=== PATIENT | male | born 1995 | race Caucasian/White ===

== ENCOUNTER 2016-07-27 22:46 | Emergency (ER) | payer SELFPAY ==
[2016-07-27 23:04] VITALS: BP 119/56
[2016-07-28] MEDS ORDERED: KETOROLAC TROMETHAMINE 60 MG/2 ML SDV IM ONE (02:31)
[2016-07-28] MEDS ORDERED: ONDANSETRON 4 MG TAB.RAPDIS PO ONE (02:31)
== END 2016-07-28 02:43 | disposition left against medical advice (07) ==
LOC: ER 22:46
DX: Z53.21 Procedure and treatment not carried out due to patient leaving prior to being seen by health care provider (principal)

== ENCOUNTER 2017-12-07 00:59 | Emergency (ER) | payer SELFPAY ==
[2017-12-07] MEDS ORDERED: DEXAMETHASONE SOD PHOS INJ 10 MG/1 ML VIAL IM ONE (03:59)
[2017-12-07] MEDS ORDERED: ALBUTEROL SULFATE 0.083% NEB 2.5 MG/3 ML AMPUL NEB ONE (03:59)
--- NOTE | 2017-12-07 04:01 | ER Document Report ---
HPI - HPI Pain Level: 4 Notes: Patient is a 21-year-old male with no significant past medical history aside from asthma who presents to the ED complaining of a dry semi-productive cough and wheezing over the last 1-2 days. Patient has not been using any over-the- counter meds for symptoms. He is still eating and drinking without difficulties. He is urinating normally. Patient does admit to smoking but denies IV drug use. Patient states that he is able to ambulate without any difficulties, dyspnea on exertion, or development of any chest pain. Denies any drug allergies. Patient arrived by EMS and received one DuoNeb and states that his symptoms improved thereafter. Denies any headache, fever, neck pain, URI, sore throat, chest pain, palpitations, syncope, abdominal pain, nausea/ vomiting/diarrhea, urinary retention, dysuria, hematuria, loss of control of bowel or bladder, numbness/tingling, saddle anesthesia, muscle paralysis/ weakness, or rash. He has not had any leg or calf pains. He denies any hormone use, prolonged immobilization, previous DVT/PE, recent surgery/trauma. - ROS Systems Reviewed and Negative: Yes All other systems reviewed and negative - DERM Skin Color: Normal Past Medical History - Social History Smoking Status: Current Every Day Smoker Chew tobacco use (# tins/day): No Frequency of alcohol use: None Drug Abuse: Heroin Family History: Reviewed & Not Pertinent Patient has suicidal ideation: No Patient has homicidal ideation: No Pulmonary Medical History: Reports: Hx Asthma Neurological Medical History: Reports: Hx Migraine Renal/ Medical History: Denies: Hx Peritoneal Dialysis - Immunizations Immunizations up to date: Yes Hx Diphtheria, Pertussis, Tetanus Vaccination: Yes Vertical Provider Document - CONSTITUTIONAL Agree With Documented VS: No - HR 90 during my exam Notes: PHYSICAL EXAMINATION: GENERAL: Well-appearing, well-nourished and in no acute distress. LUNGS: wheezing throughout and b/l. no retractions. HEART: Regular rate and rhythm without murmurs, rubs, gallops. ABDOMEN: Soft, nontender, nondistended abdomen. No guarding, no rebound. No masses appreciated. Normal bowel sounds present. No CVA tenderness bilaterally. Musculoskeletal: FROM to passive/active. Strength 5+/5. Diogo neg b/l. Extremities: No cyanosis, clubbing, or edema b/l. Peripheral pulses 2+. Capillary refill less than 3 seconds. NEUROLOGICAL: Normal speech, normal gait. PSYCH: Normal mood, normal affect. SKIN: Warm, Dry, normal turgor, no rashes or lesions noted. - INFECTION CONTROL TRAVEL OUTSIDE OF THE [place] IN LAST 30 DAYS: No Course - Re-evaluation Re-evalutation: 12/07/17 04:43 Patient is an afebrile, well-hydrated, 21-year-old male who presents to the ED with acute asthma exacerbation. Vitals are acceptable. PE is otherwise unremarkable. Patient was given a DuoNeb treatment by EMS and an albuterol treatment by us as well as receiving Decadron. Chest x-ray was unremarkable for any acute pathology. He has no significant tachycardia, tachypnea, or hypoxia. He has low risk factor for DVT/PE. Patient states that he feels 100% better. No other labs or imaging warranted at this time based on H&P. Patient' s symptomatology and physical exam findings as well as his vitals do not correlate well with ACS, PE, pneumothorax, pericarditis, dissection, respiratory compromise, severe dehydration, sepsis, meningitis, or other systemic emergent condition at this time. Patient is aware that his condition can change from initial presentation and he needs to monitor symptoms closely and seek medical attention for any acute changes. Recommend conservative measures for symptoms. Recheck with your PCM in 3-5 days. Return to the ED with any worsening/concerning symptoms otherwise as reviewed in discharge. Patient is in agreement. I will send him home with a prescription for an albuterol inhaler. Conservative measures otherwise for symptoms. Recheck with your PCM in 3-5 days. Return to the ED with any worsening/concerning symptoms otherwise as reviewed discharge. Patient is in agreement. - Vital Signs Vital signs: Temp Pulse Resp BP Pulse Ox 98.0 F 111 H 18 127/67 H 93 12/07/17 01:30 12/07/17 01:30 12/07/17 01:30 12/07/17 01:30 12/07/17 01:30 Discharge - Discharge Clinical Impression: Acute asthma exacerbation Qualifiers: Asthma severity: mild Asthma persistence: intermittent Qualified Code(s): J45.21 - Mild intermittent asthma with (acute) exacerbation Condition: Stable Disposition: HOME, SELF-CARE Additional Instructions: Maintain adequate fluid intake Take meds as directed tylenol/ibuprofen as needed over the counter cold medication as needed for symptoms Humidified air may help Wash your hands regularly Wear a mask when coughing F/u: with your PCM in 3-5 days for a recheck Return to the ED with any fever, worsening pain, chest pain, palpitations, syncope, worsening OSBORN, neck pain/stiffness, shortness of breath, wheezing, drooling, trouble swallowing/breathing, abdominal pain, n/v/d, rash, or worsening/concerning symptoms otherwise. Prescriptions: Albuterol Sulfate [Proair HFA Inhalation Aerosol 8.5 gm MDI] 2 puff IH Q4H PRN # 1 mdi PRN Reason: Forms: Smoking Cessation Education, Elevated Blood Pressure Referrals: [facility] [Provider Group] - Follow up as needed [facility] [Provider Group] - Follow up as needed
--- NOTE | 2017-12-07 04:26 | RADIOLOGY REPORT (SQ) ---
EXAM DESCRIPTION: 2 views of the chest CLINICAL HISTORY: cough, wheeze COMPARISON: None. FINDINGS: Frontal and lateral views of the chest. The cardiomediastinal silhouette has normal size and contour. No consolidation, pneumothorax, or pleural effusion. No displaced rib fractures identified. Upper abdominal soft tissues are unremarkable. IMPRESSION: 1. No acute pulmonary process identified.
[2017-12-07 04:52] VITALS: BP 117/68
== END 2017-12-07 04:52 | disposition home or self-care (01) ==
LOC: ER 00:59
DX: J45.21 Mild intermittent asthma with (acute) exacerbation (principal); F17.200 Nicotine dependence, unspecified, uncomplicated
CPT/HCPCS: 94640; 99285; 96372; 71046; J1100

== ENCOUNTER 2018-11-07 12:41 | Emergency (ER) | payer OTHER ==
[2018-11-07] MEDS ORDERED: ONDANSETRON 4 MG TAB.RAPDIS PO ONE (13:24)
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
[2018-11-07 14:16] LABS: HEMATOCRIT 45.9 % (37.9-51.0); HEMOGLOBIN 16.4 g/dL (13.5-17.0); MEAN CORPUSCULAR HEMOGLOBIN 30.6 pg (27.0-33.4); MEAN CORPUSCULAR HGB CONC 35.7 g/dL (32.0-36.0); MEAN CORPUSCULAR VOLUME 86 fl (80-97); PLATELET COUNT 120 10^3/uL (150-450); RED BLOOD COUNT 5.37 10^6/uL (4.35-5.55); RED CELL DISTRIBUTION WIDTH 13.2 % (11.5-14.0); WHITE BLOOD COUNT 10.6 10^3/uL (4.0-10.5)
[2018-11-07 14:27] LABS: APPEARANCE,URINE SLIGHTLY-CLOUDY; BILIRUBIN,URINE NEGATIVE (NEGATIVE); GLUCOSE, URINE 150 mg/dL (NEGATIVE); KETONES,URINE TRACE mg/dL (NEGATIVE); LEUKOCYTE ESTERASE,URINE NEGATIVE (NEGATIVE); NITRITE,URINE NEGATIVE (NEGATIVE); PROTEIN,URINE 100 mg/dL (NEGATIVE); URINE SPECIFIC GRAVITY 1.028
[2018-11-07 14:28] LABS: COLOR,URINE YELLOW
[2018-11-07 14:37] LABS: URINE AMPHETAMINES SCREEN NEGATIVE; URINE BARBITURATES SCREEN NEGATIVE; URINE BENZODIAZEPINES SCREEN NEGATIVE; URINE COCAINE SCREEN NEGATIVE; URINE MARIJUANA (THC) SCREEN UNCONFIRMED POSITIVE; URINE METHADONE SCREEN NEGATIVE; URINE PHENCYCLIDINE SCREEN NEGATIVE
[2018-11-07 14:44] LABS: ALANINE AMINOTRANSFERASE 216 U/L (21-72); ALBUMIN 4.1 g/dL (3.5-5.0); ALKALINE PHOSPHATASE 93 U/L (38-126); ANION GAP 11 (5-19); ASPARTATE AMINO TRANSFERASE 248 U/L (17-59); BILIRUBIN,DIRECT 0.4 mg/dL (0.0-0.4); BLOOD UREA NITROGEN 14 mg/dL (7-20); CALCIUM 10.2 mg/dL (8.4-10.2); CARBON DIOXIDE 25 mmol/L (22-30); CHLORIDE 99 mmol/L (98-107); GLUCOSE 123 mg/dL (75-110); POTASSIUM 4.8 mmol/L (3.6-5.0); SODIUM 134.7 mmol/L (137-145); TOTAL PROTEIN 7.2 g/dL (6.3-8.2)
[2018-11-07 14:55] LABS: ABSOLUTE LYMPHOCYTES# (MANUAL) 0.2 10^3/uL (0.5-4.7); ABSOLUTE MONOCYTES # (MANUAL) 0.4 10^3/uL (0.1-1.4); BAND NEUTROPHILS % (MANUAL) 10 % (3-5); BASOPHILS % (MANUAL) 0 % (0-2); EOSINOPHILS % (MANUAL) 0 % (0-6); LYMPHOCYTES % (MANUAL) 2 % (13-45); MONOCYTES % (MANUAL) 4 % (3-13); SEGMENTED NEUTROPHILS % (MAN) 84 % (42-78); TOTAL CELLS COUNTED 100
[2018-11-07 14:56] LABS: OVALOCYTES SLIGHT; PLATELET COMMENT DECREASED; POIKILOCYTOSIS SLIGHT
[2018-11-07] MEDS ORDERED: NORMAL SALINE 1000 ML 1,000 ML IV ONE (14:59)
[2018-11-07] MEDS ORDERED: KETOROLAC TROMETHAMINE INJ/PF 30 MG/1 ML SDV IV ONE (14:59)
[2018-11-07] MEDS ORDERED: METOCLOPRAMIDE HCL INJ/PF 10 MG/2 ML SDV IV ONE (14:59)
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
[2018-11-07 17:00] VITALS: BP 120/60
[2018-11-09 06:38] LABS: HEPATITIS A AB IGM Negative (Negative); HEPATITIS B CORE AB IGM Negative (Negative); HEPATITS B SURFACE ANTIGEN Negative (Negative)
[2018-11-11 09:43] LABS: HEPATITIS C VIRUS ANTIBODY <0.1 s/co ratio (0.0-0.9)
== END 2018-11-07 17:02 | disposition home or self-care (01) ==
LOC: ER 12:41
DX: R74.0 Nonspecific elevation of levels of transaminase and lactic acid dehydrogenase [LDH] (principal); R51 Headache; R11.2 Nausea with vomiting, unspecified; F17.210 Nicotine dependence, cigarettes, uncomplicated
CPT/HCPCS: 99284; 96361; 96374; 96375; 36415; 85025; 80053; 81001; 80307; 80074; S0119; J1885; J2765; J7030

== ENCOUNTER 2018-11-09 03:34 | Inpatient (IN) | payer OTHER ==
[2018-11-09] MEDS ORDERED: NORMAL SALINE 1000 ML 1,000 ML IV ONE ×4 (04:04→08:17)
[2018-11-09] MEDS ORDERED: METOCLOPRAMIDE HCL INJ/PF 10 MG/2 ML SDV IV ONE (04:05)
--- NOTE | 2018-11-09 04:11 | ER Document Report ---
ED General <VILLANUEVA,BRIAN - Last Filed: 11/09/18 06:02> - General Mode of Arrival: Medic Information source: Emergency Med Personnel TRAVEL OUTSIDE OF THE [place] IN LAST 30 DAYS: No - HPI Onset: Just prior to arrival Onset/Duration: Worse Quality of pain: Other - Patient cannot describe the pain he just states he has it. Severity: Severe Pain Level: 5 Associated symptoms: Other - Patient refused to verbalize where his pain is located. Exacerbated by: Denies Relieved by: Denies Similar symptoms previously: Yes Recently seen / treated by doctor: Yes <BEATRIS WOOD - Last Filed: 11/09/18 07:58> - General Chief Complaint: Headache >24 hrs old Stated Complaint: HEADACHE Time Seen by Provider: 11/09/18 03:48 Primary Care Provider: LINO DUFF NP [Primary Care Provider] - Follow up as needed Notes: Patient is a 20-year-old male who was brought in by EMS with the only complaint we can find is a headache. According to EMS patient is not been answering any of his questions and refuses to respond to him on it with any type of an answer to any of his questions. Patient was then interviewed by the nursing staff here in the hospital and patient again refused to answer any questions and only sedated that he was in pain. Upon my examination also patient refused to answer questions he would only moan and cry and tell me that he had a headache. He would not further distinguish the headache location did not acknowledge nausea vomiting. Patient did not acknowledge that it was the same or different from his headache that he presented with on the of this month. My history is garnished from mostly the [facility] history of notes and the most recent one about the headaches. Patient is a known himself admitted methamphetamine user. He had stated that in the last note he had stopped for a year or so but then he accused his girlfriend of spiking his drink prior to him coming in for his headache 2 days ago. (BEATRIS WOOD) - HPI Notes: Patient's vital signs had not been captured by the time I had seen him however EMS reports a blood pressure 119/82 heart rate of 130/sinus tach pulse ox is 98% on room air and respiratory rate of 22 with a blood sugar 121. (BEATRIS WOOD) - Related Data Allergies/Adverse Reactions: No Known Allergies Allergy (Verified 11/07/18 12:47) Past Medical History - General Information source: [facility] Records - Social History Smoking Status: Current Every Day Smoker Cigarette use (# per day): Yes - Greater than a pack a day Chew tobacco use (# tins/day): No Smoking Education Provided: Yes Frequency of alcohol use: Unknown at this time Drug Abuse: Methamphetamine Occupation: Unknown at this time Lives with: Other - Unknown at this time Family History: Reviewed & Not Pertinent Patient has suicidal ideation: No Patient has homicidal ideation: No Pulmonary Medical History: Reports: Hx Asthma Neurological Medical History: Reports: Hx Migraine Renal/ Medical History: Denies: Hx Peritoneal Dialysis - Immunizations Immunizations up to date: Yes Hx Diphtheria, Pertussis, Tetanus Vaccination: Yes <BEATRIS WOOD - Last Filed: 11/09/18 07:58> Review of Systems - Review of Systems Constitutional: No symptoms reported EENT: No symptoms reported Cardiovascular: No symptoms reported Respiratory: No symptoms reported Gastrointestinal: No symptoms reported Genitourinary: No symptoms reported Male Genitourinary: No symptoms reported Musculoskeletal: No symptoms reported Skin: No symptoms reported Hematologic/Lymphatic: No symptoms reported Neurological/Psychological: See HPI, Headaches -: Yes All other systems reviewed and negative <BEATRIS WOOD - Last Filed: 11/09/18 07:58> Physical Exam - Vital signs Interpretation: Tachycardic <BEATRIS WOOD - Last Filed: 11/09/18 07:58> - Vital signs Vitals: Pulse BP Pulse Ox 139 H 130/65 H 100 11/09/18 03:41 11/09/18 03:41 11/09/18 03:41 - Notes Notes: PHYSICAL EXAMINATION: GENERAL: Patient is a disheveled and frail appearing 22-year-old male who is laying on his left side in position HEAD: Atraumatic, normocephalic. EYES: Patient refused to be cooperative and opening his eyes for us to do an eye exam however" glances they appear to be equal and reactive. ENT: Nares patent, oropharynx clear without exudates. Moderately dry mucosa NECK: Normal range of motion, supple without lymphadenopathy LUNGS: Breath sounds clear to auscultation bilaterally and equal. No wheezes rales or rhonchi. HEART: Regular rate and rhythm without murmurs ABDOMEN: Examination of the abdomen shows he has bowel sounds all 4 quads he is nontender to palpation. NEUROLOGICAL: Neurologic exam at this time is impossible to do patient will not cooperate PSYCH: Again unable to ascertain patient's psychiatric stableness at this time because he refuses to cooperate in discussion. (BEATRIS WOOD) Course - Laboratory Result Diagrams: 11/09/18 04:04 11/09/18 04:04 <REAGAN VILLANUEVA - Last Filed: 11/09/18 06:02> - Laboratory Result Diagrams: 11/09/18 04:04 11/09/18 04:04 <BEATRIS WOOD - Last Filed: 11/09/18 07:58> - Re-evaluation Re-evalutation: 11/09/18 05:40 Patient is 22 male who presents with some confusion and headache. Was initially seen by the PA. To evaluate the patient because he was trying to get out of bed and was kneeling on the floor. Help him back in the bed. He felt warm to me. On checked a rectal temp and is high. Patient says he has been having headache. Was seen here 2 days ago for headache. He obviously has some confusion but is able to communicate some. I will before the lumbar puncture. Avoid Rocephin and acyclovir as I have concerns for possible meningitis or encephalitis based on the patient's fever, confusion, and headache. Patient does have some elevated liver transaminases. Sometimes recommend spelled fever can present with presentation of fever and elevated LFTs. Therefore did order doxycycline. (REAGAN VILLANUEVA) 11/09/18 07:52 As stated in previous notes patient did spike a temp to [address] Villanueva did do a tap and tap came back as a viral meningitis with a WBC of 388. Patient has been restrained with soft restraints secondary to his own protection he is still somewhat altered and he is inadvertently trying to get out of bed and we need to stop him from falling out of bed. I have discussed the case with Cordelia De La Cruz NP for the hospitalist group she is taken him to [facility]. (BEATRIS WOOD) - Vital Signs Vital signs: Temp Pulse Resp BP Pulse Ox 101.5 F H 139 H 21 H 109/47 L 99 11/09/18 07:29 11/09/18 03:41 11/09/18 07:20 11/09/18 07:20 11/09/18 07:20 - Laboratory Laboratory results interpreted by me: 11/09/18 11/09/18 11/09/18 04:04 04:04 04:04 Plt Count 65 L Seg Neuts % (Manual) 89 H Band Neutrophils % 1 L Lymphocytes % (Manual) 6 L Abs Neuts (Manual) 9.5 H Glucose 127 H Lactic Acid Total Bilirubin 2.0 H Direct Bilirubin 1.2 H AST 435 H ALT 337 H Ammonia < 8.7 L Total Protein 5.9 L Albumin 3.1 L CSF WBC CSF Total Protein Salicylates < 1.0 L 11/09/18 11/09/18 11/09/18 05:55 05:55 05:55 Plt Count Seg Neuts % (Manual) Band Neutrophils % Lymphocytes % (Manual) Abs Neuts (Manual) Glucose Lactic Acid Total Bilirubin Direct Bilirubin AST ALT Ammonia Total Protein Albumin CSF WBC 338 H 194 H CSF Total Protein 123 H Salicylates 11/09/18 06:16 Plt Count Seg Neuts % (Manual) Band Neutrophils % Lymphocytes % (Manual) Abs Neuts (Manual) Glucose Lactic Acid 2.4 H Total Bilirubin Direct Bilirubin AST ALT Ammonia Total Protein Albumin CSF WBC CSF Total Protein Salicylates Procedures - Lumbar Puncture Lumbar puncture Consent obtained: No - Patient altered Patient position: Lying Needle size: 22 Lumbar puncture location: L4-L5 Anesthetic type: 1% Lidocaine mL's of anesthetic: 2 Amount/type of drainage: 8 clear Number of attempts: 1 Complications: No <REAGAN VILLANUEVA - Last Filed: 11/09/18 06:02> Discharge <REAGAN VILLANUEVA - Last Filed: 11/09/18 06:02> - Discharge Admitting Provider: Cordelia De La Cruz NP Unit Admitted: IMCU <BEATRIS WOOD - Last Filed: 11/09/18 07:58> - Discharge Clinical Impression: Viral meningitis Condition: Fair Disposition: ADMITTED INPATIENT Referrals: LINO DUFF NP [Primary Care Provider] - Follow up as needed
[2018-11-09] MEDS ORDERED: LORAZEPAM INJ 2 MG/1 ML VIAL IV ONE ×2 (04:18→07:40)
[2018-11-09 04:29] LABS: HEMATOCRIT 41.3 % (37.9-51.0); HEMOGLOBIN 14.4 g/dL (13.5-17.0); MEAN CORPUSCULAR HEMOGLOBIN 30.5 pg (27.0-33.4); MEAN CORPUSCULAR VOLUME 87 fl (80-97); RED BLOOD COUNT 4.73 10^6/uL (4.35-5.55); WHITE BLOOD COUNT 10.5 10^3/uL (4.0-10.5)
[2018-11-09 04:38] LABS: ACETAMINOPHEN 16 ug/mL (10-30); ALANINE AMINOTRANSFERASE 337 U/L (21-72); ALBUMIN 3.1 g/dL (3.5-5.0); ALKALINE PHOSPHATASE 105 U/L (38-126); ANION GAP 10 (5-19); ASPARTATE AMINO TRANSFERASE 435 U/L (17-59); BILIRUBIN,DIRECT 1.2 mg/dL (0.0-0.4); BLOOD UREA NITROGEN 12 mg/dL (7-20); CALCIUM 8.8 mg/dL (8.4-10.2); CARBON DIOXIDE 26 mmol/L (22-30); CHLORIDE 102 mmol/L (98-107); GLUCOSE 127 mg/dL (75-110); LIPASE 72.7 U/L (23-300); POTASSIUM 4.1 mmol/L (3.6-5.0); SODIUM 137.5 mmol/L (137-145); TOTAL PROTEIN 5.9 g/dL (6.3-8.2)
[2018-11-09 04:39] LABS: ALCOHOL < 10 mg/dL (NONE DETECTED); SALICYLATE < 1.0 mg/dL (2.0-20.0)
[2018-11-09 04:40] LABS: URINE AMPHETAMINES SCREEN NEGATIVE; URINE BARBITURATES SCREEN NEGATIVE; URINE BENZODIAZEPINES SCREEN UNCONFIRMED POSITIVE; URINE COCAINE SCREEN NEGATIVE; URINE MARIJUANA (THC) SCREEN UNCONFIRMED POSITIVE; URINE METHADONE SCREEN NEGATIVE; URINE PHENCYCLIDINE SCREEN NEGATIVE
[2018-11-09 04:49] LABS: PLATELET COUNT 65 10^3/uL (150-450)
[2018-11-09 04:51] LABS: ABSOLUTE LYMPHOCYTES# (MANUAL) 0.6 10^3/uL (0.5-4.7); ABSOLUTE MONOCYTES # (MANUAL) 0.3 10^3/uL (0.1-1.4); ABSOLUTE NEUTROPHILS# (MANUAL) 9.5 10^3/uL (1.7-8.2); BAND NEUTROPHILS % (MANUAL) 1 % (3-5); BASOPHILS % (MANUAL) 1 % (0-2); EOSINOPHILS % (MANUAL) 0 % (0-6); LYMPHOCYTES % (MANUAL) 6 % (13-45); MONOCYTES % (MANUAL) 3 % (3-13); SEGMENTED NEUTROPHILS % (MAN) 89 % (42-78); TOTAL CELLS COUNTED 100; TOXIC GRANULATION 1+; TOXIC VACUOLATION PRESENT
--- NOTE | 2018-11-09 04:52 | RADIOLOGY REPORT (SQ) ---
EXAM DESCRIPTION: CT HEAD WITHOUT IV CONTRAST COMPLETED DATE/TME: 11/09/2018 04:02 CLINICAL HISTORY: 22 years, Male, altered mental status COMPARISON: 12/31/2015 CT TECHNIQUE: 202 Images stored on PACS. All CT scanners at this facility use dose modulation, iterative reconstruction, and/or weight based dosing when appropriate to reduce radiation dose to as low as reasonably achievable (ALARA). [facility]: Dose Right [facility]: CareDose [facility]: Dose Right [facility]: Teradose 4D [facility]: [employer] LIMITATIONS: None. FINDINGS: The globes are intact. The paranasal sinuses and mastoid air cells are unremarkable. No displaced or depressed skull fracture. No intra or extra-axial hemorrhage. CT is limited for evaluation of acute infarct. No CT evidence for large or territorial acute infarct. No mass. No midline shift IMPRESSION: Negative exam TECHNICAL DOCUMENTATION: Quality ID # 436: Final reports with documentation of one or more dose reduction techniques (e.g., Automated exposure control, adjustment of the mA and/or kV according to patient size, use of iterative reconstruction technique) copyright 2011 [employer]- All Rights Reserved
[2018-11-09 04:53] LABS: BURR CELLS SLIGHT; HELMET CELLS SLIGHT; OVALOCYTES SLIGHT; PLATELET COMMENT DECREASED; POIKILOCYTOSIS SLIGHT
--- NOTE | 2018-11-09 05:07 | RADIOLOGY REPORT (SQ) ---
EXAM DESCRIPTION: X-ray single view chest. CLINICAL HISTORY: 22 years Male, altered mental status COMPARISON: 12/07/2017 TECHNIQUE: Single portable x-ray view of the chest performed on 11/09/2018 at 4:43 AM FINDINGS: The lungs are well expanded and are clear. There is no evidence of a pneumothorax. The cardiac silhouette is normal in size and configuration. The mediastinal contours are normal. No acute osseous abnormality is identified. No focal soft tissue abnormalities are seen. Lines and tubes: None. IMPRESSION: No evidence of acute intrathoracic disease.
[2018-11-09] MEDS ORDERED: CEFTRIAXONE 2 GM/D5W RTU 2 GM/50 ML RTUPB IV ONE (05:37)
[2018-11-09] MEDS ORDERED: ACYCLOVIR SODIUM INJ/PF 500 MG/10 ML SDV IV ONE (05:38)
[2018-11-09] MEDS ORDERED: ACETAMINOPHEN 650 MG SUPP.RECT PR ONE (05:38)
[2018-11-09] MEDS ORDERED: DOXYCYCLINE HYCLATE INJ 100 MG VIAL IV ONE (05:39)
[2018-11-09 06:39] LABS: GLUCOSE,CSF 60 mg/dL (40-70); PROTEIN,CSF 123 mg/dL (12-60)
[2018-11-09 07:28] LABS: COLOR TUBE 1 COLORLESS; COLOR TUBE 2 COLORLESS; COLOR TUBE 3 COLORLESS; COLOR TUBE 4 COLORLESS; CSF TUBE NUMBER 1
[2018-11-09 07:29] LABS: APPEARANCE ALL TUBES CLEAR; APPEARANCE TUBE 1 CLEAR; APPEARANCE TUBE 2 CLEAR; APPEARANCE TUBE 3 CLEAR; APPEARANCE TUBE 4 CLEAR; COLOR ALL TUBES COLORLESS
[2018-11-09 07:30] LABS: CSF TOTAL VOLUME 6.5 CC; RED BLOOD CELL,CSF 77 /uL (0-10); VOLUME TUBE 3 1.5 CC
[2018-11-09 07:31] LABS: WHITE BLOOD CELL,CSF 338 /uL (0-5)
[2018-11-09 07:45] LABS: APPEARANCE ALL TUBES CLEAR; APPEARANCE TUBE 1 CLEAR; APPEARANCE TUBE 2 CLEAR; APPEARANCE TUBE 3 CLEAR; APPEARANCE TUBE 4 CLEAR; COLOR ALL TUBES COLORLESS; COLOR TUBE 1 COLORLESS; COLOR TUBE 2 COLORLESS; COLOR TUBE 3 COLORLESS; COLOR TUBE 4 COLORLESS; CSF TOTAL VOLUME 6.5 CC; CSF TUBE NUMBER 4; VOLUME TUBE 3 1.5 CC
[2018-11-09 07:46] LABS: RED BLOOD CELL,CSF 110 /uL (0-10)
[2018-11-09 07:47] LABS: WHITE BLOOD CELL,CSF 194 /uL (0-5)
[2018-11-09] MEDS ORDERED: ONDANSETRON HCL INJ/PF 4 MG/2 ML SDV IV PRN (08:09)
[2018-11-09] MEDS ORDERED: IPRATROPIUM/ALBUTEROL 0.5-2.5 MG/3 ML AMPUL NEB PRN (08:09)
[2018-11-09] MEDS ORDERED: NORMAL SALINE 1000 ML 1,000 ML IV PRN (08:09)
[2018-11-09] MEDS ORDERED: VANCOMYCIN HCL 0 MG in DEXTROSE 5%-WATER 250 ML IV NR (08:45)
[2018-11-09] MEDS: PANTOPRAZOLE SODIUM 40 MG VIAL IV SCH ×2 (09:58→21:33)
[2018-11-09] MEDS: KETOROLAC TROMETHAMINE INJ/PF 30 MG/1 ML SDV IV PRN ×2 (09:58→16:53)
[2018-11-09] MEDS: CEFTRIAXONE 2 GM/D5W RTU 2 GM/50 ML RTUPB IV SCH ×2 (09:59→21:30)
[2018-11-09] MEDS ORDERED: ENOXAPARIN SODIUM INJ 30 MG/0.3 ML DISP.SYRIN SUBCUT SCH (10:00)
[2018-11-09] MEDS ORDERED: LEVALBUTEROL HCL NEB 1.25 MG/3 ML AMPUL NEB PRN (10:01)
--- NOTE | 2018-11-09 13:51 | RADIOLOGY REPORT (SQ) ---
EXAM DESCRIPTION: U/S ABDOMEN COMPLETE W/O DOP COMPLETED DATE/TIME: 11/09/2018 1:38 pm REASON FOR STUDY: acute transaminitis COMPARISON: None. TECHNIQUE: Dynamic and static grayscale images acquired of the abdomen and recorded on PACS. Additio nal selected color Doppler and spectral images recorded. Note: Study does not meet criteria for complete doppler/duplex scan LIMITATIONS: None. FINDINGS: PANCREAS: No masses. Visualized pancreatic duct normal caliber. LIVER: No masses. Echotexture normal. LIVER VASCULATURE: Normal directional flow of the main portal vein and hepatic veins. GALLBLADDER: Gallbladder wall is thickened 3.3 mm. There are no stones. ULTRASOUND-DETECTED HELTON'S SIGN: Negative. INTRAHEPATIC DUCTS AND COMMON DUCT: CBD and intrahepatic ducts normal caliber. No filling defects. INFERIOR VENA CAVA: Normal flow. AORTA: No aneurysm. RIGHT KIDNEY: Normal size. Normal echogenicity. No solid or suspicious masses. No hydronephros is. No calcifications. LEFT KIDNEY: Normal size. Normal echogenicity. No solid or suspicious masses. No hydronephrosi s. No calcifications. SPLEEN: Splenomegaly. 14.9 cm. PERITONEAL AND PLEURAL SPACES: No ascites or effusions. OTHER: No other significant finding. IMPRESSION: Gallbladder wall thickening without evidence for pericholecystic fluid or gallstones. Splenomegaly. TECHNICAL DOCUMENTATION: JOB ID: [id number] [employer]- All Rights Reserved Reading location - IP/workstation name: [email or web address]
[2018-11-09] MEDS: HALOPERIDOL LACTATE INJ 5 MG/1 ML VIAL IV PRN (14:40)
[2018-11-09] MEDS: ACYCLOVIR SODIUM 750 MG in NORMAL SALINE 250 ML IV SCH ×2 (15:20→21:32)
--- NOTE | 2018-11-09 16:00 | PDOC H&P ---
History of Present Illness Admission Date/PCP: 11/09/18 08:15 LINO DUFF NP Patient complains of: headache. History of Present Illness: DONAVAN FALCON is a 22 year old male with a history of illicit drug use (methamphetamine, marijuana, cocaine). Patient presents to [facility] emergency department for AMS and headache. According to patient's father, patient has been experiencing headache for over a week. Seen at [facility] ED 11/07/2018 for complaint of headache and discharged home. Father says the patient woke up this morning and was altered and had a witnessed fall at home (no head trauma or LOC), which prompted him to call EMS. Upon arrival to the emergency department, patient is intermittently cooperative with staff. He is agitated and confused. HR 130 BP 130/65 T 101.5 RR 25 SPO2 100%. EKG shows sinus tachycardia. CXR benign, no cardiopulmonary pathology. CT head normal, no abnormal pathology. CBC relatively normal, no evidence of anemia or leukocytosis. Lactic acid elevated to 2.4 transaminitis (AST 435 ALT 337), elevated proBNP 8650. Lumbar puncture performed by ED physician, CSF clear and colorless, elevated WBCs 338, elevated protein 123, normal glucose 60. CSF findings fit with viral meningitis. Upon assessment, the patient is awake but confused. Oriented to self but disoriented to place, time and situation. S1-S2. Sinus tachycardia on telemetry tracing. Palpable pulses in upper and lower extremities. No evidence of peripheral edema. Lungs clear to auscultation. Very poor dentition, multiple cavities present, mucosal ulcerations. There is a small bruise and abrasion to the patient's lumbar spine, likely related to his fall this morning. Plan to admit to hospitalist service to the [facility]. Past Medical History Pulmonary Medical History: Reports: Asthma Neurological Medical History: Reports: Migraine Social History Information Source: Patient Lives with: Family Smoking Status: Current Every Day Smoker Frequency of Alcohol Use: None Hx Recreational Drug Use: Yes Drugs: Cocaine, Marijuana, Other - Methamphetamine Hx Prescription Drug Abuse: No - Advance Directive Resuscitation Status: Full Code Family History Family History: Reviewed & Not Pertinent Parental Family History Reviewed: Yes Children Family History Reviewed: Yes Sibling(s) Family History Reviewed.: Yes Medication/Allergy Home Medications: No Home Medications 11/09/18 Allergies/Adverse Reactions: No Known Allergies Allergy (Verified 11/07/18 12:47) Review of Systems ROS unobtainable: Due to mental status Physical Exam Vital Signs: Temp Pulse Resp BP Pulse Ox 99.0 F 126 H 16 108/50 L 98 11/09/18 09:41 11/09/18 15:10 11/09/18 15:10 11/09/18 09:41 11/09/18 15:10 Intake & Output 11/08/18 11/09/18 11/10/18 06:59 06:59 06:59 Intake Total 1050 3050 Output Total 550 Balance 1050 2500 Weight 75 kg General appearance: PRESENT: well-developed, well-nourished Head exam: PRESENT: atraumatic Eye exam: PRESENT: conjunctiva pink, PERRLA Mouth exam: PRESENT: other - tacky, ulcerated Teeth exam: PRESENT: poor dentation Neck exam: ABSENT: full ROM - (+) illicit pain with neck flexion Respiratory exam: PRESENT: clear to auscultation cassandra, symmetrical, tachypnea Cardiovascular exam: PRESENT: tachycardia Pulses: PRESENT: normal radial pulses, normal dorsalis pedis pul Vascular exam: PRESENT: normal capillary refill GI/Abdominal exam: PRESENT: normal bowel sounds, soft. ABSENT: distended, tenderness Rectal exam: PRESENT: deferred Extremities exam: PRESENT: full ROM. ABSENT: pedal edema Musculoskeletal exam: PRESENT: ambulatory, full ROM. ABSENT: deformity Neurological exam: PRESENT: awake, oriented to person. ABSENT: alert, oriented to place, oriented to time, oriented to situation Psychiatric exam: PRESENT: anxious Skin exam: PRESENT: normal color Results Laboratory Results: 11/09/18 04:04 11/09/18 04:04 11/09/18 11/09/18 11/09/18 04:04 04:04 04:04 WBC 10.5 RBC 4.73 Hgb 14.4 Hct 41.3 MCV 87 MCH 30.5 MCHC 35.0 RDW 13.0 Plt Count 65 L Seg Neutrophils % Not Reportable Lymphocytes % Not Reportable Monocytes % Not Reportable Eosinophils % Not Reportable Basophils % Not Reportable Absolute Neutrophils Not Reportable Absolute Lymphocytes Not Reportable Absolute Monocytes Not Reportable Absolute Eosinophils Not Reportable Absolute Basophils Not Reportable Sodium 137.5 Potassium 4.1 Chloride 102 Carbon Dioxide 26 Anion Gap 10 BUN 12 Creatinine 0.82 Est GFR ( Amer) > 60 Est GFR (Non-Af Amer) > 60 Glucose 127 H Lactic Acid Calcium 8.8 Total Bilirubin 2.0 H AST 435 H ALT 337 H Alkaline Phosphatase 105 Ammonia < 8.7 L Total Protein 5.9 L Albumin 3.1 L Lipase 72.7 Fluid Tube Number CSF Volume CSF Appearance CSF Color CSF WBC CSF RBC CSF Color (1) CSF Appearance (1) CSF Color (2) CSF Appearance (2) CSF Color (3) CSF Appearance (3) CSF Color (4) CSF Appearance (4) CSF Glucose CSF Total Protein 11/09/18 11/09/18 11/09/18 05:55 05:55 05:55 WBC RBC Hgb Hct MCV MCH MCHC RDW Plt Count Seg Neutrophils % Lymphocytes % Monocytes % Eosinophils % Basophils % Absolute Neutrophils Absolute Lymphocytes Absolute Monocytes Absolute Eosinophils Absolute Basophils Sodium Potassium Chloride Carbon Dioxide Anion Gap BUN Creatinine Est GFR ( Amer) Est GFR (Non-Af Amer) Glucose Lactic Acid Calcium Total Bilirubin AST ALT Alkaline Phosphatase Ammonia Total Protein Albumin Lipase Fluid Tube Number 1 4 CSF Volume 6.5 6.5 CSF Appearance CLEAR CLEAR CSF Color COLORLESS COLORLESS CSF WBC 338 H 194 H CSF RBC 77 110 CSF Color (1) COLORLESS COLORLESS CSF Appearance (1) CLEAR CLEAR CSF Color (2) COLORLESS COLORLESS CSF Appearance (2) CLEAR CLEAR CSF Color (3) COLORLESS COLORLESS CSF Appearance (3) CLEAR CLEAR CSF Color (4) COLORLESS COLORLESS CSF Appearance (4) CLEAR CLEAR CSF Glucose 60 CSF Total Protein 123 H 11/09/18 11/09/18 06:16 11:10 WBC RBC Hgb Hct MCV MCH MCHC RDW Plt Count Seg Neutrophils % Lymphocytes % Monocytes % Eosinophils % Basophils % Absolute Neutrophils Absolute Lymphocytes Absolute Monocytes Absolute Eosinophils Absolute Basophils Sodium Potassium Chloride Carbon Dioxide Anion Gap BUN Creatinine Est GFR ( Amer) Est GFR (Non-Af Amer) Glucose Lactic Acid 2.4 H 1.5 Calcium Total Bilirubin AST ALT Alkaline Phosphatase Ammonia Total Protein Albumin Lipase Fluid Tube Number CSF Volume CSF Appearance CSF Color CSF WBC CSF RBC CSF Color (1) CSF Appearance (1) CSF Color (2) CSF Appearance (2) CSF Color (3) CSF Appearance (3) CSF Color (4) CSF Appearance (4) CSF Glucose CSF Total Protein 11/09/18 04:04 NT-Pro-B Natriuret Pep 8650 H Impressions: Head CT 11/09/18 04:02 IMPRESSION: Negative exam TECHNICAL DOCUMENTATION: Quality ID # 436: Final reports with documentation of one or more dose reduction techniques (e.g., Automated exposure control, adjustment of the mA and/or kV according to patient size, use of iterative reconstruction technique) copyright 2011 [employer]- All Rights Reserved Chest X-Ray 11/09/18 04:04 IMPRESSION: No evidence of acute intrathoracic disease. Abdomen Ultrasound 11/09/18 11:43 IMPRESSION: Gallbladder wall thickening without evidence for pericholecystic fluid or gallstones. Splenomegaly. Status: Imported from PACS Assessment and Plan - Diagnosis (1) Viral meningitis Is this a current diagnosis for this admission?: Yes Plan: Unclear etiology, could be stemming from illicit drug use Lives at home with family CSF shows elevated WBC, elevated protein, glucose levels are normal CSF is clear and colorless Awaiting gram stain Empirically covered with antibiotics and antivirals - rocephin, vancomycin, acyclovir (2) Headache Qualifiers: Headache chronicity pattern: unspecified pattern Intractability: intractable Is this a current diagnosis for this admission?: Yes Plan: Father reports patient has complained of OSBORN for over 1 week This morning patient woke up altered Head CT normal PRN Tylenol and ketoralac for pain (3) Transaminitis Plan: AST 435 ALT 337 US abdomen reveals gallbladder wall thickening (4) Tachycardia Is this a current diagnosis for this admission?: Yes Plan: HR 130s Stemming from infection and dehydration Fluid resuscitation with 4 L IVF in emergency department Continue maintenance IVF at 150 mL/ hour - Time Time Spent with patient: 25-34 minutes Medications reviewed and adjusted accordingly: Yes Anticipated discharge: Home Within: Other - when medically stable - Inpatient Certification Based on my medical assessment, after consideration of the patient's co morbidities, presenting symptoms, or acuity I expect that the services needed warrant INPATIENT care.: Yes I certify that my determination is in accordance with my understanding of Medicare's requirements for reasonable and necessary INPATIENT services [42 CFR 412.3e].: Yes Medical Necessity: Need for IV Antibiotics, Risk of Complication if Not Cared For in Hospital
[2018-11-09] MEDS: ACETAMINOPHEN 650 MG SUPP.RECT PR PRN (16:12)
[2018-11-09] MEDS: VANCOMYCIN HCL 1,250 MG in DEXTROSE 5%-WATER 250 ML IV SCH ×2 (16:30→21:39)
[2018-11-09 16:57] LABS: INTERNATIONAL RATION (INR) 1.09; PROTHROMBIN TIME 14.7 SEC (11.4-15.4)
[2018-11-09 16:58] LABS: FIBRINOGEN 367 mg/dL (209-497)
--- NOTE | 2018-11-09 17:35 | RADIOLOGY REPORT (SQ) ---
EXAM DESCRIPTION: CT ABD/PELVIS WITH IV ONLY COMPLETED DATE/TIME: 11/09/2018 5:21 pm REASON FOR STUDY: febrile illness. GB wall thickening on US COMPARISON: Ultrasound. TECHNIQUE: CT scan of the abdomen and pelvis performed using helical scanning technique with dynamic intravenous contrast injection. No oral contrast. Images reviewed with lung, soft tissue, and bone windows. Reconstructed coronal and sagittal MPR images reviewed. Delayed images for evaluation of the urinary system also acquired. All images stored on PACS. All CT scanners at this facility use dose modulation, iterative reconstruction, and/or weight based d osing when appropriate to reduce radiation dose to as low as reasonably achievable (ALARA). [facility]: Dose Right [facility]: CareDose [facility]: Dose Right [facility]: Teradose 4D [facility]: [employer] CONTRAST TYPE AND DOSE: contrast/concentration: Isovue 350.00 mg/ml; Total Contrast Delivered: 86.0 ml; Total Saline Delivered: 69.0 ml RENAL FUNCTION: Unknown RADIATION DOSE: CT Rad equipment meets quality standard of care and radiation dose reduction techniq ues were employed. CTDIvol: 5.1 - 6.4 mGy. DLP: 677 mGy-cm.. LIMITATIONS: Minimal body fat FINDINGS: LOWER CHEST: Minimal opacities. Small effusions. LIVER: Normal size. No masses. No dilated ducts. SPLEEN: Normal size. No focal lesions. PANCREAS: No masses. No significant calcifications. No adjacent inflammation or peripancreatic fluid collections. Pancreatic duct not dilated. GALLBLADDER: Collapsed. Small amount of pericholecystic fluid. ADRENAL GLANDS: No significant masses or asymmetry. RIGHT KIDNEY AND URETER: No solid masses. No significant calcifications. No hydronephrosis or hyd roureter. LEFT KIDNEY AND URETER: No solid masses. No significant calcifications. No hydronephrosis or hydr oureter. AORTA AND VESSELS: No aneurysm. No dissection. Renal arteries, SMA, celiac without stenosis. RETROPERITONEUM: No retroperitoneal adenopathy, hemorrhage or masses. BOWEL AND PERITONEAL CAVITY: No masses or inflammatory changes. No free fluid or peritoneal masses. APPENDIX: Not visualized. PELVIS: No mass. No free fluid. Garcia catheter in the bladder. ABDOMINAL WALL: No masses. No hernias. BONES: No significant or acute findings. OTHER: No other significant finding. IMPRESSION: NO SIGNIFICANT OR ACUTE FINDING IN THE ABDOMEN OR PELVIS ON CT SCAN WITH IV CONTRAST. TECHNICAL DOCUMENTATION: JOB ID: [id number] Quality ID # [id number]: Final reports with documentation of one or more dose reduction techniques (e.g., Au tomated exposure control, adjustment of the mA and/or kV according to patient size, use of iterative reconstruction technique) 2010 [employer]- All Rights Reserved Reading location - IP/workstation name: [email or web address]
--- NOTE | 2018-11-09 17:46 | Progress Note ---
Provider Note Provider Note: Patient becoming more tachycardic and HYPOtensive. HR increasing from 120-->140. SBP dropping from 130-->101. Temperature 102 axillary. Received 4LIVF in ED and has been on maintenance IVF. Received empiric antibiotic coverage for viral enteritis with Rocephin, vancomycin and acyclovir. US abdomen was done in res ponse to acute transaminitis. Results showed 3mm gallbladder wall thickening, no evidence of gallstones. Viral meningitis is still primary working diagnosis for patient's presentation. Concerned about intra-abdominal process as the possible source of patient's infection, plan for CT abdomen pelvis. Transfer to ICU in light of patient's worsening clinical picture. Critical care time: 30 minutes
[2018-11-09 18:29] LABS: ARTERIAL BLOOD BASE EXCESS -1.8 mmol/L; ARTERIAL BLOOD H2CO3 0.89 mmol/L (1.05-1.35); ARTERIAL BLOOD HCO3 20.8 mmol/L (20-24); ARTERIAL BLOOD O2 SATURATION 97.1 % (94-98); ARTERIAL BLOOD PCO2 29.5 mmHg (35-45); ARTERIAL BLOOD PH 7.47 (7.35-7.45); ARTERIAL BLOOD PO2 85.3 mmHg (80-100); ARTERIAL BLOOD TOTAL CO2 21.7 mmol/L (23-27)
[2018-11-09 18:30] LABS: ARTERIAL BLOOD FIO2 ROOM AIR
[2018-11-09 18:37] LABS: HEMATOCRIT 34.3 % (37.9-51.0); MEAN CORPUSCULAR HEMOGLOBIN 30.4 pg (27.0-33.4); MEAN CORPUSCULAR HGB CONC 34.9 g/dL (32.0-36.0); MEAN CORPUSCULAR VOLUME 87 fl (80-97); RED BLOOD COUNT 3.93 10^6/uL (4.35-5.55); RED CELL DISTRIBUTION WIDTH 13.3 % (11.5-14.0); WHITE BLOOD COUNT 8.2 10^3/uL (4.0-10.5)
[2018-11-09 18:41] LABS: PLATELET COUNT 52 10^3/uL (150-450)
[2018-11-09 18:49] LABS: ALANINE AMINOTRANSFERASE 333 U/L (21-72); ALBUMIN 2.2 g/dL (3.5-5.0); ALKALINE PHOSPHATASE 83 U/L (38-126); ANION GAP 5 (5-19); ASPARTATE AMINO TRANSFERASE 459 U/L (17-59); BILIRUBIN,DIRECT 1.5 mg/dL (0.0-0.4); BILIRUBIN,TOTAL 1.9 mg/dL (0.2-1.3); BLOOD UREA NITROGEN 15 mg/dL (7-20); CALCIUM 8.1 mg/dL (8.4-10.2); CARBON DIOXIDE 21 mmol/L (22-30); CHLORIDE 112 mmol/L (98-107); GLUCOSE 107 mg/dL (75-110); POTASSIUM 3.8 mmol/L (3.6-5.0); SODIUM 137.5 mmol/L (137-145); TOTAL PROTEIN 4.5 g/dL (6.3-8.2)
[2018-11-09 19:03] LABS: ABSOLUTE LYMPHOCYTES# (MANUAL) 0.3 10^3/uL (0.5-4.7); ABSOLUTE MONOCYTES # (MANUAL) 0.1 10^3/uL (0.1-1.4); ABSOLUTE NEUTROPHILS# (MANUAL) 7.7 10^3/uL (1.7-8.2); BAND NEUTROPHILS % (MANUAL) 4 % (3-5); BASOPHILS % (MANUAL) 0 % (0-2); EOSINOPHILS % (MANUAL) 1 % (0-6); LYMPHOCYTES % (MANUAL) 4 % (13-45); METAMYELOCYTES % (MANUAL) 2 % (0); MONOCYTES % (MANUAL) 1 % (3-13); SEGMENTED NEUTROPHILS % (MAN) 88 % (42-78); TOTAL CELLS COUNTED 100
[2018-11-09 19:06] LABS: POIKILOCYTOSIS SLIGHT; POLYCHROMASIA SLIGHT; TOXIC GRANULATION 1+; TOXIC VACUOLATION PRESENT
[2018-11-09 19:07] LABS: OVALOCYTES SLIGHT; PLATELET COMMENT DECREASED
[2018-11-09] MEDS: NORMAL SALINE 1000 ML 1,000 ML IV PRN (19:30)
--- NOTE | 2018-11-09 19:56 | XCELERA REPORT ---
[address] [address] Transthoracic Echocardiogram Report Name: DONAVAN FALCON Age: 22 yrs Gender: Male : 1995 Patient Status: Inpatient Patient Location: ICU^610^A Study Date: 11/09/2018 06:09 PM Height: 72 in Weight: 165 lb BSA: 2.0 m2 Procedure: A two-dimensional transthoracic echocardiogram with color flow Doppler was performed. Study Quality: Technically suboptimal. Images were not obtained from all of the standard acoustic windows due to the limited scope of the study. Reason For Study: eval for endocarditis History: eval for endocarditis. Ordering Physician: RAMAN MURILLO Performed By: Joaquin Yeager Interpretation Summary No defenite vegetations seen. RECOMMEND : 1)REPEAT ECHO.2 ) FIRST PASS MUGA FOR RVEF AND LVEF(RADIOLOGY)> 3).RENEE. The left ventricle is normal in size. There is normal left ventricular wall thickness. Doppler measurements suggest impaired left ventricular relaxation, which is associated with grade I/IV or mild diastolic dysfunction There is no thrombus. The right atrium is normal. The left atrial size is normal. Cannot assess ASD,VSD , or PFO. There is no evidence of mitral valve prolapse. There is no vegetation seen on the mitral valve. There is no mitral valve stenosis. There is no mitral regurgitation noted. There is no aortic valvular vegetation. There is mild aortic stenosis There is a peak gradient of 18 mm of Hg. No hemodynamically significant valvular aortic stenosis. Most likely bicuspid aortic valve.But again not well visualised.Patient does have Bicuspid AV by echo f 2011. There is a moderate amount of aortic regurgitation There is no tricuspid stenosis. No tricuspid regurgitation. Unable to calculate RVSP due to insufficient TR jet. There is no pericardial effusion. No defenite vegetations seen. RECOMMEND : 1)REPEAT ECHO.2 ) FIRST PASS MUGA FOR RVEF AND LVEF(RADIOLOGY)> 3).RENEE. No True apical 2 chamber views obtained.Hence cannot comment on the apical anterior , the basal anterior, the basal inferior and apical inferior peñaloza.The mid anterior , the mid inferior and the rest of the LV peñaloza Probably are hypokinetic..Poor visualaisation of endocardium in certain voews,hence difficult to assess LVEF and accurate wall motion.In certain views the EF seems to be preseverved and in certain views seems to be significantly depressed.Hence need to repeat echo. MMode/2D Measurements & Calculations RVDd: 2.6 cm LVIDd: 5.1 cm FS: 12.4 % LA dimension: 2.6 cm IVSd: 0.84 cm LVIDs: 4.5 cm EDV(Teich): 123.1 ml LVPWd: 1.2 cm ESV(Teich): 90.4 ml EF(Teich): 26.6 % Doppler Measurements & Calculations MV E max syeda: MV P1/2t max syeda: Ao V2 max: AI max syeda: 124.8 cm/sec 129.5 cm/sec 208.1 cm/sec 369.5 cm/sec MV A max syeda: MV P1/2t: 46.8 msec Ao max PG: AI max P.9 cm/sec MVA(P1/2t): 4.7 cm2 17.3 mmHg 54.6 mmHg MV E/A: 0.88 MV dec slope: AI dec slope: 150.7 cm/sec2 811.1 cm/sec2 AI P1/2t: MV dec time: 718.1 msec 0.13 sec LV V1 max PG: PA V2 max: AV P1/2t-pr_phl: MV P1/2t-pr_phl: 11.0 mmHg 101.2 cm/sec 718.1 msec 46.8 msec LV V1 max: PA max P.1 mmHg 165.5 cm/sec Left Ventricle The left ventricle is normal in size. There is normal left ventricular wall thickness. No True apical 2 chamber views obtained.Hence cannot comment on the apical anterior , the basal anterior, the basal inferior and apical inferior peñaloza.The mid anterior , the mid inferior and the rest of the LV peñaloza Probably are hypokinetic..Poor visualaisation of endocardium in certain voews,hence difficult to assess LVEF and accurate wall motion.In certain views the EF seems to be preseverved and in certain views seems to be significantly depressed.Hence need to repeat echo. Doppler measurements suggest impaired left ventricular relaxation, which is associated with grade I/IV or mild diastolic dysfunction. There is no thrombus. Right Ventricle The right ventricle is normal in size and function. Atria The right atrium is normal. The left atrial size is normal. Cannot assess ASD,VSD , or PFO. Mitral Valve There is no evidence of mitral valve prolapse. There is no vegetation seen on the mitral valve. There is no mitral valve stenosis. There is no mitral regurgitation noted. Aortic Valve There is no aortic valvular vegetation. There is mild aortic stenosis. There is a peak gradient of 18 mm of Hg. No hemodynamically significant valvular aortic stenosis. Most likely bicuspid aortic valve.But again not well visualised.Patient does have Bicuspid AV by echo f 2011. There is a moderate amount of aortic regurgitation. Tricuspid Valve There is no tricuspid stenosis. No tricuspid regurgitation. Unable to calculate RVSP due to insufficient TR jet. Pulmonic Valve There is no pulmonic valvular stenosis. There is no pulmonic valvular regurgitation. Great Vessels The aortic root is normal size. Effusions There is no pericardial effusion. : RAMAN MURILLO > Selam Germain
[2018-11-09] MEDS ORDERED: DEXAMETHASONE SOD PHOS INJ 10 MG/1 ML VIAL IV ONE (20:00)
--- NOTE | 2018-11-09 20:03 | PDOC PROGRESS REPORT ---
Subjective Progress Note for:: 11/09/18 Subjective:: The patient presented to the emergency department at [facility] 4:00 this morning. He was admitted earlier this afternoon but gradually worsened. Despite multiple 1 L fluid boluses he still remained tachycardic with borderline blood pressure. He exhibited an elevated temperature with T-max 102.4. He developed worsening DIRECTOR OF TESTING symptoms including blurred vision. He has not exhibited any seizure-like activity. Reason For Visit: VIRAL MENINGITIS Physical Exam Vital Signs: Temp Pulse Resp BP Pulse Ox 99.3 F 115 H 22 H 96/53 L 97 11/09/18 18:00 11/09/18 18:00 11/09/18 18:00 11/09/18 18:00 11/09/18 18:00 Intake & Output 11/08/18 11/09/18 11/10/18 06:59 06:59 06:59 Intake Total 1050 3315 Output Total 675 Balance 1050 2640 Weight 75 kg General appearance: PRESENT: thin - Very ill-appearing 22-year-old patient Head exam: PRESENT: atraumatic, normocephalic Ear exam: PRESENT: normal external ear exam Respiratory exam: PRESENT: clear to auscultation cassandra, symmetrical. ABSENT: accessory muscle use, rales, rhonchi, wheezes Cardiovascular exam: PRESENT: +S1, +S2, tachycardia GI/Abdominal exam: PRESENT: soft. ABSENT: distended, tenderness Neurological exam: PRESENT: CN II-XII grossly intact - Reported vision loss to the nurses earlier, motor sensory deficit - Could not participate in motor exam however I was unable to elicit patellar reflexes. Indeterminate Babinski exam. Spontaneous movements noted by the time I encountered the patient there was no response to command.. ABSENT: alert - Patient is lethargic. Psychiatric exam: ABSENT: agitated Focused psych exam: PRESENT: other - Lethargic. ABSENT: restlessness Results Laboratory Results: 11/09/18 18:16 11/09/18 18:16 11/09/18 11/09/18 11/09/18 04:04 04:04 04:04 WBC 10.5 RBC 4.73 Hgb 14.4 Hct 41.3 MCV 87 MCH 30.5 MCHC 35.0 RDW 13.0 Plt Count 65 L Seg Neutrophils % Not Reportable Lymphocytes % Not Reportable Monocytes % Not Reportable Eosinophils % Not Reportable Basophils % Not Reportable Absolute Neutrophils Not Reportable Absolute Lymphocytes Not Reportable Absolute Monocytes Not Reportable Absolute Eosinophils Not Reportable Absolute Basophils Not Reportable Carbonic Acid HCO3/H2CO3 Ratio ABG pH ABG pCO2 ABG pO2 ABG HCO3 ABG O2 Saturation ABG Base Excess FiO2 Sodium 137.5 Potassium 4.1 Chloride 102 Carbon Dioxide 26 Anion Gap 10 BUN 12 Creatinine 0.82 Est GFR ( Amer) > 60 Est GFR (Non-Af Amer) > 60 Glucose 127 H Lactic Acid Calcium 8.8 Total Bilirubin 2.0 H AST 435 H ALT 337 H Alkaline Phosphatase 105 Ammonia < 8.7 L Total Protein 5.9 L Albumin 3.1 L Lipase 72.7 Fluid Tube Number CSF Volume CSF Appearance CSF Color CSF WBC CSF RBC CSF Color (1) CSF Appearance (1) CSF Color (2) CSF Appearance (2) CSF Color (3) CSF Appearance (3) CSF Color (4) CSF Appearance (4) CSF Glucose CSF Total Protein 11/09/18 11/09/18 11/09/18 05:55 05:55 05:55 WBC RBC Hgb Hct MCV MCH MCHC RDW Plt Count Seg Neutrophils % Lymphocytes % Monocytes % Eosinophils % Basophils % Absolute Neutrophils Absolute Lymphocytes Absolute Monocytes Absolute Eosinophils Absolute Basophils Carbonic Acid HCO3/H2CO3 Ratio ABG pH ABG pCO2 ABG pO2 ABG HCO3 ABG O2 Saturation ABG Base Excess FiO2 Sodium Potassium Chloride Carbon Dioxide Anion Gap BUN Creatinine Est GFR ( Amer) Est GFR (Non-Af Amer) Glucose Lactic Acid Calcium Total Bilirubin AST ALT Alkaline Phosphatase Ammonia Total Protein Albumin Lipase Fluid Tube Number 1 4 CSF Volume 6.5 6.5 CSF Appearance CLEAR CLEAR CSF Color COLORLESS COLORLESS CSF WBC 338 H 194 H CSF RBC 77 110 CSF Color (1) COLORLESS COLORLESS CSF Appearance (1) CLEAR CLEAR CSF Color (2) COLORLESS COLORLESS CSF Appearance (2) CLEAR CLEAR CSF Color (3) COLORLESS COLORLESS CSF Appearance (3) CLEAR CLEAR CSF Color (4) COLORLESS COLORLESS CSF Appearance (4) CLEAR CLEAR CSF Glucose 60 CSF Total Protein 123 H 11/09/18 11/09/18 11/09/18 06:16 11:10 18:16 WBC RBC Hgb Hct MCV MCH MCHC RDW Plt Count Seg Neutrophils % Lymphocytes % Monocytes % Eosinophils % Basophils % Absolute Neutrophils Absolute Lymphocytes Absolute Monocytes Absolute Eosinophils Absolute Basophils Carbonic Acid HCO3/H2CO3 Ratio ABG pH ABG pCO2 ABG pO2 ABG HCO3 ABG O2 Saturation ABG Base Excess FiO2 Sodium 137.5 Potassium 3.8 Chloride 112 H Carbon Dioxide 21 L Anion Gap 5 BUN 15 Creatinine 0.83 Est GFR ( Amer) > 60 Est GFR (Non-Af Amer) > 60 Glucose 107 Lactic Acid 2.4 H 1.5 Calcium 8.1 L Total Bilirubin 1.9 H AST 459 H ALT 333 H Alkaline Phosphatase 83 Ammonia Total Protein 4.5 L Albumin 2.2 L Lipase Fluid Tube Number CSF Volume CSF Appearance CSF Color CSF WBC CSF RBC CSF Color (1) CSF Appearance (1) CSF Color (2) CSF Appearance (2) CSF Color (3) CSF Appearance (3) CSF Color (4) CSF Appearance (4) CSF Glucose CSF Total Protein 11/09/18 11/09/18 18:16 18:16 WBC 8.2 RBC 3.93 L Hgb 12.0 L D Hct 34.3 L MCV 87 MCH 30.4 MCHC 34.9 RDW 13.3 Plt Count 52 L Seg Neutrophils % Not Reportable Lymphocytes % Not Reportable Monocytes % Not Reportable Eosinophils % Not Reportable Basophils % Not Reportable Absolute Neutrophils Not Reportable Absolute Lymphocytes Not Reportable Absolute Monocytes Not Reportable Absolute Eosinophils Not Reportable Absolute Basophils Not Reportable Carbonic Acid 0.89 L HCO3/H2CO3 Ratio 23:1 ABG pH 7.47 H ABG pCO2 29.5 L ABG pO2 85.3 ABG HCO3 20.8 ABG O2 Saturation 97.1 ABG Base Excess -1.8 FiO2 ROOM AIR Sodium Potassium Chloride Carbon Dioxide Anion Gap BUN Creatinine Est GFR ( Amer) Est GFR (Non-Af Amer) Glucose Lactic Acid Calcium Total Bilirubin AST ALT Alkaline Phosphatase Ammonia Total Protein Albumin Lipase Fluid Tube Number CSF Volume CSF Appearance CSF Color CSF WBC CSF RBC CSF Color (1) CSF Appearance (1) CSF Color (2) CSF Appearance (2) CSF Color (3) CSF Appearance (3) CSF Color (4) CSF Appearance (4) CSF Glucose CSF Total Protein 11/09/18 04:04 NT-Pro-B Natriuret Pep 8650 H Impressions: Head CT 11/09/18 04:02 IMPRESSION: Negative exam TECHNICAL DOCUMENTATION: Quality ID # [id number]: Final reports with documentation of one or more dose reduction techniques (e.g., Automated exposure control, adjustment of the mA and/or kV according to patient size, use of iterative reconstruction technique) copyright 2010 [employer]- All Rights Reserved Chest X-Ray 11/09/18 04:04 IMPRESSION: No evidence of acute intrathoracic disease. Abdomen Ultrasound 11/09/18 11:43 IMPRESSION: Gallbladder wall thickening without evidence for pericholecystic fluid or gallstones. Splenomegaly. Abdomen/Pelvis CT 11/09/18 16:40 IMPRESSION: NO SIGNIFICANT OR ACUTE FINDING IN THE ABDOMEN OR PELVIS ON CT SCAN WITH IV CONTRAST. Assessment and Plan - Diagnosis (1) Viral meningitis Is this a current diagnosis for this admission?: Yes Plan: Unclear etiology, could be stemming from illicit drug use Lives at home with family CSF shows elevated WBC, elevated protein, glucose levels are normal CSF is clear and colorless Awaiting gram stain Empirically covered with antibiotics and antivirals - rocephin, vancomycin, acyclovir 11/09/2018 7:30 PM The patient still remains tachycardic but less so than upon arrival to the intensive care unit. At that point his pulse ranged from 140-150. He now is more settled but is still tachycardic at 110 after 4+ liters of fluid in the emergency department. His blood pressures are marginal. Current blood pressure is 96/53. Current respiratory rate is 22. Axillary temperature is 99.3. The patient is on acyclovir, ceftriaxone and vancomycin. I have administered a dose of 10 mg of dexamethasone. White blood cell count in the clear, colorless spinal fluid was 338 in tube 1 and 194 in tube 4. CSF glucose was 60 and CSF protein was 123. Serum glucose was 127 with serum protein of 5.9. With aggressive fluids his total protein is down to 4.5 with an albumin of 2.2. (2) Sepsis Qualifiers: Sepsis type: sepsis due to unspecified organism Qualified Code(s): A41.9 - Sepsis, unspecified organism Is this a current diagnosis for this admission?: Yes Plan: Sepsis secondary to likely aseptic meningitis: The patient is febrile with tachycardia and marginal blood pressure. He is also exhibiting endorgan damage with abnormal transaminases and bilirubin. His mental state has declined through the course of the day and he is now lethargic. We will continue IV fluid hydration. His lactic acid was elevated at 2.4 with his first labs this morning and it is now normal at 1.5. His albumin is down to 2.2. I will administer IV albumin to minimize third spacing. He will also receive steroids primarily for the DIRECTOR OF TESTING changes associated with the suspected meningitis. Blood cultures have been obtained. With his history of intravenous drug use an echocardiogram has been obtained as well. Because the patient is quite thin should be able to obtain reasonable imaging of the heart valves. (3) Tachycardia Is this a current diagnosis for this admission?: Yes Plan: HR 130s Stemming from infection and dehydration Fluid resuscitation with 4 L IVF in emergency department Continue maintenance IVF at 150 mL/ hour 11/09/2018-7:30 PM the patient's heart rate seems to be coming down with ongoing IV fluids. I have ordered IV Lopressor as needed for tachycardia. If his blood pressure drops we may need to institute vasopressor therapy. (4) Transaminitis Is this a current diagnosis for this admission?: Yes Plan: AST 435 ALT 337 US abdomen reveals gallbladder wall thickening 11/09/2018-7:30 PM despite aggressive IV hydration the bilirubin, AST and remain about the same. I have asked that a GGT level be added to his blood work as well. Given the clinical presentation I will check HIV and hepatitis serologies. (5) Thrombocytopenia Is this a current diagnosis for this admission?: Yes Plan: The patient's platelet counts are low. The most recent count this evening was 52. Fibrin degradation products were elevated. A d-dimer is pending. Continue to monitor platelets as well as coagulation studies. - Time Total Critical Time (Minutes): 70 - Patient accepted to the ICU in transfer from the floor. Time spent on assessment and reviewing records and laboratory results. I did review the case with the night nurse before leaving the ICU as well as reviewing with the inventory management specialist for tonight. Medications reviewed and adjusted accordingly: Yes
--- NOTE | 2018-11-09 21:02 | EKG REPORT ---
SEVERITY:- OTHERWISE NORMAL ECG - SINUS TACHYCARDIA : Confirmed by: Selam Germain MD 09-Nov-2018 21:02:28
[2018-11-09] MEDS: ALBUMIN HUMAN 12.5 GM/50 ML RTUINJ IV SCH (21:33)
[2018-11-10] MEDS: ALBUMIN HUMAN 12.5 GM/50 ML RTUINJ IV SCH (01:12)
[2018-11-10] MEDS: NORMAL SALINE 1000 ML 1,000 ML IV PRN (04:30)
[2018-11-10] MEDS: ACYCLOVIR SODIUM 750 MG in NORMAL SALINE 250 ML IV SCH ×2 (05:21→14:45)
[2018-11-10] MEDS: VANCOMYCIN HCL 1,250 MG in DEXTROSE 5%-WATER 250 ML IV SCH ×2 (05:22→14:45)
[2018-11-10 06:39] LABS: ABSOLUTE EOSINOPHILS # (AUTO) 0.1 10^3/uL (0.0-0.6); ABSOLUTE LYMPHOCYTES (AUTO) 0.9 10^3/uL (0.5-4.7); ABSOLUTE MONOCYTES (AUTO) 0.3 10^3/uL (0.1-1.4); ABSOLUTE NEUT (AUTO) 11.5 10^3/uL (1.7-8.2); EOSINOPHILS % (AUTO) 1.1 % (0-6); HEMATOCRIT 35.7 % (37.9-51.0); HEMOGLOBIN 12.3 g/dL (13.5-17.0); INTERNATIONAL RATION (INR) 1.07; LYMPHOCYTES % (AUTO) 6.7 % (13-45); MEAN CORPUSCULAR HGB CONC 34.6 g/dL (32.0-36.0); MEAN CORPUSCULAR VOLUME 87 fl (80-97); MONOCYTES % (AUTO) 2.7 % (3-13); PROTHROMBIN TIME 14.5 SEC (11.4-15.4); RED BLOOD COUNT 4.11 10^6/uL (4.35-5.55); RED CELL DISTRIBUTION WIDTH 13.6 % (11.5-14.0); SEGMENTED NEUTROPHILS % (AUTO) 89.5 % (42-78); TOTAL CELLS COUNTED % (AUTO) 100 %; WHITE BLOOD COUNT 12.8 10^3/uL (4.0-10.5)
[2018-11-10 06:47] LABS: ALANINE AMINOTRANSFERASE 333 U/L (21-72); ALBUMIN 2.3 g/dL (3.5-5.0); ALKALINE PHOSPHATASE 92 U/L (38-126); ASPARTATE AMINO TRANSFERASE 364 U/L (17-59); BILIRUBIN,DIRECT 1.1 mg/dL (0.0-0.4); BILIRUBIN,TOTAL 1.3 mg/dL (0.2-1.3); BLOOD UREA NITROGEN 15 mg/dL (7-20); CALCIUM 8.4 mg/dL (8.4-10.2); CHOLESTEROL 65.07 mg/dL (0-200); GLUCOSE 170 mg/dL (75-110); PHOSPHORUS 2.6 mg/dL (2.5-4.5); POTASSIUM 4.3 mmol/L (3.6-5.0); TOTAL PROTEIN 4.6 g/dL (6.3-8.2); TRIGLYCERIDES 257 mg/dL (<150)
[2018-11-10 06:52] LABS: ANION GAP 5 (5-19); CARBON DIOXIDE 24 mmol/L (22-30); CHLORIDE 109 mmol/L (98-107); PLATELET COUNT 70 10^3/uL (150-450); SODIUM 138.1 mmol/L (137-145)
[2018-11-10 07:01] LABS: DIRECT LDL < 30 mg/dL (<100); VLDL CHOLESTEROL 51.4 mg/dL (10-31)
[2018-11-10 08:26] LABS: AMORPHOUS SEDIMENT,URINE TRACE /HPF; APPEARANCE,URINE TURBID; BILIRUBIN,URINE NEGATIVE (NEGATIVE); COLOR,URINE YELLOW; GLUCOSE, URINE 50 mg/dL (NEGATIVE); KETONES,URINE NEGATIVE (NEGATIVE); LEUKOCYTE ESTERASE,URINE TRACE (NEGATIVE); NITRITE,URINE NEGATIVE (NEGATIVE); PROTEIN,URINE 30 mg/dL (NEGATIVE); URINE SPECIFIC GRAVITY 1.023
[2018-11-10] MEDS: CEFTRIAXONE 2 GM/D5W RTU 2 GM/50 ML RTUPB IV SCH (09:49)
[2018-11-10] MEDS: PANTOPRAZOLE SODIUM 40 MG VIAL IV SCH (09:50)
--- NOTE | 2018-11-10 18:08 | PDOC PROGRESS REPORT ---
Subjective Progress Note for:: 11/10/18 Subjective:: Reports doing better. Headaches better. Patient spiked fever to 104, denies stimulant cough. At this time. He did well with bedside swallowing evaluation. He reports being hungry. Reason For Visit: VIRAL MENINGITIS Physical Exam Vital Signs: Temp Pulse Resp BP Pulse Ox 98.6 F 110 H 18 119/70 98 11/10/18 10:00 11/10/18 08:44 11/10/18 10:00 11/10/18 09:01 11/10/18 10:00 Intake & Output 11/09/18 11/10/18 11/11/18 06:59 06:59 06:59 Intake Total 1050 6735 360 Output Total 1485 200 Balance 1050 5250 160 Weight 66.1 kg General appearance: PRESENT: thin - Very ill-appearing 22-year-old patient Head exam: PRESENT: atraumatic, normocephalic Ear exam: PRESENT: normal external ear exam Respiratory exam: PRESENT: clear to auscultation cassandra, symmetrical. ABSENT: accessory muscle use, rales, rhonchi, wheezes Cardiovascular exam: PRESENT: +S1, +S2, tachycardia GI/Abdominal exam: PRESENT: soft. ABSENT: distended, tenderness Neurological exam: PRESENT: CN II-XII grossly intact - motor grossly intact. Psychiatric exam: ABSENT: agitated Focused psych exam: PRESENT: other - Lethargic. ABSENT: restlessness Results Laboratory Results: 11/10/18 06:17 11/10/18 06:17 11/09/18 11/09/18 11/09/18 16:35 18:16 18:16 WBC 8.2 RBC 3.93 L Hgb 12.0 L D Hct 34.3 L MCV 87 MCH 30.4 MCHC 34.9 RDW 13.3 Plt Count 52 L Seg Neutrophils % Not Reportable Lymphocytes % Not Reportable Monocytes % Not Reportable Eosinophils % Not Reportable Basophils % Not Reportable Absolute Neutrophils Not Reportable Absolute Lymphocytes Not Reportable Absolute Monocytes Not Reportable Absolute Eosinophils Not Reportable Absolute Basophils Not Reportable Carbonic Acid HCO3/H2CO3 Ratio ABG pH ABG pCO2 ABG pO2 ABG HCO3 ABG O2 Saturation ABG Base Excess FiO2 Sodium 137.5 Potassium 3.8 Chloride 112 H Carbon Dioxide 21 L Anion Gap 5 BUN 15 Creatinine 0.83 Est GFR ( Amer) > 60 Est GFR (Non-Af Amer) > 60 Glucose 107 Calcium 8.1 L Phosphorus Magnesium Total Bilirubin 1.9 H GGT 159 H AST 459 H ALT 333 H Alkaline Phosphatase 83 Ammonia Total Protein 4.5 L Albumin 2.2 L Triglycerides Cholesterol LDL Cholesterol Direct VLDL Cholesterol HDL Cholesterol TSH Urine Color Urine Appearance Urine pH Ur Specific [place] Urine Protein Urine Glucose (UA) Urine Ketones Urine Blood Urine Nitrite Ur Leukocyte Esterase Urine WBC (Auto) Urine RBC (Auto) 11/09/18 11/10/18 11/10/18 18:16 06:17 06:17 WBC 12.8 H RBC 4.11 L Hgb 12.3 L Hct 35.7 L MCV 87 MCH 30.0 MCHC 34.6 RDW 13.6 Plt Count 70 L Seg Neutrophils % 89.5 H Lymphocytes % 6.7 L Monocytes % 2.7 L Eosinophils % 1.1 Basophils % 0.0 Absolute Neutrophils 11.5 H Absolute Lymphocytes 0.9 Absolute Monocytes 0.3 Absolute Eosinophils 0.1 Absolute Basophils 0.0 Carbonic Acid 0.89 L HCO3/H2CO3 Ratio 23:1 ABG pH 7.47 H ABG pCO2 29.5 L ABG pO2 85.3 ABG HCO3 20.8 ABG O2 Saturation 97.1 ABG Base Excess -1.8 FiO2 ROOM AIR Sodium 138.1 Potassium 4.3 Chloride 109 H Carbon Dioxide 24 Anion Gap 5 BUN 15 Creatinine 0.72 Est GFR ( Amer) > 60 Est GFR (Non-Af Amer) > 60 Glucose 170 H Calcium 8.4 Phosphorus 2.6 Magnesium 2.3 Total Bilirubin 1.3 GGT AST 364 H ALT 333 H Alkaline Phosphatase 92 Ammonia Total Protein 4.6 L Albumin 2.3 L Triglycerides 257 H Cholesterol 65.07 LDL Cholesterol Direct < 30 VLDL Cholesterol 51.4 H HDL Cholesterol 11 L TSH Urine Color Urine Appearance Urine pH Ur Specific [place] Urine Protein Urine Glucose (UA) Urine Ketones Urine Blood Urine Nitrite Ur Leukocyte Esterase Urine WBC (Auto) Urine RBC (Auto) 11/10/18 11/10/18 11/10/18 06:17 06:17 07:50 WBC RBC Hgb Hct MCV MCH MCHC RDW Plt Count Seg Neutrophils % Lymphocytes % Monocytes % Eosinophils % Basophils % Absolute Neutrophils Absolute Lymphocytes Absolute Monocytes Absolute Eosinophils Absolute Basophils Carbonic Acid HCO3/H2CO3 Ratio ABG pH ABG pCO2 ABG pO2 ABG HCO3 ABG O2 Saturation ABG Base Excess FiO2 Sodium Potassium Chloride Carbon Dioxide Anion Gap BUN Creatinine Est GFR ( Amer) Est GFR (Non-Af Amer) Glucose Calcium Phosphorus Magnesium Total Bilirubin GGT AST ALT Alkaline Phosphatase Ammonia 15.1 Total Protein Albumin Triglycerides Cholesterol LDL Cholesterol Direct VLDL Cholesterol HDL Cholesterol TSH 0.74 Urine Color YELLOW Urine Appearance TURBID Urine pH 5.0 Ur Specific [place] 1.023 Urine Protein 30 H Urine Glucose (UA) 50 H Urine Ketones NEGATIVE Urine Blood LARGE H Urine Nitrite NEGATIVE Ur Leukocyte Esterase TRACE H Urine WBC (Auto) 6 Urine RBC (Auto) 20 11/09/18 11/10/18 04:04 06:17 NT-Pro-B Natriuret Pep 8650 H 88594 H Impressions: Head CT 11/09/18 04:02 IMPRESSION: Negative exam TECHNICAL DOCUMENTATION: Quality ID # [id number]: Final reports with documentation of one or more dose reduction techniques (e.g., Automated exposure control, adjustment of the mA and/or kV according to patient size, use of iterative reconstruction technique) copyright 2011 [employer]- All Rights Reserved Chest X-Ray 11/09/18 04:04 IMPRESSION: No evidence of acute intrathoracic disease. Abdomen Ultrasound 11/09/18 11:43 IMPRESSION: Gallbladder wall thickening without evidence for pericholecystic fluid or gallstones. Splenomegaly. Abdomen/Pelvis CT 11/09/18 16:40 IMPRESSION: NO SIGNIFICANT OR ACUTE FINDING IN THE ABDOMEN OR PELVIS ON CT SCAN WITH IV CONTRAST. Assessment and Plan - Diagnosis (1) Sepsis Qualifiers: Sepsis type: Streptococcus group A Qualified Code(s): A40.0 - Sepsis due to streptococcus, group A Is this a current diagnosis for this admission?: Yes (2) Tachycardia Is this a current diagnosis for this admission?: Yes (3) Thrombocytopenia Is this a current diagnosis for this admission?: Yes (4) Viral meningitis Is this a current diagnosis for this admission?: Yes (5) Transaminitis Is this a current diagnosis for this admission?: Yes - Plan Summary Plan Summary: Patient still with fevers. He has leukocytosis and blood cultures growing gram- positive cocci, although in clusters, but positive in both sets. We will continue to monitor in ICU. Continue broad-spectrum IV antibiotics for now, supportive care. Will repeat blood cultures in a.m. follow-up CBC and Chem-7 in a.m.
[2018-11-10 22:22] LABS: VANCOMYCIN,TROUGH 14.5 ug/mL (5.0-20.0)
[2018-11-11] MEDS: ACYCLOVIR SODIUM 750 MG in NORMAL SALINE 250 ML IV SCH ×3 (00:35→14:24)
[2018-11-11] MEDS: PANTOPRAZOLE SODIUM 40 MG VIAL IV SCH ×3 (00:35→22:02)
[2018-11-11] MEDS: VANCOMYCIN HCL 1,250 MG in DEXTROSE 5%-WATER 250 ML IV SCH ×3 (00:36→14:23)
[2018-11-11] MEDS: CEFTRIAXONE 2 GM/D5W RTU 2 GM/50 ML RTUPB IV SCH ×2 (00:36→11:01)
[2018-11-11 03:54] LABS: HEMATOCRIT 32.8 % (37.9-51.0); HEMOGLOBIN 11.4 g/dL (13.5-17.0); MEAN CORPUSCULAR HEMOGLOBIN 30.4 pg (27.0-33.4); MEAN CORPUSCULAR HGB CONC 34.9 g/dL (32.0-36.0); MEAN CORPUSCULAR VOLUME 87 fl (80-97); PLATELET COUNT 124 10^3/uL (150-450); RED BLOOD COUNT 3.77 10^6/uL (4.35-5.55); RED CELL DISTRIBUTION WIDTH 13.4 % (11.5-14.0); WHITE BLOOD COUNT 14.1 10^3/uL (4.0-10.5)
[2018-11-11 04:19] LABS: ANION GAP 7 (5-19); BLOOD UREA NITROGEN 17 mg/dL (7-20); CALCIUM 8.6 mg/dL (8.4-10.2); CARBON DIOXIDE 20 mmol/L (22-30); CHLORIDE 109 mmol/L (98-107); GLUCOSE 131 mg/dL (75-110); POTASSIUM 3.8 mmol/L (3.6-5.0); SODIUM 135.6 mmol/L (137-145)
[2018-11-11 04:22] LABS: ABSOLUTE LYMPHOCYTES# (MANUAL) 1.4 10^3/uL (0.5-4.7); ABSOLUTE MONOCYTES # (MANUAL) 0.8 10^3/uL (0.1-1.4); ABSOLUTE NEUTROPHILS# (MANUAL) 11.8 10^3/uL (1.7-8.2); BAND NEUTROPHILS % (MANUAL) 7 % (3-5); BASOPHILS % (MANUAL) 0 % (0-2); EOSINOPHILS % (MANUAL) 0 % (0-6); LYMPHOCYTES % (MANUAL) 9 % (13-45); MONOCYTES % (MANUAL) 6 % (3-13); SEGMENTED NEUTROPHILS % (MAN) 77 % (42-78); TOTAL CELLS COUNTED 100; TOXIC GRANULATION 1+; TOXIC VACUOLATION PRESENT
[2018-11-11 04:23] LABS: PLATELET COMMENT DECREASED; RBC MORPHOLOGY COMMENT NORMO-CYTIC/CHROMIC
[2018-11-11] MEDS: KETOROLAC TROMETHAMINE INJ/PF 30 MG/1 ML SDV IV PRN (04:49)
[2018-11-11] MEDS ORDERED: IBUPROFEN 800 MG TABLET PO PRN (04:49)
[2018-11-11] MEDS ORDERED: TEMAZEPAM 15 MG CAPSULE PO ONE (05:00)
[2018-11-11] MEDS ORDERED: ACETAMINOPHEN 325 MG TABLET ONE (11:40)
[2018-11-11] MEDS ORDERED: ACETAMINOPHEN 325 MG TABLET PO ONE (11:45)
[2018-11-11] MEDS ORDERED: LORAZEPAM INJ 2 MG/1 ML VIAL ONE (12:12)
[2018-11-11] MEDS ORDERED: IBUPROFEN 600 MG TABLET ONE (13:04)
[2018-11-11 13:37] LABS: HEPATITIS A AB IGM Negative (Negative); HEPATITIS B CORE AB IGM Negative (Negative); HEPATITS B SURFACE ANTIGEN Negative (Negative)
[2018-11-11] MEDS ORDERED: IBUPROFEN 600 MG TABLET PO ONE (13:45)
[2018-11-11 13:52] LABS: HEPATITIS C VIRUS ANTIBODY 0.6 s/co ratio (0.0-0.9)
[2018-11-11] MEDS: NORMAL SALINE 1000 ML 1,000 ML IV PRN (14:23)
--- NOTE | 2018-11-11 14:34 | Progress Note ---
Provider Note Provider Note: ID Consult Note- Patient has MSSA bacteremia. He has a history of illicit drug use (methamphetamines, cocaine). There is also a history of a bicuspid aortic valve. Blood cultures from admission (November 09) have MSSA. A lumbar puncture done at admission because of headache was abnormal with WBC 338; glucose 60; protein 123. Gram stain of the CSF was negative for organisms. Culture of the CSF is negative. Repeat blood cultures done today are pending. A TTE done at admission showed a bicuspid aortic valve with moderate aortic insufficiency (AI), but no evidence of any valvular vegetations. Recommendations: 1. Discontinue vancomycin, ceftriaxone, and acyclovir. 2. Begin cefazolin 2 gm IV q 8 hours. Treat for two weeks beyond first negative blood cultures. 3. Will need follow up of AI even though there are no acute indications for valvular replacement. Guicho Obrien MD Pager: [phone]
--- NOTE | 2018-11-11 16:11 | PDOC PROGRESS REPORT ---
Subjective Progress Note for:: 11/11/18 Subjective:: Awake, reports doing better this earlier this morning. Headaches better. Denies fevers or chills. Blood cultures growing staph areas, MSSA. Pt with h/o IVDU, which is likely source of infection. Repeat blood cultures have been collected today. Reason For Visit: VIRAL MENINGITIS Physical Exam Vital Signs: Temp Pulse Resp BP Pulse Ox 99.1 F 108 H 20 131/88 H 98 11/11/18 03:58 11/11/18 08:00 11/10/18 18:01 11/10/18 18:01 11/10/18 18:01 Intake & Output 11/10/18 11/11/18 11/12/18 06:59 06:59 06:59 Intake Total 6985 3505 Output Total 1485 3325 Balance 5500 180 Weight 66.1 kg 69.4 kg General appearance: PRESENT: thin male, NAD Head exam: PRESENT: atraumatic, normocephalic Respiratory exam: PRESENT: clear to auscultation cassandra, symmetrical. ABSENT: accessory muscle use, rales, rhonchi, wheezes Cardiovascular exam: PRESENT: +S1, +S2, tachycardia GI/Abdominal exam: PRESENT: soft. ABSENT: distended, tenderness Neurological exam: PRESENT: A&O x 3, CN II-XII grossly intact - motor grossly intact. Results Laboratory Results: 11/11/18 03:23 11/11/18 03:23 11/11/18 11/11/18 03:23 03:23 WBC 14.1 H RBC 3.77 L Hgb 11.4 L Hct 32.8 L MCV 87 MCH 30.4 MCHC 34.9 RDW 13.4 Plt Count 124 L Seg Neutrophils % Not Reportable Lymphocytes % Not Reportable Monocytes % Not Reportable Eosinophils % Not Reportable Basophils % Not Reportable Absolute Neutrophils Not Reportable Absolute Lymphocytes Not Reportable Absolute Monocytes Not Reportable Absolute Eosinophils Not Reportable Absolute Basophils Not Reportable Sodium 135.6 L Potassium 3.8 Chloride 109 H Carbon Dioxide 20 L Anion Gap 7 BUN 17 Creatinine 0.75 Est GFR ( Amer) > 60 Est GFR (Non-Af Amer) > 60 Glucose 131 H Calcium 8.6 11/09/18 06:16 Blood Blood Culture - Final Staphylococcus Aureus 11/09/18 08:14 Blood Blood Culture - Final Staphylococcus Aureus 11/09/18 11/10/18 04:04 06:17 NT-Pro-B Natriuret Pep 8650 H 33381 H Impressions: Head CT 11/09/18 04:02 IMPRESSION: Negative exam TECHNICAL DOCUMENTATION: Quality ID # [id number]: Final reports with documentation of one or more dose reduction techniques (e.g., Automated exposure control, adjustment of the mA and/or kV according to patient size, use of iterative reconstruction technique) copyright 2011 [employer]- All Rights Reserved Chest X-Ray 11/09/18 04:04 IMPRESSION: No evidence of acute intrathoracic disease. Abdomen Ultrasound 11/09/18 11:43 IMPRESSION: Gallbladder wall thickening without evidence for pericholecystic fluid or gallstones. Splenomegaly. Abdomen/Pelvis CT 11/09/18 16:40 IMPRESSION: NO SIGNIFICANT OR ACUTE FINDING IN THE ABDOMEN OR PELVIS ON CT SCAN WITH IV CONTRAST. Assessment and Plan - Diagnosis (1) Sepsis Qualifiers: Sepsis type: Streptococcus group A Qualified Code(s): A40.0 - Sepsis due to streptococcus, group A Is this a current diagnosis for this admission?: Yes Plan: Secondary to MSSA infection/bacteremia. Suspect portal of entry is IVDU. Jhoan d/c vanco and Ceftriaxone. Start ancef 2 g q 8 hrs Pt to have repeat echo to r/o endocarditis as initial one suboptimal. We will consult [facility] ID for advisement on optimal length of treatment once have echo result. Repeat blood cultures done today, please follow-up results (2) Tachycardia Is this a current diagnosis for this admission?: Yes Plan: Improving, secondary to sepsis. Continue IVF. Also watch for possible drug withdrawal. (3) Thrombocytopenia Is this a current diagnosis for this admission?: Yes Plan: Suspect secondary to sepsis, improving. (4) Viral meningitis Is this a current diagnosis for this admission?: Yes Plan: Patient symptoms may be secondary to sepsis and bacteremia. CSF cultures negative so far. Will consider D/C acyclovir, but will await [facility] ID evaluation/recommendation. (5) Transaminitis Is this a current diagnosis for this admission?: Yes Plan: May be secondary to sepsis. Continue to trend. Acute hepatitis series negative. (6) Polysubstance abuse Is this a current diagnosis for this admission?: Yes Plan: Counseled on continued illicit drug use and IV drug use. Patient's mom at bedside--patient and mom mom state they will consider drug rehab at discharge.
[2018-11-11] MEDS ORDERED: CEFAZOLIN 2 GM/D5W RTU 2 GM/50 ML RTUPB IV SCH (18:00)
[2018-11-11] MEDS: CEFAZOLIN SODIUM 2 GM in DEXTROSE 5%-WATER 100 ML IV SCH ×2 (19:42→22:01)
[2018-11-11] MEDS: TEMAZEPAM 15 MG CAPSULE PO SCH (22:02)
[2018-11-12] MEDS: NORMAL SALINE 1000 ML 1,000 ML IV PRN ×3 (00:25→17:14)
[2018-11-12] MEDS: METOPROLOL TARTRATE PF/INJ 5 MG/5 ML SDV IV PRN ×2 (01:10→12:40)
[2018-11-12] MEDS: ACETAMINOPHEN 650 MG SUPP.RECT PR PRN ×2 (01:47→15:00)
[2018-11-12] MEDS: CEFAZOLIN SODIUM 2 GM in DEXTROSE 5%-WATER 100 ML IV SCH ×4 (02:32→21:06)
[2018-11-12 03:36] LABS: ROCKY MTN SPOTTED FEV IGG EIA Negative (Negative)
[2018-11-12 05:36] LABS: ABSOLUTE EOSINOPHILS # (AUTO) 0.2 10^3/uL (0.0-0.6); ABSOLUTE LYMPHOCYTES (AUTO) 1.2 10^3/uL (0.5-4.7); ABSOLUTE MONOCYTES (AUTO) 0.7 10^3/uL (0.1-1.4); ABSOLUTE NEUT (AUTO) 9.9 10^3/uL (1.7-8.2); BASOPHILS % (AUTO) 0.3 % (0-2); EOSINOPHILS % (AUTO) 1.9 % (0-6); HEMATOCRIT 37.3 % (37.9-51.0); HEMOGLOBIN 13.1 g/dL (13.5-17.0); LYMPHOCYTES % (AUTO) 9.7 % (13-45); MEAN CORPUSCULAR HEMOGLOBIN 30.5 pg (27.0-33.4); MEAN CORPUSCULAR VOLUME 87 fl (80-97); RED BLOOD COUNT 4.29 10^6/uL (4.35-5.55); RED CELL DISTRIBUTION WIDTH 13.6 % (11.5-14.0); SEGMENTED NEUTROPHILS % (AUTO) 82.1 % (42-78); TOTAL CELLS COUNTED % (AUTO) 100 %; WHITE BLOOD COUNT 12.1 10^3/uL (4.0-10.5)
[2018-11-12 05:59] LABS: PLATELET COUNT 99 10^3/uL (150-450)
[2018-11-12 06:15] LABS: ALANINE AMINOTRANSFERASE 168 U/L (21-72); ALKALINE PHOSPHATASE 122 U/L (38-126); ANION GAP 5 (5-19); ASPARTATE AMINO TRANSFERASE 101 U/L (17-59); BILIRUBIN,DIRECT 0.7 mg/dL (0.0-0.4); BLOOD UREA NITROGEN 24 mg/dL (7-20); CALCIUM 8.3 mg/dL (8.4-10.2); CARBON DIOXIDE 20 mmol/L (22-30); CHLORIDE 110 mmol/L (98-107); GLUCOSE 98 mg/dL (75-110); POTASSIUM 3.9 mmol/L (3.6-5.0); TOTAL PROTEIN 4.5 g/dL (6.3-8.2)
[2018-11-12] MEDS: PANTOPRAZOLE SODIUM 40 MG VIAL IV SCH (10:26)
[2018-11-12] MEDS: HALOPERIDOL LACTATE INJ 5 MG/1 ML VIAL IV PRN ×3 (12:21→22:41)
[2018-11-12] MEDS ORDERED: METOPROLOL TARTRATE PF/INJ 5 MG/5 ML SDV IV PRN (12:39)
--- NOTE | 2018-11-12 13:24 | Progress Note ---
Provider Note Provider Note: 11/12/2018-call was placed to [facility] for possible transfer I spoke to the cardiology on-call his recommendation is to talk to the hospitalist to admit under the medical service and he can provide the consultation services. The transfer center electric scoop operator's role me on the hospital was for no beds are [facility] and she is unable to connect me to the hospitalist to discuss the case. I tried to explain to her that I need to speak to the hospitalist if the hospital secondary to take the patient then the patient can be in the waiting list but unfortunately the nurse in the transfer center did not accept my request and refused me to connect to the hospitalist. 11/12/2018-call was placed to [facility] spoke to Noemy in the cardiac cardiothoracic surgery unit she spoke to the cardiothoracic surgeons who are in the OR and came back to me and told me because there is no obvious endoca rditis of the echocardiogram the recommendations to talk to the hospitalist for possible admission and if the spring inspector or cardiothoracic surgeon can be consulted once the patient was transferred to [facility]. Awaiting the call from the hospitalist at this moment. In the meantime the nurse called me and told me patient is become tachypneic tachycardic the respiratory rate in the 30s pulse ox is 100% and heart rate is around 1 10-1 15 request was placed for the CT of the chest to rule out any septic emboli.
--- NOTE | 2018-11-12 15:01 | RADIOLOGY REPORT (SQ) ---
EXAM DESCRIPTION: CTA CHEST COMPLETED DATE/TIME: 11/12/2018 2:39 pm REASON FOR STUDY: septic emboli COMPARISON: None. TECHNIQUE: CT scan of the chest performed using helical scanning technique with dynamic intravenous contrast injection. Images reviewed with lung, soft tissue and bone windows. Reconstructed coronal and sagittal MPR images reviewed. Additional 3 dimensional post-processing performed to develop Maximal Intensity Projection images (FL P). All images stored on PACS. All CT scanners at this facility use dose modulation, iterative reconstruction, and/or weight based d osing when appropriate to reduce radiation dose to as low as reasonably achievable (ALARA). [facility]: Dose Right [facility]: CareDose [facility]: Dose Right [facility]: Teradose 4D [facility]: Unisense [employer] CONTRAST TYPE AND DOSE: contrast/concentration: Isovue 350.00 mg/ml; Total Contrast Delivered: 64.0 ml; Total Saline Delivered: 90.0 ml Contrast bolus optimized for the pulmonary arteries. Not diagnostic for the aorta. RENAL FUNCTION: None required. The patient is less than 50 years old. RADIATION DOSE: CT Rad equipment meets quality standard of care and radiation dose reduction techniq ues were employed. CTDIvol: 8.8 - 9.4 mGy. DLP: 370 mGy-cm. . LIMITATIONS: None. FINDINGS: LUNGS AND PLEURA: Large bilateral pleural effusions. Patchy diffuse airspace disease thro ughout both lungs. AORTA AND GREAT VESSELS: No aneurysm. Contrast bolus not optimized for the aorta. HEART: No pericardial effusion. No significant coronary artery calcifications. PULMONARY ARTERIES: No emboli visualized in the main pulmonary arteries or the segmental branches. HILAR AND MEDIASTINAL STRUCTURES: No identified masses or abnormal nodes. HARDWARE: None in the chest. UPPER ABDOMEN: No significant findings. Limited exam. THYROID AND OTHER SOFT TISSUES: No masses. No adenopathy. BONES: No acute or significant finding. 3D MIPS: Confirm above findings. OTHER: No other significant finding. IMPRESSION: 1. NORMAL CTA OF THE CHEST. NO PULMONARY EMBOLI. 2. LARGE BILATERAL PLEURAL EFFUSIONS. PATCHY DIFFUSE AIRSPACE DISEASE MAY BE DUE TO PULMONARY EDEMA AND/OR PNEUMONIA. COMMENT: Quality ID # [id number]: Final reports with documentation of one or more dose reduction techniques (e.g., Automated exposure control, adjustment of the mA and/or kV according to patient size, use of iterative reconstruction technique) TECHNICAL DOCUMENTATION: JOB ID: [id number] [employer]- All Rights Reserved Reading location - IP/workstation name: [email or web address]
--- NOTE | 2018-11-12 15:04 | RADIOLOGY REPORT (SQ) ---
EXAM DESCRIPTION: CHEST SINGLE VIEW COMPLETED DATE/TIME: 11/12/2018 2:48 pm REASON FOR STUDY: shortness of breath COMPARISON: 11/09/2018. EXAM PARAMETERS: NUMBER OF VIEWS: One view. TECHNIQUE: Single frontal radiographic view of the chest acquired. RADIATION DOSE: NA LIMITATIONS: None. FINDINGS: LUNGS AND PLEURA: Interval development of diffuse airspace disease with bilateral pleural effusions. MEDIASTINUM AND HILAR STRUCTURES: No masses. Contour normal. HEART AND VASCULAR STRUCTURES: Cardiomegaly. BONES: No acute findings. HARDWARE: None in the chest. OTHER: No other significant finding. IMPRESSION: CARDIOMEGALY. BILATERAL PLEURAL EFFUSIONS. DIFFUSE AIRSPACE DISEASE PROBABLY DUE TO PU LMONARY EDEMA AND/OR PNEUMONIA. TECHNICAL DOCUMENTATION: JOB ID: [id number] [employer]- All Rights Reserved Reading location - IP/workstation name: [email or web address]
[2018-11-12 15:29] LABS: MONONUCLEAR CELLS CSF 14 %; POLYMORPHONUCLEAR CELLS CSF 86 %
[2018-11-12 15:30] LABS: MONONUCLEAR CELLS CSF 13 %; POLYMORPHONUCLEAR CELLS CSF 87 %
--- NOTE | 2018-11-12 15:30 | PDOC TRANSFER SUMMARY ---
General Admission Date/PCP: 11/09/18 08:15 LINO DUFF NP Resuscitation Status: Full Code - Transfer Diagnosis (1) Viral meningitis Is this a current diagnosis for this admission?: Yes Diagnosis Summary: 11/13/1999 [id number] male IV drug abuser came in with altered mental status and fever. An LP was done shows elevated WBC count CSF cultures came back negative. Repeat blood cultures are showing MSSA bacteremia. RENEE was done he shows bicuspid aortic valve with moderate aortic insufficiency. Repeat echocardiogram was done this morning results are pending. As per ID recommendations vancomycin, ceftriaxone, acyclovir discontinued and patient was started on cefazolin since yesterday. (2) Sepsis Is this a current diagnosis for this admission?: Yes Diagnosis Summary: Secondary to MSSA infection/bacteremia. Suspect portal of entry is IVDU. Jhoan d/c vanco and Ceftriaxone. Start ancef 2 g q 8 hrs Pt to have repeat echo to r/o endocarditis as initial one suboptimal. We will consult [facility] ID for advisement on optimal length of treatment once have echo result. Repeat blood cultures done today, please follow-up results 11/12/2018-patient came in with high fevers and altered mental status blood cultures positive for MSSA. ID was on board. As per the ID patient is on cefazolin. Echocardiograms done shows a bicuspid aortic valve with aortic valve insufficiency. No obvious evidence of endocarditis. Repeat echocardiogram was done today but is pending. I spoke to Dr. Germain dampproofer here he is advises to transfer the patient to [facility] for possible RENEE because patient is having the persistent fevers of up to 103 and repeat cultures are positive for MSSA. Patient is also tachypneic, tachycardic respiratory rate going into 30s and heart rate going up to 110. CT of the chest was done to rule out any septic emboli. The possibility of endocarditis is very high. Call was placed to [place] patient was accepted to the telemetry by the hospitalist. Prior to that call was placed to cardiothoracic team spoke to Noemy who is part of the cardiothoracic team and that the recommendation is to admit the patient under hospitalist care and they can happily provide the consultation. (3) Tachycardia Is this a current diagnosis for this admission?: Yes Diagnosis Summary: 11/12/2018-patient is still tachycardic heart rate is around 120s. Patient is receiving IV metoprolol as needed. Tachycardia most likely secondary to underlying sepsis. (4) Tachypnea Is this a current diagnosis for this admission?: Yes Diagnosis Summary: 11/12/2018-patient is tachypneic. Respiratory rate going up to 35-40. Tachypnea may be secondary to underlying sepsis. CT of the chest was requested to rule out septic pulm emboli. (5) Thrombocytopenia Is this a current diagnosis for this admission?: Yes Diagnosis Summary: 11/12/2018-patient's platelet count is 99,000. Thrombocytopenia may be secondary to underlying severe sepsis. (6) Transaminitis Is this a current diagnosis for this admission?: Yes Diagnosis Summary: 11/12/2018-patient came in with elevated LFTs. AST is 364 and ALT is 333 both of them came down to 101 03/23/1968 respectively. Alkaline phosphatase is 122. BNP is 14,800. Elevated liver enzymes most likely secondary to sepsis. (7) Endocarditis Is this a current diagnosis for this admission?: Yes Diagnosis Summary: 11/12/2018-patient has persistent fevers despite being on antibiotics for last 3 days. Echocardiogram is suboptimal due to show any endocarditis. But echo did show bicuspid aortic valve with moderate aortic regurgitation. Blood cultures are persistently positive. Patient had MSSA bacteremia. Repeat echocardiogram report is pending. Because of the high suspicion for endocarditis call was placed to [facility] and patient was accepted under hospitalist services for possible RENEE by cardiology team - Transfer Medications Home Medications: No Home Medications 11/09/18 Transfer Medications: Current Medications Acetaminophen (Tylenol 650 Mg Supp) 975 mg AK Q6HP PRN PRN Reason: FOR PAIN OR TEMP Stop: 12/09/18 08:08 Last Admin: 11/12/18 15:00 Dose: 975 mg Documented by: Albuterol/Ipratropium (Duoneb 3 Ml Ampul) 3 ml NEB RTQ4HP PRN PRN Reason: SHORTNESS OF BREATH Stop: 12/09/18 08:08 Haloperidol Lactate (Haldol 5 Mg/Ml Inj 1 Ml Vial) 5 mg IV Q8HP PRN PRN Reason: RESTLESSNESS/AGITATION Stop: 12/09/18 08:46 Last Admin: 11/12/18 12:21 Dose: 5 mg Documented by: Sodium Chloride (Nacl 0.9% 1000 Ml Iv Soln) 1,000 mls @ 150 mls/hr IV CONTINUOU S PRN PRN Reason: THIS MED IS NOT "PRN" Stop: 12/11/18 09:28 Last Admin: 11/12/18 07:35 Dose: 150 mls/hr Documented by: Cefazolin Sodium 2 gm/ (Dextrose) 100 mls @ 200 mls/hr IV Q6A ALBERT; Protocol Stop: 11/18/18 19:59 Last Admin: 11/12/18 15:04 Dose: 200 mls/hr, 200 mls/hr Documented by: Ibuprofen (Motrin 800 Mg Tablet) 800 mg PO Q6HP PRN PRN Reason: BREAKTHROUGH PAIN SCALE 1-2 Stop: 12/11/18 04:48 Ketorolac Tromethamine (Toradol Inj/Pf 30 Mg/1 Ml Sdv) 30 mg IV Q6HP PRN PRN Reason: FOR HEADACHE OR PAIN Stop: 11/14/18 08:37 Last Admin: 11/11/18 04:49 Dose: 30 mg Documented by: Levalbuterol HCl (Xopenex Neb 1.25 Mg/3 Ml Ampul) 1.25 mg NEB RTQ4HP PRN PRN Reason: SHORTNESS OF BREATH Stop: 12/09/18 10:00 Metoprolol Tartrate (Lopressor Inj/Pf 5 Mg/5 Ml Sdv) 5 mg IV Q6HP PRN PRN Reason: GIVE FOR HR > [] Stop: 12/12/18 12:38 Ondansetron HCl (Zofran Inj/Pf 4 Mg/2 Ml Sdv) 4 mg IV Q6HP PRN PRN Reason: FOR NAUSEA/VOMITING Stop: 12/09/18 08:08 Pantoprazole Sodium (Protonix [address] Tablet) 40 mg PO BID@0600,1700 [facility] Stop: 12/12/18 16:59 Temazepam (Restoril 15 Mg Capsule) 15 mg PO QHS [facility] Stop: 11/18/18 21:59 Last Admin: 11/11/18 22:02 Dose: 15 mg Documented by: - Allergies Allergies/Adverse Reactions: No Known Allergies Allergy (Verified 11/07/18 12:47) Hospital Course Hospital Course: 11/12/[id number] male admitted for altered mental status and LP was done shows a WBC count elevated blood cultures came back negative. Initially he is on ceftriaxone and vancomycin and acyclovir, as per the ID recommendations presently is on cefazolin for the last 24 to 36 hours. Patient is continued to have spiking fevers associated tachycardia tachypnea and blood cultures came back positive for MSSA. Echocardiogram shows bicuspid bicuspid aortic valve with moderate aortic valve regurgitation and after discussion with Dr. Germain here, call was placed to [facility] in [place] and the hospitalist service agreed TO TAKE the patient for possible RENEE by the cardiology team updated. Physical Exam Vital Signs: Temp Pulse Resp BP Pulse Ox 102.6 F H 130 H 28 H 136/71 H 95 11/12/18 14:00 11/12/18 14:00 11/12/18 14:00 11/12/18 14:00 11/12/18 14:00 Intake & Output 11/11/18 11/12/18 11/13/18 06:59 06:59 06:59 Intake Total 3505 1700 1220 Output Total 3325 1645 405 Balance 180 55 815 Weight 69.4 kg General appearance: PRESENT: other - Moderate distress Head exam: PRESENT: atraumatic Eye exam: PRESENT: PERRLA Mouth exam: PRESENT: moist, tongue midline Neck exam: ABSENT: carotid bruit, JVD, lymphadenopathy, thyromegaly Respiratory exam: PRESENT: decreased breath sounds Cardiovascular exam: PRESENT: tachycardia GI/Abdominal exam: PRESENT: normal bowel sounds, soft. ABSENT: distended, guarding, mass, organolmegaly, rebound, tenderness Extremities exam: PRESENT: full ROM. ABSENT: calf tenderness, clubbing, pedal edema Neurological exam: PRESENT: alert, awake, oriented to person, oriented to place, oriented to time, oriented to situation, CN II-XII grossly intact. ABSENT: motor sensory deficit Psychiatric exam: PRESENT: appropriate affect, normal mood. ABSENT: homicidal ideation, suicidal ideation Results Laboratory Results: 11/12/18 05:00 11/12/18 05:00 11/12/18 11/12/18 05:00 05:00 WBC 12.1 H RBC 4.29 L Hgb 13.1 L Hct 37.3 L MCV 87 MCH 30.5 MCHC 35.0 RDW 13.6 Plt Count 99 L Seg Neutrophils % 82.1 H Lymphocytes % 9.7 L Monocytes % 6.0 Eosinophils % 1.9 Basophils % 0.3 Absolute Neutrophils 9.9 H Absolute Lymphocytes 1.2 Absolute Monocytes 0.7 Absolute Eosinophils 0.2 Absolute Basophils 0.0 Sodium 135.0 L Potassium 3.9 Chloride 110 H Carbon Dioxide 20 L Anion Gap 5 BUN 24 H Creatinine 1.08 Est GFR ( Amer) > 60 Est GFR (Non-Af Amer) > 60 Glucose 98 Calcium 8.3 L Magnesium 2.1 Total Bilirubin 1.0 AST 101 H ALT 168 H Alkaline Phosphatase 122 Total Protein 4.5 L Albumin 2.0 L 11/09/18 05:55 Cerebral Spinal Fluid - Csf Gram Stain - Final 11/09/18 05:55 Cerebral Spinal Fluid - Csf CSF Culture - Final NO GROWTH 3 DAYS 11/09/18 11/10/18 04:04 06:17 NT-Pro-B Natriuret Pep 8650 H 09580 H Impressions: Head CT 11/09/18 04:02 IMPRESSION: Negative exam TECHNICAL DOCUMENTATION: Quality ID # [id number]: Final reports with documentation of one or more dose reduction techniques (e.g., Automated exposure control, adjustment of the mA and/or kV according to patient size, use of iterative reconstruction technique) copyright 2011 [employer]- All Rights Reserved Abdomen Ultrasound 11/09/18 11:43 IMPRESSION: Gallbladder wall thickening without evidence for pericholecystic fluid or gallstones. Splenomegaly. Abdomen/Pelvis CT 11/09/18 16:40 IMPRESSION: NO SIGNIFICANT OR ACUTE FINDING IN THE ABDOMEN OR PELVIS ON CT SCAN WITH IV CONTRAST. Chest X-Ray 11/12/18 00:00 IMPRESSION: CARDIOMEGALY. BILATERAL PLEURAL EFFUSIONS. DIFFUSE AIRSPACE DISEASE PROBABLY DUE TO PULMONARY EDEMA AND/OR PNEUMONIA. Chest/Abdomen CTA 11/12/18 00:00 IMPRESSION: 1. NORMAL CTA OF THE CHEST. NO PULMONARY EMBOLI. 2. LARGE BILATERAL PLEURAL EFFUSIONS. PATCHY DIFFUSE AIRSPACE DISEASE MAY BE DUE TO PULMONARY EDEMA AND/OR PNEUMONIA. Plan Discharge Plan: Once the bed is available patient is going to [facility] Time Spent: Greater than 30 Minutes
[2018-11-12 16:37] LABS: HSV I DNA Negative (Negative)
[2018-11-12 16:45] LABS: HSV II DNA Negative (Negative)
[2018-11-12] MEDS: PANTOPRAZOLE SODIUM 40 MG TABLET.DR PO SCH (17:10)
[2018-11-12] MEDS ORDERED: NORMAL SALINE 1000 ML 1,000 ML IV PRN (17:34)
[2018-11-12] MEDS: KETOROLAC TROMETHAMINE INJ/PF 30 MG/1 ML SDV IV PRN (19:56)
[2018-11-12] MEDS ORDERED: NAFCILLIN SODIUM INJ 2 GM VIAL IV PRN (22:25)
[2018-11-12] MEDS ORDERED: NAFCILLIN SODIUM 2 GM in DEXTROSE 5%-WATER 100 ML IV ONE (22:30)
[2018-11-12] MEDS ORDERED: HALOPERIDOL LACTATE INJ 5 MG/1 ML VIAL IV ONE (23:00)
[2018-11-12] MEDS: TEMAZEPAM 15 MG CAPSULE PO SCH (23:21)
[2018-11-12] MEDS ORDERED: NAFCILLIN SODIUM INJ 2 GM VIAL ONE (23:24)
[2018-11-13 01:22] LABS: ARTERIAL BLOOD BASE EXCESS -1.7 mmol/L; ARTERIAL BLOOD FIO2 50%; ARTERIAL BLOOD H2CO3 0.92 mmol/L (1.05-1.35); ARTERIAL BLOOD HCO3 21.3 mmol/L (20-24); ARTERIAL BLOOD O2 SATURATION 97.5 % (94-98); ARTERIAL BLOOD PCO2 30.5 mmHg (35-45); ARTERIAL BLOOD PH 7.46 (7.35-7.45); ARTERIAL BLOOD PO2 92.6 mmHg (80-100); ARTERIAL BLOOD TOTAL CO2 22.2 mmol/L (23-27)
[2018-11-13 02:23] LABS: HEMATOCRIT 34.8 % (37.9-51.0); MEAN CORPUSCULAR HEMOGLOBIN 29.8 pg (27.0-33.4); MEAN CORPUSCULAR HGB CONC 34.4 g/dL (32.0-36.0); MEAN CORPUSCULAR VOLUME 87 fl (80-97); PLATELET COUNT 121 10^3/uL (150-450); RED BLOOD COUNT 4.02 10^6/uL (4.35-5.55); RED CELL DISTRIBUTION WIDTH 13.5 % (11.5-14.0); WHITE BLOOD COUNT 12.8 10^3/uL (4.0-10.5)
[2018-11-13 02:32] LABS: BLOOD UREA NITROGEN 30 mg/dL (7-20); CALCIUM 7.8 mg/dL (8.4-10.2); GLUCOSE 107 mg/dL (75-110); POTASSIUM 4.1 mmol/L (3.6-5.0)
[2018-11-13 02:37] LABS: CARBON DIOXIDE 21 mmol/L (22-30); CHLORIDE 111 mmol/L (98-107); SODIUM 135.8 mmol/L (137-145)
[2018-11-13 02:39] LABS: ANION GAP 4 (5-19)
[2018-11-13 02:41] LABS: ABSOLUTE LYMPHOCYTES# (MANUAL) 1.8 10^3/uL (0.5-4.7); ABSOLUTE MONOCYTES # (MANUAL) 0.5 10^3/uL (0.1-1.4); ABSOLUTE NEUTROPHILS# (MANUAL) 10.4 10^3/uL (1.7-8.2); BASOPHILS % (MANUAL) 0 % (0-2); EOSINOPHILS % (MANUAL) 1 % (0-6); LYMPHOCYTES % (MANUAL) 12 % (13-45); MONOCYTES % (MANUAL) 4 % (3-13); SEGMENTED NEUTROPHILS % (MAN) 81 % (42-78); TOTAL CELLS COUNTED 100
[2018-11-13 02:42] LABS: PLATELET COMMENT ADEQUATE; RBC MORPHOLOGY COMMENT NORMO-CYTIC/CHROMIC
[2018-11-13] MEDS: NAFCILLIN SODIUM 2 GM in DEXTROSE 5%-WATER 100 ML IV SCH ×5 (02:50→17:37)
[2018-11-13] MEDS: KETOROLAC TROMETHAMINE INJ/PF 30 MG/1 ML SDV IV PRN (02:50)
[2018-11-13] MEDS: CEFAZOLIN SODIUM 2 GM in DEXTROSE 5%-WATER 100 ML IV SCH ×3 (03:57→14:57)
[2018-11-13 06:24] LABS: ALANINE AMINOTRANSFERASE 108 U/L (21-72); ALBUMIN 1.9 g/dL (3.5-5.0); ALKALINE PHOSPHATASE 100 U/L (38-126); ASPARTATE AMINO TRANSFERASE 58 U/L (17-59); BILIRUBIN,DIRECT 0.8 mg/dL (0.0-0.4); BILIRUBIN,TOTAL 1.1 mg/dL (0.2-1.3); TOTAL PROTEIN 4.3 g/dL (6.3-8.2)
[2018-11-13] MEDS: PANTOPRAZOLE SODIUM 40 MG TABLET.DR PO SCH ×2 (06:30→17:37)
--- NOTE | 2018-11-13 10:34 | PDOC PROGRESS REPORT ---
Subjective Progress Note for:: 11/13/18 Subjective:: 22-year-old male admitted with fevers and altered mental status LP was done CSF culture was negative but WBC count in the CSF fluid is elevated WBC count most likely patient has a viral meningitis or aseptic meningitis he has also history of IV drug abuse and echocardiogram shows aortic regurgitation and he has a bicuspid aortic valve I spoke to Dr. Germain he thinks there is a risk of abscess around the aortic wall aortic valve, call was placed to [facility] yessterday because patient has a spiking fevers and repeat blood cultures are positive for mssa ,they accepted the patient but unfortunately no beds are available. Last night the patient has tachypneic with episodes of respiratory distress, he was placed on BiPAP but pulse oxes are normal. this morning is still tachycardic heart rate is around 100. Hopefully there will be a bed in [facility] today for the patient to be transferred. Reason For Visit: AMS/POSSIBLE MENINGITIS Physical Exam Vital Signs: Temp Pulse Resp BP Pulse Ox 98.1 F 101 H 27 H 112/74 100 11/13/18 08:00 11/13/18 08:00 11/13/18 08:52 11/13/18 08:00 11/13/18 08:52 Intake & Output 11/12/18 11/13/18 11/14/18 06:59 06:59 06:59 Intake Total 1700 2720 100 Output Total 1645 1225 25 Balance 55 1495 75 Weight 73.9 kg General appearance: PRESENT: mild distress, thin Head exam: PRESENT: atraumatic Eye exam: PRESENT: PERRLA Mouth exam: PRESENT: moist, tongue midline Neck exam: ABSENT: carotid bruit, JVD, lymphadenopathy, thyromegaly Respiratory exam: PRESENT: decreased breath sounds Cardiovascular exam: PRESENT: tachycardia GI/Abdominal exam: PRESENT: normal bowel sounds, soft. ABSENT: distended, guarding, mass, organolmegaly, rebound, tenderness Rectal exam: PRESENT: deferred Neurological exam: PRESENT: alert, awake, oriented to person, oriented to place, oriented to time, oriented to situation, CN II-XII grossly intact. ABSENT: motor sensory deficit Psychiatric exam: PRESENT: appropriate affect, normal mood. ABSENT: homicidal ideation, suicidal ideation Results Laboratory Results: 11/13/18 02:00 11/13/18 02:00 11/09/18 11/09/18 11/13/18 05:55 05:55 01:00 WBC RBC Hgb Hct MCV MCH MCHC RDW Plt Count Seg Neutrophils % Lymphocytes % Monocytes % Eosinophils % Basophils % Absolute Neutrophils Absolute Lymphocytes Absolute Monocytes Absolute Eosinophils Absolute Basophils Carbonic Acid 0.92 L HCO3/H2CO3 Ratio 23:1 ABG pH 7.46 H ABG pCO2 30.5 L ABG pO2 92.6 ABG HCO3 21.3 ABG O2 Saturation 97.5 ABG Base Excess -1.7 FiO2 50% Sodium Potassium Chloride Carbon Dioxide Anion Gap BUN Creatinine Est GFR ( Amer) Est GFR (Non-Af Amer) Glucose Calcium Magnesium Total Bilirubin AST ALT Alkaline Phosphatase Total Protein Albumin CSF Polymorphonuclear 86 87 11/13/18 11/13/18 11/13/18 02:00 02:00 02:00 WBC 12.8 H RBC 4.02 L Hgb 12.0 L Hct 34.8 L MCV 87 MCH 29.8 MCHC 34.4 RDW 13.5 Plt Count 121 L Seg Neutrophils % Not Reportable Lymphocytes % Not Reportable Monocytes % Not Reportable Eosinophils % Not Reportable Basophils % Not Reportable Absolute Neutrophils Not Reportable Absolute Lymphocytes Not Reportable Absolute Monocytes Not Reportable Absolute Eosinophils Not Reportable Absolute Basophils Not Reportable Carbonic Acid HCO3/H2CO3 Ratio ABG pH ABG pCO2 ABG pO2 ABG HCO3 ABG O2 Saturation ABG Base Excess FiO2 Sodium 135.8 L Potassium 4.1 Chloride 111 H Carbon Dioxide 21 L Anion Gap 4 L BUN 30 H Creatinine 1.20 Est GFR ( Amer) > 60 Est GFR (Non-Af Amer) > 60 Glucose 107 Calcium 7.8 L Magnesium 2.2 Total Bilirubin 1.1 AST 58 ALT 108 H Alkaline Phosphatase 100 Total Protein 4.3 L Albumin 1.9 L CSF Polymorphonuclear 11/11/18 05:30 Catheterized Urine Urine Culture - Final NO GROWTH 2 DAYS 11/09/18 05:55 Cerebral Spinal Fluid - Csf Gram Stain - Final 11/09/18 05:55 Cerebral Spinal Fluid - Csf CSF Culture - Final NO GROWTH 3 DAYS 11/09/18 11/10/18 04:04 06:17 NT-Pro-B Natriuret Pep 8650 H 34272 H Impressions: Head CT 11/09/18 04:02 IMPRESSION: Negative exam TECHNICAL DOCUMENTATION: Quality ID # [id number]: Final reports with documentation of one or more dose reduction techniques (e.g., Automated exposure control, adjustment of the mA and/or kV according to patient size, use of iterative reconstruction technique) copyright 2011 [employer]- All Rights Reserved Abdomen Ultrasound 11/09/18 11:43 IMPRESSION: Gallbladder wall thickening without evidence for pericholecystic fluid or gallstones. Splenomegaly. Abdomen/Pelvis CT 11/09/18 16:40 IMPRESSION: NO SIGNIFICANT OR ACUTE FINDING IN THE ABDOMEN OR PELVIS ON CT SCAN WITH IV CONTRAST. Chest X-Ray 11/12/18 00:00 IMPRESSION: CARDIOMEGALY. BILATERAL PLEURAL EFFUSIONS. DIFFUSE AIRSPACE DISEASE PROBABLY DUE TO PULMONARY EDEMA AND/OR PNEUMONIA. Chest/Abdomen CTA 11/12/18 00:00 IMPRESSION: 1. NORMAL CTA OF THE CHEST. NO PULMONARY EMBOLI. 2. LARGE BILATERAL PLEURAL EFFUSIONS. PATCHY DIFFUSE AIRSPACE DISEASE MAY BE DUE TO PULMONARY EDEMA AND/OR PNEUMONIA. Assessment and Plan - Diagnosis (1) Endocarditis Is this a current diagnosis for this admission?: Yes Plan: 11[birth year]13/[id number]-gsmc-old male admitted with fevers altered mental status echocardiogram shows EF of 40% no obvious source of endocarditis but patient has moderate tricuspid valve regurgitation and he has a bicuspid aortic valve. Blood cultures are coming back positive and patient has a spiking fever yesterday tachycardic and tachypneic patient was accepted to [facility] for possible RENEE but unfortunately no beds are available was the bed is available he will be transferred up there for further management. presently he is on cefazolin. ID is on board. T-max today is 98.1 and blood pressure is 1 12/74 pulse is around 100 pulse ox 99% on BiPAP. CT of the chest was done to look for septic pulmonary emboli but found to have a small bilateral pleural effusions. (2) Viral meningitis Is this a current diagnosis for this admission?: Yes Plan: Patient symptoms may be secondary to sepsis and bacteremia. CSF cultures negative so far. Will consider D/C acyclovir, but will await [facility] ID evaluation/recommendation. 11/13/2018-patient came in with altered mental status and fevers LP was done in the CSF fluid his WBC count is more than 190 but CSF culture came back negative. Patient is presently on cefazolin. Afebrile today. Cultures are positive for MSSA. (3) Sepsis Qualifiers: Sepsis type: Streptococcus group A Qualified Code(s): A40.0 - Sepsis due to streptococcus, group A Is this a current diagnosis for this admission?: Yes Plan: Secondary to MSSA infection/bacteremia. Suspect portal of entry is IVDU. Jhoan d/c vanco and Ceftriaxone. Start ancef 2 g q 8 hrs Pt to have repeat echo to r/o endocarditis as initial one suboptimal. We will consult [facility] ID for advisement on optimal length of treatment once have echo result. Repeat blood cultures done today, please follow-up results 11/13/2018-patient has MSSA bacteremia. Presently on cefazolin. T-max is 98.1 today. ID is on board. Blood cultures repeated yesterday those are pending. (4) Tachycardia Is this a current diagnosis for this admission?: Yes Plan: Improving, secondary to sepsis. Continue IVF. Also watch for possible drug withdrawal. 11/13/2018-patient tachycardic with heart rate is more than 100. Tachycardia most likely secondary to underlying sepsis. (5) Tachypnea Is this a current diagnosis for this admission?: Yes Plan: 2018-patient's tachycardia is improved. His respiratory rate 2days the 20s. Much better compared to yesterday. Patient is a pleasant limb BiPAP pulse ox is 9010% on BiPAP. (6) Thrombocytopenia Is this a current diagnosis for this admission?: Yes Plan: Suspect secondary to sepsis, improving. 11/10/2018-platelet count is improving today is 121,000. Thrombocytopenia most likely secondary to sepsis. (7) Transaminitis Is this a current diagnosis for this admission?: Yes Plan: May be secondary to sepsis. Continue to trend. Acute hepatitis series negative. 11/13/2018-patient came in with elevated liver enzymes improvement in the trend of the LFTs. - Time Time Spent with patient: 25-34 minutes Medications reviewed and adjusted accordingly: Yes Anticipated discharge: [facility]
[2018-11-13 18:39] VITALS: BP 144/92
== END 2018-11-13 18:30 | disposition short-term general hospital (02) | DRG 872 ==
LOC: ER 03:34 → EH 08:15 → 3N 09:26 → ICU 17:03
PROVIDERS: ADMIT Internal Medicine; ATTEND Internal Medicine
PROC: 009U3ZX Drainage of Spinal Canal, Percutaneous Approach, Diagnostic (ICD-10-PCS; principal; 2018-11-09)
DX: A40.0 Sepsis due to streptococcus, group A (principal); A87.9 Viral meningitis, unspecified; I38 Endocarditis, valve unspecified; Q23.1 Congenital insufficiency of aortic valve; R74.0 Nonspecific elevation of levels of transaminase and lactic acid dehydrogenase [LDH]; R00.0 Tachycardia, unspecified; D69.6 Thrombocytopenia, unspecified; F15.10 Other stimulant abuse, uncomplicated; F19.10 Other psychoactive substance abuse, uncomplicated; F17.210 Nicotine dependence, cigarettes, uncomplicated
CPT/HCPCS: 36415; 70450; 71045; 71275; 74177; 76700; 80048; 80053; 80061; 80074; 80076; 80202; 80307; 81001; 82140; 82803; 82945; 82977; 83605; 83690; 83735; 83880; 84100; 84157; 84443; 85025; 85362; 85379; 85384; 85610; 86701; 86757; 87040; 87070; 87077; 87086; 87186; 87205; 87250; 87529; 89050; 93005; 93010; 93306; 94660; 96361; 96365; 96367; 96368; 96375; 99285; J0133; J0690; J0696; J1100; J1630; J1885; J2060; J2765; J3370; J3490; J7030; J7050; J7060; P9047; S0032; S0164

== ENCOUNTER 2018-12-06 16:24 | Inpatient (IN) | payer OTHER ==
[2018-12-06] MEDS ORDERED: ALPRAZOLAM 0.5 MG TABLET PO PRN (16:43)
[2018-12-06] MEDS ORDERED: RIFAMPIN INJ 600 MG VIAL IV SCH (16:45)
[2018-12-06] MEDS ORDERED: VANCOMYCIN HCL INJ 1000 MG VIAL IV SCH (16:45)
[2018-12-06] MEDS ORDERED: DIPHENHYDRAMINE HCL 25 MG CAPSULE PO PRN (17:01)
--- NOTE | 2018-12-06 17:21 | PDOC H&P ---
History of Present Illness Admission Date/PCP: 12/06/18 16:24 LINO DUFF NP Patient complains of: [facility] for [facility] of IV antibiotic therapy for the next 3 weeks. History of Present Illness: DONAVAN FALCON is a 22 year old male 22-year-old male with history of asthma IV drug abuse, tobacco abuse admitted here [facility] for altered mental tests, fever. Initially meningitis was suspected and LP was done treated with IV ceftriaxone IV vancomycin and acyclovir. CSF culture came back negative. As per ID recommendations vancomycin and ceftriaxone acyclovir are discontinued. Blood cultures are positive for MSSA. ID recommendations patient started on cefazolin 2 g every 8 hours. Patient continued to have spiking fevers, shortness of breath, became tachypneic and tachycardic. Patient was transferred to [facility] for further evaluation by cardiology and cardiothoracic team. At [facility] hospital CT surgery recommended urgent aortic wall replacement due to severe aortic insufficiency and aortic wall vegetation. He has status post aortic valve replacement with magna tissue valve on 11/15/[address] Camacho. As per ID recommendations patient is presently on IV vancomycin and p.o. rifampin. These 2 antibiotics supposed to be finishing by December 29. Patient is comfortable in the bed denies any complaints today. He is willing to stay in the hospital for antibiotic therapy. At [facility] as per the neuro recommendations patient is off anticoagulation. Because of the high risk of septic infarcts changing him to hemorrhage. CT head done at [facility] indicates a small hemorrhage in the left occipital lobe. Is believed due to septic emboli. MRI confirmed hemorrhage and also showed multiple mini strokes caused by vegetation on the valve. Surgically patient continued to have tachycardia and hypertension he was pr esently on metoprolol 100 mg p.o. every 8 hours and hydralazine 25 mg p.o. every 8 hours. Patient was started on Lasix for pleural effusions and he developed DICK. Gradually Lasix are discontinued. Presently is not on Lasix. For pleural effusion patient did not required pleural tap. Past Medical History Pulmonary Medical History: Reports: Asthma Neurological Medical History: Reports: Migraine Past Surgical History Past Surgical History: Reports: Valve Replacement Social History Information Source: Patient Smoking Status: Current Every Day Smoker Frequency of Alcohol Use: None Hx Recreational Drug Use: Yes Drugs: Cocaine, Heroin, Marijuana, Other Hx Prescription Drug Abuse: No - Advance Directive Resuscitation Status: Full Code Family History Family History: Reviewed & Not Pertinent Parental Family History Reviewed: Yes - Family history of hypertension. Children Family History Reviewed: Yes Sibling(s) Family History Reviewed.: Yes Medication/Allergy Allergies/Adverse Reactions: No Known Allergies Allergy (Verified 11/07/18 12:47) Review of Systems Constitutional: ABSENT: fatigue, fever(s), headache(s), weakness Eyes: ABSENT: visual disturbances Ears: ABSENT: hearing changes Nose, Mouth, and Throat: ABSENT: sore throat Gastrointestinal: ABSENT: diarrhea, dysphagia, heartburn, hematemesis, melena, nausea, vomiting Genitourinary: ABSENT: dysuria, hematuria Musculoskeletal: ABSENT: joint swelling Integumentary: ABSENT: rash, wounds Neurological: ABSENT: abnormal gait, abnormal speech, confusion, dizziness, focal weakness, syncope Psychiatric: ABSENT: anxiety, depression, homidical ideation, suicidal ideation Physical Exam General appearance: PRESENT: no acute distress Head exam: PRESENT: atraumatic Eye exam: PRESENT: PERRLA Mouth exam: PRESENT: moist, tongue midline Teeth exam: PRESENT: poor dentation Neck exam: ABSENT: carotid bruit, JVD, lymphadenopathy, thyromegaly Respiratory exam: PRESENT: decreased breath sounds Cardiovascular exam: PRESENT: systolic murmur, tachycardia, other - Surgical scar over the sternum. Healing well. GI/Abdominal exam: PRESENT: normal bowel sounds, soft. ABSENT: distended, guarding, mass, organolmegaly, rebound, tenderness Rectal exam: PRESENT: deferred Neurological exam: PRESENT: alert, awake, oriented to person, oriented to place, oriented to time, oriented to situation, CN II-XII grossly intact. ABSENT: motor sensory deficit Skin exam: PRESENT: dry, intact, warm. ABSENT: cyanosis, rash Assessment and Plan - Diagnosis (1) Endocarditis Is this a current diagnosis for this admission?: Yes Plan: 12/06/2018 patient came back from [facility] after aortic valve replacement for aortic valve insufficiency and aortic valve vegetation Patient is not on anticoagulation as per the new recommendations. To continue IV vancomycin and p.o. rifampin until December 29 as per ID recommendations. Patient is afebrile. Prophylaxis initiated. (2) Tachycardia Is this a current diagnosis for this admission?: Yes Plan: 12/06/2018-patient have a persistent tachycardia postsurgical on metoprolol 100 mg p.o. every 8 hours plan is to continue the present management. (3) S/P AVR (aortic valve replacement) Is this a current diagnosis for this admission?: Yes Plan: 12/06/2018-status post aortic valve replacement with tissue valve due to aortic valve insufficiency and aortic valve vegetation. Shunt is not on anticoagulation as per neuro recommendations. (4) HTN (hypertension) Is this a current diagnosis for this admission?: Yes Plan: 12/06/2018-patient is presently on hydralazine 25 mg p.o. every 8 hours and metoprolol 100 mg p.o. every 8 hours for hypertension and tachycardia. Plan is to check the blood pressures every shift and continue hydralazine and metoprolol. (5) Pleural effusion Is this a current diagnosis for this admission?: Yes Plan: 12/06/2018 patient has persistent right apical pleural effusion not requiring pleural tap. Patient pulse ox is stable between 94 to 96% on room air. Plan to do the chest x-rays as needed to keep the eye on pleural effusion. (6) DICK (acute kidney injury) Is this a current diagnosis for this admission?: Yes Plan: 12/06/2018-patient developed DICK at [facility] most likely secondary to diuretic use. The creatinine levels tomorrow if needed to start on IV fluids. AKA may be secondary to AIN secondary to antibiotics. - Time Time Spent with patient: 25-34 minutes Medications reviewed and adjusted accordingly: Yes Anticipated discharge: Home
[2018-12-06] MEDS: RIFAMPIN 300 MG CAPSULE PO SCH (18:05)
[2018-12-06] MEDS: METOPROLOL TARTRATE 100 MG TABLET PO SCH ×2 (18:24→22:29)
[2018-12-06] MEDS: NICOTINE 21 MG/24 HR PATCH.TD24 TD SCH (18:27)
[2018-12-06] MEDS: OXYCODONE-ACETAMINOPHEN 5-325 MG TABLET PO PRN ×2 (18:27→22:29)
--- NOTE | 2018-12-06 18:27 | RADIOLOGY REPORT (SQ) ---
EXAM DESCRIPTION: CHEST SINGLE VIEW COMPLETED DATE/TIME: 12/06/2018 6:12 pm REASON FOR STUDY: plural effusion 11/12/2018 COMPARISON: None. EXAM PARAMETERS: NUMBER OF VIEWS: One view. TECHNIQUE: Single frontal radiographic view of the chest acquired. RADIATION DOSE: NA LIMITATIONS: None. FINDINGS: LUNGS AND PLEURA: Retrocardiac opacification on the left. Small pleural effusions. MEDIASTINUM AND HILAR STRUCTURES: No masses. Contour normal. HEART AND VASCULAR STRUCTURES: Cardiomegaly. No pulmonary edema. BONES: No acute findings. HARDWARE: PICC line on the right. OTHER: No other significant finding. IMPRESSION: Cardiomegaly without pulmonary edema. Small pleural effusions. Cannot exclude airspace disease in the left lower lobe. Atelectasis versus pneumonia. TECHNICAL DOCUMENTATION: JOB ID: [id number] [employer]- All Rights Reserved Reading location - IP/workstation name: [email or web address]
[2018-12-06] MEDS: VANCOMYCIN HCL 1,000 MG in DEXTROSE 5%-WATER 250 ML IV SCH (22:29)
[2018-12-06] MEDS: MELATONIN 3 MG TABLET PO SCH (22:29)
[2018-12-06] MEDS: FAMOTIDINE 20 MG TABLET PO SCH (22:29)
[2018-12-06] MEDS: HYDRALAZINE HCL 25 MG TABLET PO SCH (22:29)
[2018-12-07] MEDS: OXYCODONE-ACETAMINOPHEN 5-325 MG TABLET PO PRN ×4 (05:35→21:42)
[2018-12-07] MEDS: METOPROLOL TARTRATE 100 MG TABLET PO SCH ×3 (05:36→21:42)
[2018-12-07] MEDS: HYDRALAZINE HCL 25 MG TABLET PO SCH ×3 (05:36→21:42)
[2018-12-07 05:59] LABS: INTERNATIONAL RATION (INR) 1.16; PROTHROMBIN TIME 15.4 SEC (11.4-15.4)
[2018-12-07 06:01] LABS: ABSOLUTE BASOPHILS # (AUTO) 0.1 10^3/uL (0.0-0.2); ABSOLUTE EOSINOPHILS # (AUTO) 0.5 10^3/uL (0.0-0.6); ABSOLUTE LYMPHOCYTES (AUTO) 1.5 10^3/uL (0.5-4.7); ABSOLUTE MONOCYTES (AUTO) 0.9 10^3/uL (0.1-1.4); ABSOLUTE NEUT (AUTO) 4.5 10^3/uL (1.7-8.2); BASOPHILS % (AUTO) 0.9 % (0-2); EOSINOPHILS % (AUTO) 6.9 % (0-6); HEMATOCRIT 24.4 % (37.9-51.0); HEMOGLOBIN 8.2 g/dL (13.5-17.0); LYMPHOCYTES % (AUTO) 19.6 % (13-45); MEAN CORPUSCULAR HEMOGLOBIN 28.3 pg (27.0-33.4); MEAN CORPUSCULAR HGB CONC 33.7 g/dL (32.0-36.0); MEAN CORPUSCULAR VOLUME 84 fl (80-97); MONOCYTES % (AUTO) 12.4 % (3-13); PLATELET COUNT 490 10^3/uL (150-450); RED BLOOD COUNT 2.91 10^6/uL (4.35-5.55); SEGMENTED NEUTROPHILS % (AUTO) 60.2 % (42-78); TOTAL CELLS COUNTED % (AUTO) 100 %; WHITE BLOOD COUNT 7.5 10^3/uL (4.0-10.5)
[2018-12-07 06:13] LABS: ALANINE AMINOTRANSFERASE 35 U/L (21-72); ALBUMIN 3.1 g/dL (3.5-5.0); ALKALINE PHOSPHATASE 76 U/L (38-126); ANION GAP 9 (5-19); ASPARTATE AMINO TRANSFERASE 33 U/L (17-59); BILIRUBIN,DIRECT 0.3 mg/dL (0.0-0.4); BILIRUBIN,TOTAL 0.3 mg/dL (0.2-1.3); BLOOD UREA NITROGEN 20 mg/dL (7-20); CALCIUM 9.4 mg/dL (8.4-10.2); CARBON DIOXIDE 24 mmol/L (22-30); CHLORIDE 107 mmol/L (98-107); GLUCOSE 102 mg/dL (75-110); POTASSIUM 4.3 mmol/L (3.6-5.0); SODIUM 140.3 mmol/L (137-145); TOTAL PROTEIN 6.6 g/dL (6.3-8.2)
--- NOTE | 2018-12-07 08:44 | EKG REPORT ---
SEVERITY:- ABNORMAL ECG - SINUS RHYTHM SHORT VT INTERVAL, ACCELERATED AV CONDUCTION CONSIDER LEFT VENTRICULAR HYPERTROPHY PROLONGED QT INTERVAL : Confirmed by: Cody Calderon MD 07-Dec-2018 08:44:01
[2018-12-07] MEDS: FAMOTIDINE 20 MG TABLET PO SCH ×2 (09:34→21:42)
[2018-12-07] MEDS: RIFAMPIN 300 MG CAPSULE PO SCH (09:34)
[2018-12-07] MEDS: VANCOMYCIN HCL 1,000 MG in DEXTROSE 5%-WATER 250 ML IV SCH ×2 (09:34→21:43)
[2018-12-07] MEDS: NICOTINE 21 MG/24 HR PATCH.TD24 TD SCH (09:37)
--- NOTE | 2018-12-07 12:58 | PDOC PROGRESS REPORT ---
Subjective Progress Note for:: 12/07/18 Subjective:: No adverse events overnight. No new complaints. Vital signs been stable. He was sitting up in the bed messing on his phone and watching television. He seemed to be in pretty good spirits. Reason For Visit: IV FLUIDS Physical Exam Vital Signs: Temp Pulse Resp BP Pulse Ox 98.1 F 77 15 126/78 H 99 12/07/18 08:42 12/07/18 08:42 12/07/18 08:42 12/07/18 08:42 12/07/18 08:42 Intake & Output 12/06/18 12/07/18 12/08/18 06:59 06:59 06:59 Intake Total 1457 Balance 1457 Weight 57.2 kg General appearance: PRESENT: no acute distress, cooperative, thin Respiratory exam: PRESENT: clear to auscultation cassandra, symmetrical, unlabored. ABSENT: accessory muscle use, crackles, prolonged expiratory phas, rhonchi, tachypnea, wheezes Cardiovascular exam: PRESENT: RRR, +S1, +S2 GI/Abdominal exam: PRESENT: normal bowel sounds, soft. ABSENT: distended, guarding, rebound, tenderness Extremities exam: ABSENT: clubbing, pedal edema Musculoskeletal exam: PRESENT: normal inspection. ABSENT: deformity Neurological exam: PRESENT: alert, awake, oriented to person, oriented to place, oriented to time, oriented to situation Psychiatric exam: PRESENT: appropriate affect, normal mood Skin exam: PRESENT: dry, warm Results Laboratory Results: 12/07/18 05:30 12/07/18 05:30 12/07/18 12/07/18 05:30 05:30 WBC 7.5 RBC 2.91 L Hgb 8.2 L Hct 24.4 L MCV 84 MCH 28.3 MCHC 33.7 RDW 14.0 Plt Count 490 H Seg Neutrophils % 60.2 Lymphocytes % 19.6 Monocytes % 12.4 Eosinophils % 6.9 H Basophils % 0.9 Absolute Neutrophils 4.5 Absolute Lymphocytes 1.5 Absolute Monocytes 0.9 Absolute Eosinophils 0.5 Absolute Basophils 0.1 Sodium 140.3 Potassium 4.3 Chloride 107 Carbon Dioxide 24 Anion Gap 9 BUN 20 Creatinine 1.43 H Est GFR ( Amer) > 60 Est GFR (Non-Af Amer) > 60 Glucose 102 Calcium 9.4 Total Bilirubin 0.3 AST 33 ALT 35 Alkaline Phosphatase 76 Total Protein 6.6 Albumin 3.1 L Impressions: Chest X-Ray 12/06/18 00:00 IMPRESSION: Cardiomegaly without pulmonary edema. Small pleural effusions. Cannot exclude airspace disease in the left lower lobe. Atelectasis versus pneumonia. Assessment and Plan - Diagnosis (1) Endocarditis Qualifiers: Endocarditis type: infective Infective endocarditis organism: bacterial Chronicity: acute Qualified Code(s): I33.0 - Acute and subacute infective endocarditis Is this a current diagnosis for this admission?: Yes Plan: He is on IV vancomycin and rifampin until December 29. (2) IDCK (acute kidney injury) Is this a current diagnosis for this admission?: Yes Plan: I am told that this happened when he was on vancomycin and gentamicin in [place]. His creatinine yesterday in agreement was 1.38, today is 1.43. Will monitor for any change of the trend. (3) HTN (hypertension) Is this a current diagnosis for this admission?: Yes Plan: Well-controlled on the current regimen (4) Pleural effusion Is this a current diagnosis for this admission?: Yes Plan: Resolved. He had chest tube in place up in [place] and that has since been removed. (5) S/P AVR (aortic valve replacement) Is this a current diagnosis for this admission?: Yes Plan: Secondary to his bacterial endocarditis. He has follow-up scheduled in a few weeks. Not on anticoagulation per their recommendations from [place]. (6) Polysubstance abuse Is this a current diagnosis for this admission?: Yes Plan: He has a PICC line in place needs 6 weeks of antibiotics, which is why he staying here for the duration. - Time Time Spent with patient: 15-24 minutes
[2018-12-07] MEDS: MELATONIN 3 MG TABLET PO SCH (21:42)
[2018-12-08] MEDS: OXYCODONE-ACETAMINOPHEN 5-325 MG TABLET PO PRN ×3 (06:23→21:25)
[2018-12-08] MEDS: METOPROLOL TARTRATE 100 MG TABLET PO SCH ×3 (06:23→21:25)
[2018-12-08] MEDS: HYDRALAZINE HCL 25 MG TABLET PO SCH ×3 (06:23→21:25)
[2018-12-08] MEDS: FAMOTIDINE 20 MG TABLET PO SCH ×2 (09:49→21:25)
[2018-12-08] MEDS: RIFAMPIN 300 MG CAPSULE PO SCH (09:49)
[2018-12-08] MEDS: VANCOMYCIN HCL 1,000 MG in DEXTROSE 5%-WATER 250 ML IV SCH (09:49)
[2018-12-08] MEDS: NICOTINE 21 MG/24 HR PATCH.TD24 TD SCH (09:54)
--- NOTE | 2018-12-08 15:59 | PDOC PROGRESS REPORT ---
Subjective Progress Note for:: 12/08/18 Subjective:: No adverse events overnight. No new complaints. He has been occupying some of his time with video games. He has had no fevers. Eating and drinking without difficulty. Reason For Visit: IV FLUIDS Physical Exam Vital Signs: Temp Pulse Resp BP Pulse Ox 97.4 F 94 15 116/81 100 12/08/18 08:16 12/08/18 14:00 12/08/18 08:16 12/08/18 08:16 12/08/18 08:16 Intake & Output 12/07/18 12/08/18 12/09/18 06:59 06:59 06:59 Intake Total 1457 3212 250 Balance 1457 3212 250 Weight 57.2 kg 59.9 kg General appearance: PRESENT: no acute distress, cooperative, thin Respiratory exam: PRESENT: clear to auscultation cassandra, symmetrical, unlabored. ABSENT: accessory muscle use, crackles, prolonged expiratory phas, rhonchi, tachypnea, wheezes Cardiovascular exam: PRESENT: RRR, +S1, +S2 Pulses: PRESENT: normal carotid pulses Vascular exam: PRESENT: normal capillary refill GI/Abdominal exam: PRESENT: normal bowel sounds, soft. ABSENT: distended, guarding, rebound, tenderness Extremities exam: ABSENT: clubbing, pedal edema Musculoskeletal exam: PRESENT: normal inspection. ABSENT: deformity Neurological exam: PRESENT: alert, awake, oriented to person, oriented to place, oriented to time, oriented to situation Psychiatric exam: PRESENT: appropriate affect, normal mood Skin exam: PRESENT: dry, warm Results Laboratory Results: 12/07/18 05:30 12/07/18 05:30 Impressions: Chest X-Ray 12/06/18 00:00 IMPRESSION: Cardiomegaly without pulmonary edema. Small pleural effusions. Cannot exclude airspace disease in the left lower lobe. Atelectasis versus pneumonia. Assessment and Plan - Diagnosis (1) Endocarditis Qualifiers: Endocarditis type: infective Infective endocarditis organism: bacterial Chronicity: acute Qualified Code(s): I33.0 - Acute and subacute infective endocarditis Is this a current diagnosis for this admission?: Yes Plan: He is on IV vancomycin and rifampin until December 29. (2) DICK (acute kidney injury) Is this a current diagnosis for this admission?: Yes Plan: Keep an eye on his creatinine to help us with his vancomycin dosing, and to see the trend his acute kidney injury it was associated with his gentamicin in [place]. (3) HTN (hypertension) Is this a current diagnosis for this admission?: Yes Plan: Well-controlled on the current regimen (4) Pleural effusion Is this a current diagnosis for this admission?: Yes Plan: Resolved. He had chest tube in place up in [place] and that has since been removed. (5) S/P AVR (aortic valve replacement) Is this a current diagnosis for this admission?: Yes Plan: Secondary to his bacterial endocarditis. He has follow-up scheduled in a few weeks. Not on anticoagulation per their recommendations from [place]. (6) Polysubstance abuse Is this a current diagnosis for this admission?: Yes Plan: He has a PICC line in place needs 6 weeks of antibiotics, which is why he staying here for the duration. - Time Time Spent with patient: 15-24 minutes
[2018-12-08] MEDS: MELATONIN 3 MG TABLET PO SCH (21:26)
[2018-12-09] MEDS: OXYCODONE-ACETAMINOPHEN 5-325 MG TABLET PO PRN ×3 (05:43→19:33)
[2018-12-09] MEDS: HYDRALAZINE HCL 25 MG TABLET PO SCH ×3 (05:43→21:13)
[2018-12-09] MEDS: METOPROLOL TARTRATE 100 MG TABLET PO SCH ×3 (05:43→21:13)
[2018-12-09] MEDS: RIFAMPIN 300 MG CAPSULE PO SCH (08:01)
[2018-12-09] MEDS: VANCOMYCIN HCL 750 MG in DEXTROSE 5%-WATER 250 ML IV SCH ×2 (10:22→21:13)
[2018-12-09] MEDS: NICOTINE 21 MG/24 HR PATCH.TD24 TD SCH (11:42)
[2018-12-09] MEDS: FAMOTIDINE 20 MG TABLET PO SCH ×2 (11:43→21:13)
[2018-12-09 12:34] LABS: VANCOMYCIN,TROUGH 14.7 ug/mL (5.0-20.0)
--- NOTE | 2018-12-09 15:45 | PDOC PROGRESS REPORT ---
Subjective Progress Note for:: 12/09/18 Subjective:: No adverse events overnight. No new complaints. Vital signs are stable. He is reading the newspaper eating some cereal whenever came in. He is tolerating his antibiotic treatment without difficulty. Reason For Visit: IV FLUIDS Physical Exam Vital Signs: Temp Pulse Resp BP Pulse Ox 98.1 F 88 18 126/76 H 100 12/09/18 10:00 12/09/18 10:00 12/09/18 10:00 12/09/18 10:00 12/09/18 10:00 Intake & Output 12/08/18 12/09/18 12/10/18 06:59 06:59 06:59 Intake Total 3212 1760 250 Balance 3212 1760 250 Weight 59.9 kg 59.9 kg General appearance: PRESENT: no acute distress, cooperative, thin, well- developed, well-nourished Results Laboratory Results: 12/07/18 05:30 12/07/18 05:30 Impressions: Chest X-Ray 12/06/18 00:00 IMPRESSION: Cardiomegaly without pulmonary edema. Small pleural effusions. Cannot exclude airspace disease in the left lower lobe. Atelectasis versus pneumonia. Assessment and Plan - Diagnosis (1) Endocarditis Qualifiers: Endocarditis type: infective Infective endocarditis organism: bacterial C hronicity: acute Qualified Code(s): I33.0 - Acute and subacute infective endocarditis Is this a current diagnosis for this admission?: Yes Plan: He is on IV vancomycin and rifampin until December 29. (2) DICK (acute kidney injury) Is this a current diagnosis for this admission?: Yes Plan: Keep an eye on his creatinine to help us with his vancomycin dosing, and to see the trend his acute kidney injury it was associated with his gentamicin in [place]. (3) HTN (hypertension) Is this a current diagnosis for this admission?: Yes Plan: Well-controlled on the current regimen (4) Pleural effusion Is this a current diagnosis for this admission?: Yes Plan: Resolved. He had chest tube in place up in [place] and that has since been removed. (5) S/P AVR (aortic valve replacement) Is this a current diagnosis for this admission?: Yes Plan: Secondary to his bacterial endocarditis. He has follow-up scheduled in a few weeks. Not on anticoagulation per their recommendations from [place]. (6) Polysubstance abuse Is this a current diagnosis for this admission?: Yes Plan: He has a PICC line in place needs 6 weeks of antibiotics, which is why he staying here for the duration. - Time Time Spent with patient: Less than 15 minutes
[2018-12-09] MEDS: MELATONIN 3 MG TABLET PO SCH (21:12)
[2018-12-10] MEDS: METOPROLOL TARTRATE 100 MG TABLET PO SCH ×3 (05:03→21:52)
[2018-12-10] MEDS: HYDRALAZINE HCL 25 MG TABLET PO SCH ×3 (05:03→21:52)
[2018-12-10 06:33] LABS: ANION GAP 11 (5-19); BLOOD UREA NITROGEN 29 mg/dL (7-20); CALCIUM 9.9 mg/dL (8.4-10.2); CARBON DIOXIDE 27 mmol/L (22-30); CHLORIDE 102 mmol/L (98-107); GLUCOSE 106 mg/dL (75-110); POTASSIUM 4.9 mmol/L (3.6-5.0); SODIUM 139.8 mmol/L (137-145)
[2018-12-10] MEDS: NICOTINE 21 MG/24 HR PATCH.TD24 TD SCH (10:08)
[2018-12-10] MEDS: FAMOTIDINE 20 MG TABLET PO SCH ×2 (10:09→21:52)
[2018-12-10] MEDS: RIFAMPIN 300 MG CAPSULE PO SCH (11:05)
[2018-12-10] MEDS: VANCOMYCIN HCL 750 MG in DEXTROSE 5%-WATER 250 ML IV SCH ×2 (11:05→22:20)
[2018-12-10] MEDS: OXYCODONE-ACETAMINOPHEN 5-325 MG TABLET PO PRN ×3 (11:10→19:21)
[2018-12-10] MEDS ORDERED: ALPRAZOLAM 0.5 MG TABLET PO PRN (14:49)
--- NOTE | 2018-12-10 14:53 | PDOC PROGRESS REPORT ---
Subjective Progress Note for:: 12/10/18 Subjective:: This is a 22 year old male with a PMH of asthma, IV drug abuse, tobacco abuse who was initially admitted here and subsequently [facility]. He was subsequently confirmed to have endocarditis and underwent aortic valve replacement due to severe aortic insufficiency and aortic wall vegetations noted on RENEE. He underwent aortic valve replacement on 11/15/2018. He was also evaluated by ID at [place] and was recommended to be on vancomycin and rifampin with last day of therapy on December 29. He was transferred back to [facility] for completion of antibiotics. He did develop DICK from Lasix and Gentamicin. He also was found to have a small left occipital hemorrhage and embolic CVAs likely septic in nature. No acute event overnight. He denies acute complaint/ Denies chest pain or SOB. No fever or chills. Reason For Visit: IV FLUIDS Physical Exam Vital Signs: Temp Pulse Resp BP Pulse Ox 98.3 F 107 H 16 122/83 100 12/10/18 11:25 12/10/18 14:00 12/10/18 11:25 12/10/18 11:25 12/10/18 11:25 Intake & Output 12/09/18 12/10/18 12/11/18 06:59 06:59 06:59 Intake Total 1760 1975 250 Balance 1760 1975 250 Weight 132 lb 0.91 oz 125 lb 0.034 oz General appearance: PRESENT: no acute distress, well-developed, well-nourished Head exam: PRESENT: atraumatic, normocephalic Eye exam: PRESENT: conjunctiva pink, EOMI, PERRLA. ABSENT: scleral icterus Ear exam: PRESENT: normal external ear exam Neck exam: ABSENT: carotid bruit, JVD, lymphadenopathy, thyromegaly Respiratory exam: PRESENT: clear to auscultation cassandra. ABSENT: rales, rhonchi, wheezes Cardiovascular exam: PRESENT: RRR, systolic murmur. ABSENT: rubs GI/Abdominal exam: PRESENT: normal bowel sounds, soft. ABSENT: distended, guarding, mass, organolmegaly, rebound, tenderness Rectal exam: PRESENT: deferred Neurological exam: PRESENT: alert, awake, oriented to person, oriented to place, oriented to time, oriented to situation, CN II-XII grossly intact. ABSENT: motor sensory deficit Results Laboratory Results: 12/07/18 05:30 12/10/18 05:05 12/10/18 05:05 Sodium 139.8 Potassium 4.9 Chloride 102 Carbon Dioxide 27 Anion Gap 11 BUN 29 H Creatinine 1.67 H Est GFR ( Amer) > 60 Est GFR (Non-Af Amer) 52 L Glucose 106 Calcium 9.9 Impressions: Chest X-Ray 12/06/18 00:00 IMPRESSION: Cardiomegaly without pulmonary edema. Small pleural effusions. Cannot exclude airspace disease in the left lower lobe. Atelectasis versus pneumonia. Assessment and Plan - Diagnosis (1) Endocarditis Qualifiers: Endocarditis type: infective Infective endocarditis organism: bacterial Chronicity: acute Qualified Code(s): I33.0 - Acute and subacute infective endocarditis Is this a current diagnosis for this admission?: Yes Plan: Continue vancomycin and rifampin with last day of therapy on December 29. S/P aortic valve replacement. (2) S/P AVR (aortic valve replacement) Is this a current diagnosis for this admission?: Yes Plan: As per number 1. (3) DICK (acute kidney injury) Is this a current diagnosis for this admission?: Yes Plan: Creatinine has trended up today. Repeat BMP tomorrow. (4) Pleural effusion Is this a current diagnosis for this admission?: Yes Plan: Will reassess with a repeat CXR tomorrow. (5) Sepsis Qualifiers: Sepsis type: Streptococcus group A Qualified Code(s): A40.0 - Sepsis due to streptococcus, group A Is this a current diagnosis for this admission?: Yes Plan: Sepsis resolved. He did have multiple septic emboli to the brain on MRI done at [facility]. (6) Polysubstance abuse Is this a current diagnosis for this admission?: Yes Plan: Counseled on cessation of drug use. - Time Time Spent with patient: 25-34 minutes
--- NOTE | 2018-12-10 14:55 | Progress Note ---
Provider Note Provider Note: ID Consult Note Asked to review patient's chart by Pharmacy. Pt not seen or examined. Reviewed Infectious Diseases provider notes in [facility] and labs in both [facility] and [facility]. Mr. Mayer is a 22 year old man with PMH including IVDU who was admitted in October 2017 with MSSA bacteremia due to infective endocarditis of his [place] bicuspid valve with large vegetations found at surgery. He had pulmonary edema and DICK. He required aortic valve replacement. The valve tissue grew MRSA rather than MSSA. He was treated with vancomycin, gentamicin for synergy for the first 2 weeks, and rifampin. He has been transferred back to [place] to continue treatment. Impression/Recommendations MRSA bicuspid aortic valve infective endocarditis, s/p aortic valve replacement - continue IV vancomycin with goal trough of 15-20 - increase PO rifampin dose to 300 mg TID (or 900 mg total in a day) - continue to monitor weekly CBC, CMP, vancomycin trough - last date of therapy anticipated to be 12/29/18 for vancomycin and rifampin - considering pt's hx of IVDU, discharge to home with IV line would not be advisable. Outcomes are poor for patients discharged to complete outpatient IV antibiotic therapy when there is no substance abuse treatment program integrated into the patient's care. Elias Dennis MD [facility] Infectious Diseases pager [phone]
[2018-12-10] MEDS: MELATONIN 3 MG TABLET PO SCH (21:52)
[2018-12-10 22:31] LABS: VANCOMYCIN,TROUGH 21.8 ug/mL (5.0-20.0)
[2018-12-11] MEDS: METOPROLOL TARTRATE 100 MG TABLET PO SCH ×3 (05:35→21:45)
[2018-12-11] MEDS: HYDRALAZINE HCL 25 MG TABLET PO SCH ×3 (05:35→21:45)
[2018-12-11] MEDS: OXYCODONE-ACETAMINOPHEN 5-325 MG TABLET PO PRN ×4 (05:36→21:46)
[2018-12-11 06:53] LABS: ANION GAP 11 (5-19); BLOOD UREA NITROGEN 31 mg/dL (7-20); CALCIUM 10.1 mg/dL (8.4-10.2); CARBON DIOXIDE 27 mmol/L (22-30); CHLORIDE 101 mmol/L (98-107); GLUCOSE 99 mg/dL (75-110); POTASSIUM 5.2 mmol/L (3.6-5.0)
[2018-12-11] MEDS: RIFAMPIN 300 MG CAPSULE PO SCH ×3 (07:59→21:46)
--- NOTE | 2018-12-11 08:41 | RADIOLOGY REPORT (SQ) ---
EXAM DESCRIPTION: CHEST SINGLE VIEW COMPLETED DATE/TIME: 12/11/2018 8:13 am REASON FOR STUDY: assess for pleural effusion COMPARISON: 12/06/2018 NUMBER OF VIEWS: One view. TECHNIQUE: Single frontal radiographic view of the chest acquired. LIMITATIONS: None. FINDINGS: LUNGS AND PLEURA: Aeration in the left base is improved. Minimal atelectasis or pneumonia remains. Right lung hester clear. PICC line remains in place. No pneumothorax. MEDIASTINUM AND HILAR STRUCTURES: No masses. Contour normal. HEART AND VASCULAR STRUCTURES: Stable in appearance. BONES: No acute findings. HARDWARE: Sternotomy wires are in place. OTHER: No other significant finding. IMPRESSION: Persistent airspace disease in the left base. There has been significant improvement fr om prior study. TECHNICAL DOCUMENTATION: JOB ID: [id number] [employer]- All Rights Reserved Reading location - IP/workstation name: [email or web address]
[2018-12-11] MEDS: FAMOTIDINE 20 MG TABLET PO SCH ×2 (09:46→21:45)
[2018-12-11] MEDS: NICOTINE 21 MG/24 HR PATCH.TD24 TD SCH (09:47)
--- NOTE | 2018-12-11 15:13 | PDOC PROGRESS REPORT ---
Subjective Progress Note for:: 12/11/18 Subjective:: This is a 22 year old male with a PMH of asthma, IV drug abuse, tobacco abuse who was initially admitted here and subsequently transferred to a [facility] for possible infective endocarditis. He was subsequently confirmed to have endocarditis and underwent aortic valve replacement due to severe aortic insufficiency and aortic wall vegetations noted on RENEE. He underwent aortic valve replacement on 11/15/2018. He was also evaluated by ID at [place] and was recommended to be on vancomycin and rifampin with last day of therapy on December 29. He was transferred back to [facility] for completion of antibiotics. He did develop DICK from Lasix and Gentamicin. He also was found to have a small left occipital hemorrhage and embolic CVAs likely septic in nature. No acute event overnight. He denies acute complaint. Denies chest pain or SOB. No fever or chills. He is completing his antibiotics until December 29. Reason For Visit: IV FLUIDS Physical Exam Vital Signs: Temp Pulse Resp BP Pulse Ox 98.1 F 99 16 108/72 100 12/11/18 07:59 12/11/18 14:00 12/11/18 07:59 12/11/18 07:59 12/11/18 07:59 Intake & Output 12/10/18 12/11/18 12/12/18 06:59 06:59 06:59 Intake Total 1974 1540 300 Balance 1974 1540 300 Weight 125 lb 0.034 oz 135 lb 2.294 oz General appearance: PRESENT: no acute distress, well-developed, well-nourished Head exam: PRESENT: atraumatic, normocephalic Eye exam: PRESENT: conjunctiva pink, EOMI, PERRLA. ABSENT: scleral icterus Ear exam: PRESENT: normal external ear exam Mouth exam: PRESENT: moist, tongue midline Neck exam: ABSENT: carotid bruit, JVD, lymphadenopathy, thyromegaly Respiratory exam: PRESENT: clear to auscultation cassandra. ABSENT: rales, rhonchi, wheezes Cardiovascular exam: PRESENT: RRR, systolic murmur. ABSENT: rubs Pulses: PRESENT: normal dorsalis pedis pul GI/Abdominal exam: PRESENT: normal bowel sounds, soft. ABSENT: distended, guarding, mass, organolmegaly, rebound, tenderness Rectal exam: PRESENT: deferred Neurological exam: PRESENT: alert, awake, oriented to person, oriented to place, oriented to time, oriented to situation, CN II-XII grossly intact. ABSENT: motor sensory deficit Results Laboratory Results: 12/07/18 05:30 12/11/18 05:35 12/10/18 12/11/18 21:45 05:35 Sodium 139.0 Potassium 5.2 H Chloride 101 Carbon Dioxide 27 Anion Gap 11 BUN 31 H Creatinine 1.73 H 1.71 H Est GFR ( Amer) > 60 > 60 Est GFR (Non-Af Amer) 50 L 50 L Glucose 99 Calcium 10.1 Impressions: Chest X-Ray 12/11/18 07:00 IMPRESSION: Persistent airspace disease in the left base. There has been significant improvement from prior study. Assessment and Plan - Diagnosis (1) Endocarditis Qualifiers: Endocarditis type: infective Infective endocarditis organism: bacterial Chronicity: acute Qualified Code(s): I33.0 - Acute and subacute infective endocarditis Is this a current diagnosis for this admission?: Yes Plan: Continue vancomycin and rifampin with last day of therapy on December 29. S/P aortic valve replacement. (2) S/P AVR (aortic valve replacement) Is this a current diagnosis for this admission?: Yes Plan: As per number 1. (3) DICK (acute kidney injury) Is this a current diagnosis for this admission?: Yes Plan: Creatinine has trended up today. Will start him on IV fluids. Continue to monitor renal function. (4) Pleural effusion Is this a current diagnosis for this admission?: Yes Plan: Resolved. (5) Sepsis Qualifiers: Sepsis type: Streptococcus group A Qualified Code(s): A40.0 - Sepsis due to streptococcus, group A Is this a current diagnosis for this admission?: Yes Plan: Sepsis resolved. He did have multiple septic emboli to the brain on MRI done at [facility]. (6) Polysubstance abuse Is this a current diagnosis for this admission?: Yes Plan: Counseled on cessation of drug use. - Time Time Spent with patient: 15-24 minutes
[2018-12-11] MEDS: VANCOMYCIN HCL 1,500 MG in DEXTROSE 5%-WATER 250 ML IV SCH (17:31)
[2018-12-11] MEDS: MELATONIN 3 MG TABLET PO SCH (21:46)
[2018-12-12] MEDS: HYDRALAZINE HCL 25 MG TABLET PO SCH ×3 (06:36→22:34)
[2018-12-12] MEDS: RIFAMPIN 300 MG CAPSULE PO SCH ×3 (06:36→22:34)
[2018-12-12] MEDS: OXYCODONE-ACETAMINOPHEN 5-325 MG TABLET PO PRN ×3 (06:36→22:33)
[2018-12-12] MEDS: METOPROLOL TARTRATE 100 MG TABLET PO SCH ×3 (06:36→22:34)
[2018-12-12 07:13] LABS: ANION GAP 12 (5-19); BLOOD UREA NITROGEN 36 mg/dL (7-20); CALCIUM 10.3 mg/dL (8.4-10.2); CARBON DIOXIDE 26 mmol/L (22-30); CHLORIDE 101 mmol/L (98-107); GLUCOSE 99 mg/dL (75-110); POTASSIUM 4.7 mmol/L (3.6-5.0); SODIUM 138.9 mmol/L (137-145)
[2018-12-12] MEDS: FAMOTIDINE 20 MG TABLET PO SCH ×2 (09:43→22:34)
[2018-12-12] MEDS: NICOTINE 21 MG/24 HR PATCH.TD24 TD SCH (10:05)
[2018-12-12] MEDS: NORMAL SALINE 1000 ML 1,000 ML IV PRN (11:25)
--- NOTE | 2018-12-12 16:43 | PDOC PROGRESS REPORT ---
Subjective Progress Note for:: 12/12/18 Subjective:: This is a 22 year old male with a PMH of asthma, IV drug abuse, tobacco abuse who was initially admitted here [facility]. He was subsequently confirmed to have endocarditis and underwent aortic valve replacement due to severe aortic insufficiency and aortic wall vegetations noted on RENEE. He underwent aortic valve replacement on 11/15/2018. He was also evaluated by ID at [place] and was recommended to be on vancomycin and rifampin with last day of therapy on December 29. He was transferred back to [facility] for completion of antibiotics. He did develop DICK from Lasix and Gentamicin. He also was found to have a small left occipital hemorrhage and embolic CVAs likely septic in nature. No acute event overnight. He denies acute complaint. Denies chest pain or SOB. No fever or chills. He is completing his antibiotics until December 29. Reason For Visit: IV FLUIDS Physical Exam Vital Signs: Temp Pulse Resp BP Pulse Ox 98.5 F 105 H 16 120/65 100 12/12/18 10:00 12/12/18 10:00 12/12/18 10:00 12/12/18 10:00 12/12/18 10:00 Intake & Output 12/11/18 12/12/18 12/13/18 06:59 06:59 06:59 Intake Total 1540 1558 590 Balance 1540 1558 590 Weight 135 lb 2.294 oz 142 lb 10.225 oz General appearance: PRESENT: no acute distress, well-developed, well-nourished Head exam: PRESENT: atraumatic, normocephalic Eye exam: PRESENT: conjunctiva pink, EOMI, PERRLA. ABSENT: scleral icterus Ear exam: PRESENT: normal external ear exam Mouth exam: PRESENT: moist, tongue midline Neck exam: ABSENT: carotid bruit, JVD, lymphadenopathy, thyromegaly Respiratory exam: PRESENT: clear to auscultation cassandra. ABSENT: rales, rhonchi, wheezes Cardiovascular exam: PRESENT: RRR, systolic murmur. ABSENT: rubs Pulses: PRESENT: normal dorsalis pedis pul GI/Abdominal exam: PRESENT: normal bowel sounds, soft. ABSENT: distended, guarding, mass, organolmegaly, rebound, tenderness Rectal exam: PRESENT: deferred Neurological exam: PRESENT: alert, awake, oriented to person, oriented to place, oriented to time, oriented to situation, CN II-XII grossly intact. ABSENT: motor sensory deficit Results Laboratory Results: 12/07/18 05:30 12/12/18 06:40 12/12/18 06:40 Sodium 138.9 Potassium 4.7 Chloride 101 Carbon Dioxide 26 Anion Gap 12 BUN 36 H Creatinine 1.77 H Est GFR ( Amer) 58 L Est GFR (Non-Af Amer) 48 L Glucose 99 Calcium 10.3 H Impressions: Chest X-Ray 12/11/18 07:00 IMPRESSION: Persistent airspace disease in the left base. There has been significant improvement from prior study. Assessment and Plan - Diagnosis (1) Endocarditis Qualifiers: Endocarditis type: infective Infective endocarditis organism: bacterial Chronicity: acute Qualified Code(s): I33.0 - Acute and subacute infective endocarditis Is this a current diagnosis for this admission?: Yes Plan: Continue vancomycin and rifampin with last day of therapy on December 29. S/P aortic valve replacement. (2) S/P AVR (aortic valve replacement) Is this a current diagnosis for this admission?: Yes Plan: As per number 1. (3) DICK (acute kidney injury) Is this a current diagnosis for this admission?: Yes Plan: IV fluids apparently not started yesterday. Restart IV fluids with normal saline today. (4) Pleural effusion Is this a current diagnosis for this admission?: Yes Plan: Resolved. (5) Sepsis Qualifiers: Sepsis type: Streptococcus group A Qualified Code(s): A40.0 - Sepsis due to streptococcus, group A Is this a current diagnosis for this admission?: Yes Plan: Sepsis resolved. He did have multiple septic emboli to the brain on MRI done at [facility]. (6) Polysubstance abuse Is this a current diagnosis for this admission?: Yes Plan: Counseled on cessation of drug use. - Time Time Spent with patient: 15-24 minutes
[2018-12-12] MEDS: VANCOMYCIN HCL 1,500 MG in DEXTROSE 5%-WATER 250 ML IV SCH (18:10)
[2018-12-12] MEDS: MELATONIN 3 MG TABLET PO SCH (22:34)
[2018-12-13] MEDS: NORMAL SALINE 1000 ML 1,000 ML IV PRN ×2 (00:45→22:00)
[2018-12-13] MEDS: METOPROLOL TARTRATE 100 MG TABLET PO SCH ×3 (05:59→22:00)
[2018-12-13] MEDS: RIFAMPIN 300 MG CAPSULE PO SCH ×3 (05:59→22:02)
[2018-12-13] MEDS: HYDRALAZINE HCL 25 MG TABLET PO SCH ×3 (06:00→22:00)
[2018-12-13] MEDS: OXYCODONE-ACETAMINOPHEN 5-325 MG TABLET PO PRN ×3 (06:00→22:01)
[2018-12-13] MEDS: NICOTINE 21 MG/24 HR PATCH.TD24 TD SCH (09:12)
[2018-12-13] MEDS: FAMOTIDINE 20 MG TABLET PO SCH ×2 (09:16→22:00)
[2018-12-13 09:52] LABS: MEAN CORPUSCULAR VOLUME 83 fl (80-97)
[2018-12-13 10:06] LABS: ABSOLUTE BASOPHILS # (AUTO) 0.1 10^3/uL (0.0-0.2); ABSOLUTE EOSINOPHILS # (AUTO) 0.8 10^3/uL (0.0-0.6); ABSOLUTE LYMPHOCYTES (AUTO) 1.6 10^3/uL (0.5-4.7); ABSOLUTE MONOCYTES (AUTO) 0.9 10^3/uL (0.1-1.4); ABSOLUTE NEUT (AUTO) 3.3 10^3/uL (1.7-8.2); EOSINOPHILS % (AUTO) 11.8 % (0-6); HEMATOCRIT 28.9 % (37.9-51.0); HEMOGLOBIN 9.7 g/dL (13.5-17.0); LYMPHOCYTES % (AUTO) 23.3 % (13-45); MEAN CORPUSCULAR HEMOGLOBIN 27.8 pg (27.0-33.4); MEAN CORPUSCULAR HGB CONC 33.6 g/dL (32.0-36.0); MONOCYTES % (AUTO) 13.1 % (3-13); PLATELET COUNT 515 10^3/uL (150-450); RED BLOOD COUNT 3.49 10^6/uL (4.35-5.55); RED CELL DISTRIBUTION WIDTH 14.1 % (11.5-14.0); SEGMENTED NEUTROPHILS % (AUTO) 49.8 % (42-78); TOTAL CELLS COUNTED % (AUTO) 100 %; WHITE BLOOD COUNT 6.7 10^3/uL (4.0-10.5)
[2018-12-13 10:16] LABS: ANION GAP 10 (5-19); BLOOD UREA NITROGEN 24 mg/dL (7-20); CALCIUM 10.6 mg/dL (8.4-10.2); CARBON DIOXIDE 29 mmol/L (22-30); CHLORIDE 101 mmol/L (98-107); GLUCOSE 93 mg/dL (75-110); POTASSIUM 5.7 mmol/L (3.6-5.0); SODIUM 140.4 mmol/L (137-145)
[2018-12-13] MEDS: SODIUM POLYSTYRENE SULFONATE 15 GM/60 ML PO SCH ×2 (11:00→22:02)
[2018-12-13 13:44] LABS: APPEARANCE,URINE CLEAR; BILIRUBIN,URINE NEGATIVE (NEGATIVE); COLOR,URINE YELLOW; GLUCOSE, URINE NEGATIVE (NEGATIVE); KETONES,URINE NEGATIVE (NEGATIVE); LEUKOCYTE ESTERASE,URINE NEGATIVE (NEGATIVE); NITRITE,URINE NEGATIVE (NEGATIVE); PROTEIN,URINE NEGATIVE (NEGATIVE); URINE SPECIFIC GRAVITY 1.011; UROBILINOGEN,URINE NEGATIVE mg/dL (<2.0)
--- NOTE | 2018-12-13 14:54 | PDOC CONSULTATION ---
Consultation Consult Date: 12/13/18 Provider Consulted: BRIA MURGUIA Consult reason:: DICK History of Present Illness Admission Date/PCP: 12/06/18 16:24 LINO DUFF NP History of Present Illness: DONAVAN FALCON is a 22 year old male with a PMH of asthma, IV drug abuse, tobacco abuse who was initially admitted here for headaches, chest pain and SOB. Initial worked up for meningitis, which was ruled out. Endocarditis was found he was transfered to [facility] for possible infective endocarditis. A RENEE confirmed he had endocarditis. CT surgery in [facility] preformed an aortic valve replacement due to severe aortic insufficiency and aortic wall vegetations. He underwent the aortic valve replacement on 11/15/2018. ID was consulted for the endocarditis. They recommended that he be on vancomycin and rifampin until December 29. A picc line was placed and he was transferred back to [facility] for completion of antibiotics. While in [facility] he developed an DICK which was related to the vanc. He also was found to have a small left occipital hemorrhage and embolic CVAs likely septic in nature. At [facility] here he has been receiving vanc. He was also placed on lasix for brief period of time due to pleural effusions. Creatinine has been slow creeping up. Due to this fluids were recently started and the lasix was stopped. Patient today denies any chest pain, SOB, N/V/D/C, fevers or chills. He claims that he has never been told he had underlining kidney disease. Prior to this admission he has still been using drugs. Past Medical History Pulmonary Medical History: Reports: Asthma Neurological Medical History: Reports: Migraine Past Surgical History Past Surgical History: Reports: Valve Replacement Social History Smoking Status: Current Every Day Smoker Frequency of Alcohol Use: None Hx Recreational Drug Use: Yes Drugs: Cocaine, Heroin, Marijuana, Other Hx Prescription Drug Abuse: No - Advance Directive Resuscitation Status: Full Code Family History Parental Family History Reviewed: Yes Children Family History Reviewed: NA Sibling(s) Family History Reviewed.: Unknown Medication/Allergy Home Medications: No Home Medications 12/06/18 Allergies/Adverse Reactions: No Known Allergies Allergy (Verified 11/07/18 12:47) Review of Systems Constitutional: PRESENT: chills - when he first came in, fever(s) - when he first came in. ABSENT: headache(s), night sweats, weakness - r Eyes: ABSENT: visual disturbances Cardiovascular: PRESENT: palpitations - when he first came in. ABSENT: chest pain, dyspnea on exertion, edema, orthropnea Respiratory: ABSENT: cough, dyspnea, sputum Gastrointestinal: ABSENT: abdominal pain, constipation, diarrhea, nausea, vomiting Genitourinary: ABSENT: difficulty urinating, dysuria, nocturia Neurological: PRESENT: focal weakness. ABSENT: convulsions, dizziness, memory loss, numbness, weakness Hematologic/Lymphatic: ABSENT: easy bleeding, easy bruising Physical Exam Vital Signs: Temp Pulse Resp BP Pulse Ox 98.0 F 93 16 126/76 H 100 12/13/18 12:00 12/13/18 12:00 12/13/18 12:00 12/13/18 12:00 12/13/18 12:00 Intake & Output 12/12/18 12/13/18 12/14/18 06:59 06:59 06:59 Intake Total 1558 2580 590 Balance 1558 2580 590 Weight 64.7 kg 65 kg General appearance: PRESENT: no acute distress, well-developed, well-nourished Eye exam: ABSENT: PERRLA, scleral icterus Mouth exam: PRESENT: moist. ABSENT: dry mucosa, neck supple Neck exam: ABSENT: JVD, meningismus, tracheal deviation Respiratory exam: PRESENT: clear to auscultation cassandra. ABSENT: accessory muscle use, crackles, rales, rhonchi, wheezes Cardiovascular exam: PRESENT: clicks, RRR, +S1, +S2, systolic murmur GI/Abdominal exam: PRESENT: soft. ABSENT: tenderness Extremities exam: ABSENT: pedal edema, tenderness, +1 edema, +2 edema Musculoskeletal exam: PRESENT: normal inspection. ABSENT: deformity, tenderness Neurological exam: PRESENT: alert, awake, oriented to person, oriented to place, oriented to time, oriented to situation Psychiatric exam: PRESENT: appropriate affect, normal mood Skin exam: PRESENT: dry, intact, warm Results Laboratory Results: 12/13/18 09:33 12/13/18 09:33 12/13/18 12/13/18 09:33 09:33 WBC 6.7 RBC 3.49 L Hgb 9.7 L Hct 28.9 L MCV 83 MCH 27.8 MCHC 33.6 RDW 14.1 H Plt Count 515 H Seg Neutrophils % 49.8 Lymphocytes % 23.3 Monocytes % 13.1 H Eosinophils % 11.8 H Basophils % 2.0 Absolute Neutrophils 3.3 Absolute Lymphocytes 1.6 Absolute Monocytes 0.9 Absolute Eosinophils 0.8 H Absolute Basophils 0.1 Sodium 140.4 Potassium 5.7 H Chloride 101 Carbon Dioxide 29 Anion Gap 10 BUN 24 H Creatinine 1.83 H Est GFR ( Amer) 56 L Est GFR (Non-Af Amer) 47 L Glucose 93 Calcium 10.6 H Impressions: Chest X-Ray 12/11/18 07:00 IMPRESSION: Persistent airspace disease in the left base. There has been significant improvement from prior study. Assessment & Plan - Diagnosis (1) DICK (acute kidney injury) Is this a current diagnosis for this admission?: Yes Plan: Nonoliguirc, looks to be due to vancomycin toxcity and ATN from the current infection. Also considering possible septic embolization to the renal arteries. Continue on current fluids. Will look to dose vanc renally and get a vanc trough. Also will get a renal artery doppler. (2) Endocarditis Qualifiers: Endocarditis type: infective Infective endocarditis organism: bacterial Chronicity: acute Qualified Code(s): I33.0 - Acute and subacute infective endocarditis Is this a current diagnosis for this admission?: Yes Plan: on vanc and rifampin, will look to renally dose (3) Hyperkalemia Plan: given kayexelate, changed to a low potassium diet (4) Polysubstance abuse Is this a current diagnosis for this admission?: Yes (5) Sepsis Qualifiers: Sepsis type: Streptococcus group A Qualified Code(s): A40.0 - Sepsis due to streptococcus, group A Is this a current diagnosis for this admission?: Yes Plan: current on vanc and rifampin (6) HTN (hypertension) Is this a current diagnosis for this admission?: Yes Plan: currently controlled
--- NOTE | 2018-12-13 16:41 | PDOC PROGRESS REPORT ---
Subjective Progress Note for:: 12/13/18 Subjective:: This is a 22 year old male with a PMH of asthma, IV drug abuse, tobacco abuse who was initially admitted here and subsequently transferred to a [facility] for possible infective endocarditis. He was subsequently confirmed to have endocarditis and underwent aortic valve replacement due to severe aortic insufficiency and aortic wall vegetations noted on RENEE. He underwent aortic valve replacement on 11/15/2018. He was also evaluated by ID at [place] and was recommended to be on vancomycin and rifampin with last day of therapy on December 29. He was transferred back to [facility] for completion of antibiotics. He did develop DICK from Lasix and Gentamicin. He also was found to have a small left occipital hemorrhage and embolic CVAs likely septic in nature. No acute event overnight. He denies acute complaint. Denies chest pain or SOB. No fever or chills. He is completing his antibiotics until December 29. Creatinine continues to trend up even with IV fluids. Reason For Visit: IV FLUIDS Physical Exam Vital Signs: Temp Pulse Resp BP Pulse Ox 98.6 F 91 15 114/75 100 12/13/18 16:00 12/13/18 16:00 12/13/18 16:00 12/13/18 16:00 12/13/18 16:00 Intake & Output 12/12/18 12/13/18 12/14/18 06:59 06:59 06:59 Intake Total 1558 2580 590 Balance 1558 2580 590 Weight 142 lb 10.225 oz 143 lb 4.807 oz General appearance: PRESENT: no acute distress, well-developed, well-nourished Head exam: PRESENT: atraumatic, normocephalic Eye exam: PRESENT: conjunctiva pink, EOMI, PERRLA. ABSENT: scleral icterus Ear exam: PRESENT: normal external ear exam Mouth exam: PRESENT: moist, tongue midline Neck exam: ABSENT: carotid bruit, JVD, lymphadenopathy, thyromegaly Respiratory exam: PRESENT: clear to auscultation cassandra. ABSENT: rales, rhonchi, wheezes Cardiovascular exam: PRESENT: RRR, systolic murmur. ABSENT: rubs Pulses: PRESENT: normal dorsalis pedis pul GI/Abdominal exam: PRESENT: normal bowel sounds, soft. ABSENT: distended, guarding, mass, organolmegaly, rebound, tenderness Rectal exam: PRESENT: deferred Neurological exam: PRESENT: alert, awake, oriented to person, oriented to place, oriented to time, oriented to situation, CN II-XII grossly intact. ABSENT: motor sensory deficit Results Laboratory Results: 12/13/18 09:33 12/13/18 15:31 12/13/18 12/13/18 12/13/18 09:33 09:33 13:25 WBC 6.7 RBC 3.49 L Hgb 9.7 L Hct 28.9 L MCV 83 MCH 27.8 MCHC 33.6 RDW 14.1 H Plt Count 515 H Seg Neutrophils % 49.8 Lymphocytes % 23.3 Monocytes % 13.1 H Eosinophils % 11.8 H Basophils % 2.0 Absolute Neutrophils 3.3 Absolute Lymphocytes 1.6 Absolute Monocytes 0.9 Absolute Eosinophils 0.8 H Absolute Basophils 0.1 Sodium 140.4 Potassium 5.7 H Chloride 101 Carbon Dioxide 29 Anion Gap 10 BUN 24 H Creatinine 1.83 H Est GFR ( Amer) 56 L Est GFR (Non-Af Amer) 47 L Glucose 93 Calcium 10.6 H Urine Color YELLOW Urine Appearance CLEAR Urine pH 6.0 Ur Specific [place] 1.011 Urine Protein NEGATIVE Urine Glucose (UA) NEGATIVE Urine Ketones NEGATIVE Urine Blood MODERATE H Urine Nitrite NEGATIVE Ur Leukocyte Esterase NEGATIVE Urine WBC (Auto) 1 Urine RBC (Auto) 16 12/13/18 15:31 WBC RBC Hgb Hct MCV MCH MCHC RDW Plt Count Seg Neutrophils % Lymphocytes % Monocytes % Eosinophils % Basophils % Absolute Neutrophils Absolute Lymphocytes Absolute Monocytes Absolute Eosinophils Absolute Basophils Sodium Potassium 4.9 Chloride Carbon Dioxide Anion Gap BUN Creatinine Est GFR ( Amer) Est GFR (Non-Af Amer) Glucose Calcium Urine Color Urine Appearance Urine pH Ur Specific [place] Urine Protein Urine Glucose (UA) Urine Ketones Urine Blood Urine Nitrite Ur Leukocyte Esterase Urine WBC (Auto) Urine RBC (Auto) Impressions: Chest X-Ray 12/11/18 07:00 IMPRESSION: Persistent airspace disease in the left base. There has been significant improvement from prior study. Assessment and Plan - Diagnosis (1) Endocarditis Qualifiers: Endocarditis type: infective Infective endocarditis organism: bacterial Chronicity: acute Qualified Code(s): I33.0 - Acute and subacute infective endocarditis Is this a current diagnosis for this admission?: Yes Plan: Continue vancomycin and rifampin with last day of therapy on December 29. S/P aortic valve replacement. (2) Hyperkalemia Is this a current diagnosis for this admission?: Yes Plan: Change diet to pre renal and low Potassium diet. Will order kayexalate. Repeat BMP tomorrow. (3) DICK (acute kidney injury) Is this a current diagnosis for this admission?: Yes Plan: Continue IV fluids. Appreciate nephro recommendations. Possible vanco toxicity. Arterial dopplers also ordered. (4) S/P AVR (aortic valve replacement) Is this a current diagnosis for this admission?: Yes Plan: As per number 1. (5) Pleural effusion Is this a current diagnosis for this admission?: Yes Plan: Resolved. (6) Sepsis Qualifiers: Sepsis type: Streptococcus group A Qualified Code(s): A40.0 - Sepsis due to streptococcus, group A Is this a current diagnosis for this admission?: Yes Plan: Sepsis resolved. He did have multiple septic emboli to the brain on MRI done at [facility]. (7) Polysubstance abuse Is this a current diagnosis for this admission?: Yes Plan: Counseled on cessation of drug use. - Time Time Spent with patient: 15-24 minutes
[2018-12-13] MEDS ORDERED: VANCOMYCIN HCL 1,000 MG in DEXTROSE 5%-WATER 250 ML IV SCH (18:00)
[2018-12-13] MEDS: VANCOMYCIN HCL 1,500 MG in DEXTROSE 5%-WATER 250 ML IV SCH (18:02)
[2018-12-13] MEDS: MELATONIN 3 MG TABLET PO SCH (22:00)
[2018-12-14] MEDS: OXYCODONE-ACETAMINOPHEN 5-325 MG TABLET PO PRN ×3 (06:21→21:47)
[2018-12-14] MEDS: HYDRALAZINE HCL 25 MG TABLET PO SCH ×3 (06:21→21:46)
[2018-12-14] MEDS: METOPROLOL TARTRATE 100 MG TABLET PO SCH ×3 (06:21→21:46)
[2018-12-14] MEDS: RIFAMPIN 300 MG CAPSULE PO SCH ×3 (06:24→21:46)
[2018-12-14 07:01] LABS: ANION GAP 10 (5-19); BLOOD UREA NITROGEN 24 mg/dL (7-20); CALCIUM 9.9 mg/dL (8.4-10.2); CARBON DIOXIDE 26 mmol/L (22-30); CHLORIDE 105 mmol/L (98-107); GLUCOSE 97 mg/dL (75-110); POTASSIUM 4.9 mmol/L (3.6-5.0); SODIUM 140.5 mmol/L (137-145)
--- NOTE | 2018-12-14 09:21 | RADIOLOGY REPORT (SQ) ---
EXAM DESCRIPTION: U/S LTD DUPLEX ART/RADHA FLOW COMPLETED DATE/TIME: 12/14/2018 8:43 am REASON FOR STUDY: DICK/Possible Renal artery embolism/RA doppler COMPARISON: None. TECHNIQUE: Realtime and static grayscale images acquired. Selected color Doppler, velocities and spe ctral images recorded. LIMITATIONS: None. FINDINGS: RIGHT KIDNEY: RENAL ARTERY VELOCITIES: 98 cm/sec. Segmental artery velocity 44 cm/sec. RENAL VEIN: Color doppler flow present, patent. VELOCITY RATIO: 0.6. Normal waveforms. KIDNEY: Normal size. No significant pathology. LEFT KIDNEY: RENAL ARTERY VELOCITIES: 36 cm/sec. Segmental artery velocity 44 cm/sec. RENAL VEIN: Color doppler flow present, patent. VELOCITY RATIO: 0.2. Normal waveforms. KIDNEY: Normal size. No significant pathology. BLADDER: Normal. OTHER: No other significant finding. IMPRESSION: NO DOPPLER EVIDENCE OF HEMODYNAMICALLY SIGNIFICANT RENAL ARTERY STENOSIS. COMMENT: NORMAL RENAL ARTERY/AORTA VELOCITY RATIO IS LESS THAN OR EQUAL TO 3.5. TECHNICAL DOCUMENTATION: JOB ID: [id number] Seen- All Rights Reserved Reading location - IP/workstation name: [email or web address]
[2018-12-14] MEDS: SODIUM POLYSTYRENE SULFONATE 15 GM/60 ML PO SCH (09:36)
[2018-12-14] MEDS: NICOTINE 21 MG/24 HR PATCH.TD24 TD SCH (09:37)
[2018-12-14] MEDS: FAMOTIDINE 20 MG TABLET PO SCH ×2 (09:37→21:47)
--- NOTE | 2018-12-14 11:52 | PDOC PROGRESS REPORT ---
Subjective Progress Note for:: 12/14/18 Subjective:: This is a 22 year old male with a PMH of asthma, IV drug abuse, tobacco abuse who was initially admitted here and subsequently transferred to a [facility] for possible infective endocarditis. He was subsequently confirmed to have endocarditis and underwent aortic valve replacement due to severe aortic insufficiency and aortic wall vegetations noted on RENEE. He underwent aortic valve replacement on 11/15/2018. He was also evaluated by ID at [place] and was recommended to be on vancomycin and rifampin with last day of therapy on December 29. He was transferred back to [facility] for completion of antibiotics. He did develop DICK from Lasix and Gentamicin. He also was found to have a small left occipital hemorrhage and embolic CVAs likely septic in nature. No acute event overnight. He denies acute complaint. Denies chest pain or SOB. No fever or chills. He is completing his antibiotics until December 29. Creatinine continues to trend up even with IV fluids. 12/14: Creatinine has slightly improved today. Reason For Visit: IV FLUIDS Physical Exam Vital Signs: Temp Pulse Resp BP Pulse Ox 98.1 F 87 16 114/58 L 99 12/14/18 08:00 12/14/18 08:00 12/14/18 08:00 12/14/18 08:00 12/14/18 10:31 Intake & Output 12/13/18 12/14/18 12/15/18 06:59 06:59 06:59 Intake Total 2580 3140 Balance 2580 3140 Weight 143 lb 4.807 oz 128 lb 4.944 oz General appearance: PRESENT: no acute distress, well-developed, well-nourished Head exam: PRESENT: atraumatic, normocephalic Eye exam: PRESENT: conjunctiva pink, EOMI, PERRLA. ABSENT: scleral icterus Ear exam: PRESENT: normal external ear exam Mouth exam: PRESENT: moist, tongue midline Neck exam: ABSENT: carotid bruit, JVD, lymphadenopathy, thyromegaly Respiratory exam: PRESENT: clear to auscultation cassandra. ABSENT: rales, rhonchi, wheezes Cardiovascular exam: PRESENT: RRR, systolic murmur. ABSENT: rubs Pulses: PRESENT: normal dorsalis pedis pul GI/Abdominal exam: PRESENT: normal bowel sounds, soft. ABSENT: distended, guarding, mass, organolmegaly, rebound, tenderness Rectal exam: PRESENT: deferred Extremities exam: PRESENT: full ROM. ABSENT: calf tenderness, clubbing, pedal edema Neurological exam: PRESENT: alert, awake, oriented to person, oriented to place, oriented to time, oriented to situation, CN II-XII grossly intact. ABSENT: motor sensory deficit Results Laboratory Results: 12/13/18 09:33 12/14/18 06:27 12/13/18 12/13/18 12/14/18 13:25 15:31 06:27 Sodium 140.5 Potassium 4.9 4.9 Chloride 105 Carbon Dioxide 26 Anion Gap 10 BUN 24 H Creatinine 1.76 H Est GFR ( Amer) 58 L Est GFR (Non-Af Amer) 48 L Glucose 97 Calcium 9.9 Urine Color YELLOW Urine Appearance CLEAR Urine pH 6.0 Ur Specific [place] 1.011 Urine Protein NEGATIVE Urine Glucose (UA) NEGATIVE Urine Ketones NEGATIVE Urine Blood MODERATE H Urine Nitrite NEGATIVE Ur Leukocyte Esterase NEGATIVE Urine WBC (Auto) 1 Urine RBC (Auto) 16 Impressions: Chest X-Ray 12/11/18 07:00 IMPRESSION: Persistent airspace disease in the left base. There has been significant improvement from prior study. Vascular Ultrasound 12/14/18 00:00 IMPRESSION: NO DOPPLER EVIDENCE OF HEMODYNAMICALLY SIGNIFICANT RENAL ARTERY STENOSIS. Assessment and Plan - Diagnosis (1) Endocarditis Qualifiers: Endocarditis type: infective Infective endocarditis organism: bacterial Chronicity: acute Qualified Code(s): I33.0 - Acute and subacute infective endocarditis Is this a current diagnosis for this admission?: Yes Plan: Continue vancomycin and rifampin with last day of therapy on December 29. S/P aortic valve replacement. (2) Hyperkalemia Is this a current diagnosis for this admission?: Yes Plan: 12/13: Change diet to pre renal and low Potassium diet. Will order kayexalate. Re peat BMP tomorrow. (3) DICK (acute kidney injury) Is this a current diagnosis for this admission?: Yes Plan: Continue IV fluids. Appreciate nephro recommendations. Possible vanco toxicity. Arterial dopplers negaitve. 12/14: Creatinine slightly improved from 1.83 to 1.76. (4) S/P AVR (aortic valve replacement) Is this a current diagnosis for this admission?: Yes Plan: As per number 1. (5) Pleural effusion Is this a current diagnosis for this admission?: Yes Plan: Resolved. (6) Sepsis Qualifiers: Sepsis type: Streptococcus group A Qualified Code(s): A40.0 - Sepsis due to streptococcus, group A Is this a current diagnosis for this admission?: Yes Plan: Sepsis resolved. He did have multiple septic emboli to the brain on MRI done at [facility]. (7) Polysubstance abuse Is this a current diagnosis for this admission?: Yes Plan: Counseled on cessation of drug use. - Time Time Spent with patient: 15-24 minutes
[2018-12-14] MEDS: NORMAL SALINE 1000 ML 1,000 ML IV PRN (15:59)
[2018-12-14 18:29] LABS: VANCOMYCIN,TROUGH 15.7 ug/mL (5.0-20.0)
[2018-12-14] MEDS: VANCOMYCIN HCL 1,500 MG in DEXTROSE 5%-WATER 250 ML IV SCH (18:40)
[2018-12-14] MEDS: MELATONIN 3 MG TABLET PO SCH (21:47)
[2018-12-15] MEDS: METOPROLOL TARTRATE 100 MG TABLET PO SCH ×3 (05:35→21:25)
[2018-12-15] MEDS: HYDRALAZINE HCL 25 MG TABLET PO SCH ×3 (05:36→21:25)
[2018-12-15] MEDS: RIFAMPIN 300 MG CAPSULE PO SCH ×3 (05:36→21:24)
[2018-12-15] MEDS: OXYCODONE-ACETAMINOPHEN 5-325 MG TABLET PO PRN ×2 (05:36→21:24)
[2018-12-15] MEDS: FAMOTIDINE 20 MG TABLET PO SCH ×2 (10:50→21:24)
[2018-12-15] MEDS: NICOTINE 21 MG/24 HR PATCH.TD24 TD SCH (10:51)
--- NOTE | 2018-12-15 13:01 | PDOC PROGRESS REPORT ---
Subjective Progress Note for:: 12/15/18 Subjective:: This is a 22 year old male with a PMH of asthma, IV drug abuse, tobacco abuse who was initially admitted here and subsequently transferred to a [facility] for possible infective endocarditis. He was subsequently confirmed to have endocarditis and underwent aortic valve replacement due to severe aortic insufficiency and aortic wall vegetations noted on RENEE. He underwent aortic valve replacement on 11/15/2018. He was also evaluated by ID at [place] and was recommended to be on vancomycin and rifampin with last day of therapy on December 29. He was transferred back to [facility] for completion of antibiotics. He did develop DICK from Lasix and Gentamicin. He also was found to have a small left occipital hemorrhage and embolic CVAs likely septic in nature. 12/15: No acute event overnight. He denies acute complaint. Denies chest pain or SOB. No fever or chills. He is completing his antibiotics until December 29. Creatinine continues to gradually trend down. Reason For Visit: IV FLUIDS Physical Exam Vital Signs: Temp Pulse Resp BP Pulse Ox 97.9 F 99 15 125/66 100 12/15/18 11:20 12/15/18 11:20 12/15/18 11:20 12/15/18 11:20 12/15/18 11:20 Intake & Output 12/14/18 12/15/18 12/16/18 06:59 06:59 06:59 Intake Total 3140 3670 Balance 3140 3670 Weight 128 lb 4.944 oz 136 lb 7.458 oz General appearance: PRESENT: no acute distress, well-developed, well-nourished Head exam: PRESENT: atraumatic, normocephalic Eye exam: PRESENT: conjunctiva pink, EOMI, PERRLA. ABSENT: scleral icterus Ear exam: PRESENT: normal external ear exam Mouth exam: PRESENT: moist, tongue midline Neck exam: ABSENT: carotid bruit, JVD, lymphadenopathy, thyromegaly Respiratory exam: PRESENT: clear to auscultation cassandra. ABSENT: rales, rhonchi, wheezes Cardiovascular exam: PRESENT: RRR, systolic murmur. ABSENT: rubs Pulses: PRESENT: normal dorsalis pedis pul GI/Abdominal exam: PRESENT: normal bowel sounds, soft. ABSENT: distended, guarding, mass, organolmegaly, rebound, tenderness Rectal exam: PRESENT: deferred Extremities exam: PRESENT: full ROM. ABSENT: calf tenderness, clubbing, pedal edema Neurological exam: PRESENT: alert, awake, oriented to person, oriented to place, oriented to time, oriented to situation, CN II-XII grossly intact. ABSENT: motor sensory deficit Results Laboratory Results: 12/13/18 09:33 12/14/18 17:40 12/14/18 17:40 Creatinine 1.68 H Est GFR ( Amer) > 60 Est GFR (Non-Af Amer) 51 L Impressions: Chest X-Ray 12/11/18 07:00 IMPRESSION: Persistent airspace disease in the left base. There has been significant improvement from prior study. Vascular Ultrasound 12/14/18 00:00 IMPRESSION: NO DOPPLER EVIDENCE OF HEMODYNAMICALLY SIGNIFICANT RENAL ARTERY S TENOSIS. Assessment and Plan - Diagnosis (1) Endocarditis Qualifiers: Endocarditis type: infective Infective endocarditis organism: bacterial Chronicity: acute Qualified Code(s): I33.0 - Acute and subacute infective endocarditis Is this a current diagnosis for this admission?: Yes Plan: Continue vancomycin and rifampin with last day of therapy on December 29. S/P aortic valve replacement. (2) Hyperkalemia Is this a current diagnosis for this admission?: Yes Plan: 12/13: Change diet to pre renal and low Potassium diet. Will order kayexalate. Repeat BMP tomorrow. 12/14: Resolved. (3) DICK (acute kidney injury) Is this a current diagnosis for this admission?: Yes Plan: Continue IV fluids. Appreciate nephro recommendations. Possible vanco toxicity. Arterial dopplers negaitve. 12/14: Creatinine slightly improved from 1.83 to 1.76. 12/15: Creatinine down to 1.68 from 1.76. (4) S/P AVR (aortic valve replacement) Is this a current diagnosis for this admission?: Yes Plan: As per number 1. (5) Pleural effusion Is this a current diagnosis for this admission?: Yes Plan: Resolved. (6) Sepsis Qualifiers: Sepsis type: Streptococcus group A Qualified Code(s): A40.0 - Sepsis due to streptococcus, group A Is this a current diagnosis for this admission?: Yes Plan: Sepsis resolved. He did have multiple septic emboli to the brain on MRI done at [facility]. (7) Polysubstance abuse Is this a current diagnosis for this admission?: Yes Plan: Counseled on cessation of drug use. - Time Time Spent with patient: 15-24 minutes
[2018-12-15] MEDS: VANCOMYCIN HCL 1,500 MG in DEXTROSE 5%-WATER 250 ML IV SCH (18:02)
[2018-12-15] MEDS: MELATONIN 3 MG TABLET PO SCH (21:25)
[2018-12-16] MEDS: HYDRALAZINE HCL 25 MG TABLET PO SCH ×3 (06:19→21:11)
[2018-12-16] MEDS: RIFAMPIN 300 MG CAPSULE PO SCH ×3 (06:20→21:11)
[2018-12-16] MEDS: METOPROLOL TARTRATE 100 MG TABLET PO SCH ×3 (06:20→21:10)
[2018-12-16 06:45] LABS: ANION GAP 11 (5-19); BLOOD UREA NITROGEN 25 mg/dL (7-20); CALCIUM 9.8 mg/dL (8.4-10.2); CARBON DIOXIDE 27 mmol/L (22-30); CHLORIDE 104 mmol/L (98-107); GLUCOSE 100 mg/dL (75-110); POTASSIUM 4.9 mmol/L (3.6-5.0); SODIUM 141.6 mmol/L (137-145)
[2018-12-16] MEDS: NICOTINE 21 MG/24 HR PATCH.TD24 TD SCH (11:22)
[2018-12-16] MEDS: FAMOTIDINE 20 MG TABLET PO SCH ×2 (13:49→21:11)
[2018-12-16] MEDS: OXYCODONE-ACETAMINOPHEN 5-325 MG TABLET PO PRN ×2 (14:10→21:10)
--- NOTE | 2018-12-16 14:37 | PDOC PROGRESS REPORT ---
Subjective Progress Note for:: 12/16/18 Subjective:: This is a 22 year old male with a PMH of asthma, IV drug abuse, tobacco abuse who was initially admitted here and subsequently transferred to a [facility] for possible infective endocarditis. He was subsequently confirmed to have endocarditis and underwent aortic valve replacement due to severe aortic insufficiency and aortic wall vegetations noted on RENEE. He underwent aortic valve replacement on 11/15/2018. He was also evaluated by ID at [place] and was recommended to be on vancomycin and rifampin with last day of therapy on December 29. He was transferred back to [facility] for completion of antibiotics. He did develop DICK from Lasix and Gentamicin. He also was found to have a small left occipital hemorrhage and embolic CVAs likely septic in nature. 12/16: No acute event overnight. He denies acute complaint. Denies chest pain or SOB. No fever or chills. He is completing his antibiotics until December 29. Creatinine continues to gradually trend down with IV fluids. Reason For Visit: IV FLUIDS Physical Exam Vital Signs: Temp Pulse Resp BP Pulse Ox 98.4 F 88 16 127/79 H 100 12/16/18 12:00 12/16/18 12:00 12/16/18 12:00 12/16/18 12:00 12/16/18 12:00 Intake & Output 12/15/18 12/16/18 12/17/18 06:59 06:59 06:59 Intake Total 3670 1000 Balance 3670 1000 Weight 136 lb 7.458 oz 134 lb 14.766 oz General appearance: PRESENT: no acute distress, well-developed, well-nourished Head exam: PRESENT: atraumatic, normocephalic Eye exam: PRESENT: conjunctiva pink, EOMI, PERRLA. ABSENT: scleral icterus Ear exam: PRESENT: normal external ear exam Mouth exam: PRESENT: moist, tongue midline Neck exam: ABSENT: carotid bruit, JVD, lymphadenopathy, thyromegaly Respiratory exam: PRESENT: clear to auscultation cassandra. ABSENT: rales, rhonchi, wheezes Cardiovascular exam: PRESENT: RRR, systolic murmur. ABSENT: rubs Pulses: PRESENT: normal dorsalis pedis pul GI/Abdominal exam: PRESENT: normal bowel sounds, soft. ABSENT: distended, guarding, mass, organolmegaly, rebound, tenderness Rectal exam: PRESENT: deferred Extremities exam: PRESENT: full ROM. ABSENT: calf tenderness, clubbing, pedal edema Neurological exam: PRESENT: alert, awake, oriented to person, oriented to place, oriented to time, oriented to situation, CN II-XII grossly intact. ABSENT: motor sensory deficit Results Laboratory Results: 12/13/18 09:33 12/16/18 06:15 12/16/18 06:15 Sodium 141.6 Potassium 4.9 Chloride 104 Carbon Dioxide 27 Anion Gap 11 BUN 25 H Creatinine 1.63 H Est GFR ( Amer) > 60 Est GFR (Non-Af Amer) 53 L Glucose 100 Calcium 9.8 Impressions: Chest X-Ray 12/11/18 07:00 IMPRESSION: Persistent airspace disease in the left base. There has been significant improvement from prior study. Vascular Ultrasound 12/14/18 00:00 IMPRESSION: NO DOPPLER EVIDENCE OF HEMODYNAMICALLY SIGNIFICANT RENAL ARTERY STENOSIS. Assessment and Plan - Diagnosis (1) Endocarditis Qualifiers: Endocarditis type: infective Infective endocarditis organism: bacterial Chronicity: acute Qualified Code(s): I33.0 - Acute and subacute infective endocarditis Is this a current diagnosis for this admission?: Yes Plan: Continue vancomycin and rifampin with last day of therapy on December 29. S/P aortic valve replacement. (2) Hyperkalemia Is this a current diagnosis for this admission?: Yes Plan: 12/13: Change diet to pre renal and low Potassium diet. Will order kayexalate. Repeat BMP tomorrow. 12/14: Resolved. (3) DICK (acute kidney injury) Is this a current diagnosis for this admission?: Yes Plan: Continue IV fluids. Appreciate nephro recommendations. Possible vanco toxicity vs pre renal cause. Renal arterial dopplers negative. 12/14: Creatinine slightly improved from 1.83 to 1.76. 12/16: Creatinine continue to trend down to 1.63 with IV fluids. (4) S/P AVR (aortic valve replacement) Is this a current diagnosis for this admission?: Yes Plan: As per number 1. (5) Pleural effusion Is this a current diagnosis for this admission?: Yes Plan: Resolved. (6) Sepsis Qualifiers: Sepsis type: Streptococcus group A Qualified Code(s): A40.0 - Sepsis due to streptococcus, group A Is this a current diagnosis for this admission?: Yes Plan: Sepsis resolved. He did have multiple septic emboli to the brain on MRI done at [facility]. (7) Polysubstance abuse Is this a current diagnosis for this admission?: Yes Plan: Counseled on cessation of drug use. - Time Time Spent with patient: 15-24 minutes
[2018-12-16] MEDS: VANCOMYCIN HCL 1,500 MG in DEXTROSE 5%-WATER 250 ML IV SCH (17:46)
[2018-12-16] MEDS: CYCLOBENZAPRINE HCL 10 MG TABLET PO PRN (21:11)
[2018-12-16] MEDS: MELATONIN 3 MG TABLET PO SCH (21:11)
[2018-12-17] MEDS: MELATONIN 3 MG TABLET PO SCH ×2 (00:05→21:23)
[2018-12-17] MEDS: HYDRALAZINE HCL 25 MG TABLET PO SCH ×3 (05:27→21:22)
[2018-12-17] MEDS: METOPROLOL TARTRATE 100 MG TABLET PO SCH ×3 (05:28→21:23)
[2018-12-17] MEDS: OXYCODONE-ACETAMINOPHEN 5-325 MG TABLET PO PRN ×2 (05:28→18:26)
[2018-12-17] MEDS: RIFAMPIN 300 MG CAPSULE PO SCH ×3 (05:28→21:24)
[2018-12-17 08:13] LABS: ANION GAP 12 (5-19); BLOOD UREA NITROGEN 20 mg/dL (7-20); CALCIUM 9.8 mg/dL (8.4-10.2); CARBON DIOXIDE 26 mmol/L (22-30); CHLORIDE 103 mmol/L (98-107); GLUCOSE 105 mg/dL (75-110); POTASSIUM 4.8 mmol/L (3.6-5.0); SODIUM 141.3 mmol/L (137-145)
[2018-12-17] MEDS: FAMOTIDINE 20 MG TABLET PO SCH ×2 (10:29→21:24)
[2018-12-17] MEDS: NICOTINE 21 MG/24 HR PATCH.TD24 TD SCH (10:29)
[2018-12-17] MEDS: CYCLOBENZAPRINE HCL 10 MG TABLET PO PRN (13:51)
--- NOTE | 2018-12-17 16:38 | PDOC PROGRESS REPORT ---
Subjective Progress Note for:: 12/17/18 Subjective:: Seen the patient today. He is basically stable just receiving his antibiotics. He does not have any new complaints. His urine output is not being quantified but otherwise he is nonoliguric. Reason For Visit: IV FLUIDS Physical Exam Vital Signs: Temp Pulse Resp BP Pulse Ox 97.9 F 76 16 117/72 100 12/17/18 10:56 12/17/18 10:56 12/17/18 10:56 12/17/18 10:56 12/17/18 10:56 Intake & Output 12/16/18 12/17/18 12/18/18 06:59 06:59 06:59 Intake Total 1000 2270 440 Balance 1000 2270 440 Weight 61.2 kg 61.4 kg Exam: General appearance: PRESENT: no acute distress, cooperative, well-developed, well-nourished Head exam: PRESENT: atraumatic, normocephalic Eye exam: PRESENT: conjunctiva pink, PERRLA. ABSENT: scleral icterus Neck exam: ABSENT: JVD Respiratory exam: PRESENT: Normal breath sounds. ABSENT: crackles, rales, rhonchi, unlabored, wheezes Cardiovascular exam: PRESENT: Regular rate rhythm -+S1, +S2. Grade 3/6 systolic murmur heard at the aortic and mitral valve areas. Also heard aortic valve click. GI/Abdominal exam: PRESENT: normal bowel sounds, soft. ABSENT: guarding, mass, tenderness Extremities exam: ABSENT: No edema Neurological exam: PRESENT: alert, awake, oriented to person, place and time. Skin exam: PRESENT: dry, warm, Cardiovascular exam: PRESENT: clicks, RRR, +S1, +S2, systolic murmur GI/Abdominal exam: PRESENT: soft. ABSENT: tenderness Results Laboratory Results: 12/13/18 09:33 12/17/18 07:35 12/17/18 07:35 Sodium 141.3 Potassium 4.8 Chloride 103 Carbon Dioxide 26 Anion Gap 12 BUN 20 Creatinine 1.54 H Est GFR ( Amer) > 60 Est GFR (Non-Af Amer) 56 L Glucose 105 Calcium 9.8 Impressions: Chest X-Ray 12/11/18 07:00 IMPRESSION: Persistent airspace disease in the left base. There has been significant improvement from prior study. Vascular Ultrasound 12/14/18 00:00 IMPRESSION: NO DOPPLER EVIDENCE OF HEMODYNAMICALLY SIGNIFICANT RENAL ARTERY STENOSIS. Assessment & Plan - Diagnosis (1) DICK (acute kidney injury) Is this a current diagnosis for this admission?: Yes Plan: Likely due to mild vancomycin toxicity and ongoing endocarditis infection. Patient's kidney function is slowly improving. He is nonoliguric. No further recommendations or intervention from nephrology standpoint at this point. (2) Endocarditis Qualifiers: Endocarditis type: infective Infective endocarditis organism: bacterial Chronicity: acute Qualified Code(s): I33.0 - Acute and subacute infective endocarditis Is this a current diagnosis for this admission?: Yes Plan: On IV vancomycin and rifampin until 12/29 for infectious disease recommendations. (3) S/P AVR (aortic valve replacement) Is this a current diagnosis for this admission?: Yes (4) HTN (hypertension) Is this a current diagnosis for this admission?: Yes Plan: Well-controlled. (5) Polysubstance abuse Is this a current diagnosis for this admission?: Yes - Notes Notes: Since patient's kidney function is continuously improving, expect it to do the same the next few days. Will sign off at this time. Please call us if you need any further assistance. - Time Time with patient: 15-25 minutes
[2018-12-17] MEDS: VANCOMYCIN HCL 1,500 MG in DEXTROSE 5%-WATER 250 ML IV SCH (18:18)
[2018-12-17] MEDS: CLONAZEPAM 1 MG TABLET PO SCH (21:23)
--- NOTE | 2018-12-17 22:04 | PDOC PROGRESS REPORT ---
Subjective Progress Note for:: 12/17/18 Subjective:: This is a 22 year old male with a PMH of asthma, IV drug abuse, tobacco abuse who was initially admitted to [facility] for fever and suspected meningitis, subsequently transferred to [facility] for possible infective endocarditis. He was confirmed to have endocarditis and underwent an aortic valve replacement 11/15/2018 due to severe aortic insufficiency and aortic wall vegetations noted on RENEE. He was evaluated by ID at [facility] and was recommended to be on vancomycin and rifampin with last day of therapy on December 29. He was transferred back to [facility] for completion of antibiotics. He did develop DICK from Lasix and Gentamicin. He also was found to have a small left occipital hemorrhage and embolic CVAs likely septic in nature. The patient was seen this morning on rounds. He is ambulating freely in the hallways. The patient has no complaints other than he is not sleeping well. The patient states he is prescribed xanax but states it is not working well. Will d/c xanax an initiate klonipin. Plan to remain in patient to continue receiving antibiotics. Reason For Visit: IV FLUIDS Physical Exam Vital Signs: Temp Pulse Resp BP Pulse Ox 98.1 F 96 17 126/83 H 100 12/17/18 15:36 12/17/18 19:35 12/17/18 19:35 12/17/18 19:35 12/17/18 19:35 Intake & Output 12/16/18 12/17/18 12/18/18 06:59 06:59 06:59 Intake Total 1000 2270 440 Balance 1000 2270 440 Weight 61.2 kg 61.4 kg General appearance: PRESENT: no acute distress, thin Head exam: PRESENT: atraumatic, normocephalic Eye exam: PRESENT: conjunctiva pink, EOMI, PERRLA. ABSENT: scleral icterus Ear exam: PRESENT: normal external ear exam Mouth exam: PRESENT: moist, tongue midline Teeth exam: PRESENT: poor dentation Neck exam: ABSENT: carotid bruit, JVD, lymphadenopathy, thyromegaly Respiratory exam: PRESENT: clear to auscultation cassandra, symmetrical, unlabored. ABSENT: rales, rhonchi, wheezes Cardiovascular exam: PRESENT: RRR. ABSENT: diastolic murmur, rubs, systolic murmur Pulses: PRESENT: normal radial pulses, normal dorsalis pedis pul Vascular exam: PRESENT: normal capillary refill GI/Abdominal exam: PRESENT: normal bowel sounds, soft. ABSENT: distended, guarding, mass, organolmegaly, rebound, tenderness Rectal exam: PRESENT: deferred Extremities exam: PRESENT: full ROM. ABSENT: calf tenderness, clubbing, pedal e marychuy Musculoskeletal exam: PRESENT: ambulatory Neurological exam: PRESENT: alert, awake, oriented to person, oriented to place, oriented to time, oriented to situation Psychiatric exam: PRESENT: appropriate affect, normal mood Skin exam: PRESENT: dry, intact, warm. ABSENT: cyanosis, rash Results Laboratory Results: 12/13/18 09:33 12/17/18 07:35 12/17/18 07:35 Sodium 141.3 Potassium 4.8 Chloride 103 Carbon Dioxide 26 Anion Gap 12 BUN 20 Creatinine 1.54 H Est GFR ( Amer) > 60 Est GFR (Non-Af Amer) 56 L Glucose 105 Calcium 9.8 Impressions: Chest X-Ray 12/11/18 07:00 IMPRESSION: Persistent airspace disease in the left base. There has been significant improvement from prior study. Vascular Ultrasound 12/14/18 00:00 IMPRESSION: NO DOPPLER EVIDENCE OF HEMODYNAMICALLY SIGNIFICANT RENAL ARTERY STENOSIS. Status: Imported from PACS Assessment and Plan - Diagnosis (1) Endocarditis Qualifiers: Endocarditis type: infective Infective endocarditis organism: bacterial Chronicity: acute Qualified Code(s): I33.0 - Acute and subacute infective endocarditis Is this a current diagnosis for this admission?: Yes Plan: Stemming from IVDU According to ID at [facility], continue vancomycin and rifampin with last day of therapy on December 29. S/P aortic valve replacement. (2) DICK (acute kidney injury) Is this a current diagnosis for this admission?: Yes Plan: Continue IV fluids. Nephrology consulted, appreciate their recommendations Possible vanco toxicity vs pre renal cause. Renal arterial dopplers negative. (3) Hyperkalemia Is this a current diagnosis for this admission?: Yes Plan: Resolved (4) Pleural effusion Is this a current diagnosis for this admission?: Yes Plan: Resolved. (5) S/P AVR (aortic valve replacement) Is this a current diagnosis for this admission?: Yes Plan: As per number 1. Will need follow up with original CT surgeon following discharge home (6) Polysubstance abuse Is this a current diagnosis for this admission?: Yes Plan: Counseled on cessation of drug use. (7) Sepsis Qualifiers: Sepsis type: Streptococcus group A Qualified Code(s): A40.0 - Sepsis due to streptococcus, group A Is this a current diagnosis for this admission?: Yes Plan: Multiple septic emboli to the brain on MRI done at [facility]. No residual neurological symptoms. Continue antibiotics as listed above - Time Time Spent with patient: 15-24 minutes Medications reviewed and adjusted accordingly: Yes Anticipated discharge: Home with Homehealth Within: Other - Inpatient Certification Based on my medical assessment, after consideration of the patient's comorbidities, presenting symptoms, or acuity I expect that the services needed warrant INPATIENT care.: Yes I certify that my determination is in accordance with my understanding of Medicare's requirements for reasonable and necessary INPATIENT services [42 CFR 412.3e].: Yes Medical Necessity: Need for IV Antibiotics
[2018-12-18] MEDS: HYDRALAZINE HCL 25 MG TABLET PO SCH ×3 (06:24→21:38)
[2018-12-18] MEDS: RIFAMPIN 300 MG CAPSULE PO SCH (06:24)
[2018-12-18] MEDS: OXYCODONE-ACETAMINOPHEN 5-325 MG TABLET PO PRN ×3 (06:25→18:46)
[2018-12-18] MEDS: METOPROLOL TARTRATE 100 MG TABLET PO SCH ×3 (06:25→21:37)
[2018-12-18 07:14] LABS: ANION GAP 10 (5-19); BLOOD UREA NITROGEN 20 mg/dL (7-20); CARBON DIOXIDE 26 mmol/L (22-30); CHLORIDE 104 mmol/L (98-107); GLUCOSE 103 mg/dL (75-110); PHOSPHORUS 5.8 mg/dL (2.5-4.5); POTASSIUM 4.8 mmol/L (3.6-5.0); SODIUM 139.9 mmol/L (137-145)
[2018-12-18] MEDS: NICOTINE 21 MG/24 HR PATCH.TD24 TD SCH (09:25)
[2018-12-18] MEDS: FAMOTIDINE 20 MG TABLET PO SCH ×2 (09:25→21:38)
[2018-12-18] MEDS: CYCLOBENZAPRINE HCL 10 MG TABLET PO PRN (09:35)
[2018-12-18] MEDS ORDERED: NORMAL SALINE 1000 ML 1,000 ML IV PRN (12:23)
[2018-12-18] MEDS: VANCOMYCIN HCL 1,500 MG in DEXTROSE 5%-WATER 250 ML IV SCH (18:24)
[2018-12-18] MEDS: CLONAZEPAM 1 MG TABLET PO SCH (21:37)
[2018-12-18] MEDS: MELATONIN 3 MG TABLET PO SCH (21:38)
--- NOTE | 2018-12-18 22:28 | PDOC PROGRESS REPORT ---
Subjective Progress Note for:: 12/18/18 Subjective:: This is a 22 year old male with a PMH of asthma, IV drug abuse, tobacco abuse who was initially admitted to [facility] for fever and suspected meningitis, subsequently transferred to [facility] for possible infective endocarditis. He was confirmed to have endocarditis and underwent an aortic valve replacement 11/15/2018 due to severe aortic insufficiency and aortic wall vegetations noted on RENEE. He was evaluated by ID at [facility] and was recommended to be on vancomycin and rifampin with last day of therapy on December 29. He was transferred back to [facility] for completion of antibiotics. He did develop DICK from Lasix and Gentamicin. He also was found to have a small left occipital hemorrhage and embolic CVAs likely septic in nature. The patient was seen this morning on rounds. He is sitting in a chair in the hallway, having friendly conversation with medical staff. The patient reports he slept well with the assistance of [facility] moncho. Has no complaints today. Creatinine increased from 1.5-->1.6. Plan to remain in patient to continue receiving antibiotics and IVF. Reason For Visit: IV FLUIDS Physical Exam Vital Signs: Temp Pulse Resp BP Pulse Ox 97.8 F 77 16 115/71 100 12/18/18 20:00 12/18/18 20:00 12/18/18 20:00 12/18/18 20:00 12/18/18 20:00 Intake & Output 12/17/18 12/18/18 12/19/18 06:59 06:59 06:59 Intake Total 2270 1370 1675 Balance 2270 1370 1675 Weight 61.4 kg 62 kg General appearance: PRESENT: no acute distress, thin Head exam: PRESENT: atraumatic, normocephalic Eye exam: PRESENT: conjunctiva pink, EOMI, PERRLA. ABSENT: scleral icterus Ear exam: PRESENT: normal external ear exam Mouth exam: PRESENT: moist, tongue midline Teeth exam: PRESENT: poor dentation Neck exam: ABSENT: carotid bruit, JVD, lymphadenopathy, thyromegaly Respiratory exam: PRESENT: clear to auscultation cassandra, symmetrical, unlabored. ABSENT: rales, rhonchi, wheezes Cardiovascular exam: PRESENT: RRR. ABSENT: diastolic murmur, rubs, systolic murmur Pulses: PRESENT: normal dorsalis pedis pul Vascular exam: PRESENT: normal capillary refill GI/Abdominal exam: PRESENT: normal bowel sounds, soft. ABSENT: distended, guarding, mass, organolmegaly, rebound, tenderness Rectal exam: PRESENT: deferred Extremities exam: PRESENT: full ROM. ABSENT: calf tenderness, clubbing, pedal edema Musculoskeletal exam: PRESENT: ambulatory, full ROM Neurological exam: PRESENT: alert, awake, oriented to person, oriented to place, oriented to time, oriented to situation Psychiatric exam: PRESENT: appropriate affect, normal mood Skin exam: PRESENT: dry, intact, warm. ABSENT: cyanosis, rash Results Laboratory Results: 12/13/18 09:33 12/18/18 06:30 12/18/18 06:30 Sodium 139.9 Potassium 4.8 Chloride 104 Carbon Dioxide 26 Anion Gap 10 BUN 20 Creatinine 1.63 H Est GFR ( Amer) > 60 Est GFR (Non-Af Amer) 53 L Glucose 103 Calcium 10.0 Phosphorus 5.8 H Magnesium 1.7 12/18/18 06:30 NT-Pro-B Natriuret Pep 2000 H Impressions: Chest X-Ray 12/11/18 07:00 IMPRESSION: Persistent airspace disease in the left base. There has been significant improvement from prior study. Vascular Ultrasound 12/14/18 00:00 IMPRESSION: NO DOPPLER EVIDENCE OF HEMODYNAMICALLY SIGNIFICANT RENAL ARTERY STENOSIS. Status: Imported from PACS Assessment and Plan - Diagnosis (1) Endocarditis Qualifiers: Endocarditis type: infective Infective endocarditis organism: bacterial Chronicity: acute Qualified Code(s): I33.0 - Acute and subacute infective endocarditis Is this a current diagnosis for this admission?: Yes Plan: Stemming from IVDU According to ID at [facility], continue vancomycin and rifampin with last day of therapy on December 29. S/P aortic valve replacement. (2) DICK (acute kidney injury) Is this a current diagnosis for this admission?: Yes Plan: Continue IV fluids. Nephrology consulted, appreciate their recommendations Possible vanco toxicity vs pre renal cause. Renal arterial dopplers negative. (3) Hyperkalemia Is this a current diagnosis for this admission?: Yes Plan: Resolved (4) Pleural effusion Is this a current diagnosis for this admission?: Yes Plan: Resolved. (5) S/P AVR (aortic valve replacement) Is this a current diagnosis for this admission?: Yes Plan: As per number 1. Will need follow up with original CT surgeon following discharge home (6) Polysubstance abuse Is this a current diagnosis for this admission?: Yes Plan: Patient he reports he had been sober "for a while and had one slip up, which landed" him in the hospital Counseled on cessation of drug use. Patient states he wants to quit (7) Sepsis Qualifiers: Sepsis type: Streptococcus group A Qualified Code(s): A40.0 - Sepsis due to streptococcus, group A Is this a current diagnosis for this admission?: Yes Plan: Multiple septic emboli to the brain on MRI done at [facility]. No residual neurological symptoms. Continue antibiotics as listed above - Time Time Spent with patient: 15-24 minutes Medications reviewed and adjusted accordingly: Yes Anticipated discharge: Home Within: Other - December 29 - Inpatient Certification Based on my medical assessment, after consideration of the patient's comorbidities, presenting symptoms, or acuity I expect that the services needed warrant INPATIENT care.: Yes I certify that my determination is in accordance with my understanding of Medicare's requirements for reasonable and necessary INPATIENT services [42 CFR 412.3e].: Yes Medical Necessity: Need for IV Antibiotics
[2018-12-19] MEDS: METOPROLOL TARTRATE 100 MG TABLET PO SCH ×3 (06:29→21:13)
[2018-12-19] MEDS: OXYCODONE-ACETAMINOPHEN 5-325 MG TABLET PO PRN ×4 (06:29→23:28)
[2018-12-19] MEDS: HYDRALAZINE HCL 25 MG TABLET PO SCH ×3 (06:29→21:13)
[2018-12-19] MEDS: NORMAL SALINE 1000 ML 1,000 ML IV PRN ×2 (06:45→17:20)
[2018-12-19 07:30] LABS: ALANINE AMINOTRANSFERASE 84 U/L (21-72); ALBUMIN 3.6 g/dL (3.5-5.0); ALKALINE PHOSPHATASE 76 U/L (38-126); ANION GAP 10 (5-19); ASPARTATE AMINO TRANSFERASE 73 U/L (17-59); BILIRUBIN,DIRECT 0.2 mg/dL (0.0-0.4); BILIRUBIN,TOTAL 0.2 mg/dL (0.2-1.3); BLOOD UREA NITROGEN 18 mg/dL (7-20); CALCIUM 9.7 mg/dL (8.4-10.2); CARBON DIOXIDE 26 mmol/L (22-30); CHLORIDE 105 mmol/L (98-107); GLUCOSE 96 mg/dL (75-110); POTASSIUM 4.8 mmol/L (3.6-5.0); SODIUM 141.2 mmol/L (137-145); TOTAL PROTEIN 6.8 g/dL (6.3-8.2)
[2018-12-19] MEDS: FAMOTIDINE 20 MG TABLET PO SCH ×2 (10:08→21:13)
[2018-12-19] MEDS: NICOTINE 21 MG/24 HR PATCH.TD24 TD SCH (10:09)
[2018-12-19] MEDS: CYCLOBENZAPRINE HCL 10 MG TABLET PO PRN ×2 (10:11→18:22)
[2018-12-19] MEDS: VANCOMYCIN HCL 1,500 MG in DEXTROSE 5%-WATER 250 ML IV SCH (18:19)
[2018-12-19 19:04] LABS: VANCOMYCIN,TROUGH 14.8 ug/mL (5.0-20.0)
--- NOTE | 2018-12-19 20:50 | PDOC PROGRESS REPORT ---
Subjective Progress Note for:: 12/19/18 Subjective:: This is a 22 year old male with a PMH of asthma, IV drug abuse, tobacco abuse who was initially admitted to [facility] for fever and suspected meningitis, subsequently transferred to [facility] for possible infective endocard[facility]. He was confirmed to have endocarditis and underwent an aortic valve replacement 11/15/2018 due to severe aortic insufficiency and aortic wall vegetations noted on RENEE. He was evaluated by ID at [facility] and was recommended to be on vancomycin and rifampin with last day of therapy on December 29. He was transferred back to [facility] for completion of antibiotics. He did develop DICK from Lasix and Gentamicin. He also was found to have a small left occipital hemorrhage and embolic CVAs likely septic in nature. The patient was seen this morning on rounds. He is sitting in bed playing video games. The patient is asking for more percocet for his back pain. I explained to him that given his history of opioid abuse, ultimately leading to this entire hospitalization, I would not prescribe more narcotics. I explained the importance of non-medicinal interventions: repositioning, heat therapy, etc. Plan to remain in patient to continue receiving antibiotics and IVF. Reason For Visit: IV FLUIDS Physical Exam Vital Signs: Temp Pulse Resp BP Pulse Ox 98.4 F 79 16 115/74 100 12/19/18 19:39 12/19/18 19:39 12/19/18 19:39 12/19/18 19:39 12/19/18 19:39 Intake & Output 12/18/18 12/19/18 12/20/18 06:59 06:59 06:59 Intake Total 1370 2675 3354 Balance 1370 2675 3354 Weight 62 kg 62.2 kg General appearance: PRESENT: no acute distress, thin Head exam: PRESENT: atraumatic, normocephalic Eye exam: PRESENT: conjunctiva pink, EOMI, PERRLA. ABSENT: scleral icterus Ear exam: PRESENT: normal external ear exam Mouth exam: PRESENT: moist, tongue midline Teeth exam: PRESENT: poor dentation Neck exam: PRESENT: full ROM. ABSENT: carotid bruit, JVD, lymphadenopathy, thyromegaly Respiratory exam: PRESENT: clear to auscultation cassandra, symmetrical, unlabored. ABSENT: rales, rhonchi, wheezes Cardiovascular exam: PRESENT: RRR, systolic murmur - chronic. ABSENT: diastolic murmur, rubs Pulses: PRESENT: normal radial pulses, normal dorsalis pedis pul Vascular exam: PRESENT: normal capillary refill GI/Abdominal exam: PRESENT: normal bowel sounds, soft. ABSENT: distended, guarding, mass, organolmegaly, rebound, tenderness Rectal exam: PRESENT: deferred Extremities exam: PRESENT: full ROM. ABSENT: calf tenderness, clubbing, pedal edema Neurological exam: PRESENT: alert, awake, oriented to person, oriented to place, oriented to time, oriented to situation Psychiatric exam: PRESENT: appropriate affect, normal mood Skin exam: PRESENT: dry, intact, warm. ABSENT: cyanosis, rash Results Laboratory Results: 12/13/18 09:33 12/19/18 18:18 12/19/18 12/19/18 06:35 18:18 Sodium 141.2 Potassium 4.8 Chloride 105 Carbon Dioxide 26 Anion Gap 10 BUN 18 Creatinine 1.67 H 1.39 H Est GFR ( Amer) > 60 > 60 Est GFR (Non-Af Amer) 51 L > 60 Glucose 96 Calcium 9.7 Total Bilirubin 0.2 AST 73 H ALT 84 H Alkaline Phosphatase 76 Total Protein 6.8 Albumin 3.6 12/18/18 06:30 NT-Pro-B Natriuret Pep 2000 H Impressions: Chest X-Ray 12/11/18 07:00 IMPRESSION: Persistent airspace disease in the left base. There has been significant improvement from prior study. Vascular Ultrasound 12/14/18 00:00 IMPRESSION: NO DOPPLER EVIDENCE OF HEMODYNAMICALLY SIGNIFICANT RENAL ARTERY STENOSIS. Status: Imported from PACS Assessment and Plan - Diagnosis (1) Endocarditis Qualifiers: Endocarditis type: infective Infective endocarditis organism: bacterial Chronicity: acute Qualified Code(s): I33.0 - Acute and subacute infective endocarditis Is this a current diagnosis for this admission?: Yes Plan: Stemming from IVDU According to ID at [facility], continue vancomycin and rifampin with last day of therapy on December 29. S/P aortic valve replacement. (2) DICK (acute kidney injury) Is this a current diagnosis for this admission?: Yes Plan: Creatinine remains stable between 1.5-1.6 Likely sustained permanent injury while in the throes of sepsis Patient remains nonoliguric Continue IV fluids. Nephrology consulted, appreciate their recommendations Possible vanco toxicity vs pre renal cause. Renal arterial dopplers negative. (3) Hyperkalemia Is this a current diagnosis for this admission?: Yes Plan: Resolved (4) Pleural effusion Is this a current diagnosis for this admission?: Yes Plan: Resolved. (5) S/P AVR (aortic valve replacement) Is this a current diagnosis for this admission?: Yes Plan: As per number 1. Will need follow up with original CT surgeon following discharge home (6) Polysubstance abuse Is this a current diagnosis for this admission?: Yes Plan: Patient he reports he had been sober "for a while and had one slip up, which landed" him in the hospital Counseled on cessation of drug use. Patient states he wants to quit Asked for more Percocet today but instructed him that due to his history, the patient would not be receiving any more narcotics (7) Sepsis Qualifiers: Sepsis type: Streptococcus group A Qualified Code(s): A40.0 - Sepsis due to streptococcus, group A Is this a current diagnosis for this admission?: Yes Plan: Resolved Secondary to IVDU leading to endocarditis Multiple septic emboli to the brain on MRI done at [facility]. No residual neurological symptoms. Continue antibiotics as listed above - Time Time Spent with patient: 15-24 minutes Medications reviewed and adjusted accordingly: Yes Anticipated discharge: Home Within: - december 29 - Inpatient Certification Based on my medical assessment, after consideration of the patient's comorbidities, presenting symptoms, or acuity I expect that the services needed warrant INPATIENT care.: Yes I certify that my determination is in accordance with my understanding of Medicare's requirements for reasonable and necessary INPATIENT services [42 CFR 412.3e].: Yes Medical Necessity: Need for IV Antibiotics
[2018-12-19] MEDS: CLONAZEPAM 1 MG TABLET PO SCH (21:12)
[2018-12-19] MEDS: MELATONIN 3 MG TABLET PO SCH (21:13)
[2018-12-19] MEDS: RIFAMPIN 300 MG CAPSULE PO SCH (21:15)
[2018-12-20] MEDS: HYDRALAZINE HCL 25 MG TABLET PO SCH ×3 (05:32→21:42)
[2018-12-20] MEDS: METOPROLOL TARTRATE 100 MG TABLET PO SCH ×3 (05:32→21:41)
[2018-12-20] MEDS: RIFAMPIN 300 MG CAPSULE PO SCH ×3 (05:33→21:43)
[2018-12-20 06:39] LABS: ALANINE AMINOTRANSFERASE 104 U/L (21-72); ALBUMIN 3.5 g/dL (3.5-5.0); ALKALINE PHOSPHATASE 74 U/L (38-126); ANION GAP 11 (5-19); ASPARTATE AMINO TRANSFERASE 96 U/L (17-59); BILIRUBIN,DIRECT 0.3 mg/dL (0.0-0.4); BILIRUBIN,TOTAL 0.3 mg/dL (0.2-1.3); BLOOD UREA NITROGEN 20 mg/dL (7-20); CALCIUM 9.9 mg/dL (8.4-10.2); CARBON DIOXIDE 27 mmol/L (22-30); CHLORIDE 104 mmol/L (98-107); GLUCOSE 96 mg/dL (75-110); POTASSIUM 4.8 mmol/L (3.6-5.0); SODIUM 142.2 mmol/L (137-145); TOTAL PROTEIN 6.7 g/dL (6.3-8.2)
[2018-12-20] MEDS: NORMAL SALINE 1000 ML 1,000 ML IV PRN ×2 (06:58→09:48)
[2018-12-20] MEDS: FAMOTIDINE 20 MG TABLET PO SCH ×2 (09:41→21:41)
[2018-12-20] MEDS: NICOTINE 21 MG/24 HR PATCH.TD24 TD SCH (09:56)
[2018-12-20] MEDS: CYCLOBENZAPRINE HCL 10 MG TABLET PO PRN ×2 (12:08→20:02)
[2018-12-20] MEDS: OXYCODONE-ACETAMINOPHEN 5-325 MG TABLET PO PRN ×2 (12:09→19:09)
[2018-12-20] MEDS: VANCOMYCIN HCL 1,500 MG in DEXTROSE 5%-WATER 250 ML IV SCH (17:32)
--- NOTE | 2018-12-20 20:16 | PDOC PROGRESS REPORT ---
Subjective Progress Note for:: 12/20/18 Subjective:: This is a 22 year old male with a PMH of asthma, IV drug abuse, tobacco abuse who was initially admitted to [facility] for fever and suspected meningitis, subsequently transferred to [facility] for possible infective endocarditis. He was confirmed to have endocarditis and underwent an aortic valve replacement 11/15/2018 due to severe aortic insufficiency and aortic wall vegetations noted on RENEE. He was evaluated by ID at [facility] and was recommended to be on vancomycin and rifampin with last day of therapy on December 29. He was transferred back to [facility] for completion of antibiotics. He did develop DICK from Lasix and Gentamicin. He also was found to have a small left occipital hemorrhage and embolic CVAs likely septic in nature. The patient was seen this morning on rounds. He is sitting in bed playing video games. He has no complaints or concerns today. Plan to remain in patient until December 29 to continue receiving antibiotics and IVF. No change to treatment plan. Reason For Visit: IV FLUIDS Physical Exam Vital Signs: Temp Pulse Resp BP Pulse Ox 98.2 F 83 16 134/94 H 100 12/20/18 16:09 12/20/18 16:09 12/20/18 16:09 12/20/18 16:09 12/20/18 16:09 Intake & Output 12/19/18 12/20/18 12/21/18 06:59 06:59 06:59 Intake Total 5275 5295 1958 Balance 2675 5217 1953 Weight 62.2 kg 62.2 kg General appearance: PRESENT: no acute distress, thin Head exam: PRESENT: atraumatic, normocephalic Eye exam: PRESENT: conjunctiva pink, EOMI, PERRLA. ABSENT: scleral icterus Ear exam: PRESENT: normal external ear exam Mouth exam: PRESENT: moist, tongue midline Teeth exam: PRESENT: poor dentation Neck exam: ABSENT: carotid bruit, JVD, lymphadenopathy, thyromegaly Respiratory exam: PRESENT: clear to auscultation cassandra. ABSENT: rales, rhonchi, w heezes Cardiovascular exam: PRESENT: RRR, systolic murmur - chronic. ABSENT: diastolic murmur, rubs Pulses: PRESENT: normal radial pulses, normal dorsalis pedis pul Vascular exam: PRESENT: normal capillary refill GI/Abdominal exam: PRESENT: normal bowel sounds, soft. ABSENT: distended, guarding, mass, organolmegaly, rebound, tenderness Rectal exam: PRESENT: deferred Extremities exam: PRESENT: full ROM. ABSENT: calf tenderness, clubbing, pedal edema Musculoskeletal exam: PRESENT: ambulatory, full ROM Neurological exam: PRESENT: alert, awake, oriented to person, oriented to place, oriented to time, oriented to situation Psychiatric exam: PRESENT: appropriate affect, normal mood Skin exam: PRESENT: dry, intact, warm. ABSENT: cyanosis, rash Results Laboratory Results: 12/13/18 09:33 12/20/18 06:00 12/20/18 06:00 Sodium 142.2 Potassium 4.8 Chloride 104 Carbon Dioxide 27 Anion Gap 11 BUN 20 Creatinine 1.71 H Est GFR ( Amer) > 60 Est GFR (Non-Af Amer) 50 L Glucose 96 Calcium 9.9 Total Bilirubin 0.3 AST 96 H ALT 104 H Alkaline Phosphatase 74 Total Protein 6.7 Albumin 3.5 12/18/18 06:30 NT-Pro-B Natriuret Pep 2000 H Impressions: Chest X-Ray 12/11/18 07:00 IMPRESSION: Persistent airspace disease in the left base. There has been significant improvement from prior study. Vascular Ultrasound 12/14/18 00:00 IMPRESSION: NO DOPPLER EVIDENCE OF HEMODYNAMICALLY SIGNIFICANT RENAL ARTERY STENOSIS. Status: Imported from PACS Assessment and Plan - Diagnosis (1) Endocarditis Qualifiers: Endocarditis type: infective Infective endocarditis organism: bacterial Chronicity: acute Qualified Code(s): I33.0 - Acute and subacute infective endocarditis Is this a current diagnosis for this admission?: Yes Plan: Stemming from IVDU According to ID at [facility], continue vancomycin and rifampin with last day of therapy on December 29. S/P aortic valve replacement. (2) DICK (acute kidney injury) Is this a current diagnosis for this admission?: Yes Plan: Creatinine remains stable between 1.5-1.6 Likely sustained permanent injury while in the throes of sepsis Patient remains nonoliguric Continue IV fluids. Nephrology has signed off Possible vanco toxicity vs pre renal cause. Renal arterial dopplers negative. (3) Hyperkalemia Is this a current diagnosis for this admission?: Yes Plan: Resolved (4) Pleural effusion Is this a current diagnosis for this admission?: Yes Plan: Resolved. (5) S/P AVR (aortic valve replacement) Is this a current diagnosis for this admission?: Yes Plan: As per number 1. Will need follow up with original CT surgeon following discharge home (6) Polysubstance abuse Is this a current diagnosis for this admission?: Yes Plan: Patient he reports he had been sober "for a while and had one slip up, which landed" him in the hospital Counseled on cessation of drug use. Patient states he wants to quit Will ask discharge planning to provide rehab resources to the patient (7) Sepsis Qualifiers: Sepsis type: Streptococcus group A Qualified Code(s): A40.0 - Sepsis due to streptococcus, group A Is this a current diagnosis for this admission?: Yes Plan: Resolved Secondary to IVDU leading to endocarditis Multiple septic emboli to the brain on MRI done at [facility]. No residual neurological symptoms. Continue antibiotics as listed above - Time Time Spent with patient: 15-24 minutes Medications reviewed and adjusted accordingly: Yes Anticipated discharge: Home Within: Other - december 29 - Inpatient Certification Based on my medical assessment, after consideration of the patient's comorbidities, presenting symptoms, or acuity I expect that the services needed warrant INPATIENT care.: Yes I certify that my determination is in accordance with my understanding of Medicare's requirements for reasonable and necessary INPATIENT services [42 CFR 412.3e].: Yes Medical Necessity: Need for IV Antibiotics
[2018-12-20] MEDS: CLONAZEPAM 1 MG TABLET PO SCH (21:40)
[2018-12-20] MEDS: MELATONIN 3 MG TABLET PO SCH (21:41)
[2018-12-21] MEDS: NORMAL SALINE 1000 ML 1,000 ML IV PRN ×2 (02:23→14:29)
[2018-12-21] MEDS: RIFAMPIN 300 MG CAPSULE PO SCH ×3 (05:28→21:20)
[2018-12-21] MEDS: METOPROLOL TARTRATE 100 MG TABLET PO SCH ×3 (05:29→21:17)
[2018-12-21] MEDS: HYDRALAZINE HCL 25 MG TABLET PO SCH ×3 (05:29→21:17)
[2018-12-21 06:31] LABS: ALANINE AMINOTRANSFERASE 123 U/L (21-72); ALBUMIN 3.5 g/dL (3.5-5.0); ALKALINE PHOSPHATASE 83 U/L (38-126); ANION GAP 12 (5-19); ASPARTATE AMINO TRANSFERASE 100 U/L (17-59); BILIRUBIN,DIRECT 0.3 mg/dL (0.0-0.4); BILIRUBIN,TOTAL 0.3 mg/dL (0.2-1.3); BLOOD UREA NITROGEN 19 mg/dL (7-20); CALCIUM 9.4 mg/dL (8.4-10.2); CARBON DIOXIDE 25 mmol/L (22-30); CHLORIDE 105 mmol/L (98-107); GLUCOSE 113 mg/dL (75-110); POTASSIUM 4.5 mmol/L (3.6-5.0); SODIUM 141.9 mmol/L (137-145); TOTAL PROTEIN 6.7 g/dL (6.3-8.2)
[2018-12-21] MEDS: FAMOTIDINE 20 MG TABLET PO SCH ×2 (09:28→21:18)
[2018-12-21] MEDS: NICOTINE 21 MG/24 HR PATCH.TD24 TD SCH (09:31)
[2018-12-21] MEDS: OXYCODONE-ACETAMINOPHEN 5-325 MG TABLET PO PRN ×2 (11:40→21:17)
[2018-12-21] MEDS: CYCLOBENZAPRINE HCL 10 MG TABLET PO PRN ×2 (14:45→22:26)
--- NOTE | 2018-12-21 15:22 | PDOC PROGRESS REPORT ---
Subjective Progress Note for:: 12/21/18 Subjective:: This is a 22 year old male with a PMH of asthma, IV drug abuse, tobacco abuse who was initially admitted to [facility] for fever and suspected meningitis, subsequently transferred to [facility] for possible infective endocarditis. He was confirmed to have endocarditis and underwent an aortic valve replacement 11/15/2018 due to severe aortic insufficiency and aortic wall vegetations noted on RENEE. He was evaluated by ID at [facility] and was recommended to be on vancomycin and rifampin with last day of therapy on December 29. He was transferred back to [facility] for completion of antibiotics. He did develop DICK from Lasix and Gentamicin. He also was found to have a small left occipital hemorrhage and embolic CVAs likely septic in nature. The patient was seen this morning on rounds. He is sitting in bed playing video games. He has no complaints or concerns today. Nursing staff reports the patient has been ambulating in the hallways multiple times per day. Plan to remain in patient until December 29 to continue receiving antibiotics and IVF. No change to treatment plan. Reason For Visit: IV FLUIDS Physical Exam Vital Signs: Temp Pulse Resp BP Pulse Ox 97.8 F 80 15 125/77 100 12/21/18 12:00 12/21/18 14:20 12/21/18 12:00 12/21/18 14:20 12/21/18 14:20 Intake & Output 12/20/18 12/21/18 12/22/18 06:59 06:59 06:59 Intake Total 5284 3206 1498 Balance 5284 3206 1498 Weight 62.2 kg 63.5 kg General appearance: PRESENT: no acute distress, thin Head exam: PRESENT: atraumatic, normocephalic Eye exam: PRESENT: conjunctiva pink, EOMI, PERRLA. ABSENT: scleral icterus Ear exam: PRESENT: normal external ear exam Mouth exam: PRESENT: moist, tongue midline Teeth exam: PRESENT: poor dentation Neck exam: ABSENT: carotid bruit, JVD, lymphadenopathy, thyromegaly Respiratory exam: PRESENT: clear to auscultation cassandra, symmetrical, unlabored. ABSENT: rales, rhonchi, wheezes Cardiovascular exam: PRESENT: RRR, systolic murmur - chronic. ABSENT: diastolic murmur, rubs Pulses: PRESENT: normal dorsalis pedis pul Vascular exam: PRESENT: normal capillary refill GI/Abdominal exam: PRESENT: normal bowel sounds, soft. ABSENT: distended, guarding, mass, organolmegaly, rebound, tenderness Rectal exam: PRESENT: deferred Extremities exam: PRESENT: full ROM. ABSENT: calf tenderness, clubbing, pedal edema Musculoskeletal exam: PRESENT: ambulatory, full ROM Neurological exam: PRESENT: alert, awake, oriented to person, oriented to place, oriented to time, oriented to situation Psychiatric exam: PRESENT: appropriate affect, normal mood. ABSENT: homicidal ideation, suicidal ideation Skin exam: PRESENT: dry, intact, warm. ABSENT: cyanosis, rash Results Laboratory Results: 12/13/18 09:33 12/21/18 05:30 12/21/18 05:30 Sodium 141.9 Potassium 4.5 Chloride 105 Carbon Dioxide 25 Anion Gap 12 BUN 19 Creatinine 1.75 H Est GFR ( Amer) 59 L Est GFR (Non-Af Amer) 49 L Glucose 113 H Calcium 9.4 Total Bilirubin 0.3 AST 100 H ALT 123 H Alkaline Phosphatase 83 Total Protein 6.7 Albumin 3.5 12/18/18 06:30 NT-Pro-B Natriuret Pep 2000 H Impressions: Chest X-Ray 12/11/18 07:00 IMPRESSION: Persistent airspace disease in the left base. There has been significant improvement from prior study. Vascular Ultrasound 12/14/18 00:00 IMPRESSION: NO DOPPLER EVIDENCE OF HEMODYNAMICALLY SIGNIFICANT RENAL ARTERY ST ENOSIS. Status: Imported from PACS Assessment and Plan - Diagnosis (1) Endocarditis Qualifiers: Endocarditis type: infective Infective endocarditis organism: bacterial Chronicity: acute Qualified Code(s): I33.0 - Acute and subacute infective endocarditis Is this a current diagnosis for this admission?: Yes Plan: Stemming from IVDU According to ID at [facility], continue vancomycin and rifampin with last day of therapy on December 29. S/P aortic valve replacement. (2) DICK (acute kidney injury) Is this a current diagnosis for this admission?: Yes Plan: Creatinine remains stable between 1.5-1.6 Likely sustained permanent injury while in the throes of sepsis Patient remains nonoliguric Continue IV fluids. Nephrology has signed off Possible vanco toxicity vs pre renal cause. Renal arterial dopplers negative. (3) Hyperkalemia Is this a current diagnosis for this admission?: Yes Plan: Resolved (4) Pleural effusion Is this a current diagnosis for this admission?: Yes Plan: Resolved. (5) S/P AVR (aortic valve replacement) Is this a current diagnosis for this admission?: Yes Plan: As per number 1. Will need follow up with original CT surgeon following discharge home (6) Polysubstance abuse Is this a current diagnosis for this admission?: Yes Plan: Patient reports he had been sober "for a while and had one slip up, which landed" him in the hospital Counseled on cessation of drug use. Patient states he wants to quit (7) Sepsis Qualifiers: Sepsis type: Streptococcus group A Qualified Code(s): A40.0 - Sepsis due to streptococcus, group A Is this a current diagnosis for this admission?: Yes Plan: Resolved Secondary to IVDU leading to endocarditis Multiple septic emboli to the brain on MRI done at [facility]. No residual neurological symptoms. Continue antibiotics as listed above - Time Time Spent with patient: 15-24 minutes Medications reviewed and adjusted accordingly: Yes Anticipated discharge: Home Within: Other - december 29 - Inpatient Certification Based on my medical assessment, after consideration of the patient's comorbidities, presenting symptoms, or acuity I expect that the services needed warrant INPATIENT care.: Yes I certify that my determination is in accordance with my understanding of Medicare's requirements for reasonable and necessary INPATIENT services [42 CFR 412.3e].: Yes Medical Necessity: Need for IV Antibiotics, Risk of Complication if Not Cared For in Hospital
[2018-12-21] MEDS: VANCOMYCIN HCL 1,500 MG in DEXTROSE 5%-WATER 250 ML IV SCH (17:11)
[2018-12-21] MEDS: CLONAZEPAM 1 MG TABLET PO SCH (21:16)
[2018-12-21] MEDS: MELATONIN 3 MG TABLET PO SCH (21:19)
[2018-12-22] MEDS: NORMAL SALINE 1000 ML 1,000 ML IV PRN (02:29)
[2018-12-22] MEDS: RIFAMPIN 300 MG CAPSULE PO SCH ×3 (06:18→22:04)
[2018-12-22] MEDS: HYDRALAZINE HCL 25 MG TABLET PO SCH ×3 (06:18→22:02)
[2018-12-22] MEDS: METOPROLOL TARTRATE 100 MG TABLET PO SCH ×3 (06:18→22:01)
[2018-12-22] MEDS: NICOTINE 21 MG/24 HR PATCH.TD24 TD SCH (09:06)
[2018-12-22] MEDS: FAMOTIDINE 20 MG TABLET PO SCH ×2 (09:06→22:02)
[2018-12-22 11:56] LABS: ALANINE AMINOTRANSFERASE 157 U/L (21-72); ALBUMIN 3.9 g/dL (3.5-5.0); ALKALINE PHOSPHATASE 92 U/L (38-126); ANION GAP 11 (5-19); ASPARTATE AMINO TRANSFERASE 116 U/L (17-59); BILIRUBIN,DIRECT 0.3 mg/dL (0.0-0.4); BILIRUBIN,TOTAL 0.3 mg/dL (0.2-1.3); BLOOD UREA NITROGEN 15 mg/dL (7-20); CALCIUM 10.1 mg/dL (8.4-10.2); CARBON DIOXIDE 25 mmol/L (22-30); CHLORIDE 105 mmol/L (98-107); GLUCOSE 119 mg/dL (75-110); POTASSIUM 4.5 mmol/L (3.6-5.0); SODIUM 140.7 mmol/L (137-145); TOTAL PROTEIN 7.2 g/dL (6.3-8.2)
--- NOTE | 2018-12-22 14:40 | RADIOLOGY REPORT (SQ) ---
EXAM DESCRIPTION: U/S ABDOMEN LTD W/DOPPLER COMPLETED DATE/TIME: 12/22/2018 1:26 pm REASON FOR STUDY: tansaminitis. eval for liver pathology COMPARISON: 10/22/2018. TECHNIQUE: Dynamic and static grayscale images acquired of the abdomen and recorded on PACS. Judyo leandra selected color Doppler and spectral images recorded. LIMITATIONS: None. FINDINGS: PANCREAS: No masses. Visualized pancreatic duct normal caliber. LIVER: No masses. Echotexture normal. LIVER VASCULATURE: Normal directional flow of the main portal vein and hepatic veins. GALLBLADDER: No stones. Normal wall thickness. No pericholecystic fluid. ULTRASOUND-DETECTED HELTON'S SIGN: Negative. INTRAHEPATIC DUCTS AND COMMON DUCT: CBD and intrahepatic ducts normal caliber. No filling defects. INFERIOR VENA CAVA: Normal flow. AORTA: No aneurysm. RIGHT KIDNEY: Normal size. Normal echogenicity. No solid or suspicious masses. No hydronephrosis. No calcifications. PERITONEAL AND RIGHT PLEURAL SPACE: No ascites or effusions. OTHER: No other significant findings. IMPRESSION: NORMAL RIGHT UPPER QUADRANT ULTRASOUND. TECHNICAL DOCUMENTATION: JOB ID: [id number]- All Rights Reserved Reading location - IP/workstation name: [email or web address]
[2018-12-22] MEDS: OXYCODONE-ACETAMINOPHEN 5-325 MG TABLET PO PRN (14:52)
--- NOTE | 2018-12-22 17:11 | PDOC PROGRESS REPORT ---
Subjective Progress Note for:: 12/22/18 Subjective:: This is a 22 year old male with a PMH of asthma, IV drug abuse, tobacco abuse who was initially admitted to [facility] for fever and suspected meningitis, subsequently transferred to [facility] for possible infective endocarditis. He was confirmed to have endocarditis and underwent an aortic valve replacement 11/15/2018 due to severe aortic insufficiency and aortic wall vegetations noted on RENEE. He was evaluated by ID at [facility] and was recommended to be on vancomycin and rifampin with last day of therapy on December 29. He was transferred back to [facility] for completion of antibiotics. He did develop DICK from Lasix and Gentamicin. He also was found to have a small left occipital hemorrhage and embolic CVAs likely septic in nature. The patient was seen this morning on rounds. He is sitting in bed playing video games. Liver enzymes continue to rise today. The patient denies abdominal pain, bloating, nausea or vomiting. US abdomen completed, negative for hepatic pathology. The source of the patient's transaminitis is likely hepatocellular injury from excessive Tylenol ingestion. Patient has been on Percocet q4-6hrs for weeks. Discontinued PO Percocet and started 5mg oxycodone. Plan to remain in patient until December 29 to continue receiving antibiotics and IVF. Reason For Visit: IV FLUIDS Physical Exam Vital Signs: Temp Pulse Resp BP Pulse Ox 98.7 F 93 16 127/88 H 100 12/22/18 16:00 12/22/18 16:00 12/22/18 16:00 12/22/18 16:00 12/22/18 16:00 Intake & Output 12/21/18 12/22/18 12/23/18 06:59 06:59 06:59 Intake Total 3206 4518 590 Balance 3206 4518 590 Weight 63.5 kg 64.2 kg General appearance: PRESENT: no acute distress, thin Eye exam: PRESENT: conjunctiva pink, PERRLA Mouth exam: PRESENT: moist, tongue midline Teeth exam: PRESENT: poor dentation Neck exam: PRESENT: full ROM Respiratory exam: PRESENT: clear to auscultation cassandra, symmetrical, unlabored Cardiovascular exam: PRESENT: RRR Pulses: PRESENT: normal radial pulses, normal dorsalis pedis pul Vascular exam: PRESENT: normal capillary refill GI/Abdominal exam: PRESENT: soft. ABSENT: distended, tenderness Rectal exam: PRESENT: deferred Extremities exam: PRESENT: full ROM. ABSENT: pedal edema Musculoskeletal exam: PRESENT: ambulatory, full ROM, normal inspection Neurological exam: PRESENT: alert, awake, oriented to person, oriented to place, oriented to time, oriented to situation Psychiatric exam: PRESENT: appropriate affect Skin exam: PRESENT: dry, intact, normal color Results Laboratory Results: 12/13/18 09:33 12/22/18 11:26 12/22/18 11:26 Sodium 140.7 Potassium 4.5 Chloride 105 Carbon Dioxide 25 Anion Gap 11 BUN 15 Creatinine 1.55 H Est GFR ( Amer) > 60 Est GFR (Non-Af Amer) 56 L Glucose 119 H Calcium 10.1 Total Bilirubin 0.3 AST 116 H ALT 157 H Alkaline Phosphatase 92 Total Protein 7.2 Albumin 3.9 12/18/18 06:30 NT-Pro-B Natriuret Pep 2000 H Impressions: Chest X-Ray 12/11/18 07:00 IMPRESSION: Persistent airspace disease in the left base. There has been significant improvement from prior study. Vascular Ultrasound 12/14/18 00:00 IMPRESSION: NO DOPPLER EVIDENCE OF HEMODYNAMICALLY SIGNIFICANT RENAL ARTERY STENOSIS. Abdomen Ultrasound 12/22/18 12:57 IMPRESSION: NORMAL RIGHT UPPER QUADRANT ULTRASOUND. Status: Imported from PACS Assessment and Plan - Diagnosis (1) Endocarditis Qualifiers: Endocarditis type: infective Infective endocarditis organism: bacterial Chronicity: acute Qualified Code(s): I33.0 - Acute and subacute infective endocarditis Is this a current diagnosis for this admission?: Yes Plan: Stemming from IVDU According to ID at [facility], continue vancomycin and rifampin with last day of therapy on December 29. S/P aortic valve replacement. (2) DICK (acute kidney injury) Is this a current diagnosis for this admission?: Yes Plan: Creatinine remains stable between 1.5-1.6 Likely sustained permanent injury while in the throes of sepsis Patient remains nonoliguric Continue IV fluids. Nephrology has signed off Possible vanco toxicity vs pre renal cause. Renal arterial dopplers negative. (3) Hyperkalemia Is this a current diagnosis for this admission?: Yes Plan: Resolved (4) Pleural effusion Is this a current diagnosis for this admission?: Yes Plan: Resolved. (5) S/P AVR (aortic valve replacement) Is this a current diagnosis for this admission?: Yes Plan: As per number 1. Will need follow up with original CT surgeon following discharge home (6) Polysubstance abuse Is this a current diagnosis for this admission?: Yes Plan: Patient reports he had been sober "for a while and had one slip up, which landed" him in the hospital Counseled on cessation of drug use. Patient states he wants to quit (7) Sepsis Qualifiers: Sepsis type: Streptococcus group A Qualified Code(s): A40.0 - Sepsis due to streptococcus, group A Is this a current diagnosis for this admission?: Yes Plan: Resolved Secondary to IVDU leading to endocarditis Multiple septic emboli to the brain on MRI done at [facility]. No residual neurological symptoms. Continue antibiotics as listed above - Time Time Spent with patient: 15-24 minutes Medications reviewed and adjusted accordingly: Yes Anticipated discharge: Home - Inpatient Certification Based on my medical assessment, after consideration of the patient's comorbidities, presenting symptoms, or acuity I expect that the services needed warrant INPATIENT care.: Yes I certify that my determination is in accordance with my understanding of Medicare's requirements for reasonable and necessary INPATIENT services [42 CFR 412.3e].: Yes Medical Necessity: Need for IV Antibiotics, Risk of Complication if Not Cared For in Hospital
[2018-12-22] MEDS: VANCOMYCIN HCL 1,500 MG in DEXTROSE 5%-WATER 250 ML IV SCH (17:21)
[2018-12-22] MEDS: CYCLOBENZAPRINE HCL 10 MG TABLET PO PRN (17:25)
[2018-12-22] MEDS: CARBAMIDE PEROXIDE 6.5% OTIC SOLN 15 ML AD SCH (18:17)
[2018-12-22] MEDS: OXYCODONE HCL IR 5 MG TABLET PO PRN (20:15)
[2018-12-22] MEDS: CLONAZEPAM 1 MG TABLET PO SCH (22:02)
[2018-12-22] MEDS: MELATONIN 3 MG TABLET PO SCH (22:03)
[2018-12-23] MEDS: NORMAL SALINE 1000 ML 1,000 ML IV PRN ×2 (04:14→17:07)
[2018-12-23] MEDS: METOPROLOL TARTRATE 100 MG TABLET PO SCH ×3 (05:16→21:32)
[2018-12-23] MEDS: HYDRALAZINE HCL 25 MG TABLET PO SCH ×3 (05:16→21:32)
[2018-12-23] MEDS: RIFAMPIN 300 MG CAPSULE PO SCH ×3 (05:18→21:32)
[2018-12-23 09:44] LABS: ALANINE AMINOTRANSFERASE 141 U/L (21-72); ALBUMIN 3.6 g/dL (3.5-5.0); ALKALINE PHOSPHATASE 87 U/L (38-126); ANION GAP 9 (5-19); ASPARTATE AMINO TRANSFERASE 108 U/L (17-59); BILIRUBIN,DIRECT 0.3 mg/dL (0.0-0.4); BILIRUBIN,TOTAL 0.3 mg/dL (0.2-1.3); BLOOD UREA NITROGEN 15 mg/dL (7-20); CALCIUM 9.9 mg/dL (8.4-10.2); CARBON DIOXIDE 27 mmol/L (22-30); CHLORIDE 105 mmol/L (98-107); GLUCOSE 96 mg/dL (75-110); POTASSIUM 4.7 mmol/L (3.6-5.0); SODIUM 140.7 mmol/L (137-145); TOTAL PROTEIN 6.8 g/dL (6.3-8.2)
[2018-12-23] MEDS: CARBAMIDE PEROXIDE 6.5% OTIC SOLN 15 ML AD SCH ×2 (10:23→17:05)
[2018-12-23] MEDS: NICOTINE 21 MG/24 HR PATCH.TD24 TD SCH (10:25)
[2018-12-23] MEDS: FAMOTIDINE 20 MG TABLET PO SCH ×2 (10:25→21:32)
[2018-12-23] MEDS: OXYCODONE HCL IR 5 MG TABLET PO PRN ×2 (13:04→20:23)
[2018-12-23] MEDS: CYCLOBENZAPRINE HCL 10 MG TABLET PO PRN ×2 (13:11→22:06)
[2018-12-23] MEDS ORDERED: KETOROLAC TROMETHAMINE INJ/PF 30 MG/1 ML SDV IV ONE (15:30)
--- NOTE | 2018-12-23 15:43 | PDOC PROGRESS REPORT ---
Subjective Progress Note for:: 12/23/18 Subjective:: This is a 22 year old male with a PMH of asthma, IV drug abuse, tobacco abuse who was initially admitted to [facility] for fever and suspected meningitis, subsequently transferred to [facility] for possible infective endocarditis. He was confirmed to have endocarditis and underwent an aortic valve replacement 11/15/2018 due to severe aortic insufficiency and aortic wall vegetations noted on RENEE. He was evaluated by ID at [facility] and was recommended to be on vancomycin and rifampin with last day of therapy on December 29. He was transferred back to [facility] for completion of antibiotics. He did develop DICK from Lasix and Gentamicin. He also was found to have a small left occipital hemorrhage and embolic CVAs likely septic in nature. The patient was seen this morning on rounds. He is sitting in bed playing video games. Patient endorses left shoulder pain, in the L trapezius area. This is new today. Reproducible with palpation. Limited ROM, difficulty with lateral and posterior movement. Patient denies numbness or tingling to the LUE. Will treat muscular pain with Flexeril, PRN oxycodone (already receiving), heat pack, stretching. No plan to offer additional narcotics. Plan to remain in patient until December 29 to continue receiving antibiotics and IVF. Reason For Visit: IV FLUIDS Physical Exam Vital Signs: Temp Pulse Resp BP Pulse Ox 97.9 F 82 16 124/79 100 12/23/18 12:00 12/23/18 12:00 12/23/18 12:00 12/23/18 12:00 12/23/18 12:00 Intake & Output 12/22/18 12/23/18 12/24/18 06:59 06:59 06:59 Intake Total 4518 3760 Balance 4518 3760 Weight 64.2 kg 64 kg General appearance: PRESENT: thin Eye exam: PRESENT: conjunctiva pink, PERRLA Mouth exam: PRESENT: moist Teeth exam: PRESENT: poor dentation Neck exam: PRESENT: full ROM Respiratory exam: PRESENT: clear to auscultation cassandra, symmetrical, unlabored Cardiovascular exam: PRESENT: RRR Pulses: PRESENT: normal radial pulses Vascular exam: PRESENT: normal capillary refill GI/Abdominal exam: PRESENT: soft. ABSENT: distended, tenderness Rectal exam: PRESENT: deferred Extremities exam: ABSENT: full ROM - LUE partial ROM due to L neck pain, pedal edema Musculoskeletal exam: PRESENT: ambulatory Neurological exam: PRESENT: alert, awake, oriented to person, oriented to place, oriented to time, oriented to situation Psychiatric exam: PRESENT: appropriate affect Skin exam: PRESENT: dry, intact, pallor Results Laboratory Results: 12/13/18 09:33 12/23/18 08:59 12/23/18 08:59 Sodium 140.7 Potassium 4.7 Chloride 105 Carbon Dioxide 27 Anion Gap 9 BUN 15 Creatinine 1.49 H Est GFR ( Amer) > 60 Est GFR (Non-Af Amer) 58 L Glucose 96 Calcium 9.9 Total Bilirubin 0.3 AST 108 H ALT 141 H Alkaline Phosphatase 87 Total Protein 6.8 Albumin 3.6 12/18/18 06:30 NT-Pro-B Natriuret Pep 2000 H Impressions: Chest X-Ray 12/11/18 07:00 IMPRESSION: Persistent airspace disease in the left base. There has been signi ficant improvement from prior study. Vascular Ultrasound 12/14/18 00:00 IMPRESSION: NO DOPPLER EVIDENCE OF HEMODYNAMICALLY SIGNIFICANT RENAL ARTERY STENOSIS. Abdomen Ultrasound 12/22/18 12:57 IMPRESSION: NORMAL RIGHT UPPER QUADRANT ULTRASOUND. Status: Imported from PACS Assessment and Plan - Diagnosis (1) Endocarditis Qualifiers: Endocarditis type: infective Infective endocarditis organism: bacterial Chronicity: acute Qualified Code(s): I33.0 - Acute and subacute infective endocarditis Is this a current diagnosis for this admission?: Yes Plan: Stemming from IVDU According to ID at [facility], continue vancomycin and rifampin with last day of therapy on December 29. S/P aortic valve replacement. (2) DICK (acute kidney injury) Is this a current diagnosis for this admission?: Yes Plan: Creatinine remains stable between 1.5-1.6 Likely sustained permanent injury while in the throes of sepsis Patient remains nonoliguric Continue IV fluids. Nephrology has signed off Possible vanco toxicity vs pre renal cause. Renal arterial dopplers negative. (3) Hyperkalemia Is this a current diagnosis for this admission?: Yes Plan: Resolved (4) Pleural effusion Is this a current diagnosis for this admission?: Yes Plan: Resolved. (5) S/P AVR (aortic valve replacement) Is this a current diagnosis for this admission?: Yes Plan: As per number 1. Will need follow up with original CT surgeon following discharge home (6) Polysubstance abuse Is this a current diagnosis for this admission?: Yes Plan: Patient reports he had been sober "for a while and had one slip up, which landed" him in the hospital Counseled on cessation of drug use. Patient states he wants to quit (7) Sepsis Qualifiers: Sepsis type: Streptococcus group A Qualified Code(s): A40.0 - Sepsis due to streptococcus, group A Is this a current diagnosis for this admission?: Yes Plan: Resolved Secondary to IVDU leading to endocarditis Multiple septic emboli to the brain on MRI done at [facility]. No residual neurological symptoms. Continue antibiotics as listed above - Time Time Spent with patient: 15-24 minutes Medications reviewed and adjusted accordingly: Yes Anticipated discharge: Home Within: Other - December - Inpatient Certification Based on my medical assessment, after consideration of the patient's c omorbidities, presenting symptoms, or acuity I expect that the services needed warrant INPATIENT care.: Yes I certify that my determination is in accordance with my understanding of Medicare's requirements for reasonable and necessary INPATIENT services [42 CFR 412.3e].: Yes Medical Necessity: Need for IV Antibiotics, Risk of Complication if Not Cared For in Hospital
[2018-12-23] MEDS: VANCOMYCIN HCL 1,500 MG in DEXTROSE 5%-WATER 250 ML IV SCH (17:05)
[2018-12-23] MEDS: MELATONIN 3 MG TABLET PO SCH (21:32)
[2018-12-23] MEDS: CLONAZEPAM 1 MG TABLET PO SCH (21:37)
[2018-12-24] MEDS: OXYCODONE HCL IR 5 MG TABLET PO PRN ×3 (03:44→20:11)
[2018-12-24] MEDS: HYDRALAZINE HCL 25 MG TABLET PO SCH ×3 (05:39→21:29)
[2018-12-24] MEDS: METOPROLOL TARTRATE 100 MG TABLET PO SCH ×3 (05:39→21:29)
[2018-12-24] MEDS: RIFAMPIN 300 MG CAPSULE PO SCH ×3 (05:40→21:29)
[2018-12-24] MEDS: CYCLOBENZAPRINE HCL 10 MG TABLET PO PRN ×2 (06:11→20:12)
[2018-12-24 06:36] LABS: ALANINE AMINOTRANSFERASE 134 U/L (21-72); ALBUMIN 3.4 g/dL (3.5-5.0); ALKALINE PHOSPHATASE 85 U/L (38-126); ANION GAP 9 (5-19); ASPARTATE AMINO TRANSFERASE 85 U/L (17-59); BILIRUBIN,DIRECT 0.2 mg/dL (0.0-0.4); BILIRUBIN,TOTAL 0.2 mg/dL (0.2-1.3); BLOOD UREA NITROGEN 16 mg/dL (7-20); CALCIUM 9.7 mg/dL (8.4-10.2); CARBON DIOXIDE 26 mmol/L (22-30); CHLORIDE 105 mmol/L (98-107); GLUCOSE 102 mg/dL (75-110); POTASSIUM 4.4 mmol/L (3.6-5.0); SODIUM 139.7 mmol/L (137-145); TOTAL PROTEIN 6.6 g/dL (6.3-8.2)
[2018-12-24 08:42] LABS: HEPATITIS A AB IGM Negative (Negative); HEPATITIS B CORE AB IGM Negative (Negative); HEPATITS B SURFACE ANTIGEN Negative (Negative)
[2018-12-24] MEDS: FAMOTIDINE 20 MG TABLET PO SCH ×2 (10:41→21:29)
[2018-12-24] MEDS: CARBAMIDE PEROXIDE 6.5% OTIC SOLN 15 ML AD SCH ×2 (10:42→18:02)
[2018-12-24] MEDS: NICOTINE 21 MG/24 HR PATCH.TD24 TD SCH (10:43)
[2018-12-24] MEDS: NORMAL SALINE 1000 ML 1,000 ML IV PRN (10:45)
[2018-12-24 11:21] LABS: HEPATITIS C VIRUS ANTIBODY >11.0 s/co ratio (0.0-0.9)
[2018-12-24] MEDS: KETOROLAC TROMETHAMINE INJ/PF 30 MG/1 ML SDV IV PRN ×2 (11:47→18:00)
[2018-12-24] MEDS: LIDOCAINE 5% (700 MG) TRANSDERMAL ADH..PATCH TP SCH (11:49)
[2018-12-24] MEDS: VANCOMYCIN HCL 1,500 MG in DEXTROSE 5%-WATER 250 ML IV SCH (18:04)
--- NOTE | 2018-12-24 18:17 | PDOC PROGRESS REPORT ---
Subjective Progress Note for:: 12/24/18 Subjective:: This is a 22 year old male with a PMH of asthma, IV drug abuse, tobacco abuse who was initially admitted to [facility] for fever and suspected meningitis, subsequently transferred to [facility] for possible infective endocarditis. He was confirmed to have endocarditis and underwent an aortic valve replacement 11/15/2018 due to severe aortic insufficiency and aortic wall vegetations noted on RENEE. He was evaluated by ID at [facility] and was recommended to be on vancomycin and rifampin with last day of therapy on December 29. He was transferred back to [facility] for completion of antibiotics. He also was found to have a small left occipital hemorrhage and embolic CVAs likely septic in nature. Patient was seen on morning rounds. He is found resting in bed comfortably on room air. He reports continued left shoulder pain which has been present for several weeks; imaging done at [facility] (shoulder x-ray) is benign. Patient has full range of motion and sensation. He had nonspecific tenderness to palpation over AC joint and trapezius. He reports that IV Toradol worked well for m anaging pain yesterday and requests additional availability. He otherwise denies fever, chills, headache, dizziness, chest pain, palpitations, dyspnea, orthopnea, abdominal pain, nausea vomiting and diarrhea. He has no other questions or concerns. No concerns per nursing. Reason For Visit: IV FLUIDS Physical Exam Vital Signs: Temp Pulse Resp BP Pulse Ox 98.2 F 93 16 133/76 H 100 12/24/18 07:38 12/24/18 07:38 12/24/18 07:38 12/24/18 07:38 12/24/18 07:38 Intake & Output 12/23/18 12/24/18 12/25/18 06:59 06:59 06:59 Intake Total 3760 4371 Balance 3760 4371 Weight 64 kg 64.6 kg General appearance: PRESENT: no acute distress, disheveled - Poor body odor, thin, well-developed Head exam: PRESENT: atraumatic, normocephalic Eye exam: PRESENT: conjunctiva pink, EOMI, PERRLA. ABSENT: scleral icterus Ear exam: PRESENT: normal external ear exam Mouth exam: PRESENT: moist, tongue midline Teeth exam: PRESENT: poor dentation Neck exam: ABSENT: carotid bruit, JVD, lymphadenopathy, thyromegaly Respiratory exam: PRESENT: clear to auscultation cassandra, symmetrical, unlabored. ABSENT: rales, rhonchi, wheezes Cardiovascular exam: PRESENT: RRR, +S1, +S2, systolic murmur. ABSENT: diastolic murmur, rubs Pulses: PRESENT: normal dorsalis pedis pul Vascular exam: PRESENT: normal capillary refill GI/Abdominal exam: PRESENT: normal bowel sounds, soft. ABSENT: distended, guarding, mass, organolmegaly, rebound, tenderness Rectal exam: PRESENT: deferred Extremities exam: PRESENT: full ROM, tenderness - Left shoulder. ABSENT: calf tenderness, clubbing, pedal edema Neurological exam: PRESENT: alert, awake, oriented to person, oriented to place, oriented to time, oriented to situation, CN II-XII grossly intact. ABSENT: motor sensory deficit Psychiatric exam: PRESENT: appropriate affect, normal mood. ABSENT: homicidal ideation, suicidal ideation Skin exam: PRESENT: dry, intact, warm. ABSENT: cyanosis, rash Results Laboratory Results: 12/13/18 09:33 12/24/18 05:30 12/24/18 05:30 Sodium 139.7 Potassium 4.4 Chloride 105 Carbon Dioxide 26 Anion Gap 9 BUN 16 Creatinine 1.69 H Est GFR ( Amer) > 60 Est GFR (Non-Af Amer) 51 L Glucose 102 Calcium 9.7 Total Bilirubin 0.2 AST 85 H ALT 134 H Alkaline Phosphatase 85 Total Protein 6.6 Albumin 3.4 L 12/18/18 06:30 NT-Pro-B Natriuret Pep 2000 H Impressions: Chest X-Ray 12/11/18 07:00 IMPRESSION: Persistent airspace disease in the left base. There has been significant improvement from prior study. Vascular Ultrasound 12/14/18 00:00 IMPRESSION: NO DOPPLER EVIDENCE OF HEMODYNAMICALLY SIGNIFICANT RENAL ARTERY STENOSIS. Abdomen Ultrasound 12/22/18 12:57 IMPRESSION: NORMAL RIGHT UPPER QUADRANT ULTRASOUND. Assessment and Plan - Diagnosis (1) Endocarditis Qualifiers: Endocarditis type: infective Infective endocarditis organism: bacterial Chronicity: acute Qualified Code(s): I33.0 - Acute and subacute infective endocarditis Is this a current diagnosis for this admission?: Yes Plan: Secondary to IVDU Per [facility] will continue vancomycin and rifampin; last day of therapy on December 29. S/P aortic valve replacement. (2) DICK (acute kidney injury) Is this a current diagnosis for this admission?: Yes Plan: Creatinine remains stable between 1.5-1.6 Likely sustained permanent injury due to septic shock Renal arterial dopplers negative. Patient remains nonoliguric Continue IV fluids. Nephrology has signed off Avoid nephrotoxic medications as able. Daily chemistries while continuing vancomycin. (3) HTN (hypertension) Is this a current diagnosis for this admission?: Yes Plan: Well-controlled on the current regimen (4) Hyperkalemia Is this a current diagnosis for this admission?: Yes Plan: Resolved (5) Pleural effusion Is this a current diagnosis for this admission?: Yes Plan: Resolved. (6) S/P AVR (aortic valve replacement) Is this a current diagnosis for this admission?: Yes Plan: As per number 1. Will need follow up with original CT surgeon following discharge home (7) Polysubstance abuse Is this a current diagnosis for this admission?: Yes Plan: Patient reports he had been sober "for a while and had one slip up, which landed" him in the hospital Counseled on cessation of drug use. Patient states he wants to quit Discharge planning is consulted. (8) Left shoulder pain Qualifiers: Chronicity: unspecified Qualified Code(s): M25.512 - Pain in left shoulder Is this a current diagnosis for this admission?: Yes Plan: Shoulder imaging at [facility] was benign. Likely musculoskeletal; discomfort improved by Toradol and Flexeril. Monitor closely for development of effusion or other indications of septic arthritis. Trial Lidoderm patches. Continue oxycodone as needed. Antibiotics as above. (9) Sepsis Qualifiers: Sepsis type: Streptococcus group A Qualified Code(s): A40.0 - Sepsis due to streptococcus, group A Is this a current diagnosis for this admission?: Yes Plan: Resolved Secondary to IVDU resulting in endocarditis Multiple septic emboli to the brain on MRI done at [facility]. No residual neurological symptoms. Continue antibiotics as listed above (10) Tobacco dependence Is this a current diagnosis for this admission?: Yes Plan: Smoking cessation is encouraged. Nicotine replacement therapies are provided. - Time Time Spent with patient: 15-24 minutes Smoking Cessation Education: 3 to 10 minutes Medications reviewed and adjusted accordingly: Yes Anticipated discharge: Home Within: Other - 12/29/18
[2018-12-24] MEDS: CLONAZEPAM 1 MG TABLET PO SCH (21:29)
[2018-12-24] MEDS: MELATONIN 3 MG TABLET PO SCH (21:29)
[2018-12-25] MEDS: NORMAL SALINE 1000 ML 1,000 ML IV PRN ×2 (02:35→15:18)
[2018-12-25] MEDS: METOPROLOL TARTRATE 100 MG TABLET PO SCH ×3 (05:30→21:55)
[2018-12-25] MEDS: HYDRALAZINE HCL 25 MG TABLET PO SCH ×3 (05:30→21:56)
[2018-12-25] MEDS: RIFAMPIN 300 MG CAPSULE PO SCH ×3 (05:30→22:01)
[2018-12-25] MEDS: KETOROLAC TROMETHAMINE INJ/PF 30 MG/1 ML SDV IV PRN ×3 (05:48→17:57)
[2018-12-25 07:20] LABS: ALANINE AMINOTRANSFERASE 129 U/L (21-72); ALBUMIN 3.3 g/dL (3.5-5.0); ALKALINE PHOSPHATASE 81 U/L (38-126); ANION GAP 8 (5-19); ASPARTATE AMINO TRANSFERASE 83 U/L (17-59); BILIRUBIN,DIRECT 0.2 mg/dL (0.0-0.4); BILIRUBIN,TOTAL 0.2 mg/dL (0.2-1.3); BLOOD UREA NITROGEN 17 mg/dL (7-20); CALCIUM 9.6 mg/dL (8.4-10.2); CARBON DIOXIDE 26 mmol/L (22-30); CHLORIDE 105 mmol/L (98-107); GLUCOSE 101 mg/dL (75-110); POTASSIUM 4.6 mmol/L (3.6-5.0); SODIUM 139.3 mmol/L (137-145); TOTAL PROTEIN 6.2 g/dL (6.3-8.2)
[2018-12-25] MEDS: LIDOCAINE 5% (700 MG) TRANSDERMAL ADH..PATCH TP SCH (10:56)
[2018-12-25] MEDS: FAMOTIDINE 20 MG TABLET PO SCH ×2 (10:56→21:55)
[2018-12-25] MEDS: NICOTINE 21 MG/24 HR PATCH.TD24 TD SCH (10:56)
[2018-12-25] MEDS: VANCOMYCIN HCL 750 MG in DEXTROSE 5%-WATER 250 ML IV SCH ×2 (10:56→21:56)
[2018-12-25] MEDS: CARBAMIDE PEROXIDE 6.5% OTIC SOLN 15 ML AD SCH ×2 (10:57→17:19)
[2018-12-25] MEDS: OXYCODONE HCL IR 5 MG TABLET PO PRN ×2 (11:01→17:17)
[2018-12-25] MEDS: CYCLOBENZAPRINE HCL 10 MG TABLET PO PRN (15:11)
--- NOTE | 2018-12-25 17:51 | PDOC PROGRESS REPORT ---
Subjective Progress Note for:: 12/25/18 Subjective:: This is a 22 year old male with a PMH of asthma, IV drug abuse, tobacco abuse who was initially admitted to [facility] for fever and suspected meningitis, subsequently transferred to [facility] for possible infective endocarditis. He was confirmed to have endocarditis and underwent an aortic valve replacement 11/15/2018 due to severe aortic insufficiency and aortic wall vegetations noted on RENEE. He was evaluated by ID at [facility] and was recommended to be on vancomycin and rifampin with last day of therapy on December 29. He was transferred back to [facility] for completion of antibiotics. He also was found to have a small left occipital hemorrhage and embolic CVAs likely septic in nature. Patient was seen on morning rounds. He is found resting in bed comfortably on room air. He was sleeping soundly and when attempted to wake him; was told to leave him alone. No concerns per nursing. Reason For Visit: IV FLUIDS Physical Exam Vital Signs: Temp Pulse Resp BP Pulse Ox 97.9 F 106 H 16 129/85 H 100 12/25/18 15:14 12/25/18 15:14 12/25/18 15:14 12/25/18 15:14 12/25/18 15:14 Intake & Output 12/24/18 12/25/18 12/26/18 06:59 06:59 06:59 Intake Total 5371 1850 1204 Balance 5371 1850 1204 Weight 64.6 kg 64.3 kg General appearance: PRESENT: no acute distress, thin, well-developed, well- nourished Head exam: PRESENT: atraumatic, normocephalic Eye exam: ABSENT: scleral icterus Ear exam: PRESENT: normal external ear exam Mouth exam: PRESENT: moist, tongue midline Neck exam: ABSENT: carotid bruit, JVD, lymphadenopathy, thyromegaly Respiratory exam: PRESENT: clear to auscultation cassandra, symmetrical, unlabored. ABSENT: rales, rhonchi, wheezes Cardiovascular exam: PRESENT: RRR, +S1, +S2. ABSENT: diastolic murmur, rubs, systolic murmur Vascular exam: PRESENT: normal capillary refill Rectal exam: PRESENT: deferred Extremities exam: PRESENT: full ROM. ABSENT: calf tenderness, clubbing, pedal edema Neurological exam: PRESENT: oriented to person, oriented to place, oriented to time, oriented to situation, CN II-XII grossly intact, other - Sleeping; easily wakes. ABSENT: motor sensory deficit Psychiatric exam: PRESENT: agitated. ABSENT: homicidal ideation, suicidal ideation Skin exam: PRESENT: dry, intact, warm. ABSENT: cyanosis, rash Results Laboratory Results: 12/13/18 09:33 12/25/18 05:30 12/25/18 05:30 Sodium 139.3 Potassium 4.6 Chloride 105 Carbon Dioxide 26 Anion Gap 8 BUN 17 Creatinine 1.46 H Est GFR ( Amer) > 60 Est GFR (Non-Af Amer) > 60 Glucose 101 Calcium 9.6 Total Bilirubin 0.2 AST 83 H ALT 129 H Alkaline Phosphatase 81 Total Protein 6.2 L Albumin 3.3 L 12/18/18 06:30 NT-Pro-B Natriuret Pep 2000 H Impressions: Chest X-Ray 12/11/18 07:00 IMPRESSION: Persistent airspace disease in the left base. There has been significant improvement from prior study. Vascular Ultrasound 12/14/18 00:00 IMPRESSION: NO DOPPLER EVIDENCE OF HEMODYNAMICALLY SIGNIFICANT RENAL ARTERY STENOSIS. Abdomen Ultrasound 12/22/18 12:57 IMPRESSION: NORMAL RIGHT UPPER QUADRANT ULTRASOUND. Assessment and Plan - Diagnosis (1) Endocarditis Qualifiers: Endocarditis type: infective Infective endocarditis organism: bacterial Chronicity: acute Qualified Code(s): I33.0 - Acute and subacute infective endocarditis Is this a current diagnosis for this admission?: Yes Plan: Secondary to IVDU Per [facility] will continue vancomycin and rifampin; last day of therapy on December 29. S/P aortic valve replacement. (2) DCIK (acute kidney injury) Is this a current diagnosis for this admission?: Yes Plan: Creatinine remains stable between 1.4-1.6 Likely sustained permanent injury due to septic shock Renal arterial dopplers negative. Continue IV fluids. Nephrology has signed off Avoid nephrotoxic medications as able. Daily chemistries while continuing vancomycin. (3) HTN (hypertension) Is this a current diagnosis for this admission?: Yes Plan: Well-controlled on the current regimen (4) Hyperkalemia Is this a current diagnosis for this admission?: Yes Plan: Resolved (5) Pleural effusion Is this a current diagnosis for this admission?: Yes Plan: Resolved. (6) S/P AVR (aortic valve replacement) Is this a current diagnosis for this admission?: Yes Plan: As per number 1. Will need follow up with original CT surgeon following discharge home (7) Polysubstance abuse Is this a current diagnosis for this admission?: Yes Plan: Patient reports he had been sober "for a while and had one slip up, which landed" him in the hospital Counseled on cessation of drug use. Patient states he wants to quit Discharge planning is consulted. (8) Left shoulder pain Qualifiers: Chronicity: unspecified Qualified Code(s): M25.512 - Pain in left shoulder Is this a current diagnosis for this admission?: Yes Plan: Shoulder imaging at [facility] was benign. Likely musculoskeletal; discomfort improved by Toradol and Flexeril. Monitor closely for development of effusion or other indications of septic arthritis. Trial Lidoderm patches. Continue oxycodone as needed. Antibiotics as above. (9) Sepsis Qualifiers: Sepsis type: Streptococcus group A Qualified Code(s): A40.0 - Sepsis due to streptococcus, group A Is this a current diagnosis for this admission?: Yes Plan: Resolved Secondary to IVDU resulting in endocarditis Multiple septic emboli to the brain on MRI done at [facility]. No residual neurological symptoms. Continue antibiotics as listed above (10) Tobacco dependence Is this a current diagnosis for this admission?: Yes Plan: Smoking cessation is encouraged. Nicotine replacement therapies are provided. - Time Time Spent with patient: Less than 15 minutes Medications reviewed and adjusted accordingly: Yes Anticipated discharge: Home Within: Other - 12/29/2018
[2018-12-25] MEDS: MELATONIN 3 MG TABLET PO SCH (21:55)
[2018-12-25] MEDS: CLONAZEPAM 1 MG TABLET PO SCH (21:55)
[2018-12-26] MEDS: KETOROLAC TROMETHAMINE INJ/PF 30 MG/1 ML SDV IV PRN ×2 (02:27→09:55)
[2018-12-26] MEDS: CYCLOBENZAPRINE HCL 10 MG TABLET PO PRN ×2 (02:31→16:49)
[2018-12-26] MEDS: OXYCODONE HCL IR 5 MG TABLET PO PRN ×3 (02:32→20:26)
[2018-12-26] MEDS: HYDRALAZINE HCL 25 MG TABLET PO SCH ×3 (05:36→21:33)
[2018-12-26] MEDS: NORMAL SALINE 1000 ML 1,000 ML IV PRN (05:37)
[2018-12-26] MEDS: METOPROLOL TARTRATE 100 MG TABLET PO SCH ×3 (05:37→21:33)
[2018-12-26] MEDS: RIFAMPIN 300 MG CAPSULE PO SCH ×3 (05:39→21:34)
[2018-12-26 06:12] LABS: HEMATOCRIT 22.2 % (37.9-51.0); MEAN CORPUSCULAR HEMOGLOBIN 27.3 pg (27.0-33.4); MEAN CORPUSCULAR HGB CONC 33.6 g/dL (32.0-36.0); MEAN CORPUSCULAR VOLUME 81 fl (80-97); PLATELET COUNT 368 10^3/uL (150-450); RED BLOOD COUNT 2.74 10^6/uL (4.35-5.55); RED CELL DISTRIBUTION WIDTH 14.3 % (11.5-14.0); WHITE BLOOD COUNT 8.3 10^3/uL (4.0-10.5)
[2018-12-26 06:14] LABS: HEMOGLOBIN 7.5 g/dL (13.5-17.0)
[2018-12-26 06:34] LABS: ANION GAP 10 (5-19); BLOOD UREA NITROGEN 20 mg/dL (7-20); CALCIUM 9.1 mg/dL (8.4-10.2); CARBON DIOXIDE 22 mmol/L (22-30); CHLORIDE 109 mmol/L (98-107); GLUCOSE 100 mg/dL (75-110); SODIUM 141.2 mmol/L (137-145)
[2018-12-26 07:06] LABS: ALANINE AMINOTRANSFERASE 115 U/L (21-72); ALBUMIN 2.9 g/dL (3.5-5.0); ALKALINE PHOSPHATASE 78 U/L (38-126); ASPARTATE AMINO TRANSFERASE 71 U/L (17-59); BILIRUBIN,DIRECT 0.2 mg/dL (0.0-0.4); BILIRUBIN,TOTAL 0.2 mg/dL (0.2-1.3); TOTAL PROTEIN 5.2 g/dL (6.3-8.2)
[2018-12-26] MEDS: NICOTINE 21 MG/24 HR PATCH.TD24 TD SCH (09:42)
[2018-12-26] MEDS: FAMOTIDINE 20 MG TABLET PO SCH ×2 (09:42→21:34)
[2018-12-26] MEDS: CARBAMIDE PEROXIDE 6.5% OTIC SOLN 15 ML AD SCH ×2 (09:43→17:49)
[2018-12-26] MEDS: LIDOCAINE 5% (700 MG) TRANSDERMAL ADH..PATCH TP SCH (09:43)
[2018-12-26] MEDS: VANCOMYCIN HCL 750 MG in DEXTROSE 5%-WATER 250 ML IV SCH ×2 (09:43→21:34)
[2018-12-26 10:09] LABS: ABSOLUTE RETICS # 0.046 10^6/uL (0.028-0.122); HEMATOCRIT 22.7 % (37.9-51.0); MEAN CORPUSCULAR HEMOGLOBIN 27.6 pg (27.0-33.4); MEAN CORPUSCULAR HGB CONC 34.2 g/dL (32.0-36.0); MEAN CORPUSCULAR VOLUME 81 fl (80-97); PLATELET COUNT 356 10^3/uL (150-450); RED BLOOD COUNT 2.82 10^6/uL (4.35-5.55); RETICULOCYTE COUNT (AUTO) 1.63 % (0.66-2.85); WHITE BLOOD COUNT 8.9 10^3/uL (4.0-10.5)
[2018-12-26 10:13] LABS: HEMOGLOBIN 7.8 g/dL (13.5-17.0)
[2018-12-26 10:15] LABS: IRON(TIBC) 11.3 ug/dL (49-181)
[2018-12-26] MEDS ORDERED: NORMAL SALINE 250 ML IV PRN ×2 (10:59)
[2018-12-26 11:22] LABS: FOLATE 9.82 ng/mL (>2.76)
[2018-12-26 11:53] LABS: APPEARANCE,URINE CLEAR; BILIRUBIN,URINE NEGATIVE (NEGATIVE); COLOR,URINE AMBER; GLUCOSE, URINE NEGATIVE (NEGATIVE); KETONES,URINE NEGATIVE (NEGATIVE); LEUKOCYTE ESTERASE,URINE NEGATIVE (NEGATIVE); NITRITE,URINE NEGATIVE (NEGATIVE); PROTEIN,URINE NEGATIVE (NEGATIVE); URINE SPECIFIC GRAVITY 1.011; UROBILINOGEN,URINE NEGATIVE mg/dL (<2.0)
--- NOTE | 2018-12-26 17:13 | PDOC PROGRESS REPORT ---
Subjective Progress Note for:: 12/26/18 Subjective:: This is a 22 year old male with a PMH of asthma, IV drug abuse, tobacco abuse who was initially admitted to [facility] for fever and suspected meningitis, subsequently transferred to [facility] for possible infective endocarditis. He was confirmed to have endocarditis and underwent an aortic valve replacement 11/15/2018 due to severe aortic insufficiency and aortic wall vegetations noted on RENEE. He was evaluated by ID at [facility] and was recommended to be on vancomycin and rifampin with last day of therapy on December 29. He was transferred back to [facility] for completion of antibiotics. He also was found to have a small left occipital hemorrhage and embolic CVAs likely septic in nature. Patient was seen on morning rounds. He is found resting in bed comfortably on room air. He was sleeping but woke easily when I said his name. He reports that he is feeling well today; does continue to have left shoulder discomfort, although this is improved. He denies fever, chills, chest pain, dyspnea, orthopnea, abdominal pain, nausea vomiting or diarrhea. He has no new questions or concerns. No concerns per nursing. Reason For Visit: IV FLUIDS Physical Exam Vital Signs: Temp Pulse Resp BP Pulse Ox 98.4 F 95 16 112/75 98 12/26/18 08:00 12/26/18 08:00 12/26/18 08:00 12/26/18 08:00 12/26/18 08:00 Intake & Output 12/25/18 12/26/18 12/27/18 06:59 06:59 06:59 Intake Total 1850 3180 Balance 1850 3180 Weight 64.3 kg 66.5 kg General appearance: PRESENT: no acute distress, cooperative, thin, well- developed Head exam: PRESENT: atraumatic, normocephalic Eye exam: PRESENT: conjunctiva pink, EOMI, PERRLA. ABSENT: scleral icterus Ear exam: PRESENT: normal external ear exam Mouth exam: PRESENT: moist, tongue midline Teeth exam: PRESENT: poor dentation Neck exam: ABSENT: carotid bruit, JVD, lymphadenopathy, thyromegaly Respiratory exam: PRESENT: clear to auscultation cassandra, symmetrical, unlabored. ABSENT: rales, rhonchi, wheezes Cardiovascular exam: PRESENT: +S1, +S2, systolic murmur, tachycardia. ABSENT: diastolic murmur, rubs Pulses: PRESENT: normal dorsalis pedis pul Vascular exam: PRESENT: normal capillary refill GI/Abdominal exam: PRESENT: normal bowel sounds, soft. ABSENT: distended, guarding, mass, organolmegaly, rebound, tenderness Rectal exam: PRESENT: deferred Extremities exam: PRESENT: full ROM. ABSENT: calf tenderness, clubbing, pedal edema Neurological exam: PRESENT: alert, awake, oriented to person, oriented to place, oriented to time, oriented to situation, CN II-XII grossly intact. ABSENT: motor sensory deficit Psychiatric exam: PRESENT: appropriate affect, normal mood. ABSENT: homicidal ideation, suicidal ideation Skin exam: PRESENT: dry, intact, pallor, warm. ABSENT: cyanosis, rash Results Laboratory Results: 12/26/18 05:30 12/26/18 05:30 12/26/18 12/26/18 12/26/18 05:30 05:30 05:30 WBC 8.3 RBC 2.74 L Hgb 7.5 L Hct 22.2 L MCV 81 MCH 27.3 MCHC 33.6 RDW 14.3 H Plt Count 368 Sodium 141.2 Potassium 4.0 Chloride 109 H Carbon Dioxide 22 Anion Gap 10 BUN 20 Creatinine 1.38 H Est GFR ( Amer) > 60 Est GFR (Non-Af Amer) > 60 Glucose 100 Calcium 9.1 Total Bilirubin 0.2 AST 71 H ALT 115 H Alkaline Phosphatase 78 Total Protein 5.2 L Albumin 2.9 L 12/18/18 06:30 NT-Pro-B Natriuret Pep 2000 H Impressions: Chest X-Ray 12/11/18 07:00 IMPRESSION: Persistent airspace disease in the left base. There has been significant improvement from prior study. Vascular Ultrasound 12/14/18 00:00 IMPRESSION: NO DOPPLER EVIDENCE OF HEMODYNAMICALLY SIGNIFICANT RENAL ARTERY STENOSIS. Abdomen Ultrasound 12/22/18 12:57 IMPRESSION: NORMAL RIGHT UPPER QUADRANT ULTRASOUND. Assessment and Plan - Diagnosis (1) Endocarditis Qualifiers: Endocarditis type: infective Infective endocarditis organism: bacterial Chronicity: acute Qualified Code(s): I33.0 - Acute and subacute infective endocarditis Is this a current diagnosis for this admission?: Yes Plan: Secondary to IVDU Per [facility] will continue vancomycin and rifampin; last day of therapy on December 29. S/P aortic valve replacement. (2) DICK (acute kidney injury) Is this a current diagnosis for this admission?: Yes Plan: Resolved. Patient likely at new baseline; creatinine remains stable between 1.4-1.6 Likely sustained permanent injury due to septic shock Renal arterial dopplers negative. Continue IV fluids. Nephrology has signed off Avoid nephrotoxic medications as able. Daily chemistries while continuing vancomycin. (3) HTN (hypertension) Is this a current diagnosis for this admission?: Yes Plan: Well-controlled on the current regimen (4) Hyperkalemia Is this a current diagnosis for this admission?: Yes Plan: Resolved (5) Pleural effusion Is this a current diagnosis for this admission?: Yes Plan: Resolved. (6) S/P AVR (aortic valve replacement) Is this a current diagnosis for this admission?: Yes Plan: As per number 1. Will need follow up with original CT surgeon following discharge home (7) Polysubstance abuse Is this a current diagnosis for this admission?: Yes Plan: Patient reports he had been sober "for a while and had one slip up, which landed" him in the hospital Counseled on cessation of drug use. Patient states he wants to quit Discharge planning is consulted. (8) Left shoulder pain Qualifiers: Chronicity: unspecified Qualified Code(s): M25.512 - Pain in left shoulder Is this a current diagnosis for this admission?: Yes Plan: Shoulder imaging at [facility] was benign. Monitor closely for development of effusion or other indications of septic arthritis. Trial Lidoderm patches. Continue oxycodone as needed. Antibiotics as above. (9) Sepsis Qualifiers: Sepsis type: Streptococcus group A Qualified Code(s): A40.0 - Sepsis due to streptococcus, group A Is this a current diagnosis for this admission?: Yes Plan: Resolved Secondary to IVDU resulting in endocarditis Multiple septic emboli to the brain on MRI done at [facility]. No residual neurological symptoms. Continue antibiotics as listed above (10) Tobacco dependence Is this a current diagnosis for this admission?: Yes Plan: Smoking cessation is encouraged. Nicotine replacement therapies are provided. (11) Anemia Qualifiers: Anemia type: iron deficiency Is this a current diagnosis for this admission?: Yes Plan: Patient with iron deficiency anemia; Hgb 8.2-> 9.7-> 7.5->7.8 Now s/p 1 unit PRBC Start daily multivitamin and ferrous sulfate supplementation. Urinalysis is positive for moderate blood. Occult stool pending. Patient is not on DVT prophylaxis; encourage ambulation 3 times daily. - Time Time Spent with patient: 25-34 minutes Medications reviewed and adjusted accordingly: Yes Anticipated discharge: Home Within: within 72 hours
[2018-12-26] MEDS: FERROUS SULFATE 325 MG TABLET PO SCH (17:38)
[2018-12-26 18:14] LABS: ABSOLUTE BASOPHILS # (AUTO) 0.1 10^3/uL (0.0-0.2); ABSOLUTE EOSINOPHILS # (AUTO) 1.7 10^3/uL (0.0-0.6); ABSOLUTE LYMPHOCYTES (AUTO) 1.7 10^3/uL (0.5-4.7); ABSOLUTE MONOCYTES (AUTO) 0.7 10^3/uL (0.1-1.4); EOSINOPHILS % (AUTO) 17.1 % (0-6); HEMATOCRIT 25.6 % (37.9-51.0); HEMOGLOBIN 8.7 g/dL (13.5-17.0); LYMPHOCYTES % (AUTO) 16.2 % (13-45); MEAN CORPUSCULAR HEMOGLOBIN 27.6 pg (27.0-33.4); MEAN CORPUSCULAR HGB CONC 34.2 g/dL (32.0-36.0); MEAN CORPUSCULAR VOLUME 81 fl (80-97); MONOCYTES % (AUTO) 7.2 % (3-13); PLATELET COUNT 389 10^3/uL (150-450); RED BLOOD COUNT 3.16 10^6/uL (4.35-5.55); RED CELL DISTRIBUTION WIDTH 14.3 % (11.5-14.0); SEGMENTED NEUTROPHILS % (AUTO) 58.5 % (42-78); TOTAL CELLS COUNTED % (AUTO) 100 %; WHITE BLOOD COUNT 10.2 10^3/uL (4.0-10.5)
[2018-12-26] MEDS: CLONAZEPAM 1 MG TABLET PO SCH (21:33)
[2018-12-26] MEDS: MELATONIN 3 MG TABLET PO SCH (21:34)
[2018-12-27] MEDS: CYCLOBENZAPRINE HCL 10 MG TABLET PO PRN ×3 (01:45→20:09)
[2018-12-27] MEDS: HYDRALAZINE HCL 25 MG TABLET PO SCH ×3 (05:27→21:04)
[2018-12-27] MEDS: RIFAMPIN 300 MG CAPSULE PO SCH ×3 (05:28→21:05)
[2018-12-27] MEDS: METOPROLOL TARTRATE 100 MG TABLET PO SCH ×3 (05:28→21:01)
[2018-12-27] MEDS: OXYCODONE HCL IR 5 MG TABLET PO PRN (05:29)
[2018-12-27 06:27] LABS: HEMATOCRIT 26.3 % (37.9-51.0); HEMOGLOBIN 9.1 g/dL (13.5-17.0); MEAN CORPUSCULAR HEMOGLOBIN 27.7 pg (27.0-33.4); MEAN CORPUSCULAR HGB CONC 34.5 g/dL (32.0-36.0); MEAN CORPUSCULAR VOLUME 80 fl (80-97); PLATELET COUNT 382 10^3/uL (150-450); RED BLOOD COUNT 3.28 10^6/uL (4.35-5.55); RED CELL DISTRIBUTION WIDTH 14.2 % (11.5-14.0); WHITE BLOOD COUNT 9.2 10^3/uL (4.0-10.5)
[2018-12-27 06:39] LABS: ALANINE AMINOTRANSFERASE 127 U/L (21-72); ALBUMIN 3.4 g/dL (3.5-5.0); ALKALINE PHOSPHATASE 95 U/L (38-126); ANION GAP 11 (5-19); ASPARTATE AMINO TRANSFERASE 77 U/L (17-59); BILIRUBIN,DIRECT 0.3 mg/dL (0.0-0.4); BILIRUBIN,TOTAL 0.5 mg/dL (0.2-1.3); BLOOD UREA NITROGEN 15 mg/dL (7-20); CALCIUM 9.7 mg/dL (8.4-10.2); CARBON DIOXIDE 26 mmol/L (22-30); CHLORIDE 103 mmol/L (98-107); GLUCOSE 100 mg/dL (75-110); POTASSIUM 4.3 mmol/L (3.6-5.0); SODIUM 139.7 mmol/L (137-145); TOTAL PROTEIN 6.5 g/dL (6.3-8.2)
[2018-12-27] MEDS: FERROUS SULFATE 325 MG TABLET PO SCH ×2 (09:13→17:46)
[2018-12-27] MEDS: FAMOTIDINE 20 MG TABLET PO SCH ×2 (09:13→21:00)
[2018-12-27] MEDS: MULTIVITAMIN TABLET PO SCH (09:13)
[2018-12-27] MEDS: CARBAMIDE PEROXIDE 6.5% OTIC SOLN 15 ML AD SCH ×2 (09:13→17:46)
[2018-12-27] MEDS: VANCOMYCIN HCL 750 MG in DEXTROSE 5%-WATER 250 ML IV SCH ×2 (09:14→21:08)
[2018-12-27] MEDS: LIDOCAINE 5% (700 MG) TRANSDERMAL ADH..PATCH TP SCH (09:14)
[2018-12-27] MEDS: NICOTINE 21 MG/24 HR PATCH.TD24 TD SCH (09:14)
--- NOTE | 2018-12-27 11:05 | PDOC PROGRESS REPORT ---
Subjective Progress Note for:: 12/27/18 Subjective:: This is a 22 year old male with a PMH of asthma, IV drug abuse, tobacco abuse who was initially admitted to [facility] for fever and suspected meningitis, subsequently transferred to [facility] for possible infective endocarditis. He was confirmed to have endocarditis and underwent an aortic valve replacement 11/15/2018 due to severe aortic insufficiency and aortic wall vegetations noted on RENEE. He was evaluated by ID at [facility] and was recommended to be on vancomycin and rifampin with last day of therapy on December 29. He was transferred back to [facility] for completion of antibiotics. He also was found to have a small left occipital hemorrhage and embolic CVAs likely septic in nature. Patient was seen on morning rounds. He is found sitting up to the edge of the bed comfortably on room air. He reports that he is feeling well today; does continue to have left shoulder discomfort, although continues to improve. He denies fever, chills, chest pain, dyspnea, orthopnea, abdominal pain, nausea vomiting or diarrhea. He has no new questions or concerns; looknig forward to discharge on Sunday. No concerns per nursing. Reason For Visit: IV FLUIDS Physical Exam Vital Signs: Temp Pulse Resp BP Pulse Ox 98.5 F 86 14 140/79 H 99 12/27/18 08:00 12/27/18 08:00 12/27/18 08:00 12/27/18 08:00 12/27/18 08:00 Intake & Output 12/26/18 12/27/18 12/28/18 06:59 06:59 06:59 Intake Total 3180 2988 Balance 3180 2988 Weight 66.5 kg 67.5 kg General appearance: PRESENT: no acute distress, cooperative, well-developed, well-nourished Head exam: PRESENT: atraumatic, normocephalic Eye exam: PRESENT: conjunctiva pink, EOMI, PERRLA. ABSENT: scleral icterus Ear exam: PRESENT: normal external ear exam Mouth exam: PRESENT: moist, tongue midline Teeth exam: PRESENT: poor dentation Neck exam: ABSENT: carotid bruit, JVD, lymphadenopathy, thyromegaly Respiratory exam: PRESENT: clear to auscultation cassandra, symmetrical, unlabored. ABSENT: rales, rhonchi, wheezes Cardiovascular exam: PRESENT: RRR, +S1, +S2, systolic murmur. ABSENT: diastolic murmur, rubs Pulses: PRESENT: normal dorsalis pedis pul Vascular exam: PRESENT: normal capillary refill GI/Abdominal exam: PRESENT: normal bowel sounds, soft. ABSENT: distended, guarding, mass, organolmegaly, rebound, tenderness Rectal exam: PRESENT: deferred Extremities exam: PRESENT: full ROM. ABSENT: calf tenderness, clubbing, pedal edema Musculoskeletal exam: PRESENT: ambulatory Neurological exam: PRESENT: alert, awake, oriented to person, oriented to place, oriented to time, oriented to situation, CN II-XII grossly intact. ABSENT: motor sensory deficit Psychiatric exam: PRESENT: appropriate affect, normal mood. ABSENT: homicidal ideation, suicidal ideation Skin exam: PRESENT: dry, intact, warm. ABSENT: cyanosis, rash Results Laboratory Results: 12/27/18 05:30 12/27/18 05:30 12/26/18 12/26/18 12/26/18 09:30 09:30 11:25 WBC RBC Hgb Hct MCV MCH MCHC RDW Plt Count Seg Neutrophils % Lymphocytes % Monocytes % Eosinophils % Basophils % Absolute Neutrophils Absolute Lymphocytes Absolute Monocytes Absolute Eosinophils Absolute Basophils Sodium Potassium Chloride Carbon Dioxide Anion Gap BUN Creatinine Est GFR ( Amer) Est GFR (Non-Af Amer) Glucose Calcium Iron 11.3 L TIBC 236 L % Saturation 5 Ferritin 314.00 Total Bilirubin AST ALT Alkaline Phosphatase Total Protein Albumin Vitamin B12 671.0 Folate 9.82 Urine Color LISANDRA Urine Appearance CLEAR Urine pH 5.0 Ur Specific [place] 1.011 Urine Protein NEGATIVE Urine Glucose (UA) NEGATIVE Urine Ketones NEGATIVE Urine Blood MODERATE H Urine Nitrite NEGATIVE Ur Leukocyte Esterase NEGATIVE Urine WBC (Auto) 2 Urine RBC (Auto) 9 Stool Occult Blood Blood Type A POSITIVE Antibody Screen NEGATIVE 12/26/18 12/26/18 12/27/18 17:45 18:05 05:30 WBC 10.2 9.2 RBC 3.16 L 3.28 L Hgb 8.7 L 9.1 L Hct 25.6 L 26.3 L MCV 81 80 MCH 27.6 27.7 MCHC 34.2 34.5 RDW 14.3 H 14.2 H Plt Count 389 382 Seg Neutrophils % 58.5 Lymphocytes % 16.2 Monocytes % 7.2 Eosinophils % 17.1 H Basophils % 1.0 Absolute Neutrophils 6.0 Absolute Lymphocytes 1.7 Absolute Monocytes 0.7 Absolute Eosinophils 1.7 H Absolute Basophils 0.1 Sodium Potassium Chloride Carbon Dioxide Anion Gap BUN Creatinine Est GFR ( Amer) Est GFR (Non-Af Amer) Glucose Calcium Iron TIBC % Saturation Ferritin Total Bilirubin AST ALT Alkaline Phosphatase Total Protein Albumin Vitamin B12 Folate Urine Color Urine Appearance Urine pH Ur Specific [place] Urine Protein Urine Glucose (UA) Urine Ketones Urine Blood Urine Nitrite Ur Leukocyte Esterase Urine WBC (Auto) Urine RBC (Auto) Stool Occult Blood NEGATIVE Blood Type Antibody Screen 12/27/18 05:30 WBC RBC Hgb Hct MCV MCH MCHC RDW Plt Count Seg Neutrophils % Lymphocytes % Monocytes % Eosinophils % Basophils % Absolute Neutrophils Absolute Lymphocytes Absolute Monocytes Absolute Eosinophils Absolute Basophils Sodium 139.7 Potassium 4.3 Chloride 103 Carbon Dioxide 26 Anion Gap 11 BUN 15 Creatinine 1.35 H Est GFR ( Amer) > 60 Est GFR (Non-Af Amer) > 60 Glucose 100 Calcium 9.7 Iron TIBC % Saturation Ferritin Total Bilirubin 0.5 AST 77 H ALT 127 H Alkaline Phosphatase 95 Total Protein 6.5 Albumin 3.4 L Vitamin B12 Folate Urine Color Urine Appearance Urine pH Ur Specific [place] Urine Protein Urine Glucose (UA) Urine Ketones Urine Blood Urine Nitrite Ur Leukocyte Esterase Urine WBC (Auto) Urine RBC (Auto) Stool Occult Blood Blood Type Antibody Screen 12/18/18 06:30 NT-Pro-B Natriuret Pep 2000 H Impressions: Chest X-Ray 12/11/18 07:00 IMPRESSION: Persistent airspace disease in the left base. There has been significant improvement from prior study. Vascular Ultrasound 12/14/18 00:00 IMPRESSION: NO DOPPLER EVIDENCE OF HEMODYNAMICALLY SIGNIFICANT RENAL ARTERY STENOSIS. Abdomen Ultrasound 12/22/18 12:57 IMPRESSION: NORMAL RIGHT UPPER QUADRANT ULTRASOUND. Assessment and Plan - Diagnosis (1) Endocarditis Qualifiers: Endocarditis type: infective Infective endocarditis organism: bacterial Chronicity: acute Qualified Code(s): I33.0 - Acute and subacute infective en docarditis Is this a current diagnosis for this admission?: Yes Plan: Secondary to IVDU Per [facility] will continue vancomycin and rifampin; last day of therapy on December 29. S/P aortic valve replacement. (2) DICK (acute kidney injury) Is this a current diagnosis for this admission?: Yes Plan: Resolved. Patient likely at new baseline; creatinine remains stable between 1.4-1.6 Likely sustained permanent injury due to septic shock Renal arterial dopplers negative. Encouraged p.o. fluids. Nephrology has signed off Avoid nephrotoxic medications as able. (3) HTN (hypertension) Is this a current diagnosis for this admission?: Yes Plan: Well-controlled on the current regimen (4) Hyperkalemia Is this a current diagnosis for this admission?: Yes Plan: Resolved (5) Pleural effusion Is this a current diagnosis for this admission?: Yes Plan: Resolved. (6) S/P AVR (aortic valve replacement) Is this a current diagnosis for this admission?: Yes Plan: As per #1. Will need follow up with original CT surgeon following discharge home (7) Polysubstance abuse Is this a current diagnosis for this admission?: Yes Plan: Patient reports he had been sober "for a while and had one slip up, which landed" him in the hospital Counseled on cessation of drug use. Patient states he wants to quit Discharge planning is consulted. (8) Left shoulder pain Qualifiers: Chronicity: unspecified Qualified Code(s): M25.512 - Pain in left shoulder Is this a current diagnosis for this admission?: Yes Plan: Shoulder imaging at [facility] was benign. Monitor closely for development of effusion or other indications of septic arthritis. Trial Lidoderm patches. Trial [place] today as needed; patient requested medication other than oxycodone. Antibiotics as above. (9) Sepsis Qualifiers: Sepsis type: Streptococcus group A Qualified Code(s): A40.0 - Sepsis due to streptococcus, group A Is this a current diagnosis for this admission?: Yes Plan: Resolved Secondary to IVDU resulting in endocarditis Multiple septic emboli to the brain on MRI done at [facility]. No residual neurological symptoms. Continue antibiotics as listed above (10) Tobacco dependence Is this a current diagnosis for this admission?: Yes Plan: Smoking cessation is again encouraged today. Nicotine replacement therapies are provided. (11) Anemia Qualifiers: Anemia type: iron deficiency Is this a current diagnosis for this admission?: Yes Plan: Patient with iron deficiency anemia; Hgb 8.2-> 9.7-> 7.5->7.8. 8.7-> 9.1 post transfusion. Now s/p 1 unit PRBC Continue daily multivitamin and ferrous sulfate supplementation. Urinalysis is positive for moderate blood. Occult stool negative. Patient is not on DVT prophylaxis; encourage ambulation 3 times daily. - Time Time Spent with patient: 15-24 minutes Medications reviewed and adjusted accordingly: Yes Anticipated discharge: Home Within: within 48 hours
[2018-12-27] MEDS: HYDROCODONE/ACETAMINOPHEN 5-325 MG TABLET PO PRN ×2 (11:40→17:49)
[2018-12-27] MEDS: CLONAZEPAM 1 MG TABLET PO SCH (21:00)
[2018-12-27] MEDS: MELATONIN 3 MG TABLET PO SCH (21:06)
[2018-12-28] MEDS: METOPROLOL TARTRATE 100 MG TABLET PO SCH ×3 (06:35→21:26)
[2018-12-28] MEDS: HYDRALAZINE HCL 25 MG TABLET PO SCH ×3 (06:36→21:26)
[2018-12-28] MEDS: RIFAMPIN 300 MG CAPSULE PO SCH ×3 (06:36→21:35)
[2018-12-28] MEDS: HYDROCODONE/ACETAMINOPHEN 5-325 MG TABLET PO PRN ×2 (06:41→15:29)
[2018-12-28] MEDS: MULTIVITAMIN TABLET PO SCH (10:31)
[2018-12-28] MEDS: CARBAMIDE PEROXIDE 6.5% OTIC SOLN 15 ML AD SCH ×2 (10:31→17:21)
[2018-12-28] MEDS: FERROUS SULFATE 325 MG TABLET PO SCH ×2 (10:31→17:21)
[2018-12-28] MEDS: FAMOTIDINE 20 MG TABLET PO SCH ×2 (10:31→21:26)
[2018-12-28] MEDS: LIDOCAINE 5% (700 MG) TRANSDERMAL ADH..PATCH TP SCH (10:32)
[2018-12-28] MEDS: NICOTINE 21 MG/24 HR PATCH.TD24 TD SCH (10:32)
[2018-12-28] MEDS: VANCOMYCIN HCL 750 MG in DEXTROSE 5%-WATER 250 ML IV SCH ×2 (10:32→21:25)
[2018-12-28 10:35] LABS: VANCOMYCIN,TROUGH 18.6 ug/mL (5.0-20.0)
--- NOTE | 2018-12-28 17:27 | PDOC PROGRESS REPORT ---
Subjective Progress Note for:: 12/28/18 Subjective:: This is a 22 year old male with a PMH of asthma, IV drug abuse, tobacco abuse who was initially admitted to [facility] for fever and suspected meningitis, subsequently transferred to [facility] for possible infective endocarditis. He was confirmed to have endocarditis and underwent an aortic valve replacement 11/15/2018 due to severe aortic insufficiency and aortic wall vegetations noted on RENEE. He was evaluated by ID at [facility] and was recommended to be on vancomycin and rifampin with last day of therapy on December 29. He was transferred back to [facility] for completion of antibiotics. He also was found to have a small left occipital hemorrhage and embolic CVAs likely septic in nature. Patient was seen on morning rounds. He is found sitting up to the edge of the bed comfortably on room air; later seen ambulating the hallways throughout the day. He reports that he is feeling well today. Looking forward to discharge home tomorrow. He denies fever, chills, chest pain, dyspnea, orthopnea, abdominal pain, nausea vomiting or diarrhea. He has no new questions or concerns. No concerns per nursing. Reason For Visit: IV FLUIDS Physical Exam Vital Signs: Temp Pulse Resp BP Pulse Ox 97.8 F 106 H 16 133/85 H 100 12/28/18 16:00 12/28/18 16:00 12/28/18 16:00 12/28/18 16:00 12/28/18 16:00 Intake & Output 12/27/18 12/28/18 12/29/18 06:59 06:59 06:59 Intake Total 2988 2860 840 Balance 2988 2860 840 Weight 67.5 kg 63.3 kg General appearance: PRESENT: no acute distress, cooperative, thin, well- developed, well-nourished Head exam: PRESENT: atraumatic, normocephalic Eye exam: PRESENT: conjunctiva pink, EOMI, PERRLA. ABSENT: scleral icterus Ear exam: PRESENT: normal external ear exam Mouth exam: PRESENT: moist, tongue midline Neck exam: ABSENT: carotid bruit, JVD, lymphadenopathy, thyromegaly Respiratory exam: PRESENT: clear to auscultation cassandra, symmetrical, unlabored. ABSENT: rales, rhonchi, wheezes Cardiovascular exam: PRESENT: RRR, +S1, +S2, systolic murmur. ABSENT: diastolic murmur, rubs Pulses: PRESENT: normal dorsalis pedis pul Vascular exam: PRESENT: normal capillary refill GI/Abdominal exam: PRESENT: normal bowel sounds, soft. ABSENT: distended, guarding, mass, organolmegaly, rebound, tenderness Rectal exam: PRESENT: deferred Extremities exam: PRESENT: full ROM. ABSENT: calf tenderness, clubbing, pedal edema Musculoskeletal exam: PRESENT: ambulatory Neurological exam: PRESENT: alert, awake, oriented to person, oriented to place, oriented to time, oriented to situation, CN II-XII grossly intact. ABSENT: motor sensory deficit Psychiatric exam: PRESENT: appropriate affect, normal mood. ABSENT: homicidal ideation, suicidal ideation Skin exam: PRESENT: dry, intact, warm. ABSENT: cyanosis, rash Results Laboratory Results: 12/27/18 05:30 12/27/18 05:30 12/18/18 06:30 NT-Pro-B Natriuret Pep 2000 H Impressions: Chest X-Ray 12/11/18 07:00 IMPRESSION: Persistent airspace disease in the left base. There has been significant improvement from prior study. Vascular Ultrasound 12/14/18 00:00 IMPRESSION: NO DOPPLER EVIDENCE OF HEMODYNAMICALLY SIGNIFICANT RENAL ARTERY STENOSIS. Abdomen Ultrasound 12/22/18 12:57 IMPRESSION: NORMAL RIGHT UPPER QUADRANT ULTRASOUND. Assessment and Plan - Diagnosis (1) Endocarditis Qualifiers: Endocarditis type: infective Infective endocarditis organism: bacterial Chronicity: acute Qualified Code(s): I33.0 - Acute and subacute infective endocarditis Is this a current diagnosis for this admission?: Yes Plan: Secondary to IVDU Per [facility] will continue vancomycin and rifampin; last day of therapy on December 29. S/P aortic valve replacement. (2) DICK (acute kidney injury) Is this a current diagnosis for this admission?: Yes Plan: Resolved. Patient likely at new baseline; creatinine remains stable between 1.4-1.6 Likely sustained permanent injury due to septic shock Renal arterial doppler is negative. Encouraged p.o. fluids. Nephrology has signed off Avoid nephrotoxic medications as able. (3) HTN (hypertension) Is this a current diagnosis for this admission?: Yes Plan: Well-controlled on the current regimen (4) Hyperkalemia Is this a current diagnosis for this admission?: Yes Plan: Resolved (5) Pleural effusion Is this a current diagnosis for this admission?: Yes Plan: Resolved. (6) S/P AVR (aortic valve replacement) Is this a current diagnosis for this admission?: Yes Plan: As per #1. Will need follow up with original CT surgeon following discharge home (7) Polysubstance abuse Is this a current diagnosis for this admission?: Yes Plan: Patient reports he had been sober "for a while and had one slip up, which landed" him in the hospital Counseled on cessation of drug use. Patient states he wants to quit Discharge planning is consulted. (8) Left shoulder pain Qualifiers: Chronicity: unspecified Qualified Code(s): M25.512 - Pain in left shoulder Is this a current diagnosis for this admission?: Yes Plan: Shoulder imaging at [facility] was benign. Monitor closely for development of effusion or other indications of septic arthritis. Continue Lidoderm patches. Continue [place] as needed (9) Sepsis Qualifiers: Sepsis type: Streptococcus group A Qualified Code(s): A40.0 - Sepsis due to streptococcus, group A Is this a current diagnosis for this admission?: Yes Plan: Resolved Secondary to IVDU resulting in endocarditis Multiple septic emboli to the brain on MRI done at [facility]. No residual neurological symptoms. Continue antibiotics as listed above (10) Tobacco dependence Is this a current diagnosis for this admission?: Yes Plan: Smoking cessation is again encouraged today. Nicotine replacement therapies are provided. (11) Anemia Qualifiers: Anemia type: iron deficiency Is this a current diagnosis for this admission?: Yes Plan: Patient with iron deficiency anemia; Hgb 8.2-> 9.7-> 7.5->7.8. 8.7-> 9.1 post transfusion. Now s/p 1 unit PRBC Continue daily multivitamin and ferrous sulfate supplementation. Urinalysis is positive for moderate blood. Occult stool negative. Patient is not on DVT prophylaxis; encourage ambulation 3 times daily. - Time Time Spent with patient: Less than 15 minutes Medications reviewed and adjusted accordingly: Yes Anticipated discharge: Home Within: within 24 hours
[2018-12-28] MEDS: CYCLOBENZAPRINE HCL 10 MG TABLET PO PRN (19:35)
[2018-12-28] MEDS: CLONAZEPAM 1 MG TABLET PO SCH (21:26)
[2018-12-28] MEDS: MELATONIN 3 MG TABLET PO SCH (21:35)
[2018-12-29] MEDS: HYDROCODONE/ACETAMINOPHEN 5-325 MG TABLET PO PRN (01:58)
[2018-12-29] MEDS: HYDRALAZINE HCL 25 MG TABLET PO SCH (05:50)
[2018-12-29] MEDS: METOPROLOL TARTRATE 100 MG TABLET PO SCH (05:50)
[2018-12-29] MEDS: RIFAMPIN 300 MG CAPSULE PO SCH (05:50)
[2018-12-29 08:42] VITALS: BP 125/72
[2018-12-29] MEDS: FAMOTIDINE 20 MG TABLET PO SCH (09:12)
[2018-12-29] MEDS: MULTIVITAMIN TABLET PO SCH (09:12)
[2018-12-29] MEDS: CARBAMIDE PEROXIDE 6.5% OTIC SOLN 15 ML AD SCH (09:12)
[2018-12-29] MEDS: FERROUS SULFATE 325 MG TABLET PO SCH (09:12)
[2018-12-29] MEDS: NICOTINE 21 MG/24 HR PATCH.TD24 TD SCH (09:12)
[2018-12-29] MEDS: LIDOCAINE 5% (700 MG) TRANSDERMAL ADH..PATCH TP SCH (09:12)
[2018-12-29] MEDS: VANCOMYCIN HCL 750 MG in DEXTROSE 5%-WATER 250 ML IV SCH (09:19)
--- NOTE | 2019-01-01 11:09 | PDOC DISCHARGE SUMMARY ---
General - Admit/Disc Date/PCP Admission Date/Primary Care Provider: 12/06/18 16:24 LINO DUFF NP Discharge Date: 12/29/18 - Discharge Diagnosis (1) Endocarditis Is this a current diagnosis for this admission?: Yes Summary: Secondary to IVDU S/P aortic valve replacement. Per [facility] Infectious Disease will continue vancomycin and rifampin; last day of therapy on December 29. Has completed full course of therapy. (2) DICK (acute kidney injury) Is this a current diagnosis for this admission?: Yes Summary: Resolved. Patient likely at new baseline; creatinine remains stable between 1.4-1.6 Likely sustained permanent injury due to septic shock Renal arterial doppler is negative. Encouraged p.o. fluids. Nephrology was consulted. (3) HTN (hypertension) Is this a current diagnosis for this admission?: Yes Summary: Well-controlled on Toprol and Hydralazine. (4) Hyperkalemia Is this a current diagnosis for this admission?: Yes Summary: Resolved. (5) Pleural effusion Is this a current diagnosis for this admission?: Yes Summary: Resolved. (6) S/P AVR (aortic valve replacement) Is this a current diagnosis for this admission?: Yes Summary: As per #1. Will need follow up with original CT surgeon following discharge home (7) Polysubstance abuse Is this a current diagnosis for this admission?: Yes Summary: Counseled on cessation of drug use. (8) Left shoulder pain Is this a current diagnosis for this admission?: Yes Summary: Shoulder imaging at [facility] was benign. No evidence for septic arthritis. (9) Sepsis Is this a current diagnosis for this admission?: Yes Summary: Resolved. Secondary to IVDU resulting in endocarditis Multiple septic emboli to the brain on MRI done at [facility]. No residual neurological symptoms. Continue antibiotics as listed above (10) Tobacco dependence Is this a current diagnosis for this admission?: Yes Summary: Smoking cessation encouraged; NicoDerm patches provided. (11) Anemia Is this a current diagnosis for this admission?: Yes Summary: Patient with iron deficiency anemia; Hgb 8.2-> 9.7-> 7.5->7.8. 8.7-> 9.1 post transfusion. Now s/p 1 unit PRBC Continue daily multivitamin and ferrous sulfate supplementation. Urinalysis is positive for moderate blood. Occult stool negative. - Additional Information Resuscitation Status: Full Code Discharge Diet: Regular Discharge Activity: Activity As Tolerated Prescriptions: Clonazepam [Klonopin 1 mg Tablet] 0.5 mg PO QHS #7 tablet Cyclobenzaprine HCl [Flexeril 10 mg Tablet] 5 mg PO Q8HP PRN #15 tablet PRN Reason: Ferrous Sulfate [Feosol 325 mg Tablet] 325 mg PO BIDPCBS #120 tablet Hydralazine HCl [Apresoline 25 mg Tablet] 25 mg PO Q8 #90 tablet Hydrocodone/Acetaminophen [[place] 5-325 mg Tablet] 1 tab PO Q6HP PRN #12 tablet PRN Reason: Melatonin [Melatonin 3 mg Tablet] 3 mg PO QHS #90 tablet Metoprolol Tartrate [Lopressor 100 mg Tablet] 100 mg PO Q8 #90 tablet Multivitamin [Tab-A-Stanley (Multiple Vitamin) Tablet] 1 tab PO DAILY #90 tablet Nicotine [Nicoderm 21 mg/24 Hr Transderm Patch] 1 each TD DAILY #30 patch.td24 Home Medications: Clonazepam [Klonopin 1 mg Tablet] 0.5 mg PO QHS #7 tablet 12/28/18 Cyclobenzaprine HCl [Flexeril 10 mg Tablet] 5 mg PO Q8HP PRN #15 tablet 12/28/18 Ferrous Sulfate [Feosol 325 mg Tablet] 325 mg PO BIDPCBS #120 tablet 12/28/18 Hydralazine HCl [Apresoline 25 mg Tablet] 25 mg PO Q8 #90 tablet 12/28/18 Hydrocodone/Acetaminophen [[place] 5-325 mg Tablet] 1 tab PO Q6HP PRN #12 tablet 12/28/18 Melatonin [Melatonin 3 mg Tablet] 3 mg PO QHS #90 tablet 12/28/18 Metoprolol Tartrate [Lopressor 100 mg Tablet] 100 mg PO Q8 #90 tablet 12/28/18 Multivitamin [Tab-A-Stanley (Multiple Vitamin) Tablet] 1 tab PO DAILY #90 tablet 12/28/18 Nicotine [Nicoderm 21 mg/24 Hr Transderm Patch] 1 each TD DAILY #30 patch.td24 0 12/28/18 History of Present Illness History of Present Illness: Per H&P by Dr. Edward: DONAVAN FALCON is a 22 year old male 22-year-old male with history of asthma IV drug abuse, tobacco abuse admitted here [facility] for altered mental tests, fever. Initially meningitis was suspected and LP was done treated with IV ceftriaxone IV vancomy clemente and acyclovir. CSF culture came back negative. As per ID recommendations vancomycin and ceftriaxone acyclovir are discontinued. Blood cultures are positive for MSSA. ID recommendations patient started on cefazolin 2 g every 8 hours. Patient continued to have spiking fevers, shortness of breath, became tachypneic and tachycardic. Patient was transferred to [facility] for further evaluation by cardiology and cardiothoracic team. At [facility] hospital CT surgery recommended urgent aortic wall replacement due to severe aortic insufficiency and aortic wall vegetation. He has status post aortic valve replacement with magna tissue valve on 11/15/[address] Camacho. As per ID recommendations patient is presently on IV vancomycin and p.o. rifampin. These 2 antibiotics supposed to be finishing by December 29. Patient is comfortable in the bed denies any complaints today. He is willing to stay in the hospital for antibiotic therapy. At [facility] as per the neuro recommendations patient is off anticoagula tion. Because of the high risk of septic infarcts changing him to hemorrhage. CT head done at [facility] indicates a small hemorrhage in the left occipital lobe. Is believed due to septic emboli. MRI confirmed hemorrhage and also showed multiple mini strokes caused by vegetation on the valve. Surgically patient continued to have tachycardia and hypertension he was presently on metoprolol 100 mg p.o. every 8 hours and hydralazine 25 mg p.o. every 8 hours. Patient was started on Lasix for pleural effusions and he developed DICK. Gradually Lasix are discontinued. Presently is not on Lasix. For pleural effusion patient did not required pleural tap. Physical Exam Vital Signs: Temp Pulse Resp BP Pulse Ox 98.2 F 81 16 128/75 H 98 12/29/18 03:32 12/29/18 07:00 12/29/18 03:32 12/29/18 03:32 12/29/18 03:32 Intake & Output 12/28/18 12/29/18 12/30/18 06:59 06:59 06:59 Intake Total 2860 3590 Balance 2860 3590 Weight 63.3 kg 63.3 kg General appearance: PRESENT: no acute distress, cooperative, thin, well- developed, well-nourished Head exam: PRESENT: atraumatic, normocephalic Eye exam: PRESENT: conjunctiva pink, EOMI, PERRLA. ABSENT: scleral icterus Ear exam: PRESENT: normal external ear exam Mouth exam: PRESENT: moist, tongue midline Neck exam: ABSENT: carotid bruit, JVD, lymphadenopathy, thyromegaly Respiratory exam: PRESENT: clear to auscultation cassandra. ABSENT: rales, rhonchi, wheezes Cardiovascular exam: PRESENT: RRR, +S1, +S2, systolic murmur. ABSENT: diastolic murmur, rubs Pulses: PRESENT: normal dorsalis pedis pul Vascular exam: PRESENT: normal capillary refill GI/Abdominal exam: PRESENT: normal bowel sounds, soft. ABSENT: distended, guarding, mass, organolmegaly, rebound, tenderness Rectal exam: PRESENT: deferred Extremities exam: PRESENT: full ROM. ABSENT: calf tenderness, clubbing, pedal edema Neurological exam: PRESENT: alert, awake, oriented to person, oriented to place, oriented to time, oriented to situation, CN II-XII grossly intact. ABSENT: motor sensory deficit Psychiatric exam: PRESENT: appropriate affect, normal mood. ABSENT: homicidal ideation, suicidal ideation Skin exam: PRESENT: dry, intact, warm. ABSENT: cyanosis, rash Results Laboratory Results: 12/27/18 05:30 12/27/18 05:30 12/18/18 06:30 NT-Pro-B Natriuret Pep 2000 H Impressions: Chest X-Ray 12/11/18 07:00 IMPRESSION: Persistent airspace disease in the left base. There has been significant improvement from prior study. Vascular Ultrasound 12/14/18 00:00 IMPRESSION: NO DOPPLER EVIDENCE OF HEMODYNAMICALLY SIGNIFICANT RENAL ARTERY STENOSIS. Abdomen Ultrasound 12/22/18 12:57 IMPRESSION: NORMAL RIGHT UPPER QUADRANT ULTRASOUND. Qualifiers - * PATIENT BEING DISCHARGED WITH ANY OF THE FOLLOWING DIAGNOSIS: No Acute Heart Failure - Is this a Heart Failure Patient?: No Plan Discharge Plan: Follow up with your primary care provider within 1 week. Follow up with your Cardiothoracic Surgeon at [facility] within 1 month. Take your medications as prescribed. STOP smoking. Do not take illicit drugs. Return to the emergency department as needed for concerning symptoms. Time Spent: Less than 30 Minutes
== END 2018-12-29 11:38 | disposition home or self-care (01) | DRG 289 ==
LOC: 4N 16:24
PROVIDERS: ADMIT Family Medicine; ATTEND Family Medicine
PROC: 30233P1 Transfusion of Nonautologous Frozen Red Cells into Peripheral Vein, Percutaneous Approach (ICD-10-PCS; principal; 2018-12-26)
DX: I33.0 Acute and subacute infective endocarditis (principal); N17.9 Acute kidney failure, unspecified; J90 Pleural effusion, not elsewhere classified; I10 Essential (primary) hypertension; F17.210 Nicotine dependence, cigarettes, uncomplicated; F14.10 Cocaine abuse, uncomplicated; F12.10 Cannabis abuse, uncomplicated; F11.10 Opioid abuse, uncomplicated; M25.512 Pain in left shoulder; D50.9 Iron deficiency anemia, unspecified; J45.909 Unspecified asthma, uncomplicated; E87.5 Hyperkalemia; Z79.2 Long term (current) use of antibiotics; Z95.3 Presence of xenogenic heart valve; Z95.2 Presence of prosthetic heart valve; Z71.51 Drug abuse counseling and surveillance of drug abuser; Z71.6 Tobacco abuse counseling; Z86.73 Personal history of transient ischemic attack (TIA), and cerebral infarction without residual deficits
CPT/HCPCS: 36415; 36430; 71045; 76705; 80048; 80053; 80074; 80076; 80202; 81001; 82272; 82565; 82607; 82728; 82746; 83540; 83550; 83735; 83880; 84100; 84132; 85025; 85027; 85045; 85610; 86850; 86900; 86901; 86920; 93005; 93010; 93976; J1642; J1885; J3370; J3490; J7030; J7060; P9016

== ENCOUNTER 2019-05-08 13:15 | Inpatient (IN) | payer OTHER ==
[2019-05-08 13:36] LABS: VENOUS BLOOD BASE EXCESS 1.9 mmol/L; VENOUS BLOOD HCO3 23.1 mmol/L (20-32); VENOUS BLOOD PCO2 25.6 mmHg (35-63); VENOUS BLOOD PH 7.57 (7.30-7.42)
[2019-05-08] MEDS ORDERED: ACETAMINOPHEN 325 MG TABLET PO ONE (13:40)
[2019-05-08 13:43] LABS: INTERNATIONAL RATION (INR) 1.18; PROTHROMBIN TIME 15.1 SEC (11.4-15.4)
[2019-05-08 13:44] LABS: ABSOLUTE BASOPHILS # (AUTO) 0.1 10^3/uL (0.0-0.2); ABSOLUTE LYMPHOCYTES (AUTO) 1.6 10^3/uL (0.5-4.7); ABSOLUTE MONOCYTES (AUTO) 0.7 10^3/uL (0.1-1.4); ABSOLUTE NEUT (AUTO) 7.2 10^3/uL (1.7-8.2); BASOPHILS % (AUTO) 0.9 % (0-2); EOSINOPHILS % (AUTO) 0.5 % (0-6); HEMATOCRIT 29.4 % (37.9-51.0); HEMOGLOBIN 9.8 g/dL (13.5-17.0); LYMPHOCYTES % (AUTO) 16.9 % (13-45); MEAN CORPUSCULAR HEMOGLOBIN 24.2 pg (27.0-33.4); MEAN CORPUSCULAR HGB CONC 33.3 g/dL (32.0-36.0); MEAN CORPUSCULAR VOLUME 73 fl (80-97); MONOCYTES % (AUTO) 7.4 % (3-13); PLATELET COUNT 359 10^3/uL (150-450); RED BLOOD COUNT 4.05 10^6/uL (4.35-5.55); RED CELL DISTRIBUTION WIDTH 15.3 % (11.5-14.0); SEGMENTED NEUTROPHILS % (AUTO) 74.3 % (42-78); TOTAL CELLS COUNTED % (AUTO) 100 %; WHITE BLOOD COUNT 9.7 10^3/uL (4.0-10.5)
[2019-05-08 13:56] LABS: ALBUMIN 3.2 g/dL (3.5-5.0); ALKALINE PHOSPHATASE 85 U/L (38-126); ANION GAP 11 (5-19); ASPARTATE AMINO TRANSFERASE 20 U/L (17-59); BILIRUBIN,DIRECT 0.2 mg/dL (0.0-0.4); BILIRUBIN,TOTAL 0.5 mg/dL (0.2-1.3); BLOOD UREA NITROGEN 13 mg/dL (7-20); CALCIUM 9.2 mg/dL (8.4-10.2); CARBON DIOXIDE 22 mmol/L (22-30); CHLORIDE 99 mmol/L (98-107); GLUCOSE 95 mg/dL (75-110); POTASSIUM 3.8 mmol/L (3.6-5.0); TOTAL PROTEIN 6.7 g/dL (6.3-8.2)
[2019-05-08] MEDS ORDERED: CEFEPIME INJ 1 GM VIAL IV ONE (14:07)
[2019-05-08] MEDS ORDERED: NORMAL SALINE IV ONE (14:07)
[2019-05-08] MEDS ORDERED: VANCOMYCIN HCL INJ 1000 MG VIAL IV ONE (14:07)
--- NOTE | 2019-05-08 14:57 | RADIOLOGY REPORT (SQ) ---
EXAM DESCRIPTION: CHEST SINGLE VIEW COMPLETED DATE/TIME: 05/08/2019 2:41 pm REASON FOR STUDY: fever COMPARISON: 12/11/2018. EXAM PARAMETERS: NUMBER OF VIEWS: One view. TECHNIQUE: Single frontal radiographic view of the chest acquired. RADIATION DOSE: NA LIMITATIONS: None. FINDINGS: LUNGS AND PLEURA: No opacities, masses or pneumothorax. No pleural effusion. MEDIASTINUM AND HILAR STRUCTURES: No masses. Contour normal. HEART AND VASCULAR STRUCTURES: Heart normal in size. Normal vasculature. BONES: No acute findings. HARDWARE: Sternotomy wires. OTHER: No other significant finding. IMPRESSION: NO ACUTE RADIOGRAPHIC FINDING IN THE CHEST. TECHNICAL DOCUMENTATION: JOB ID: [id number] [employer]- All Rights Reserved Reading location - IP/workstation name: [email or web address]
--- NOTE | 2019-05-08 14:59 | RADIOLOGY REPORT (SQ) ---
EXAM DESCRIPTION: CT HEAD WITHOUT COMPLETED DATE/TIME: 05/08/2019 2:43 pm REASON FOR STUDY: ams COMPARISON: 11/09/2018. TECHNIQUE: Axial images acquired through the brain without intravenous contrast. Images reviewed wi th bone, brain and subdural windows. Additional sagittal and coronal reconstructions were generated. Images stored on PACS. All CT scanners at this facility use dose modulation, iterative reconstruction, and/or weight based d osing when appropriate to reduce radiation dose to as low as reasonably achievable (ALARA). [facility]: Dose Right [facility]: CareDose [facility]: Dose Right [facility]: Teradose 4D [facility]: BigDNA RADIATION DOSE: CT Rad equipment meets quality standard of care and radiation dose reduction techniq ues were employed. CTDIvol: 53.2 mGy. DLP: 2513 mGy-cm. mGy. LIMITATIONS: None. FINDINGS: VENTRICLES: Normal size and contour. CEREBRUM: No masses. No hemorrhage. No midline shift. No evidence for acute infarction. Normal gra y/white matter differentiation. No areas of low density in the white matter. CEREBELLUM: No masses. No hemorrhage. No alteration of density. No evidence for acute infarction. EXTRAAXIAL SPACES: No fluid collections. No masses. ORBITS AND GLOBE: No intra- or extraconal masses. Normal contour of globe without masses. CALVARIUM: No fracture. PARANASAL SINUSES: No fluid or mucosal thickening. SOFT TISSUES: No mass or hematoma. OTHER: No other significant finding. IMPRESSION: NORMAL BRAIN CT WITHOUT CONTRAST. EVIDENCE OF ACUTE STROKE: NO. COMMENT: Quality ID # [id number]: Final reports with documentation of one or more dose reduction techniques (e.g., Automated exposure control, adjustment of the mA and/or kV according to patient size, use of iterative reconstruction technique) TECHNICAL DOCUMENTATION: JOB ID: [id number] [employer]- All Rights Reserved Reading location - IP/workstation name: [email or web address]
--- NOTE | 2019-05-08 15:15 | ER Document Report ---
ED General - General Chief Complaint: Altered Mental Status Stated Complaint: WEAKNESS Time Seen by Provider: 05/08/19 14:03 Primary Care Provider: LINO DUFF NP [Primary Care Provider] - Follow up as needed TRAVEL OUTSIDE OF THE [place] IN LAST 30 DAYS: No - HPI Notes: Patient is brought in by EMS. EMS states that they went out to do the residents because patient call them "to help him get a drink". They found patient on the floor confused. Patient is not able to give any significant history. Patient is not accompanied by any family members who can give history. From reviewing old records and from medic history patient has a past medical history significant for IV drug abuse sepsis endocarditis and previous altered mental status. He was admitted here for similar symptoms several months ago. The symptoms appear to be severe. No known radiation of symptoms. They appear to be constant. Nothing appears to make them better or worse. Patient cannot characterize the symptoms. There is no evidence of trauma at the scene. No evidence of vomiting. Patient was found to be febrile and to have an elevated lactic acid by medics. He was also found to be tachycardic. - Related Data Allergies/Adverse Reactions: No Known Allergies Allergy (Verified 11/07/18 12:47) Past Medical History - General Information source: Patient, Emergency Med Personnel - Social History Smoking Status: Current Every Day Smoker Frequency of alcohol use: None Drug Abuse: Other - History of IV drug use Family History: Reviewed & Not Pertinent Patient has suicidal ideation: No Patient has homicidal ideation: No Pulmonary Medical History: Reports: Hx Asthma Neurological Medical History: Reports: Hx Migraine Renal/ Medical History: Denies: Hx Peritoneal Dialysis Past Surgical History: Reports: Hx Valve Replacement - Immunizations Immunizations up to date: Yes Hx Diphtheria, Pertussis, Tetanus Vaccination: Yes Review of Systems - Review of Systems -: Yes ROS unobtainable due to patient's medical condition - Patient cannot give review of symptoms due to confusion Physical Exam - Vital signs Vitals: Resp 17 05/08/19 13:30 Interpretation: Tachycardic, Febrile - General General appearance: Alert In distress: None - HEENT Head: Normocephalic, Atraumatic Eyes: Normal Pupils: PERRL - Respiratory Respiratory status: No respiratory distress Chest status: Nontender Breath sounds: Normal Chest palpation: Normal - Cardiovascular Rhythm: Tachycardia Murmur: Yes - 5/6 murmur systolic - Abdominal Inspection: Normal Distension: No distension Bowel sounds: Normal Tenderness: Nontender Organomegaly: No organomegaly - Back Back: Normal, Nontender - Extremities General upper extremity: Normal inspection, Nontender, Normal color, Normal ROM, Normal temperature General lower extremity: Normal inspection, Nontender, Normal color, Normal ROM, Normal temperature, Normal weight bearing. No: Diogo's sign - Neurological Cognition: Confused Orientation: Disoriented to place, Disoriented to time Shruti Coma Scale Eye Opening: Spontaneous Shruti Coma Scale Verbal: Inappropriate Shruti Coma Scale Motor: Obeys Commands [place] Coma Scale Total: 13 Speech: Normal Motor strength normal: LUE, RUE, LLE, RLE Sensory: Normal - Psychological Associated symptoms: Agitated, Anxious - Skin Skin Temperature: Warm Skin Moisture: Dry Skin Color: Normal Course - Re-evaluation Re-evalutation: 05/08/19 15:16 Patient is brought in by paramedics due to confusion. Patient is obviously confused and does not answer any questions appropriately. He will occasionally follow some commands. He is not obtunded. He is very awake agitated and fidgety in the bed constantly. He is vocal constantly but he will not interact. Patient just swears and asks to be left alone. He has loud murmur but has hx of previous valve repair. Will most likely need RENEE. No other obvious source of infection at this time. Patient has been covered with antibiotics and fluids. Heart rate is remaining less than 100. Blood pressure is remaining above 120 systolic. 05/08/19 15:29 - Vital Signs Vital signs: Temp Pulse Resp BP Pulse Ox 101.9 F H 22 H 128/70 H 100 05/08/19 13:38 05/08/19 14:01 05/08/19 14:01 05/08/19 13:33 - Laboratory Result Diagrams: 05/08/19 13:19 05/08/19 13:19 Laboratory results interpreted by me: 05/08/19 05/08/19 05/08/19 13:19 13:19 13:19 RBC 4.05 L Hgb 9.8 L Hct 29.4 L MCV 73 L MCH 24.2 L RDW 15.3 H VBG pH VBG pCO2 Sodium 131.5 L Lactic Acid 2.5 H Albumin 3.2 L 05/08/19 13:19 RBC Hgb Hct MCV MCH RDW VBG pH 7.57 H VBG pCO2 25.6 L Sodium Lactic Acid Albumin - Diagnostic Test Radiology reviewed: Image reviewed, Reports reviewed - EKG Interpretation by Me EKG shows normal: Sinus rhythm Rate: Tachycardia Rhythm: NSR [place]/QRS: No: RBBB, LBBB Critical Care Note - Critical Care Note Total time excluding time spent on procedures (mins): 55 Comments: 55 minutes of critical care time were spent on this patient. This included reviewing imaging and laboratories. It included multiple reassessments. It included multiple discussions with consultants. Discharge - Discharge Clinical Impression: Altered mental status Qualifiers: Altered mental status type: delirium Qualified Code(s): R41.0 - Disorientation, unspecified Fever Qualifiers: Fever type: due to other condition Qualified Code(s): R50.81 - Fever presenting with conditions classified elsewhere Condition: Serious Disposition: ADMITTED INPATIENT Admitting Provider: Gisella (Hospitalist) Unit Admitted: IMCU Referrals: LINO DUFF NP [Primary Care Provider] - Follow up as needed
--- NOTE | 2019-05-08 15:37 | PDOC PROGRESS REPORT ---
Subjective Progress Note for:: 05/08/19 Subjective:: Patient is confused and claims not to know why he is here. Reason For Visit: WEAKNESS Physical Exam Vital Signs: Temp Pulse Resp BP Pulse Ox 101.9 F H 22 H 128/70 H 100 05/08/19 13:38 05/08/19 14:01 05/08/19 14:01 05/08/19 13:33 Intake & Output 05/07/19 05/08/19 05/09/19 06:59 06:59 06:59 Weight 67 kg Physical Exam: Fever General appearance: PRESENT: no acute distress, thin Head exam: PRESENT: atraumatic Eye exam: PRESENT: EOMI, PERRLA Ear exam: PRESENT: normal external ear exam Mouth exam: PRESENT: dry mucosa Neck exam: PRESENT: full ROM. ABSENT: carotid bruit, JVD, lymphadenopathy, thyromegaly Respiratory exam: PRESENT: clear to auscultation cassandra Cardiovascular exam: PRESENT: diastolic murmur Murmur grade: 3 Pulses: PRESENT: normal carotid pulses Vascular exam: PRESENT: normal capillary refill GI/Abdominal exam: PRESENT: soft Rectal exam: PRESENT: deferred Extremities exam: PRESENT: full ROM Musculoskeletal exam: PRESENT: full ROM, normal inspection Additional comments: No obvious recent track or needle faustin Neurological exam: PRESENT: alert, altered, awake Additional comments: No meningismus. Bending neck easily Psychiatric exam: PRESENT: flat affect Skin exam: PRESENT: normal color Results Laboratory Results: 05/08/19 13:19 05/08/19 13:19 05/08/19 05/08/19 05/08/19 13:19 13:19 13:19 WBC 9.7 RBC 4.05 L Hgb 9.8 L Hct 29.4 L MCV 73 L MCH 24.2 L MCHC 33.3 RDW 15.3 H Plt Count 359 Seg Neutrophils % 74.3 VBG pH VBG pCO2 VBG HCO3 VBG Base Excess Sodium 131.5 L Potassium 3.8 Chloride 99 Carbon Dioxide 22 Anion Gap 11 BUN 13 Creatinine 0.95 Est GFR ( Amer) > 60 Glucose 95 Lactic Acid 2.5 H Calcium 9.2 Total Bilirubin 0.5 AST 20 Alkaline Phosphatase 85 Total Protein 6.7 Albumin 3.2 L 05/08/19 13:19 WBC RBC Hgb Hct MCV MCH MCHC RDW Plt Count Seg Neutrophils % VBG pH 7.57 H VBG pCO2 25.6 L VBG HCO3 23.1 VBG Base Excess 1.9 Sodium Potassium Chloride Carbon Dioxide Anion Gap BUN Creatinine Est GFR ( Amer) Glucose Lactic Acid Calcium Total Bilirubin AST Alkaline Phosphatase Total Protein Albumin Impressions: Chest X-Ray 05/08/19 14:07 IMPRESSION: NO ACUTE RADIOGRAPHIC FINDING IN THE CHEST. Head CT 05/08/19 14:08 IMPRESSION: NORMAL BRAIN CT WITHOUT CONTRAST. EVIDENCE OF ACUTE STROKE: NO. Assessment & Plan - Diagnosis (1) Polysubstance abuse Is this a current diagnosis for this admission?: Yes Plan: I see no evidence of recent IV use. However given his past history with the need for recent valve replacement I would be suspicious for a recurrent valvular infection. No records available and no family present. (2) S/P AVR (aortic valve replacement) Is this a current diagnosis for this admission?: Yes Plan: I agree with cefepime and vancomycin or linezolid as it comes in PO. MRSA is a high likelihood, but cover for gram negatives as well. (3) Sepsis Qualifiers: Sepsis type: sepsis due to unspecified organism Sepsis acute organ dysfu nction status: with acute organ dysfunction Severe sepsis acute organ dys function type: encephalopathy Severe sepsis shock status: without septic shock Qualified Code(s): A41.9 - Sepsis, unspecified organism; R65.20 - Severe sepsis without septic shock; G93.40 - Encephalopathy, unspecified Is this a current diagnosis for this admission?: Yes Plan: With tachycardia, mild tachypnea and fever he meets SIRS criteria. With a suspected SBE this is sepsis. Encephalopathy makes it severe. Lactic acid is mildly elevated. He needs broad spectrum antibiotics and IVF as he appears dehydrated as well as septic. He is awake but altered, protecting airway well. VS are quite stable and he does not need an ICU level of care but does need admission. - Time Time Spent with patient: 35 or more minutes Total Critical Time (Minutes): 35 Medications reviewed and adjusted accordingly: Yes Anticipated discharge: Home Within: Other - Inpatient Certification Based on my medical assessment, after consideration of the patient's comorbidities, presenting symptoms, or acuity I expect that the services needed warrant INPATIENT care.: Yes I certify that my determination is in accordance with my understanding of Medicare's requirements for reasonable and necessary INPATIENT services [42 CFR 412.3e].: Yes Medical Necessity: Failure to Improve With Outpatient Therapy, Significant Comorbidiites Make Outpatient Treatment Too Risky, Need For IV Fluids, Need for IV Antibiotics
[2019-05-08 15:46] LABS: APPEARANCE,URINE CLEAR; BILIRUBIN,URINE NEGATIVE (NEGATIVE); COLOR,URINE YELLOW; GLUCOSE, URINE NEGATIVE (NEGATIVE); KETONES,URINE NEGATIVE (NEGATIVE); PROTEIN,URINE 30 mg/dL (NEGATIVE)
[2019-05-08] MEDS ORDERED: IPRATROPIUM/ALBUTEROL 0.5-2.5 MG/3 ML AMPUL NEB PRN (16:02)
[2019-05-08] MEDS ORDERED: ONDANSETRON HCL INJ/PF 4 MG/2 ML SDV IV PRN (16:02)
[2019-05-08] MEDS ORDERED: DEXTROSE 5%-NORMAL SALINE 1,000 ML IV PRN (16:02)
[2019-05-08] MEDS ORDERED: METOPROLOL TARTRATE PF/INJ 5 MG/5 ML SDV IV PRN (16:09)
[2019-05-08] MEDS ORDERED: HYDRALAZINE HCL INJ/PF 20 MG/1 ML SDV IV PRN (16:09)
[2019-05-08] MEDS ORDERED: VANCOMYCIN HCL 0 MG in DEXTROSE 5%-WATER 250 ML IV NR (16:15)
[2019-05-08 16:18] LABS: URINE AMPHETAMINES SCREEN NEGATIVE; URINE BARBITURATES SCREEN NEGATIVE; URINE BENZODIAZEPINES SCREEN NEGATIVE; URINE COCAINE SCREEN UNCONFIRMED POSITIVE; URINE MARIJUANA (THC) SCREEN UNCONFIRMED POSITIVE; URINE METHADONE SCREEN NEGATIVE; URINE PHENCYCLIDINE SCREEN NEGATIVE
[2019-05-08] MEDS ORDERED: NORMAL SALINE 1000 ML 1,000 ML with POTASSIUM CHLORIDE 20 MEQ, MAGNESIUM SULFATE 8 MEQ,... IV SCH ×5 (18:00)
[2019-05-08] MEDS: LORAZEPAM INJ 2 MG/1 ML VIAL IV PRN (18:39)
[2019-05-08] MEDS: ENOXAPARIN SODIUM INJ 40 MG/0.4 ML DISP.SYRIN SUBCUT SCH (18:46)
[2019-05-08] MEDS: DOCUSATE SODIUM 100 MG CAPSULE PO SCH (18:46)
--- NOTE | 2019-05-08 19:06 | PDOC H&P ---
History of Present Illness Admission Date/PCP: 05/08/19 15:36 LINO DUFF NP History of Present Illness: 23-year-old male with past medical history of IV drug abuse, endocarditis status post aortic valve replacement, hypertension, anemia, viral meningitis and thrombocytopenia to ED by EMS, as per EMS they were called by the patient attempting to get him and drink, when he presented to his room he was found on the floor confused. In ED he was found to be mildly hypotensive tachycardic, febrile, with elevated lactic acid, hospital was consulted for admission. On my encounter patient is awake however very altered, alert, only oriented to self, does not provide much history, does not seem to be in any apparent distress however seems to be hypervigilant. Past Medical History Pulmonary Medical History: Reports: Asthma Neurological Medical History: Reports: Migraine Past Surgical History Past Surgical History: Reports: Valve Replacement Social History Smoking Status: Current Every Day Smoker Frequency of Alcohol Use: None Hx Recreational Drug Use: Yes Drugs: Cocaine, Heroin, Marijuana, Other Hx Prescription Drug Abuse: No - Advance Directive Resuscitation Status: Full Code Family History Family History: Reviewed & Not Pertinent Parental Family History Reviewed: Yes Children Family History Reviewed: Yes Sibling(s) Family History Reviewed.: Yes Medication/Allergy Home Medications: No Home Medications 05/08/19 Allergies/Adverse Reactions: No Known Allergies Allergy (Verified 11/07/18 12:47) Review of Systems ROS unobtainable: Due to mental status Physical Exam Vital Signs: Temp Pulse Resp BP Pulse Ox 97.8 F 87 18 103/62 100 05/08/19 18:13 05/08/19 18:13 05/08/19 18:13 05/08/19 18:13 05/08/19 18:13 Intake & Output 05/07/19 05/08/19 05/09/19 06:59 06:59 06:59 Intake Total 2009 Balance 2010 Weight 60.6 kg General appearance: PRESENT: no acute distress, well-developed, well-nourished Respiratory exam: PRESENT: clear to auscultation cassandra. ABSENT: rales, rhonchi, wheezes Cardiovascular exam: PRESENT: RRR, systolic murmur, other - Linear surgical scar over the sternum.. ABSENT: diastolic murmur, rubs GI/Abdominal exam: PRESENT: normal bowel sounds, soft. ABSENT: distended, guarding, mass, organolmegaly, rebound, tenderness Neurological exam: PRESENT: alert, altered, awake, oriented to person, CN II-XII grossly intact, motor sensory deficit Skin exam: PRESENT: dry, intact, warm. ABSENT: cyanosis, rash Results Laboratory Results: 05/08/19 13:19 05/08/19 13:19 05/08/19 05/08/19 05/08/19 13:19 13:19 13:19 WBC 9.7 RBC 4.05 L Hgb 9.8 L Hct 29.4 L MCV 73 L MCH 24.2 L MCHC 33.3 RDW 15.3 H Plt Count 359 Seg Neutrophils % 74.3 VBG pH VBG pCO2 VBG HCO3 VBG Base Excess Sodium 131.5 L Potassium 3.8 Chloride 99 Carbon Dioxide 22 Anion Gap 11 BUN 13 Creatinine 0.95 Est GFR ( Amer) > 60 Glucose 95 Lactic Acid 2.5 H Calcium 9.2 Total Bilirubin 0.5 AST 20 Alkaline Phosphatase 85 Total Protein 6.7 Albumin 3.2 L Urine Color Urine Appearance Urine pH Ur Specific [place] Urine Protein Urine Glucose (UA) Urine Ketones Urine Blood Urine RBC (Auto) 05/08/19 05/08/19 13:19 14:49 WBC RBC Hgb Hct MCV MCH MCHC RDW Plt Count Seg Neutrophils % VBG pH 7.57 H VBG pCO2 25.6 L VBG HCO3 23.1 VBG Base Excess 1.9 Sodium Potassium Chloride Carbon Dioxide Anion Gap BUN Creatinine Est GFR ( Amer) Glucose Lactic Acid Calcium Total Bilirubin AST Alkaline Phosphatase Total Protein Albumin Urine Color YELLOW Urine Appearance CLEAR Urine pH 9.0 Ur Specific [place] 1.020 Urine Protein 30 H Urine Glucose (UA) NEGATIVE Urine Ketones NEGATIVE Urine Blood MODERATE H Urine RBC (Auto) 83 Impressions: Chest X-Ray 05/08/19 14:07 IMPRESSION: NO ACUTE RADIOGRAPHIC FINDING IN THE CHEST. Head CT 05/08/19 14:08 IMPRESSION: NORMAL BRAIN CT WITHOUT CONTRAST. EVIDENCE OF ACUTE STROKE: NO. Assessment and Plan - Diagnosis (1) SIRS (systemic inflammatory response syndrome) Is this a current diagnosis for this admission?: Yes Plan: Evidenced by tachycardia, fever, elevated lactic acid. Most likely due to underlying infectious process. Aggressive volume resuscitation guided by volume status, empiric IV antibiotics, blood culture. (2) Acute encephalopathy Is this a current diagnosis for this admission?: Yes Plan: Acute toxic encephalopathy most likely to to polysubstance abuse. Admitted to ICU, monitor for withdrawal. (3) Polysubstance abuse Is this a current diagnosis for this admission?: Yes Plan: History of polysubstance abuse. Monitor for withdrawal. Supportive measures. (4) S/P AVR (aortic valve replacement) Is this a current diagnosis for this admission?: Yes Plan: Recent aortic valve replacement due to infective endocarditis.
[2019-05-08] MEDS: FAMOTIDINE 20 MG TABLET PO SCH ×2 (21:39→21:48)
[2019-05-09] MEDS: VANCOMYCIN HCL 1,000 MG in DEXTROSE 5%-WATER 250 ML IV SCH ×3 (05:43→22:37)
[2019-05-09 07:14] LABS: ABSOLUTE BASOPHILS # (AUTO) 0.1 10^3/uL (0.0-0.2); ABSOLUTE EOSINOPHILS # (AUTO) 0.1 10^3/uL (0.0-0.6); ABSOLUTE LYMPHOCYTES (AUTO) 1.4 10^3/uL (0.5-4.7); ABSOLUTE MONOCYTES (AUTO) 0.6 10^3/uL (0.1-1.4); ABSOLUTE NEUT (AUTO) 4.5 10^3/uL (1.7-8.2); BASOPHILS % (AUTO) 0.8 % (0-2); EOSINOPHILS % (AUTO) 1.5 % (0-6); HEMATOCRIT 26.4 % (37.9-51.0); HEMOGLOBIN 8.7 g/dL (13.5-17.0); LYMPHOCYTES % (AUTO) 20.8 % (13-45); MEAN CORPUSCULAR HEMOGLOBIN 24.1 pg (27.0-33.4); MEAN CORPUSCULAR HGB CONC 33.1 g/dL (32.0-36.0); MEAN CORPUSCULAR VOLUME 73 fl (80-97); MONOCYTES % (AUTO) 9.5 % (3-13); PLATELET COUNT 310 10^3/uL (150-450); RED BLOOD COUNT 3.63 10^6/uL (4.35-5.55); RED CELL DISTRIBUTION WIDTH 15.4 % (11.5-14.0); SEGMENTED NEUTROPHILS % (AUTO) 67.4 % (42-78); TOTAL CELLS COUNTED % (AUTO) 100 %; WHITE BLOOD COUNT 6.7 10^3/uL (4.0-10.5)
[2019-05-09 07:15] LABS: INTERNATIONAL RATION (INR) 1.28
--- NOTE | 2019-05-09 07:21 | EKG REPORT ---
SEVERITY:- ABNORMAL ECG - SINUS TACHYCARDIA PROBABLE LEFT ATRIAL ABNORMALITY PROBABLE LEFT VENTRICULAR HYPERTROPHY PROLONGED QT INTERVAL : Confirmed by: Pepper Newton 09-May-2019 07:20:47
[2019-05-09] MEDS: CEFTRIAXONE 1 GM/D5W RTU 1 GM/50 ML RTUPB IV SCH (07:46)
[2019-05-09] MEDS: ENOXAPARIN SODIUM INJ 40 MG/0.4 ML DISP.SYRIN SUBCUT SCH (09:53)
[2019-05-09] MEDS: DOCUSATE SODIUM 100 MG CAPSULE PO SCH ×2 (09:53→17:43)
[2019-05-09] MEDS: FAMOTIDINE 20 MG TABLET PO SCH ×2 (09:53→22:37)
--- NOTE | 2019-05-09 16:57 | PDOC PROGRESS REPORT ---
Subjective Progress Note for:: 05/09/19 Subjective:: 23-year-old male with past medical history of IV drug abuse, endocarditis status post aortic valve replacement, hypertension, anemia, viral meningitis and thrombocytopenia to ED by EMS, as per EMS they were called by the patient attempting to get him and drink, when he presented to his room he was found on the floor confused. In ED he was found to be mildly hypotensive tachycardic, febrile, with elevated lactic acid, hospital was consulted for admission. On my encounter patient is awake however very altered, alert, only oriented to self, does not provide much history, does not seem to be in any apparent distress however seems to be hypervigilant. 05/09/2019. No acute events overnight. Much improvement of mental status since yesterday. Patient alert oriented x3, endorsing history of continuous IV drug abuse. Has been injecting cocaine. Denies any fever, chills, nausea, vomiting, diarrhea, constipation or any urinary symptoms. Ambulatory, p.o. tolerant having normal bowel and bladder movements. Reason For Visit: FEVER, AMS, SIRS Physical Exam Vital Signs: Temp Pulse Resp BP Pulse Ox 99.1 F 73 16 99/55 L 100 05/09/19 16:31 05/09/19 16:31 05/09/19 16:31 05/09/19 16:31 05/09/19 16:31 Intake & Output 05/08/19 05/09/19 05/10/19 06:59 06:59 06:59 Intake Total 2850 1573 Output Total 500 Balance 2350 1573 Weight 60.8 kg General appearance: PRESENT: no acute distress, well-developed, well-nourished Head exam: PRESENT: atraumatic, normocephalic Respiratory exam: PRESENT: clear to auscultation cassandra. ABSENT: rales, rhonchi, wheezes Cardiovascular exam: PRESENT: RRR, systolic murmur. ABSENT: diastolic murmur, rubs GI/Abdominal exam: PRESENT: normal bowel sounds, soft. ABSENT: distended, guarding, mass, organolmegaly, rebound, tenderness Extremities exam: PRESENT: full ROM. ABSENT: calf tenderness, clubbing, pedal edema Neurological exam: PRESENT: alert, awake, oriented to person, oriented to place, oriented to time, oriented to situation, CN II-XII grossly intact. ABSENT: motor sensory deficit Results Laboratory Results: 05/09/19 06:52 05/08/19 05/09/19 05/09/19 19:26 01:04 06:52 WBC 6.7 RBC 3.63 L Hgb 8.7 L Hct 26.4 L MCV 73 L MCH 24.1 L MCHC 33.1 RDW 15.4 H Plt Count 310 Seg Neutrophils % 67.4 Lactic Acid 1.2 1.2 Magnesium 05/09/19 06:52 WBC RBC Hgb Hct MCV MCH MCHC RDW Plt Count Seg Neutrophils % Lactic Acid Magnesium 2.0 Impressions: Chest X-Ray 05/08/19 14:07 IMPRESSION: NO ACUTE RADIOGRAPHIC FINDING IN THE CHEST. Head CT 05/08/19 14:08 IMPRESSION: NORMAL BRAIN CT WITHOUT CONTRAST. EVIDENCE OF ACUTE STROKE: NO. Assessment and Plan - Diagnosis (1) Bacteremia Is this a current diagnosis for this admission?: Yes Plan: Most likely due to continuous IV drug abuse. Modified Cobb criteria positive for 1 major and 3 minor criterions. Given history of endocarditis and aortic valve replacement and positive cobb's criteria I am concerned for another endocarditis. Day 2 IV antibiotics. Day 2 IV vancomycin. Day 2 IV ceftriaxone. Blood cultures are growing gram-positive cocci and Streptococcus. Pending RENEE to rule out endocarditis. Continue empiric IV antibiotics, repeat blood culture. Follow up blood culture and RENEE. (2) SIRS (systemic inflammatory response syndrome) Is this a current diagnosis for this admission?: Yes Plan: Resolved. Evidenced by tachycardia, fever, elevated lactic acid. Most likely due to underlying infectious process. (3) Acute encephalopathy Is this a current diagnosis for this admission?: Yes Plan: Resolved. Acute toxic encephalopathy most likely to to polysubstance abuse. Continue ICU and monitor for withdrawals. (4) Polysubstance abuse Is this a current diagnosis for this admission?: Yes Plan: History of polysubstance abuse. Unfortunately patient is still has polysubstance abuse. Endorses cocaine injection. Urine tox positive for cocaine, opiates and marijuana. Monitor for withdrawal. Supportive measures. (5) S/P AVR (aortic valve replacement) Is this a current diagnosis for this admission?: Yes Plan: History of MRSA endocarditis. Recent aortic valve replacement due to infective endocarditis. (6) Anemia Qualifiers: Anemia type: iron deficiency Is this a current diagnosis for this admission?: Yes Plan: Likely anemia of chronic disease. Denies any hematochezia, hematemesis, hemoptysis, nosebleeds, hematuria or any easy bleeding. Obtain iron panel.
[2019-05-09 17:21] LABS: ANION GAP 8 (5-19); BLOOD UREA NITROGEN 7 mg/dL (7-20); CARBON DIOXIDE 24 mmol/L (22-30); CHLORIDE 102 mmol/L (98-107); GLUCOSE 86 mg/dL (75-110); POTASSIUM 4.3 mmol/L (3.6-5.0)
[2019-05-09] MEDS: LORAZEPAM INJ 2 MG/1 ML VIAL IV PRN (22:48)
[2019-05-09] MEDS: TEMAZEPAM 7.5 MG CAPSULE PO PRN (22:48)
[2019-05-10] MEDS: VANCOMYCIN HCL 1,000 MG in DEXTROSE 5%-WATER 250 ML IV SCH ×3 (05:48→22:32)
[2019-05-10 06:31] LABS: ABSOLUTE BASOPHILS # (AUTO) 0.1 10^3/uL (0.0-0.2); ABSOLUTE EOSINOPHILS # (AUTO) 0.3 10^3/uL (0.0-0.6); ABSOLUTE LYMPHOCYTES (AUTO) 1.6 10^3/uL (0.5-4.7); ABSOLUTE MONOCYTES (AUTO) 0.7 10^3/uL (0.1-1.4); ABSOLUTE NEUT (AUTO) 4.7 10^3/uL (1.7-8.2); ABSOLUTE RETICS # 0.061 10^6/uL (0.028-0.122); BASOPHILS % (AUTO) 0.8 % (0-2); EOSINOPHILS % (AUTO) 3.7 % (0-6); HEMOGLOBIN 9.4 g/dL (13.5-17.0); LYMPHOCYTES % (AUTO) 21.6 % (13-45); MEAN CORPUSCULAR HEMOGLOBIN 24.2 pg (27.0-33.4); MEAN CORPUSCULAR HGB CONC 33.5 g/dL (32.0-36.0); MEAN CORPUSCULAR VOLUME 72 fl (80-97); MONOCYTES % (AUTO) 9.1 % (3-13); PLATELET COUNT 330 10^3/uL (150-450); RED BLOOD COUNT 3.86 10^6/uL (4.35-5.55); RED CELL DISTRIBUTION WIDTH 15.5 % (11.5-14.0); RETICULOCYTE COUNT (AUTO) 1.57 % (0.66-2.85); SEGMENTED NEUTROPHILS % (AUTO) 64.8 % (42-78); TOTAL CELLS COUNTED % (AUTO) 100 %; WHITE BLOOD COUNT 7.3 10^3/uL (4.0-10.5)
[2019-05-10 06:51] LABS: ALBUMIN 3.1 g/dL (3.5-5.0); ALKALINE PHOSPHATASE 72 U/L (38-126); ANION GAP 10 (5-19); ASPARTATE AMINO TRANSFERASE 20 U/L (17-59); BILIRUBIN,DIRECT 0.2 mg/dL (0.0-0.4); BILIRUBIN,TOTAL 0.3 mg/dL (0.2-1.3); BLOOD UREA NITROGEN 9 mg/dL (7-20); CALCIUM 9.4 mg/dL (8.4-10.2); CARBON DIOXIDE 22 mmol/L (22-30); CHLORIDE 104 mmol/L (98-107); GLUCOSE 98 mg/dL (75-110); POTASSIUM 4.3 mmol/L (3.6-5.0); TOTAL PROTEIN 6.4 g/dL (6.3-8.2)
[2019-05-10 06:57] LABS: VANCOMYCIN,TROUGH 16.6 ug/mL (5.0-20.0)
[2019-05-10] MEDS: CEFTRIAXONE 1 GM/D5W RTU 1 GM/50 ML RTUPB IV SCH (07:59)
[2019-05-10] MEDS ORDERED: INFLUENZA QUAD (6MOS+) 2019-20 VAC 0.5 ML SYR IM ONE (08:00)
[2019-05-10] MEDS: ENOXAPARIN SODIUM INJ 40 MG/0.4 ML DISP.SYRIN SUBCUT SCH (10:17)
[2019-05-10] MEDS: FAMOTIDINE 20 MG TABLET PO SCH ×2 (10:17→22:35)
[2019-05-10] MEDS: DOCUSATE SODIUM 100 MG CAPSULE PO SCH ×2 (10:17→17:54)
--- NOTE | 2019-05-10 10:48 | PDOC PROGRESS REPORT ---
Subjective Progress Note for:: 05/10/19 Subjective:: 23-year-old male with past medical history of IV drug abuse, endocarditis status post aortic valve replacement, hypertension, anemia, viral meningitis and thrombocytopenia to ED by EMS, as per EMS they were called by the patient attempting to get him and drink, when he presented to his room he was found on the floor confused. In ED he was found to be mildly hypotensive tachycardic, febrile, with elevated lactic acid, hospital was consulted for admission. On my encounter patient is awake however very altered, alert, only oriented to self, does not provide much history, does not seem to be in any apparent distress however seems to be hypervigilant. 05/09/2019. No acute events overnight. Much improvement of mental status since yesterday. Patient alert oriented x3, endorsing history of continuous IV drug abuse. Has been injecting cocaine. Denies any fever, chills, nausea, vomiting, diarrhea, constipation or any urinary symptoms. Ambulatory, p.o. tolerant having normal bowel and bladder movements. 05/10/2019. No acute events overnight. Alert oriented x3, denies any fever, chills, nausea, vomiting, diarrhea, constipation or any urinary symptoms. P.o. tolerant, plethoric, having normal bowel and bladder movements. Reason For Visit: FEVER, AMS, SIRS Physical Exam Vital Signs: Temp Pulse Resp BP Pulse Ox 98.5 F 90 16 101/71 100 05/10/19 09:05 05/10/19 09:05 05/10/19 09:05 05/10/19 09:05 05/10/19 09:05 Intake & Output 05/09/19 05/10/19 05/11/19 06:59 06:59 06:59 Intake Total 2850 2783 300 Output Total 500 3025 Balance 2350 -242 300 Weight 60.8 kg 60.3 kg General appearance: PRESENT: no acute distress, well-developed, well-nourished Head exam: PRESENT: atraumatic, normocephalic Eye exam: PRESENT: conjunctiva pink, EOMI, PERRLA. ABSENT: scleral icterus Ear exam: PRESENT: normal external ear exam Mouth exam: PRESENT: moist, tongue midline Neck exam: ABSENT: carotid bruit, JVD, lymphadenopathy, thyromegaly Respiratory exam: PRESENT: clear to auscultation cassandra. ABSENT: rales, rhonchi, wheezes Cardiovascular exam: PRESENT: RRR, systolic murmur. ABSENT: diastolic murmur, rubs Pulses: PRESENT: normal dorsalis pedis pul Vascular exam: PRESENT: normal capillary refill GI/Abdominal exam: PRESENT: normal bowel sounds, soft. ABSENT: distended, guarding, mass, organolmegaly, rebound, tenderness Rectal exam: PRESENT: deferred Extremities exam: PRESENT: full ROM. ABSENT: calf tenderness, clubbing, pedal edema Neurological exam: PRESENT: alert, awake, oriented to person, oriented to place, oriented to time, oriented to situation, CN II-XII grossly intact. ABSENT: motor sensory deficit Psychiatric exam: PRESENT: appropriate affect, normal mood. ABSENT: homicidal ideation, suicidal ideation Skin exam: PRESENT: dry, intact, warm. ABSENT: cyanosis, rash Results Laboratory Results: 05/10/19 05:43 05/10/19 05:43 05/09/19 05/10/19 05/10/19 16:06 05:43 05:43 WBC 7.3 RBC 3.86 L Hgb 9.4 L Hct 28.0 L MCV 72 L MCH 24.2 L MCHC 33.5 RDW 15.5 H Plt Count 330 Seg Neutrophils % 64.8 Retic Count (auto) 1.57 Sodium 134.4 L 136.0 L Potassium 4.3 4.3 Chloride 102 104 Carbon Dioxide 24 22 Anion Gap 8 10 BUN 7 9 Creatinine 0.82 0.87 Est GFR ( Amer) > 60 > 60 Est GFR (Non-Af Amer) Glucose 86 98 Calcium 9.0 9.4 Magnesium 2.1 Iron 61.0 TIBC 239 L % Saturation 26 Ferritin 226.00 Total Bilirubin 0.3 AST 20 Alkaline Phosphatase 72 Total Protein 6.4 Albumin 3.1 L Vitamin B12 655.0 Folate 7.90 05/10/19 05:43 WBC RBC Hgb Hct MCV MCH MCHC RDW Plt Count Seg Neutrophils % Retic Count (auto) Sodium Potassium Chloride Carbon Dioxide Anion Gap BUN Creatinine Cancelled Est GFR ( Amer) Cancelled Est GFR (Non-Af Amer) Cancelled Glucose Calcium Magnesium Iron TIBC % Saturation Ferritin Total Bilirubin AST Alkaline Phosphatase Total Protein Albumin Vitamin B12 Folate Impressions: Chest X-Ray 05/08/19 14:07 IMPRESSION: NO ACUTE RADIOGRAPHIC FINDING IN THE CHEST. Head CT 05/08/19 14:08 IMPRESSION: NORMAL BRAIN CT WITHOUT CONTRAST. EVIDENCE OF ACUTE STROKE: NO. Assessment and Plan - Diagnosis (1) Bacteremia Is this a current diagnosis for this admission?: Yes Plan: Most likely due to continuous IV drug abuse. Modified Cobb criteria positive for 1 major and 3 minor criterions. Given history of endocarditis and aortic valve replacement and positive cobb's criteria I am concerned for another endocarditis. Day 3 IV antibiotics. Day 3 IV vancomycin. Day 3 IV ceftriaxone. Blood cultures are growing gram-positive cocci and Streptococcus. Pending RENEE to rule out endocarditis. Continue empiric IV antibiotics, repeat blood culture. Follow up blood culture and RENEE. (2) SIRS (systemic inflammatory response syndrome) Is this a current diagnosis for this admission?: Yes Plan: Resolved. Evidenced by tachycardia, fever, elevated lactic acid. Most likely due to underlying infectious process. (3) Acute encephalopathy Is this a current diagnosis for this admission?: Yes Plan: Resolved. Acute toxic encephalopathy most likely to to polysubstance abuse. Continue ICU and monitor for withdrawals. (4) Polysubstance abuse Is this a current diagnosis for this admission?: Yes Plan: History of polysubstance abuse. Unfortunately patient is still has polysubstance abuse. Endorses cocaine injection. Urine tox positive for cocaine, opiates and marijuana. Monitor for withdrawal. Supportive measures. (5) S/P AVR (aortic valve replacement) Is this a current diagnosis for this admission?: Yes Plan: History of MRSA endocarditis. Recent aortic valve replacement due to infective endocarditis. (6) Anemia Qualifiers: Anemia type: iron deficiency Is this a current diagnosis for this admission?: Yes
[2019-05-10 17:06] LABS: ANION GAP 11 (5-19); BLOOD UREA NITROGEN 10 mg/dL (7-20); CALCIUM 9.5 mg/dL (8.4-10.2); CARBON DIOXIDE 25 mmol/L (22-30); CHLORIDE 104 mmol/L (98-107); GLUCOSE 95 mg/dL (75-110); POTASSIUM 4.1 mmol/L (3.6-5.0)
[2019-05-10] MEDS ORDERED: METOPROLOL TARTRATE PF/INJ 5 MG/5 ML SDV IV PRN (21:17)
[2019-05-10] MEDS ORDERED: NICOTINE 21 MG/24 HR PATCH.TD24 TD PRN (21:19)
[2019-05-10] MEDS: TEMAZEPAM 7.5 MG CAPSULE PO PRN (22:35)
--- NOTE | 2019-05-11 00:27 | EKG REPORT ---
SEVERITY:- ABNORMAL ECG - SINUS RHYTHM CONSIDER LEFT VENTRICULAR HYPERTROPHY ST ELEV, PROBABLE NORMAL EARLY REPOL PATTERN : Confirmed by: Pepper Newton 11-May-2019 00:26:12
[2019-05-11] MEDS: VANCOMYCIN HCL 1,000 MG in DEXTROSE 5%-WATER 250 ML IV SCH ×3 (05:16→21:11)
[2019-05-11 05:48] LABS: ABSOLUTE BASOPHILS # (AUTO) 0.1 10^3/uL (0.0-0.2); ABSOLUTE EOSINOPHILS # (AUTO) 0.3 10^3/uL (0.0-0.6); ABSOLUTE LYMPHOCYTES (AUTO) 1.8 10^3/uL (0.5-4.7); ABSOLUTE MONOCYTES (AUTO) 0.7 10^3/uL (0.1-1.4); ABSOLUTE NEUT (AUTO) 4.6 10^3/uL (1.7-8.2); BASOPHILS % (AUTO) 0.9 % (0-2); EOSINOPHILS % (AUTO) 3.4 % (0-6); HEMATOCRIT 28.9 % (37.9-51.0); HEMOGLOBIN 9.5 g/dL (13.5-17.0); LYMPHOCYTES % (AUTO) 23.9 % (13-45); MEAN CORPUSCULAR HEMOGLOBIN 23.9 pg (27.0-33.4); MEAN CORPUSCULAR HGB CONC 32.9 g/dL (32.0-36.0); MEAN CORPUSCULAR VOLUME 73 fl (80-97); MONOCYTES % (AUTO) 9.2 % (3-13); PLATELET COUNT 377 10^3/uL (150-450); RED BLOOD COUNT 3.99 10^6/uL (4.35-5.55); RED CELL DISTRIBUTION WIDTH 15.7 % (11.5-14.0); SEGMENTED NEUTROPHILS % (AUTO) 62.6 % (42-78); TOTAL CELLS COUNTED % (AUTO) 100 %; WHITE BLOOD COUNT 7.4 10^3/uL (4.0-10.5)
[2019-05-11 06:15] LABS: ALBUMIN 3.3 g/dL (3.5-5.0); ALKALINE PHOSPHATASE 78 U/L (38-126); ANION GAP 11 (5-19); ASPARTATE AMINO TRANSFERASE 24 U/L (17-59); BILIRUBIN,DIRECT 0.2 mg/dL (0.0-0.4); BILIRUBIN,TOTAL 0.3 mg/dL (0.2-1.3); BLOOD UREA NITROGEN 12 mg/dL (7-20); CALCIUM 9.6 mg/dL (8.4-10.2); CARBON DIOXIDE 23 mmol/L (22-30); CHLORIDE 104 mmol/L (98-107); GLUCOSE 96 mg/dL (75-110); POTASSIUM 4.3 mmol/L (3.6-5.0); TOTAL PROTEIN 6.8 g/dL (6.3-8.2)
[2019-05-11] MEDS: CEFTRIAXONE 1 GM/D5W RTU 1 GM/50 ML RTUPB IV SCH (08:50)
[2019-05-11] MEDS: FAMOTIDINE 20 MG TABLET PO SCH ×2 (10:12→21:11)
[2019-05-11] MEDS: DOCUSATE SODIUM 100 MG CAPSULE PO SCH ×2 (10:12→17:50)
[2019-05-11] MEDS: ENOXAPARIN SODIUM INJ 40 MG/0.4 ML DISP.SYRIN SUBCUT SCH (10:12)
--- NOTE | 2019-05-11 11:02 | PDOC PROGRESS REPORT ---
Subjective Progress Note for:: 05/11/19 Subjective:: 23-year-old male with past medical history of IV drug abuse, endocarditis status post aortic valve replacement, hypertension, anemia, viral meningitis and thrombocytopenia to ED by EMS, as per EMS they were called by the patient attempting to get him and drink, when he presented to his room he was found on the floor confused. In ED he was found to be mildly hypotensive tachycardic, febrile, with elevated lactic acid, hospital was consulted for admission. On my encounter patient is awake however very altered, alert, only oriented to self, does not provide much history, does not seem to be in any apparent distress however seems to be hypervigilant. 05/09/2019. No acute events overnight. Much improvement of mental status since yesterday. Patient alert oriented x3, endorsing history of continuous IV drug abuse. Has been injecting cocaine. Denies any fever, chills, nausea, vomiting, diarrhea, constipation or any urinary symptoms. Ambulatory, p.o. tolerant having normal bowel and bladder movements. 05/10/2019. No acute events overnight. Alert oriented x3, denies any fever, chills, nausea, vomiting, diarrhea, constipation or any urinary symptoms. P.o. tolerant, having normal bowel and bladder movements. 05/11/2019. No acute events overnight. Alert oriented x3, denies any fever, chills, nausea, vomiting, diarrhea, constipation or any urinary symptoms. P.o. tolerant, ambulatory, having normal bowel and bladder movements. Reason For Visit: FEVER, AMS, SIRS Physical Exam Vital Signs: Temp Pulse Resp BP Pulse Ox 98.5 F 121 H 16 103/52 L 96 05/11/19 08:09 05/11/19 08:21 05/11/19 08:21 05/11/19 08:09 05/11/19 08:21 Intake & Output 05/10/19 05/11/19 05/12/19 06:59 06:59 06:59 Intake Total 2783 1460 250 Output Total 3025 650 Balance -242 810 250 Weight 60.3 kg 60.6 kg General appearance: PRESENT: no acute distress, well-developed, well-nourished Head exam: PRESENT: atraumatic, normocephalic Eye exam: PRESENT: conjunctiva pink, EOMI, PERRLA. ABSENT: scleral icterus Ear exam: PRESENT: normal external ear exam Mouth exam: PRESENT: moist, tongue midline Neck exam: ABSENT: carotid bruit, JVD, lymphadenopathy, thyromegaly Respiratory exam: PRESENT: clear to auscultation cassandra. ABSENT: rales, rhonchi, wheezes Cardiovascular exam: PRESENT: RRR, systolic murmur. ABSENT: diastolic murmur, rubs Pulses: PRESENT: normal dorsalis pedis pul Vascular exam: PRESENT: normal capillary refill GI/Abdominal exam: PRESENT: normal bowel sounds, soft. ABSENT: distended, guarding, mass, organolmegaly, rebound, tenderness Rectal exam: PRESENT: deferred Extremities exam: PRESENT: full ROM. ABSENT: calf tenderness, clubbing, pedal edema Neurological exam: PRESENT: alert, awake, oriented to person, oriented to place, oriented to time, oriented to situation, CN II-XII grossly intact. ABSENT: motor sensory deficit Psychiatric exam: PRESENT: appropriate affect, normal mood. ABSENT: homicidal ideation, suicidal ideation Skin exam: PRESENT: dry, intact, warm. ABSENT: cyanosis, rash Results Laboratory Results: 05/11/19 04:44 05/11/19 04:44 05/10/19 05/11/19 05/11/19 16:30 04:44 04:44 WBC 7.4 RBC 3.99 L Hgb 9.5 L Hct 28.9 L MCV 73 L MCH 23.9 L MCHC 32.9 RDW 15.7 H Plt Count 377 Seg Neutrophils % 62.6 Sodium 139.6 138.1 Potassium 4.1 4.3 Chloride 104 104 Carbon Dioxide 25 23 Anion Gap 11 11 BUN 10 12 Creatinine 0.96 0.92 Est GFR ( Amer) > 60 > 60 Glucose 95 96 Calcium 9.5 9.6 Magnesium 2.1 Total Bilirubin 0.3 AST 24 Alkaline Phosphatase 78 Total Protein 6.8 Albumin 3.3 L Impressions: Chest X-Ray 05/08/19 14:07 IMPRESSION: NO ACUTE RADIOGRAPHIC FINDING IN THE CHEST. Head CT 05/08/19 14:08 IMPRESSION: NORMAL BRAIN CT WITHOUT CONTRAST. EVIDENCE OF ACUTE STROKE: NO. Assessment and Plan - Diagnosis (1) Bacteremia Is this a current diagnosis for this admission?: Yes Plan: Most likely due to continuous IV drug abuse. Modified Cobb criteria positive for 1 major and 3 minor criterions. Given history of endocarditis and aortic valve replacement and positive cobb's criteria I am concerned for another endocarditis. Day 4 IV antibiotics. Day 4 IV vancomycin. Day 4 IV ceftriaxone. Blood cultures are growing gram-positive cocci and Streptococcus. Pending RENEE to rule out endocarditis. Continue empiric IV antibiotics, repeat blood culture. Follow up blood culture and RENEE. (2) SIRS (systemic inflammatory response syndrome) Is this a current diagnosis for this admission?: Yes Plan: Resolved. Evidenced by tachycardia, fever, elevated lactic acid. Most likely due to underlying infectious process. (3) Acute encephalopathy Is this a current diagnosis for this admission?: Yes Plan: Resolved. Acute toxic encephalopathy most likely to to polysubstance abuse. Continue ICU and monitor for withdrawals. (4) Polysubstance abuse Is this a current diagnosis for this admission?: Yes Plan: History of polysubstance abuse. Unfortunately patient is still has polysubstance abuse. Endorses cocaine injection. Urine tox positive for cocaine, opiates and marijuana. Monitor for withdrawal. Supportive measures. (5) S/P AVR (aortic valve replacement) Is this a current diagnosis for this admission?: Yes Plan: History of MRSA endocarditis. Recent aortic valve replacement due to infective endocarditis. (6) Anemia Qualifiers: Anemia type: iron deficiency Is this a current diagnosis for this admission?: Yes Plan: Likely anemia of chronic disease. Denies any hematochezia, hematemesis, hemoptysis, nosebleeds, hematuria or any easy bleeding. Obtain iron panel.
[2019-05-11] MEDS: TEMAZEPAM 7.5 MG CAPSULE PO PRN (21:21)
[2019-05-12] MEDS: VANCOMYCIN HCL 1,000 MG in DEXTROSE 5%-WATER 250 ML IV SCH ×3 (05:00→21:21)
[2019-05-12] MEDS: CEFTRIAXONE 1 GM/D5W RTU 1 GM/50 ML RTUPB IV SCH (08:33)
--- NOTE | 2019-05-12 10:21 | PDOC PROGRESS REPORT ---
Subjective Progress Note for:: 05/12/19 Subjective:: 23-year-old male with past medical history of IV drug abuse, endocarditis status post aortic valve replacement, hypertension, anemia, viral meningitis and thrombocytopenia to ED by EMS, as per EMS they were called by the patient attempting to get him and drink, when he presented to his room he was found on the floor confused. In ED he was found to be mildly hypotensive tachycardic, febrile, with elevated lactic acid, hospital was consulted for admission. On my encounter patient is awake however very altered, alert, only oriented to self, does not provide much history, does not seem to be in any apparent distress however seems to be hypervigilant. 05/09/2019. No acute events overnight. Much improvement of mental status since yesterday. Patient alert oriented x3, endorsing history of continuous IV drug abuse. Has been injecting cocaine. Denies any fever, chills, nausea, vomiting, diarrhea, constipation or any urinary symptoms. Ambulatory, p.o. tolerant having normal bowel and bladder movements. 05/10/2019. No acute events overnight. Alert oriented x3, denies any fever, chills, nausea, vomiting, diarrhea, constipation or any urinary symptoms. P.o. tolerant, having normal bowel and bladder movements. 05/11/2019. No acute events overnight. Alert oriented x3, denies any fever, chills, nausea, vomiting, diarrhea, constipation or any urinary symptoms. P.o. tolerant, ambulatory, having normal bowel and bladder movements. 05/12/2019. No acute events overnight. Alert oriented x3, denies any fever, chills, nausea, vomiting, diarrhea, constipation or any urinary symptoms. P.o. tolerant, ambulatory, normal bowel and bladder movements. Pending RENEE tomorrow. Blood culture positive for strep viridans. Reason For Visit: FEVER, AMS, SIRS Physical Exam Vital Signs: Temp Pulse Resp BP Pulse Ox 98.5 F 80 17 108/59 L 100 05/12/19 08:17 05/12/19 08:17 05/12/19 08:17 05/12/19 08:17 05/12/19 08:17 Intake & Output 05/11/19 05/12/19 05/13/19 06:59 06:59 06:59 Intake Total 1460 2523 250 Output Total 650 1640 Balance 810 883 250 Weight 60.6 kg 56.8 kg General appearance: PRESENT: no acute distress, well-developed, well-nourished Head exam: PRESENT: atraumatic, normocephalic Eye exam: PRESENT: conjunctiva pink, EOMI, PERRLA. ABSENT: scleral icterus Ear exam: PRESENT: normal external ear exam Mouth exam: PRESENT: moist, tongue midline Teeth exam: PRESENT: dental caries, poor dentation Neck exam: ABSENT: carotid bruit, JVD, lymphadenopathy, thyromegaly Respiratory exam: PRESENT: clear to auscultation cassandra. ABSENT: rales, rhonchi, wheezes Cardiovascular exam: PRESENT: RRR, systolic murmur. ABSENT: diastolic murmur, rubs Pulses: PRESENT: normal dorsalis pedis pul Vascular exam: PRESENT: normal capillary refill GI/Abdominal exam: PRESENT: normal bowel sounds, soft. ABSENT: distended, guard ing, mass, organolmegaly, rebound, tenderness Rectal exam: PRESENT: deferred Extremities exam: PRESENT: full ROM. ABSENT: calf tenderness, clubbing, pedal edema Neurological exam: PRESENT: alert, awake, oriented to person, oriented to place, oriented to time, oriented to situation, CN II-XII grossly intact. ABSENT: motor sensory deficit Psychiatric exam: PRESENT: appropriate affect, normal mood. ABSENT: homicidal ideation, suicidal ideation Skin exam: PRESENT: dry, intact, warm. ABSENT: cyanosis, rash Results Laboratory Results: 05/11/19 04:44 05/11/19 04:44 05/08/19 15:00 Blood Blood Culture (PCR) - Final Streptococcus Species 05/08/19 15:00 Blood Blood Culture - Final Viridans Strep Group 05/08/19 13:19 Blood Blood Culture (PCR) - Final Streptococcus Species 05/08/19 13:19 Blood Blood Culture - Final Viridans Strep Group Impressions: Chest X-Ray 05/08/19 14:07 IMPRESSION: NO ACUTE RADIOGRAPHIC FINDING IN THE CHEST. Head CT 05/08/19 14:08 IMPRESSION: NORMAL BRAIN CT WITHOUT CONTRAST. EVIDENCE OF ACUTE STROKE: NO. Assessment and Plan - Diagnosis (1) Bacteremia Is this a current diagnosis for this admission?: Yes Plan: Most likely due to continuous IV drug abuse. Patient also have very poor digital hygiene. Modified Cobb criteria positive for 1 major and 3 minor criterions. Given history of endocarditis and aortic valve replacement and positive cobb's criteria I am concerned for another endocarditis. Day 5 IV antibiotics. Day 5 IV vancomycin. Day 5 IV ceftriaxone. Blood culture positive 2/2 strep viridans. Pending RENEE to rule out endocarditis. Continue empiric IV antibiotics, repeat blood culture. Follow up blood culture and RENEE. Patient will need outpatient dentist follow-up for his extensive dental caries and poor hygiene. (2) SIRS (systemic inflammatory response syndrome) Is this a current diagnosis for this admission?: Yes Plan: Resolved. Evidenced by tachycardia, fever, elevated lactic acid. Most likely due to underlying infectious process. (3) Acute encephalopathy Is this a current diagnosis for this admission?: Yes Plan: Resolved. Acute toxic encephalopathy most likely to to polysubstance abuse. Continue ICU and monitor for withdrawals. (4) Polysubstance abuse Is this a current diagnosis for this admission?: Yes Plan: History of polysubstance abuse. Unfortunately patient is still has polysubstance abuse. Endorses cocaine injection. Urine tox positive for cocaine, opiates and marijuana. Monitor for withdrawal. Supportive measures. (5) S/P AVR (aortic valve replacement) Is this a current diagnosis for this admission?: Yes Plan: History of MRSA endocarditis. Recent aortic valve replacement due to infective endocarditis. (6) Anemia Qualifiers: Anemia type: iron deficiency Is this a current diagnosis for this admission?: Yes Plan: Likely anemia of chronic disease. Denies any hematochezia, hematemesis, hemoptysis, nosebleeds, hematuria or any easy bleeding. Obtain iron panel.
[2019-05-12] MEDS: DOCUSATE SODIUM 100 MG CAPSULE PO SCH ×2 (11:00→18:59)
[2019-05-12] MEDS: LORAZEPAM INJ 2 MG/1 ML VIAL IV PRN (11:55)
[2019-05-12] MEDS: FAMOTIDINE 20 MG TABLET PO SCH ×2 (11:56→21:21)
[2019-05-12] MEDS: ENOXAPARIN SODIUM INJ 40 MG/0.4 ML DISP.SYRIN SUBCUT SCH (11:56)
[2019-05-12] MEDS: TEMAZEPAM 7.5 MG CAPSULE PO PRN (21:33)
[2019-05-12] MEDS: ACETAMINOPHEN 325 MG TABLET PO PRN (21:33)
[2019-05-13] MEDS: VANCOMYCIN HCL 1,000 MG in DEXTROSE 5%-WATER 250 ML IV SCH ×3 (05:14→21:19)
[2019-05-13] MEDS: LORAZEPAM INJ 2 MG/1 ML VIAL IV PRN ×2 (08:50→18:18)
[2019-05-13] MEDS: CEFTRIAXONE 1 GM/D5W RTU 1 GM/50 ML RTUPB IV SCH (08:50)
[2019-05-13] MEDS: FAMOTIDINE 20 MG TABLET PO SCH ×2 (11:00→21:19)
[2019-05-13] MEDS: ENOXAPARIN SODIUM INJ 40 MG/0.4 ML DISP.SYRIN SUBCUT SCH (11:00)
[2019-05-13] MEDS: DOCUSATE SODIUM 100 MG CAPSULE PO SCH ×2 (11:00→18:09)
[2019-05-13] MEDS ORDERED: CLONAZEPAM 1 MG TABLET PO PRN (11:52)
[2019-05-13] MEDS: OXYCODONE-ACETAMINOPHEN 5-325 MG TABLET PO PRN (12:48)
[2019-05-13] MEDS ORDERED: DIPHENHYDRAMINE HCL 50 MG/ML VIAL ONE (14:00)
[2019-05-13] MEDS ORDERED: LIDOCAINE 2% VISCOUS SOLN 20 ML UDCUP ONE (14:00)
[2019-05-13] MEDS ORDERED: NALOXONE HCL INJ/PF 0.4 MG/1 ML SDV ONE (14:01)
[2019-05-13] MEDS ORDERED: FENTANYL CITRATE INJ/PF 100 MCG/2 ML AMPUL ONE (14:01)
[2019-05-13] MEDS ORDERED: BENZOCAINE 20% AEROSOL SPRAY 60 GM ONE (14:01)
[2019-05-13] MEDS ORDERED: MIDAZOLAM 2 MG/2 ML INJ ONE (14:01)
[2019-05-13] MEDS ORDERED: FLUMAZENIL INJ 0.5 MG/5 ML VIAL ONE (14:01)
--- NOTE | 2019-05-13 16:02 | XCELERA REPORT ---
Study ID: [id number] [id number] Transesophageal Echocardiogram Report Name: DONAVAN FALCON Age: 23 yrs Gender: Male : 1995 Patient Status: Inpatient Patient Location: [address] [place], [place] [address] Study Date: 05/13/2019 01:58 PM History: IV Drug use, AVR Height: 72 in Weight: 134 lb BSA: 1.8 m2 Reason For Study: ENDOCARDITIS Ordering Physician: ROSETTA KOROMA Performed By: Antonina Campbell Interpretation Summary Left ventricular systolic function is normal. The right ventricle is normal in size and function. There is no vegetation seen on the mitral valve. There is mild to moderate mitral regurgitation. Vegetations are present on this prosthetic aortic valve. 1.26 cm X 0.91 cm vegetation noted on aortic prosthesis. There is no pericardial effusion. Procedure A complete two-dimensional transesophageal echocardiogram was performed (2D, spectral and color flow Doppler). Informed consent for Transesophageal Echocardiogram, and use of a contrast agent as needed, was obtained prior to the procedure. The patient was brought to the Endoscopy in a fasting state. An intravenous line was placed. A topical anesthetic agent was used for oropharangeal anesthesia. A bite block was inserted. IV conscious sedation was administered using Midazolam abd Fentanyl. The patient's vital signs, including blood pressure, heart rate, pulse oximetry and cardiac rhythm were monitored thoughout the procedure. A multifrequency, mutliplane transesophageal echocardiographic endoscope was inserted and manipulated in the standard fashion to achieve multiplane views. The transesophageal probe was passed without difficulty. The usual views were obtained; basal, mid- esophageal, transgastric and aortic views. The patient tolerated the procedure well without evidence of orophangeal or esophageal trauma. Subsequent to all the images being obtained the probe was removed with out trauma. Left Ventricle The left ventricle is grossly normal size. There is normal left ventricular wall thickness. Left ventricular systolic function is normal. Ejection Fraction = >55%. No regional wall motion abnormalities noted. Right Ventricle The right ventricle is normal in size and function. Atria The interatrial septum is intact with no evidence for an atrial septal defect. Mitral Valve The mitral valve is grossly normal. The mitral valve leaflets are thickened and redundant without clear evidence of mitral valve prolapse. There is no vegetation seen on the mitral valve. There is no mitral valve stenosis. There is mild to moderate mitral regurgitation. Tricuspid Valve The tricuspid valve is normal in structure and function. There is no tricuspid valve vegetation. Aortic Valve Trace aortic regurgitation. Vegetations are present on this prosthetic aortic valve. 1.26 cm X 0.91 cm vegetation noted on aortic prosthesis. Pulmonic Valve The pulmonic valve is not well visualized. There is no pulmonic valvular regurgitation. Arteries The aortic root is normal size. Pericardium There is no pericardial effusion. : ROSETTA KOROMA Anil
[2019-05-13] MEDS: ACETAMINOPHEN 325 MG TABLET PO PRN (18:19)
--- NOTE | 2019-05-13 19:26 | PDOC PROGRESS REPORT ---
Subjective Progress Note for:: 05/13/19 Subjective:: The patient is a 23-year-old male with a past medical history of IV drug abuse, endocarditis status post aortic valve replacement, hypertension, anemia, viral meningitis, and thrombocytopenia who was admitted 05/08/2019 for Altered mental status; likely polysubstance abuse. Patient was seen on morning rounds. He was found resting in bed comfortably, lying supine, on room air. He reports that he is feeling well and is hopeful to be discharged to home soon. He denies all complaints of fever, chills, chest pain, palpitations, dyspnea, orthopnea, abdominal pain, nausea vomiting and diarrhea. He has no questions or concerns at this time; awaiting RENEE this afternoon. Reason For Visit: FEVER, AMS, SIRS Physical Exam Vital Signs: Temp Pulse Resp BP Pulse Ox 98.6 F 97 16 97/55 L 98 05/13/19 16:00 05/13/19 16:00 05/13/19 16:00 05/13/19 16:00 05/13/19 16:00 Intake & Output 05/12/19 05/13/19 05/14/19 06:59 06:59 06:59 Intake Total 2523 2601 420 Output Total 1640 1815 Balance 883 786 420 Weight 56.8 kg 59.5 kg General appearance: PRESENT: no acute distress, cooperative, thin, well- developed Head exam: PRESENT: atraumatic, normocephalic Eye exam: PRESENT: conjunctiva pink, EOMI, PERRLA. ABSENT: scleral icterus Mouth exam: PRESENT: moist, tongue midline Teeth exam: PRESENT: poor dentation Respiratory exam: PRESENT: clear to auscultation cassandra, symmetrical, unlabored. ABSENT: rales, rhonchi, wheezes Cardiovascular exam: PRESENT: RRR, +S1, +S2, systolic murmur. ABSENT: diastolic murmur, rubs Pulses: PRESENT: normal dorsalis pedis pul Vascular exam: PRESENT: normal capillary refill GI/Abdominal exam: PRESENT: normal bowel sounds, soft. ABSENT: distended, guarding, mass, organolmegaly, rebound, tenderness Rectal exam: PRESENT: deferred Extremities exam: PRESENT: full ROM. ABSENT: calf tenderness, clubbing, pedal edema Neurological exam: PRESENT: alert, awake, oriented to person, oriented to place, oriented to time, oriented to situation, CN II-XII grossly intact. ABSENT: motor sensory deficit Psychiatric exam: PRESENT: appropriate affect, normal mood. ABSENT: homicidal ideation, suicidal ideation Skin exam: PRESENT: dry, intact, warm. ABSENT: cyanosis, rash Results Laboratory Results: 05/11/19 04:44 05/11/19 04:44 Impressions: Chest X-Ray 05/08/19 14:07 IMPRESSION: NO ACUTE RADIOGRAPHIC FINDING IN THE CHEST. Head CT 05/08/19 14:08 IMPRESSION: NORMAL BRAIN CT WITHOUT CONTRAST. EVIDENCE OF ACUTE STROKE: NO. Assessment and Plan - Diagnosis (1) Endocarditis Qualifiers: Endocarditis type: infective Infective endocarditis organism: bacterial Chronicity: acute Qualified Code(s): I33.0 - Acute and subacute infective endocarditis Is this a current diagnosis for this admission?: Yes Plan: RENEE today confirms vegetation to his Prosthetic aortic valve measuring 1.26 cm x 0.91 cm. LVEF is normal. There is no vegetation noted on the mitral valve. Blood cultures (05/08/2019) revealed strep viridans. Repeat blood cultures 05/09/2019 are negative at 4 days. Continue IV vancomycin and ceftriaxone. Day #5. Infectious disease consulted. (2) Bacteremia Is this a current diagnosis for this admission?: Yes Plan: Most likely due to continuous IV drug abuse. Patient also have very poor digital hygiene. Blood culture positive 2/2 strep viridans. RENEE confirms endocarditis Continue empiric IV antibiotics Infectious diseases consulted. Patient will need outpatient dentist follow-up for his extensive dental caries and poor hygiene. (3) Anemia Qualifiers: Anemia type: iron deficiency Is this a current diagnosis for this admission?: Yes Plan: Likely anemia of chronic disease. Likely related to poor overall nutrition (BMI 17.8, IV drug use) and possibly prosthetic valve. Denies any hematochezia, hematemesis, hemoptysis, nosebleeds, hematuria or any easy bleeding. Anemia panel is benign. (4) Acute encephalopathy Is this a current diagnosis for this admission?: Yes Plan: Resolved. Acute toxic encephalopathy most likely to to polysubstance abuse. (5) SIRS (systemic inflammatory response syndrome) Is this a current diagnosis for this admission?: Yes Plan: Resolved. Evidenced by tachycardia, fever, elevated lactic acid. Most likely due to bacteremia/endocarditis. (6) Polysubstance abuse Is this a current diagnosis for this admission?: Yes Plan: History of polysubstance abuse. Unfortunately patient is still has polysubstance abuse. Endorses cocaine injection. Urine tox positive for cocaine, opiates and marijuana. Monitor for withdrawal. Supportive measures. (7) S/P AVR (aortic valve replacement) Is this a current diagnosis for this admission?: Yes Plan: History of MRSA endocarditis. Recent aortic valve replacement due to infective endocarditis. Now w/ vegitation noted on prosthetic valve. - Time Time Spent with patient: 15-24 minutes Medications reviewed and adjusted accordingly: Yes Anticipated discharge: Home
[2019-05-13] MEDS: TEMAZEPAM 7.5 MG CAPSULE PO PRN (22:30)
[2019-05-14] MEDS: ACETAMINOPHEN 325 MG TABLET PO PRN (00:43)
[2019-05-14 05:03] LABS: HEMATOCRIT 31.6 % (37.9-51.0); HEMOGLOBIN 10.6 g/dL (13.5-17.0); MEAN CORPUSCULAR HEMOGLOBIN 24.5 pg (27.0-33.4); MEAN CORPUSCULAR HGB CONC 33.4 g/dL (32.0-36.0); MEAN CORPUSCULAR VOLUME 73 fl (80-97); PLATELET COUNT 441 10^3/uL (150-450); RED BLOOD COUNT 4.31 10^6/uL (4.35-5.55); RED CELL DISTRIBUTION WIDTH 16.1 % (11.5-14.0); WHITE BLOOD COUNT 10.1 10^3/uL (4.0-10.5)
[2019-05-14] MEDS: VANCOMYCIN HCL 1,000 MG in DEXTROSE 5%-WATER 250 ML IV SCH ×2 (05:11→13:41)
[2019-05-14 05:25] LABS: ANION GAP 12 (5-19); BLOOD UREA NITROGEN 15 mg/dL (7-20); CALCIUM 10.1 mg/dL (8.4-10.2); CARBON DIOXIDE 26 mmol/L (22-30); CHLORIDE 101 mmol/L (98-107); GLUCOSE 101 mg/dL (75-110); POTASSIUM 4.1 mmol/L (3.6-5.0)
[2019-05-14] MEDS: DOCUSATE SODIUM 100 MG CAPSULE PO SCH ×2 (09:51→18:22)
[2019-05-14] MEDS: FAMOTIDINE 20 MG TABLET PO SCH ×2 (09:54→21:42)
[2019-05-14] MEDS: CEFTRIAXONE 1 GM/D5W RTU 1 GM/50 ML RTUPB IV SCH (09:55)
[2019-05-14] MEDS: ENOXAPARIN SODIUM INJ 40 MG/0.4 ML DISP.SYRIN SUBCUT SCH (09:55)
[2019-05-14] MEDS: OXYCODONE-ACETAMINOPHEN 5-325 MG TABLET PO PRN ×2 (13:41→18:26)
--- NOTE | 2019-05-14 14:25 | Progress Note ---
Provider Note Provider Note: ID Consult Note Asked to review patient's chart. Pt not seen or examined. The patient is a 23 year old IV drug user who has a history of a prior aortic valve replacement. He was brought to [facility] on 05/08/19 by EMS who foudn the patient to be febrile, tachypneic, tachycardic and confused. On exam he was noted to have poor dental hygiene, a loud systolic murmur, clear lungs, and a linear scar over the sternum corresponding to prior surgery but no other skin lesions or rashes noted. CXR showed no acute findings. Head CT w/o contrast showed no bleed. Both sets of blood cultures on admission grew viridans group Streptococcus. He was empirically treated with Rocephin 1 gram daily and vancomycin 1 gram q8h IV. On 05/09/19 his mental status was much improved. RENEE on 05/13 showed a vegetation 1.26 x 0.91 cm in size attached to the prosthetic aortic valve. Per most recent notes, pt reported feeling improved with no SOB, no orthopnea, no fever, or abdominal pain. 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 Recommend discontinuing vancomycin and increasing Rocephin dose to 2 grams q 24h. Treatment duration should be 6 weeks; anticipated end date for Rocephin is 06/20/19. While patient is on Rocephin, monitoring CBC and CMP weekly would be advisable. - Recommend against discharge in an unsupervised setting with a PICC line. Although there are some reports of IV drug users being successfully treated with such a strategy, these cases have generally been coupled with intensive substance abuse management, access to which unfortunately tends to be more fragmented in [place] [facility]. - Although retaining the patient in a supervised setting with IV Rocephin is not ideal, the role for oral antibiotics for the patient to treat endocarditis - as explored by the recently published POET trial - is unclear. In the POET study, very few IVDU patients were enrolled (only 5 out of 400), patients received a median of 17 days of IV therapy prior to switch, and there are obvious differences in the healthcare structure and access to medications that are different between the [place] (universal healthcare) and the [place] (pt is self pay) that are limiting factors to generalizing this data to the patient. - Considering that large vegetation size is a factor that has been associated with increased risk for complications, it might be reasonable to discuss the case with CT Surgery at a tertiary care facility, although I doubt there is an indication for early surgery in this patient who is otherwise hemodynamically stable, improving clinically, and responding from a microbiological perspective. Elias Dennis MD [facility] Infectious Diseases pager [phone]
--- NOTE | 2019-05-14 17:58 | PDOC PROGRESS REPORT ---
Subjective Progress Note for:: 05/14/19 Subjective:: The patient is a 23-year-old male with a past medical history of IV drug abuse, endocarditis status post aortic valve replacement, hypertension, anemia, viral meningitis, and thrombocytopenia who was admitted 05/08/2019 for Altered mental status; likely polysubstance abuse. Patient was seen on afternoon rounds. He was found resting in bed comfortably, lying supine, on room air. He reports that he is feeling well, but disappointed in RENEE results. He does admit to fatigue and generalized weakness. He denies all complaints of fever, chills, chest pain, palpitations, dyspnea, orthopnea, abdominal pain, nausea vomiting and diarrhea. He has no questions or concerns at this time. No concerns per nursing. Reason For Visit: FEVER, AMS, SIRS Physical Exam Vital Signs: Temp Pulse Resp BP Pulse Ox 98.0 F 107 H 17 142/81 H 100 05/14/19 15:48 05/14/19 15:48 05/14/19 15:48 05/14/19 15:48 05/14/19 15:48 Intake & Output 05/13/19 05/14/19 05/15/19 06:59 06:59 06:59 Intake Total 2601 920 660 Output Total 1815 150 500 Balance 786 770 160 Weight 59.5 kg 60.3 kg General appearance: PRESENT: no acute distress, cooperative, thin, well- developed Head exam: PRESENT: atraumatic, normocephalic Eye exam: PRESENT: conjunctiva pink, EOMI, PERRLA. ABSENT: scleral icterus Ear exam: PRESENT: normal external ear exam Mouth exam: PRESENT: moist, tongue midline Respiratory exam: PRESENT: clear to auscultation cassandra, symmetrical, unlabored. ABSENT: rales, rhonchi, wheezes Cardiovascular exam: PRESENT: RRR, +S1, +S2, systolic murmur. ABSENT: diastolic murmur, rubs Pulses: PRESENT: normal dorsalis pedis pul Vascular exam: PRESENT: normal capillary refill Rectal exam: PRESENT: deferred Extremities exam: PRESENT: full ROM. ABSENT: calf tenderness, clubbing, pedal edema Neurological exam: PRESENT: alert, awake, oriented to person, oriented to place, oriented to time, oriented to situation, CN II-XII grossly intact. ABSENT: motor sensory deficit Psychiatric exam: PRESENT: appropriate affect, normal mood. ABSENT: homicidal ideation, suicidal ideation Skin exam: PRESENT: dry, intact, warm. ABSENT: cyanosis, rash Results Laboratory Results: 05/14/19 04:32 05/14/19 04:32 05/14/19 05/14/19 04:32 04:32 WBC 10.1 RBC 4.31 L Hgb 10.6 L Hct 31.6 L MCV 73 L MCH 24.5 L MCHC 33.4 RDW 16.1 H Plt Count 441 Sodium 138.8 Potassium 4.1 Chloride 101 Carbon Dioxide 26 Anion Gap 12 BUN 15 Creatinine 0.89 Est GFR ( Amer) > 60 Glucose 101 Calcium 10.1 05/09/19 09:33 Blood Blood Culture - Final NO GROWTH IN 5 DAYS 05/09/19 09:23 Blood Blood Culture - Final NO GROWTH IN 5 DAYS Impressions: Chest X-Ray 05/08/19 14:07 IMPRESSION: NO ACUTE RADIOGRAPHIC FINDING IN THE CHEST. Head CT 05/08/19 14:08 IMPRESSION: NORMAL BRAIN CT WITHOUT CONTRAST. EVIDENCE OF ACUTE STROKE: NO. Assessment and Plan - Diagnosis (1) Endocarditis Qualifiers: Endocarditis type: infective Infective endocarditis organism: bacterial Chronicity: acute Qualified Code(s): I33.0 - Acute and subacute infective endocarditis Is this a current diagnosis for this admission?: Yes Plan: RENEE today confirms vegetation to his Prosthetic aortic valve measuring 1.26 cm x 0.91 cm. LVEF is normal. There is no vegetation noted on the mitral valve. Blood cultures (05/08/2019) revealed strep viridans. Repeat blood cultures 05/09/2019 are negative at 4 days. Vancomycin discontinued Day #5 Infectious disease consulted; have increased Rocephin to 2 gm daily per ID recommendations. Stop date 06/20/19. Spoke w/ the patient's cardiothoracic surgeon at [facility], Dr. Bauer, who did the patient's prosthetic valve replacement surgery 11/15/2018. Dr. Bauer recommends repeat RENEE in 1 week to evaluate vegetation and confirm stability of prosthetic aortic valve. If patient is noted to have worsened regurgitation, contact their facility to arrange for transfer. Otherwise, continue antibiotic therapy as recommended by infectious disease and repeat RENEE again during last week of therapy to confirm clearance; if agitation remains, extend antibiotic treatment course. (2) Bacteremia Is this a current diagnosis for this admission?: Yes Plan: Most likely due to continuous IV drug abuse. Patient also have very poor digital hygiene. Blood culture positive 2/2 strep viridans. RENEE confirms endocarditis Antibiotics as above. Infectious diseases consulted. Patient will need outpatient dentist follow-up for his extensive dental caries and poor hygiene. (3) Anemia Qualifiers: Anemia type: iron deficiency Is this a current diagnosis for this admission?: Yes Plan: Likely anemia of chronic disease. Likely related to poor overall nutrition (BMI 17.8, IV drug use) and possibly prosthetic valve. Denies any hematochezia, hematemesis, hemoptysis, nosebleeds, hematuria or any easy bleeding. Anemia panel is benign. (4) Acute encephalopathy Is this a current diagnosis for this admission?: Yes Plan: Resolved. Acute toxic encephalopathy most likely to to polysubstance abuse. (5) SIRS (systemic inflammatory response syndrome) Is this a current diagnosis for this admission?: Yes Plan: Resolved. Evidenced by tachycardia, fever, elevated lactic acid. Most likely due to bacteremia/endocarditis. (6) Polysubstance abuse Is this a current diagnosis for this admission?: Yes Plan: History of polysubstance abuse. Unfortunately patient is still has polysubstance abuse. Endorses cocaine injection. Urine tox positive for cocaine, opiates and marijuana. Monitor for withdrawal. Supportive measures. (7) S/P AVR (aortic valve replacement) Is this a current diagnosis for this admission?: Yes Plan: History of MRSA endocarditis. Recent aortic valve replacement due to infective endocarditis. Now w/ vegitation noted on prosthetic valve. - Time Time Spent with patient: 35 or more minutes Medications reviewed and adjusted accordingly: Yes Anticipated discharge: Home Within: Other - 06/21/19
[2019-05-14] MEDS: LORAZEPAM INJ 2 MG/1 ML VIAL IV PRN (20:03)
[2019-05-14] MEDS: TEMAZEPAM 7.5 MG CAPSULE PO PRN (21:42)
[2019-05-15 06:50] LABS: VANCOMYCIN,TROUGH 7.1 ug/mL (5.0-20.0)
[2019-05-15] MEDS ORDERED: LORAZEPAM INJ 2 MG/1 ML VIAL IV PRN (07:55)
[2019-05-15] MEDS ORDERED: OXYCODONE-ACETAMINOPHEN 5-325 MG TABLET PO PRN (07:55)
[2019-05-15] MEDS: CEFTRIAXONE 2 GM/D5W RTU 2 GM/50 ML RTUPB IV SCH (09:03)
[2019-05-15] MEDS: DOCUSATE SODIUM 100 MG CAPSULE PO SCH ×2 (09:03→17:53)
[2019-05-15] MEDS: FAMOTIDINE 20 MG TABLET PO SCH ×2 (09:03→21:12)
[2019-05-15] MEDS: ENOXAPARIN SODIUM INJ 40 MG/0.4 ML DISP.SYRIN SUBCUT SCH (09:04)
--- NOTE | 2019-05-15 12:41 | RADIOLOGY REPORT (SQ) ---
EXAM DESCRIPTION: PICC INSERTION; U/S GUIDE FOR VASCULAR ACCESS; FLUORO/CV PLACEMENT COMPLETED DATE/TIME: 05/15/2019 12:14 pm REASON FOR STUDY: retirement antibiotics; IV ACCESS; PUBLIC SCHOOL TEACHER IV ABX COMPARISON: None. FLUOROSCOPY TIME: 43 seconds 2 images saved to PACS. TECHNIQUE: Fluoroscopic and ultrasound guided PICC placement. LIMITATIONS: None. PROCEDURE: After written consent and assessment were obtained, the patient was brought into the fluo roscopy room and placed supine on the table. Ultrasound evaluation of potential access sites were per formed. After successfully identifying a patent bold basilic vein, the left arm was prepped and drape d in a sterile fashion along with the ultrasound probe. The entry site was anesthetized with 1% lidoc saloni. A 21 gauge 7 cm needle was advanced through the skin and into the basilic vein under live ultra sound guidance. An ultrasound image was saved to PACS confirming access site. A .018 guide wire was then inserted through the needle and into the venous system. The needle was then removed and an 11 b lade scalpel was used to make a 1cm skin incision. A 5 fr peel-away sheath was advanced over the wir e and into the venous system. A measurement was then made using the existing wire and live fluoroscop ic guidance. The wire was then removed and trimmed. The PICC was advanced through the peel-away sheat h and into the venous system. The peel-away sheath was removed and the catheter was adhered to the pa tients arm with a stat lock. The catheter was then aspirated and flushed and a sterile bandage was pl aced over the access site. A fluoroscopic spot image was saved to PACS confirming the catheter tip w ithin the superior vena cava. IMPRESSION: SUCCESSFUL PLACEMENT OF A 5 FR DUAL LUMEN 47 CM PICC IN THE LEFT BASILIC VEIN. COMMENT: Patient medication list reviewed: Yes- Quality ID# [id number]:Eligible professional attests to doc umenting in the medical record they obtained, updated, or reviewed the patient's current medications. . Quality ID 145: Final reports for procedures using fluoroscopy that document radiation exposure lazaro choco, or exposure time and number of fluorographic images (if radiation exposure indices are not avail able) Quality ID #76: The patient was prepped and draped using maximum sterile barrier technique including cap, mask, sterile gown, sterile gloves, a large sterile sheet, hand hygiene, and 2% Chlorhexidine fo r cutaneous antisepsis. When ultrasound is used, sterile ultrasound techniques are followed requiring sterile gel and sterile probes. TECHNICAL DOCUMENTATION: JOB ID: [id number] [employer]- All Rights Reserved rev-12/07 Reading location - IP/workstation name: [email or web address]
--- NOTE | 2019-05-15 12:41 | RADIOLOGY REPORT (SQ) ---
EXAM DESCRIPTION: PICC INSERTION; U/S GUIDE FOR VASCULAR ACCESS; FLUORO/CV PLACEMENT COMPLETED DATE/TIME: 05/15/2019 12:14 pm REASON FOR STUDY: shelter antibiotics; IV ACCESS; PIPE FITTER SUPERVISOR MAINTENANCE IV ABX COMPARISON: None. FLUOROSCOPY TIME: 43 seconds 2 images saved to PACS. TECHNIQUE: Fluoroscopic and ultrasound guided PICC placement. LIMITATIONS: None. PROCEDURE: After written consent and assessment were obtained, the patient was brought into the fluo roscopy room and placed supine on the table. Ultrasound evaluation of potential access sites were per formed. After successfully identifying a patent bold basilic vein, the left arm was prepped and drape d in a sterile fashion along with the ultrasound probe. The entry site was anesthetized with 1% lidoc saloni. A 21 gauge 7 cm needle was advanced through the skin and into the basilic vein under live ultra sound guidance. An ultrasound image was saved to PACS confirming access site. A .018 guide wire was then inserted through the needle and into the venous system. The needle was then removed and an 11 b lade scalpel was used to make a 1cm skin incision. A 5 fr peel-away sheath was advanced over the wir e and into the venous system. A measurement was then made using the existing wire and live fluoroscop ic guidance. The wire was then removed and trimmed. The PICC was advanced through the peel-away sheat h and into the venous system. The peel-away sheath was removed and the catheter was adhered to the pa tients arm with a stat lock. The catheter was then aspirated and flushed and a sterile bandage was pl aced over the access site. A fluoroscopic spot image was saved to PACS confirming the catheter tip w ithin the superior vena cava. IMPRESSION: SUCCESSFUL PLACEMENT OF A 5 FR DUAL LUMEN 47 CM PICC IN THE LEFT BASILIC VEIN. COMMENT: Patient medication list reviewed: Yes- Quality ID# [id number]:Eligible professional attests to doc umenting in the medical record they obtained, updated, or reviewed the patient's current medications. . Quality ID 145: Final reports for procedures using fluoroscopy that document radiation exposure lazaro choco, or exposure time and number of fluorographic images (if radiation exposure indices are not avail able) Quality ID #76: The patient was prepped and draped using maximum sterile barrier technique including cap, mask, sterile gown, sterile gloves, a large sterile sheet, hand hygiene, and 2% Chlorhexidine fo r cutaneous antisepsis. When ultrasound is used, sterile ultrasound techniques are followed requiring sterile gel and sterile probes. TECHNICAL DOCUMENTATION: JOB ID: [id number] [employer]- All Rights Reserved rev-12/07 Reading location - IP/workstation name: [email or web address]
--- NOTE | 2019-05-15 12:41 | RADIOLOGY REPORT (SQ) ---
EXAM DESCRIPTION: PICC INSERTION; U/S GUIDE FOR VASCULAR ACCESS; FLUORO/CV PLACEMENT COMPLETED DATE/TIME: 05/15/2019 12:14 pm REASON FOR STUDY: [facility] antibiotics; IV ACCESS; PREVENTION SPECIALIST IV ABX COMPARISON: None. FLUOROSCOPY TIME: 43 seconds 2 images saved to PACS. TECHNIQUE: Fluoroscopic and ultrasound guided PICC placement. LIMITATIONS: None. PROCEDURE: After written consent and assessment were obtained, the patient was brought into the fluo roscopy room and placed supine on the table. Ultrasound evaluation of potential access sites were per formed. After successfully identifying a patent bold basilic vein, the left arm was prepped and drape d in a sterile fashion along with the ultrasound probe. The entry site was anesthetized with 1% lidoc saloni. A 21 gauge 7 cm needle was advanced through the skin and into the basilic vein under live ultra sound guidance. An ultrasound image was saved to PACS confirming access site. A .018 guide wire was then inserted through the needle and into the venous system. The needle was then removed and an 11 b lade scalpel was used to make a 1cm skin incision. A 5 fr peel-away sheath was advanced over the wir e and into the venous system. A measurement was then made using the existing wire and live fluoroscop ic guidance. The wire was then removed and trimmed. The PICC was advanced through the peel-away sheat h and into the venous system. The peel-away sheath was removed and the catheter was adhered to the pa tients arm with a stat lock. The catheter was then aspirated and flushed and a sterile bandage was pl aced over the access site. A fluoroscopic spot image was saved to PACS confirming the catheter tip w ithin the superior vena cava. IMPRESSION: SUCCESSFUL PLACEMENT OF A 5 FR DUAL LUMEN 47 CM PICC IN THE LEFT BASILIC VEIN. COMMENT: Patient medication list reviewed: Yes- Quality ID# [id number]:Eligible professional attests to doc umenting in the medical record they obtained, updated, or reviewed the patient's current medications. . Quality ID 145: Final reports for procedures using fluoroscopy that document radiation exposure lazaro choco, or exposure time and number of fluorographic images (if radiation exposure indices are not avail able) Quality ID #76: The patient was prepped and draped using maximum sterile barrier technique including cap, mask, sterile gown, sterile gloves, a large sterile sheet, hand hygiene, and 2% Chlorhexidine fo r cutaneous antisepsis. When ultrasound is used, sterile ultrasound techniques are followed requiring sterile gel and sterile probes. TECHNICAL DOCUMENTATION: JOB ID: [id number] [employer]- All Rights Reserved rev-12/07 Reading location - IP/workstation name: [email or web address]
[2019-05-15] MEDS: OXYCODONE-ACETAMINOPHEN 5-325 MG TABLET PO PRN (16:45)
--- NOTE | 2019-05-15 17:10 | PDOC PROGRESS REPORT ---
Subjective Progress Note for:: 05/15/19 Subjective:: The patient is a 23-year-old male with a past medical history of IV drug abuse, endocarditis status post aortic valve replacement, hypertension, anemia, viral meningitis, and thrombocytopenia who was admitted 05/08/2019 for Altered mental status; likely polysubstance abuse. Patient was seen on morning rounds. He was found resting in bed comfortably, lying supine, on room air. He complains of a headache today that is been unresponsive to Percocet; requesting IV Dilaudid. Patient is informed that opiates should not be used for headaches and that he will not receive IV narcotics during this admission. He otherwise denies complaints of fever, chills, chest pain, palpitations, dyspnea, orthopnea, abdominal pain, nausea vomiting and diarrhea. He has no new questions or concerns at this time. No concerns per nursing. Reason For Visit: FEVER, AMS, SIRS Physical Exam Vital Signs: Temp Pulse Resp BP Pulse Ox 98.0 F 90 16 113/69 100 05/15/19 11:13 05/15/19 11:13 05/15/19 11:13 05/15/19 11:13 05/15/19 11:13 Intake & Output 05/14/19 05/15/19 05/16/19 06:59 06:59 06:59 Intake Total 920 2110 50 Output Total 150 800 Balance 770 1310 50 Weight 60.3 kg 59.4 kg General appearance: PRESENT: no acute distress, disheveled, thin, well-developed Head exam: PRESENT: atraumatic, normocephalic Eye exam: PRESENT: conjunctiva pink, EOMI, PERRLA. ABSENT: scleral icterus Mouth exam: PRESENT: moist, tongue midline Teeth exam: PRESENT: poor dentation Neck exam: ABSENT: carotid bruit, JVD, lymphadenopathy, thyromegaly Respiratory exam: PRESENT: clear to auscultation cassandra, symmetrical, unlabored. ABSENT: rales, rhonchi, wheezes Cardiovascular exam: PRESENT: RRR, +S1, +S2, systolic murmur. ABSENT: diastolic murmur, rubs Vascular exam: PRESENT: normal capillary refill Extremities exam: PRESENT: full ROM. ABSENT: calf tenderness, clubbing, pedal edema Neurological exam: PRESENT: alert, awake, oriented to person, oriented to place, oriented to time, oriented to situation, CN II-XII grossly intact. ABSENT: motor sensory deficit Psychiatric exam: PRESENT: appropriate affect, normal mood. ABSENT: homicidal ideation, suicidal ideation Skin exam: PRESENT: dry, intact, warm. ABSENT: cyanosis, rash Results Laboratory Results: 05/14/19 04:32 05/14/19 04:32 05/09/19 09:33 Blood Blood Culture - Final NO GROWTH IN 5 DAYS 05/09/19 09:23 Blood Blood Culture - Final NO GROWTH IN 5 DAYS Impressions: Chest X-Ray 05/08/19 14:07 IMPRESSION: NO ACUTE RADIOGRAPHIC FINDING IN THE CHEST. Head CT 05/08/19 14:08 IMPRESSION: NORMAL BRAIN CT WITHOUT CONTRAST. EVIDENCE OF ACUTE STROKE: NO. Guidance Fluoroscopy 05/15/19 00:00 IMPRESSION: SUCCESSFUL PLACEMENT OF A 5 FR DUAL LUMEN 47 CM PICC IN THE LEFT BASILIC VEIN. Interventional Vascular Procedure 05/15/19 00:00 IMPRESSION: SUCCESSFUL PLACEMENT OF A 5 FR DUAL LUMEN 47 CM PICC IN THE LEFT BASILIC VEIN. PICC Line Insertion 05/15/19 00:00 IMPRESSION: SUCCESSFUL PLACEMENT OF A 5 FR DUAL LUMEN 47 CM PICC IN THE LEFT BASILIC VEIN. Assessment and Plan - Diagnosis (1) Endocarditis Qualifiers: Endocarditis type: infective Infective endocarditis organism: bacterial Chronicity: acute Qualified Code(s): I33.0 - Acute and subacute infective endocarditis Is this a current diagnosis for this admission?: Yes Plan: RENEE today confirms vegetation to his Prosthetic aortic valve measuring 1.26 cm x 0.91 cm. LVEF is normal. There is no vegetation noted on the mitral valve. Blood cultures (05/08/2019) revealed strep viridans. Repeat blood cultures 05/09/2019 are negative Vancomycin discontinued Day #5 Infectious disease consulted; have increased Rocephin to 2 gm daily per ID recommendations. Stop date 06/20/19. Spoke w/ the patient's cardiothoracic surgeon at [facility], Dr. Bauer, who did the patient's aortic valve replacement surgery 11/15/2018. Dr. Bauer recommends repeat RENEE in 1 week to evaluate vegetation and confirm stability of prosthetic valve. If patient is noted to have worsened regurgitation, contact their facility to arrange for transfer. Otherwise, continue antibiotic therapy as recommended by infectious disease and repeat RENEE again during last week of therapy to confirm clearance; if vegetation remains, extend antibiotic treatment course. (2) Bacteremia Is this a current diagnosis for this admission?: Yes Plan: Most likely due to continuous IV drug abuse. Patient also have very poor digital hygiene. Blood culture positive 2/2 strep viridans. RENEE confirms endocarditis Antibiotics as above. Infectious diseases consulted. Patient will need outpatient dentist follow-up for his extensive dental caries and poor hygiene. (3) Anemia Qualifiers: Anemia type: iron deficiency Is this a current diagnosis for this admission?: Yes Plan: Likely anemia of chronic disease. Likely related to poor overall nutrition (BMI 17.8, IV drug use) and possibly prosthetic valve. Denies any hematochezia, hematemesis, hemoptysis, nosebleeds, hematuria or any easy bleeding. Anemia panel is benign. (4) Acute encephalopathy Is this a current diagnosis for this admission?: Yes Plan: Resolved. Acute toxic encephalopathy most likely to to polysubstance abuse. (5) SIRS (systemic inflammatory response syndrome) Is this a current diagnosis for this admission?: Yes Plan: Resolved. Evidenced by tachycardia, fever, elevated lactic acid. Most likely due to bacteremia/endocarditis. (6) Polysubstance abuse Is this a current diagnosis for this admission?: Yes Plan: History of polysubstance abuse. Unfortunately patient is still has polysubstance abuse. Endorses cocaine injection. Urine tox positive for cocaine, opiates and marijuana. Monitor for withdrawal. Supportive measures. (7) S/P AVR (aortic valve replacement) Is this a current diagnosis for this admission?: Yes Plan: History of MRSA endocarditis. Recent aortic valve replacement due to infective endocarditis. Now w/ vegitation noted on prosthetic valve. (8) Headache Qualifiers: Headache type: unspecified Intractability: not intractable Is this a current diagnosis for this admission?: Yes Plan: Discussed with patient need to decrease narcotic pain medication use for treatment of headaches to prevent rebound headaches. Advised to use Tylenol, Motrin, and nonpharmacological interventions. Will allow Fioricet for intractable pain. Specifically declined patient request for IV Dilaudid. Patient has been advised that he will not receive IV narcotic medications during this admission. - Plan Summary Summary: Downgrade to telemetry floor today. - Time Time Spent with patient: 25-34 minutes Medications reviewed and adjusted accordingly: Yes Anticipated discharge: Home Within: Other - 06/21/19
[2019-05-15] MEDS: BUTALB/ACETAMINOPHEN/CAFFEINE 1 TAB EACH PO PRN (17:51)
[2019-05-15] MEDS: CLONAZEPAM 1 MG TABLET PO PRN (21:12)
[2019-05-15] MEDS ORDERED: HALOPERIDOL LACTATE INJ 5 MG/1 ML VIAL ONE (22:21)
[2019-05-15] MEDS ORDERED: LORAZEPAM INJ 2 MG/1 ML VIAL ONE (22:21)
[2019-05-15] MEDS ORDERED: HALOPERIDOL LACTATE INJ 5 MG/1 ML VIAL IV ONE ×2 (22:30→23:00)
[2019-05-15] MEDS ORDERED: LORAZEPAM INJ 2 MG/1 ML VIAL IV ONE ×2 (22:30→23:00)
--- NOTE | 2019-05-16 09:12 | PDOC PROGRESS REPORT ---
Subjective Progress Note for:: 05/16/19 Subjective:: 05/16/2019-no complaints this a.m. Reason For Visit: FEVER, AMS, SIRS Physical Exam Vital Signs: Temp Pulse Resp BP Pulse Ox 98.7 F 114 H 16 121/80 98 05/16/19 07:14 05/16/19 07:14 05/16/19 07:14 05/16/19 07:14 05/16/19 07:14 Intake & Output 05/15/19 05/16/19 05/17/19 06:59 06:59 06:59 Intake Total 2110 1110 Output Total 800 1025 Balance 1310 85 Weight 59.4 kg 59.5 kg General appearance: PRESENT: no acute distress, well-developed, well-nourished Head exam: PRESENT: atraumatic, normocephalic Eye exam: PRESENT: conjunctiva pink, EOMI, PERRLA. ABSENT: scleral icterus Ear exam: PRESENT: normal external ear exam Mouth exam: PRESENT: moist, tongue midline Neck exam: ABSENT: carotid bruit, JVD, lymphadenopathy, thyromegaly Respiratory exam: PRESENT: clear to auscultation cassandra. ABSENT: rales, rhonchi, wheezes Cardiovascular exam: PRESENT: RRR. ABSENT: diastolic murmur, rubs, systolic murmur Pulses: PRESENT: normal dorsalis pedis pul Vascular exam: PRESENT: normal capillary refill GI/Abdominal exam: PRESENT: normal bowel sounds, soft. ABSENT: distended, guarding, mass, organolmegaly, rebound, tenderness Rectal exam: PRESENT: deferred Extremities exam: PRESENT: full ROM. ABSENT: calf tenderness, clubbing, pedal edema Neurological exam: PRESENT: alert, awake, oriented to person, oriented to place, oriented to time, oriented to situation, CN II-XII grossly intact. ABSENT: motor sensory deficit Psychiatric exam: PRESENT: appropriate affect, normal mood. ABSENT: homicidal ideation, suicidal ideation Skin exam: PRESENT: dry, intact, warm. ABSENT: cyanosis, rash Results Laboratory Results: 05/14/19 04:32 05/14/19 04:32 Impressions: Chest X-Ray 05/08/19 14:07 IMPRESSION: NO ACUTE RADIOGRAPHIC FINDING IN THE CHEST. Head CT 05/08/19 14:08 IMPRESSION: NORMAL BRAIN CT WITHOUT CONTRAST. EVIDENCE OF ACUTE STROKE: NO. Guidance Fluoroscopy 05/15/19 00:00 IMPRESSION: SUCCESSFUL PLACEMENT OF A 5 FR DUAL LUMEN 47 CM PICC IN THE LEFT BASILIC VEIN. Interventional Vascular Procedure 05/15/19 00:00 IMPRESSION: SUCCESSFUL PLACEMENT OF A 5 FR DUAL LUMEN 47 CM PICC IN THE LEFT BASILIC VEIN. PICC Line Insertion 05/15/19 00:00 IMPRESSION: SUCCESSFUL PLACEMENT OF A 5 FR DUAL LUMEN 47 CM PICC IN THE LEFT BASILIC VEIN. Assessment and Plan - Diagnosis (1) Endocarditis Qualifiers: Endocarditis type: infective Infective endocarditis organism: bacterial Chronicity: acute Qualified Code(s): I33.0 - Acute and subacute infective endocarditis Is this a current diagnosis for this admission?: Yes Plan: RENEE today confirms vegetation to his Prosthetic aortic valve measuring 1.26 cm x 0.91 cm. LVEF is normal. There is no vegetation noted on the mitral valve. Blood cultures (05/08/2019) revealed strep viridans. Repeat blood cultures 05/09/2019 are negative Vancomycin discontinued Day #5 Infectious disease consulted; have increased Rocephin to 2 gm daily per ID recommendations. Stop date 06/20/19. Spoke w/ the patient's cardiothoracic surgeon at [facility], Dr. Bauer, who did the patient's aortic valve replacement surgery 11/15/2018. Dr. Bauer recommends repeat RENEE in 1 week to evaluate vegetation and confirm stability of prosthetic valve. If patient is noted to have worsened regurgitation, contact their facility to arrange for transfer. Otherwise, continue antibiotic therapy as recommended by infectious disease and repeat RENEE again during last week of therapy to confirm clearance; if vegetation remains, extend antibiotic treatment course. 05/16/2019-continue to follow. Repeat RENEE for previous recommendations. Arrange transfer if worsening regurgitation per Dr. Bauer advised (2) Bacteremia Is this a current diagnosis for this admission?: Yes Plan: Most likely due to continuous IV drug abuse. Patient also have very poor digital hygiene. Blood culture positive 2/2 strep viridans. RENEE confirms endocarditis Antibiotics as above. Infectious diseases consulted. Patient will need outpatient dentist follow-up for his extensive dental caries and poor hygiene. 05/16/2019-blood cultures show variance drip 2 out of 2. Continue Rocephin 2 g IV daily per infectious disease. (3) Anemia Qualifiers: Anemia type: iron deficiency Is this a current diagnosis for this admission?: Yes Plan: Likely anemia of chronic disease. Likely related to poor overall nutrition (BMI 17.8, IV drug use) and possibly prosthetic valve. Denies any hematochezia, hematemesis, hemoptysis, nosebleeds, hematuria or any easy bleeding. Anemia panel is benign. 05/16/2019-most likely chronic in nature we will continue to follow (4) Acute encephalopathy Is this a current diagnosis for this admission?: Yes Plan: Resolved. Acute toxic encephalopathy most likely to to polysubstance abuse. 05/16/2019-resolved stable continue to follow (5) SIRS (systemic inflammatory response syndrome) Is this a current diagnosis for this admission?: Yes Plan: Resolved. Evidenced by tachycardia, fever, elevated lactic acid. Most likely due to bacteremia/endocarditis. 05/16/2019-stable resolved continue to follow (6) Polysubstance abuse Is this a current diagnosis for this admission?: Yes Plan: History of polysubstance abuse. Unfortunately patient is still has polysubstance abuse. Endorses cocaine injection. Urine tox positive for cocaine, opiates and marijuana. Monitor for withdrawal. Supportive measures. 05/16/2019-remains polysubstance abuse. Urine tox was positive for cocaine opiates and marijuana. Endocarditis at this time. Continue to educate about the positive benefits of cessation of illicit drugs (7) S/P AVR (aortic valve replacement) Is this a current diagnosis for this admission?: Yes Plan: History of MRSA endocarditis. Recent aortic valve replacement due to infective endocarditis. Now w/ vegitation noted on prosthetic valve. 05/16/2019-patient does have infectious carditis Rocephin 2 g IV daily. Will repeat RENEE as recommended before and make change Medicare is appropriate (8) Headache Qualifiers: Headache type: unspecified Intractability: not intractable Is this a current diagnosis for this admission?: Yes Plan: Discussed with patient need to decrease narcotic pain medication use for treatment of headaches to prevent rebound headaches. Advised to use Tylenol, Motrin, and nonpharmacological interventions. Will allow Fioricet for intractable pain. Specifically declined patient request for IV Dilaudid. Patient has been advised that he will not receive IV narcotic medications during this admission. -stable continue to follow - Plan Summary Summary: Downgrade to telemetry floor today. - Time Time Spent with patient: 15-24 minutes - Inpatient Certification Based on my medical assessment, after consideration of the patient's comorbidities, presenting symptoms, or acuity I expect that the services needed warrant INPATIENT care.: Yes I certify that my determination is in accordance with my understanding of Medicare's requirements for reasonable and necessary INPATIENT services [42 CFR 412.3e].: Yes Medical Necessity: Need for IV Antibiotics
[2019-05-16] MEDS: FAMOTIDINE 20 MG TABLET PO SCH ×2 (09:58→22:11)
[2019-05-16] MEDS: CEFTRIAXONE 2 GM/D5W RTU 2 GM/50 ML RTUPB IV SCH (09:58)
[2019-05-16] MEDS: ENOXAPARIN SODIUM INJ 40 MG/0.4 ML DISP.SYRIN SUBCUT SCH (09:58)
[2019-05-16] MEDS: DOCUSATE SODIUM 100 MG CAPSULE PO SCH ×2 (09:58→17:41)
[2019-05-16] MEDS: NORMAL SALINE 10 ML SDV (SCHEDULED) IV SCH ×2 (09:59→22:11)
[2019-05-16] MEDS: CLONAZEPAM 1 MG TABLET PO PRN (14:39)
[2019-05-16] MEDS: BUTALB/ACETAMINOPHEN/CAFFEINE 1 TAB EACH PO PRN (17:42)
[2019-05-16] MEDS: OXYCODONE-ACETAMINOPHEN 5-325 MG TABLET PO PRN (20:13)
[2019-05-17] MEDS: CLONAZEPAM 1 MG TABLET PO PRN ×2 (03:40→16:19)
[2019-05-17] MEDS ORDERED: NICOTINE 14 MG/24 HR PATCH.TD24 TD ONE (06:00)
[2019-05-17] MEDS ORDERED: NICOTINE 21 MG/24 HR PATCH.TD24 TD PRN (06:55)
--- NOTE | 2019-05-17 09:37 | PDOC PROGRESS REPORT ---
Subjective Progress Note for:: 05/17/19 Subjective:: 05/16/2019-no complaints this a.m. 05/17/2019-no complaints Reason For Visit: FEVER, AMS, SIRS Physical Exam Vital Signs: Temp Pulse Resp BP Pulse Ox 97.8 F 97 16 125/69 100 05/17/19 07:36 05/17/19 07:36 05/17/19 07:36 05/17/19 07:36 05/17/19 07:36 Intake & Output 05/16/19 05/17/19 05/18/19 06:59 06:59 06:59 Intake Total 1110 1790 Output Total 1025 725 Balance 85 1065 Weight 59.5 kg 59 kg General appearance: PRESENT: no acute distress, well-developed, well-nourished Neck exam: ABSENT: carotid bruit, JVD, lymphadenopathy, thyromegaly Respiratory exam: PRESENT: clear to auscultation cassandra. ABSENT: rales, rhonchi, wheezes Cardiovascular exam: PRESENT: RRR. ABSENT: diastolic murmur, rubs, systolic murmur Pulses: PRESENT: normal dorsalis pedis pul Vascular exam: PRESENT: normal capillary refill GI/Abdominal exam: PRESENT: normal bowel sounds, soft. ABSENT: distended, guarding, mass, organolmegaly, rebound, tenderness Extremities exam: PRESENT: full ROM. ABSENT: calf tenderness, clubbing, pedal edema Neurological exam: PRESENT: alert, awake, oriented to person, oriented to place, oriented to time, oriented to situation, CN II-XII grossly intact. ABSENT: motor sensory deficit Psychiatric exam: PRESENT: appropriate affect, normal mood. ABSENT: homicidal ideation, suicidal ideation Skin exam: PRESENT: dry, intact, warm. ABSENT: cyanosis, rash Results Laboratory Results: 05/14/19 04:32 05/14/19 04:32 Impressions: Chest X-Ray 05/08/19 14:07 IMPRESSION: NO ACUTE RADIOGRAPHIC FINDING IN THE CHEST. Head CT 05/08/19 14:08 IMPRESSION: NORMAL BRAIN CT WITHOUT CONTRAST. EVIDENCE OF ACUTE STROKE: NO. Guidance Fluoroscopy 05/15/19 00:00 IMPRESSION: SUCCESSFUL PLACEMENT OF A 5 FR DUAL LUMEN 47 CM PICC IN THE LEFT BASILIC VEIN. Interventional Vascular Procedure 05/15/19 00:00 IMPRESSION: SUCCESSFUL PLACEMENT OF A 5 FR DUAL LUMEN 47 CM PICC IN THE LEFT BASILIC VEIN. PICC Line Insertion 05/15/19 00:00 IMPRESSION: SUCCESSFUL PLACEMENT OF A 5 FR DUAL LUMEN 47 CM PICC IN THE LEFT BASILIC VEIN. Assessment and Plan - Diagnosis (1) Endocarditis Qualifiers: Endocarditis type: infective Infective endocarditis organism: bacterial Chronicity: acute Qualified Code(s): I33.0 - Acute and subacute infective endocarditis Is this a current diagnosis for this admission?: Yes Plan: RENEE today confirms vegetation to his Prosthetic aortic valve measuring 1.26 cm x 0.91 cm. LVEF is normal. There is no vegetation noted on the mitral valve. Blood cultures (05/08/2019) revealed strep viridans. Repeat blood cultures 05/09/2019 are negative Vancomycin discontinued Day #5 Infectious disease consulted; have increased Rocephin to 2 gm daily per ID recommendations. Stop date 06/20/19. Spoke w/ the patient's cardiothoracic surgeon at [facility], Dr. Bauer, who did the patient's aortic valve replacement surgery 11/15/2018. Dr. Bauer recommends repeat RENEE in 1 week to evaluate vegetation and confirm stability of prosthetic valve. If patient is noted to have worsened regurgitation, contact their facility to arrange for transfer. Otherwise, continue antibiotic therapy as recommended by infectious disease and repeat RENEE again during last week of therapy to confirm clearance; if vegetation remains, extend antibiotic treatment course. 05/16/2019-continue to follow. Repeat RENEE for previous recommendations. Arrange transfer if worsening regurgitation per Dr. Bauer advised 05/17/2019-continue current management. RENEE repeat as previously recommended (2) Bacteremia Is this a current diagnosis for this admission?: Yes Plan: Most likely due to continuous IV drug abuse. Patient also have very poor digital hygiene. Blood culture positive 2/2 strep viridans. RENEE confirms endocarditis Antibiotics as above. Infectious diseases consulted. Patient will need outpatient dentist follow-up for his extensive dental caries and poor hygiene. 05/16/2019-blood culture. Continue Rocephin 2 g IV daily per infectious disease. 2018-continue Rocephin (3) Anemia Qualifiers: Anemia type: iron deficiency Is this a current diagnosis for this admission?: Yes Plan: Likely anemia of chronic disease. Likely related to poor overall nutrition (BMI 17.8, IV drug use) and possibly prosthetic valve. Denies any hematochezia, hematemesis, hemoptysis, nosebleeds, hematuria or any easy bleeding. Anemia panel is benign. 05/16/2019-most likely chronic in nature we will continue to follow 05/17/2019-chronic in nature stable (4) Acute encephalopathy Is this a current diagnosis for this admission?: Yes Plan: Resolved. Acute toxic encephalopathy most likely to to polysubstance abuse. 05/16/2019-resolved stable continue to follow 05/17/2019-stable continue to follow (5) SIRS (systemic inflammatory response syndrome) Is this a current diagnosis for this admission?: Yes Plan: Resolved. Evidenced by tachycardia, fever, elevated lactic acid. Most likely due to bacteremia/endocarditis. 05/16/2019-stable resolved continue to follow 05/17/2019-stable (6) Polysubstance abuse Is this a current diagnosis for this admission?: Yes Plan: History of polysubstance abuse. Unfortunately patient is still has polysubstance abuse. Endorses cocaine injection. Urine tox positive for cocaine, opiates and marijuana. Monitor for withdrawal. Supportive measures. 05/16/2019-remains polysubstance abuse. Urine tox was positive for cocaine opiates and marijuana. Endocarditis at this time. Continue to educate about the positive benefits of cessation of illicit drugs 05/17/2019-continue education on benefits of cessation of illicit drugs (7) S/P AVR (aortic valve replacement) Is this a current diagnosis for this admission?: Yes Plan: History of MRSA endocarditis. Recent aortic valve replacement due to infective endocarditis. Now w/ vegitation noted on prosthetic valve. 05/16/2019-patient does have infectious endocarditis Rocephin 2 g IV daily. Will repeat RENEE as recommended before and make change Medicare is appropriate 05/17/2019-continue Rocephin. Repeat RENEE especially recommended (8) Headache Qualifiers: Headache type: unspecified Intractability: not intractable Is this a current diagnosis for this admission?: Yes Plan: Discussed with patient need to decrease narcotic pain medication use for treatment of headaches to prevent rebound headaches. Advised to use Tylenol, Motrin, and nonpharmacological interventions. Will allow Fioricet for intractable pain. Specifically declined patient request for IV Dilaudid. Patient has been advised that he will not receive IV narcotic medications during this admission. -stable continue to follow 10 25,2019-stable - Plan Summary Summary: Downgrade to telemetry floor today. - Time Time Spent with patient: 15-24 minutes - Inpatient Certification Based on my medical assessment, after consideration of the patient's comorbidities, presenting symptoms, or acuity I expect that the services needed warrant INPATIENT care.: Yes I certify that my determination is in accordance with my understanding of Medicare's requirements for reasonable and necessary INPATIENT services [42 CFR 412.3e].: Yes Medical Necessity: Need for IV Antibiotics
[2019-05-17] MEDS ORDERED: NICOTINE 14 MG/24 HR PATCH.TD24 TD SCH (10:00)
[2019-05-17] MEDS: NORMAL SALINE 10 ML SDV (SCHEDULED) IV SCH ×2 (11:06→21:40)
[2019-05-17] MEDS: CEFTRIAXONE 2 GM/D5W RTU 2 GM/50 ML RTUPB IV SCH (11:06)
[2019-05-17] MEDS: FAMOTIDINE 20 MG TABLET PO SCH ×2 (11:06→21:39)
[2019-05-17] MEDS: DOCUSATE SODIUM 100 MG CAPSULE PO SCH ×2 (11:06→17:35)
[2019-05-17] MEDS: ENOXAPARIN SODIUM INJ 40 MG/0.4 ML DISP.SYRIN SUBCUT SCH (11:07)
[2019-05-17] MEDS: NORMAL SALINE 10 ML SDV (AFTER EACH USE) IV PRN (11:07)
[2019-05-17] MEDS: BUTALB/ACETAMINOPHEN/CAFFEINE 1 TAB EACH PO PRN (20:24)
[2019-05-18] MEDS: CLONAZEPAM 1 MG TABLET PO PRN ×2 (05:50→17:53)
[2019-05-18] MEDS: BUTALB/ACETAMINOPHEN/CAFFEINE 1 TAB EACH PO PRN ×2 (06:03→21:10)
[2019-05-18] MEDS: DOCUSATE SODIUM 100 MG CAPSULE PO SCH ×2 (10:36→17:53)
[2019-05-18] MEDS: NORMAL SALINE 10 ML SDV (AFTER EACH USE) IV PRN (10:45)
[2019-05-18] MEDS: NORMAL SALINE 10 ML SDV (SCHEDULED) IV SCH ×2 (10:45→21:11)
[2019-05-18] MEDS: CEFTRIAXONE 2 GM/D5W RTU 2 GM/50 ML RTUPB IV SCH (10:45)
[2019-05-18] MEDS: FAMOTIDINE 20 MG TABLET PO SCH ×2 (10:46→21:11)
[2019-05-18] MEDS: ENOXAPARIN SODIUM INJ 40 MG/0.4 ML DISP.SYRIN SUBCUT SCH (10:46)
--- NOTE | 2019-05-18 14:00 | PDOC PROGRESS REPORT ---
Subjective Progress Note for:: 05/18/19 Subjective:: The patient is a 23-year-old male with a past medical history of IV drug abuse, endocarditis status post aortic valve replacement, hypertension, anemia, viral meningitis, and thrombocytopenia who was admitted 05/08/2019 for Altered mental status; likely polysubstance abuse. Patient was seen on morning rounds with his mother present. He was found resting in bed comfortably, lying supine, on room air. He reports that he is feeling well today and has no new questions or concerns. His mother asks if there is a way for us to arrange for him to be seen by a dentist while he remains admitted; explained that we do not have dental services available but we will start the patient on a mouthwash and see if our social service liaison does have a list of low cost or sliding scale dentists in the area so that an appointment can be arranged prior to his discharge. He denies fever, chills, chest pain, palpitations, dyspnea, orthopnea, abdominal pain, nausea vomiting and diarrhea. They have no other questions or concerns at this time. No concerns per nursing. Reason For Visit: FEVER, AMS, SIRS Physical Exam Vital Signs: Temp Pulse Resp BP Pulse Ox 97.4 F 102 H 20 122/67 100 05/18/19 12:33 05/18/19 12:33 05/18/19 12:33 05/18/19 12:33 05/18/19 12:33 Intake & Output 05/17/19 05/18/19 05/19/19 06:59 06:59 06:59 Intake Total 1790 1568 50 Output Total 725 1175 Balance 1065 393 50 Weight 59 kg 58.5 kg General appearance: PRESENT: no acute distress, cooperative, thin, well- developed, well-nourished Head exam: PRESENT: atraumatic, normocephalic Eye exam: PRESENT: conjunctiva pink, EOMI, PERRLA. ABSENT: scleral icterus Mouth exam: PRESENT: moist, tongue midline Teeth exam: PRESENT: poor dentation Respiratory exam: PRESENT: clear to auscultation cassandra, symmetrical, unlabored. ABSENT: rales, rhonchi, wheezes Cardiovascular exam: PRESENT: RRR, +S1, +S2. ABSENT: diastolic murmur, rubs, systolic murmur Vascular exam: PRESENT: normal capillary refill GI/Abdominal exam: PRESENT: normal bowel sounds, soft. ABSENT: distended, guarding, mass, organolmegaly, rebound, tenderness Rectal exam: PRESENT: deferred Extremities exam: PRESENT: full ROM. ABSENT: calf tenderness, clubbing, pedal edema Neurological exam: PRESENT: alert, awake, oriented to person, oriented to place, oriented to time, oriented to situation, CN II-XII grossly intact. ABSENT: motor sensory deficit Psychiatric exam: PRESENT: normal mood, unusual affect. ABSENT: homicidal ideation, suicidal ideation Focused psych exam: PRESENT: euphoric Skin exam: PRESENT: dry, intact, warm. ABSENT: cyanosis, rash Results Laboratory Results: 05/14/19 04:32 05/14/19 04:32 Impressions: Chest X-Ray 05/08/19 14:07 IMPRESSION: NO ACUTE RADIOGRAPHIC FINDING IN THE CHEST. Head CT 05/08/19 14:08 IMPRESSION: NORMAL BRAIN CT WITHOUT CONTRAST. EVIDENCE OF ACUTE STROKE: NO. Guidance Fluoroscopy 05/15/19 00:00 IMPRESSION: SUCCESSFUL PLACEMENT OF A 5 FR DUAL LUMEN 47 CM PICC IN THE LEFT BASILIC VEIN. Interventional Vascular Procedure 05/15/19 00:00 IMPRESSION: SUCCESSFUL PLACEMENT OF A 5 FR DUAL LUMEN 47 CM PICC IN THE LEFT BASILIC VEIN. PICC Line Insertion 05/15/19 00:00 IMPRESSION: SUCCESSFUL PLACEMENT OF A 5 FR DUAL LUMEN 47 CM PICC IN THE LEFT BASILIC VEIN. 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 LVEF is normal. There is no vegetation noted on the mitral valve. Blood cultures (05/08/2019) revealed strep viridans. Repeat blood cultures 05/09/2019 are negative Vancomycin discontinued Day #5 Infectious disease consulted; have increased Rocephin to 2 gm daily per ID recommendations. Stop date 06/20/19. Spoke w/ the patient's cardiothoracic surgeon at [facility], Dr. Bauer, who did the patient's aortic valve replacement surgery 11/15/2018. Dr. Bauer recommends repeat RENEE in 1 week to evaluate vegetation and confirm stability of prosthetic valve. If patient is noted to have worsened regurgitation, contact their facility to arrange for transfer. Otherwise, continue antibiotic therapy as recommended by infectious disease and repeat RENEE again during last week of therapy to confirm clearance; if vegetation remains, extend antibiotic treatment course. Repeat RENEE ordered per Dr. Bauer's recommendations. (2) Bacteremia Is this a current diagnosis for this admission?: Yes Plan: Most likely due to continuous IV drug abuse. Patient also have very poor digital hygiene. Blood culture positive 2/2 strep viridans. RENEE confirms endocarditis Antibiotics as above. Infectious diseases consulted. Patient will need outpatient dentist follow-up for his extensive dental caries and poor hygiene. (3) Anemia Qualifiers: Anemia type: iron deficiency Is this a current diagnosis for this admission?: Yes Plan: Likely anemia of chronic disease. Likely related to poor overall nutrition (BMI 17.8, IV drug use) and possibly prosthetic valve. Denies any hematochezia, hematemesis, hemoptysis, nosebleeds, hematuria or any easy bleeding. Anemia panel is benign. Most recent Hgb/Hct 10.6/31.6 No active blood loss. (4) Acute encephalopathy Is this a current diagnosis for this admission?: Yes Plan: Resolved. Acute toxic encephalopathy most likely to to polysubstance abuse. (5) SIRS (systemic inflammatory response syndrome) Is this a current diagnosis for this admission?: Yes Plan: Resolved. Evidenced by tachycardia, fever, elevated lactic acid. Most likely due to bacteremia/endocarditis. (6) Polysubstance abuse Is this a current diagnosis for this admission?: Yes Plan: History of polysubstance abuse. Unfortunately patient is still has polysubstance abuse. Endorses cocaine injection. Urine tox positive for cocaine, opiates and marijuana. Monitor for withdrawal. Supportive measures. Odd affect today; will repeat UDS. Patient has received klonopin (benzo) and fioricet (barbituates). Consider mental health consultation (7) S/P AVR (aortic valve replacement) Is this a current diagnosis for this admission?: Yes Plan: History of MRSA endocarditis. Recent aortic valve replacement due to infective endocarditis. Now w/ vegitation noted on prosthetic valve. Plan as above. (8) Headache Qualifiers: Headache type: unspecified Intractability: not intractable Is this a current diagnosis for this admission?: Yes Plan: Discussed with patient need to decrease narcotic pain medication use for treatment of headaches to prevent rebound headaches. Advised to use Tylenol, Motrin, and nonpharmacological interventions. Will allow Fioricet for intractable pain. Specifically declined patient request for IV Dilaudid. Patient has been advised that he will not receive IV narcotic medications during this admission. (9) Dental caries Is this a current diagnosis for this admission?: Yes Plan: Chlorhexidine mouthwash twice daily. Twice daily oral care. Will ask discharge planning to provide Dentist list. - Plan Summary Summary: Downgrade to telemetry floor today. - Time Time Spent with patient: 25-34 minutes Medications reviewed and adjusted accordingly: Yes Anticipated discharge: Home Within: Other - 06/21/19
[2019-05-18 15:33] LABS: URINE AMPHETAMINES SCREEN NEGATIVE; URINE BENZODIAZEPINES SCREEN NEGATIVE; URINE COCAINE SCREEN NEGATIVE; URINE METHADONE SCREEN NEGATIVE; URINE PHENCYCLIDINE SCREEN NEGATIVE
[2019-05-18 15:44] LABS: URINE BARBITURATES SCREEN UNCONFIRMED POSITIVE; URINE MARIJUANA (THC) SCREEN UNCONFIRMED POSITIVE
[2019-05-18] MEDS: CHLORHEXIDINE GLUCONATE 0.12% ORAL RINSE 15 ML UDC MM SCH (17:53)
[2019-05-19] MEDS: FAMOTIDINE 20 MG TABLET PO SCH ×2 (09:13→22:24)
[2019-05-19] MEDS: DOCUSATE SODIUM 100 MG CAPSULE PO SCH ×2 (09:13→18:41)
[2019-05-19] MEDS: CHLORHEXIDINE GLUCONATE 0.12% ORAL RINSE 15 ML UDC MM SCH ×2 (09:14→18:41)
[2019-05-19] MEDS: ENOXAPARIN SODIUM INJ 40 MG/0.4 ML DISP.SYRIN SUBCUT SCH (09:14)
[2019-05-19] MEDS: CEFTRIAXONE 2 GM/D5W RTU 2 GM/50 ML RTUPB IV SCH (09:15)
[2019-05-19] MEDS: NORMAL SALINE 10 ML SDV (SCHEDULED) IV SCH ×2 (09:16→22:24)
[2019-05-19] MEDS: NORMAL SALINE 10 ML SDV (AFTER EACH USE) IV PRN (10:21)
[2019-05-19] MEDS: BUTALB/ACETAMINOPHEN/CAFFEINE 1 TAB EACH PO PRN ×2 (14:40→22:23)
--- NOTE | 2019-05-19 16:49 | PDOC PROGRESS REPORT ---
Subjective Progress Note for:: 05/19/19 Subjective:: The patient is a 23-year-old male with a past medical history of IV drug abuse, endocarditis status post aortic valve replacement, hypertension, anemia, viral meningitis, and thrombocytopenia who was admitted 05/08/2019 for Altered mental status; likely polysubstance abuse. Patient was seen on morning rounds. He was found resting in bed comfortably, lying supine, on room air. He was sleeping when I entered the room but woke easily. He states that he is feeling well today; appreciative of Klonopin that he received last night for his anxiety. He does continue to have intermittent headaches, although these are less frequent and improved as well. He denies fever, chills, chest pain, palpitations, dyspnea, orthopnea, abdominal pain, nausea vomiting and diarrhea. He has no other questions or concerns at this time. No concerns per nursing. Reason For Visit: FEVER, AMS, SIRS Physical Exam Vital Signs: Temp Pulse Resp BP Pulse Ox 99.6 F 95 16 111/67 100 05/19/19 11:17 05/19/19 14:00 05/19/19 11:17 05/19/19 11:17 05/19/19 11:17 Intake & Output 05/18/19 05/19/19 05/20/19 06:59 06:59 06:59 Intake Total 1568 1148 287 Output Total 1175 1285 300 Balance 393 -137 -13 Weight 58.5 kg 60.5 kg General appearance: PRESENT: no acute distress, thin, well-developed, well- nourished Head exam: PRESENT: atraumatic, normocephalic Eye exam: PRESENT: conjunctiva pink, EOMI, PERRLA. ABSENT: scleral icterus Mouth exam: PRESENT: moist, tongue midline Teeth exam: PRESENT: poor dentation Respiratory exam: PRESENT: clear to auscultation cassandra, symmetrical, unlabored. ABSENT: rales, rhonchi, wheezes Cardiovascular exam: PRESENT: RRR, +S1, +S2, systolic murmur. ABSENT: diastolic murmur, rubs Pulses: PRESENT: normal dorsalis pedis pul Vascular exam: PRESENT: normal capillary refill GI/Abdominal exam: PRESENT: normal bowel sounds, soft. ABSENT: distended, guarding, mass, organolmegaly, rebound, tenderness Rectal exam: PRESENT: deferred Extremities exam: PRESENT: full ROM. ABSENT: calf tenderness, clubbing, pedal edema Neurological exam: PRESENT: alert, awake, oriented to person, oriented to place, oriented to time, oriented to situation, CN II-XII grossly intact. ABSENT: motor sensory deficit Psychiatric exam: PRESENT: normal mood, unusual affect. ABSENT: homicidal idea tion, suicidal ideation Skin exam: PRESENT: dry, intact, warm. ABSENT: cyanosis, rash Results Laboratory Results: 05/14/19 04:32 05/14/19 04:32 Impressions: Chest X-Ray 05/08/19 14:07 IMPRESSION: NO ACUTE RADIOGRAPHIC FINDING IN THE CHEST. Head CT 05/08/19 14:08 IMPRESSION: NORMAL BRAIN CT WITHOUT CONTRAST. EVIDENCE OF ACUTE STROKE: NO. Guidance Fluoroscopy 05/15/19 00:00 IMPRESSION: SUCCESSFUL PLACEMENT OF A 5 FR DUAL LUMEN 47 CM PICC IN THE LEFT BASILIC VEIN. Interventional Vascular Procedure 05/15/19 00:00 IMPRESSION: SUCCESSFUL PLACEMENT OF A 5 FR DUAL LUMEN 47 CM PICC IN THE LEFT BASILIC VEIN. PICC Line Insertion 05/15/19 00:00 IMPRESSION: SUCCESSFUL PLACEMENT OF A 5 FR DUAL LUMEN 47 CM PICC IN THE LEFT BASILIC VEIN. 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 LVEF is normal. There is no vegetation noted on the mitral valve. Blood cultures (05/08/2019) revealed strep viridans. Repeat blood cultures 05/09/2019 are negative Vancomycin discontinued Day #5 Infectious disease consulted; have increased Rocephin to 2 gm daily per ID recommendations. Stop date 06/20/19. Spoke w/ the patient's cardiothoracic surgeon at [facility], Dr. Bauer, who did the patient's aortic valve replacement surgery 11/15/2018. Dr. Bauer recommends repeat RENEE in 1 week to evaluate vegetation and confirm stability of prosthetic valve. If patient is noted to have worsened regurgitation, contact their facility to arrange for transfer. Otherwise, continue antibiotic therapy as recommended by infectious disease and repeat RENEE again during last week of therapy to confirm clearance; if vegetation remains, extend antibiotic treatment course. Repeat RENEE ordered per Dr. Bauer's recommendations. (2) Bacteremia Is this a current diagnosis for this admission?: Yes Plan: Most likely due to continuous IV drug abuse. Patient also have very poor digital hygiene. Blood culture positive 2/2 strep viridans. RENEE confirms endocarditis Antibiotics as above. Infectious diseases consulted. Patient will need outpatient dentist follow-up for his extensive dental caries and poor hygiene. (3) Anemia Qualifiers: Anemia type: iron deficiency Is this a current diagnosis for this admission?: Yes Plan: Likely anemia of chronic disease. Likely related to poor overall nutrition (BMI 17.8, IV drug use) and possibly prosthetic valve. Denies any hematochezia, hematemesis, hemoptysis, nosebleeds, hematuria or any easy bleeding. Anemia panel is benign. Most recent Hgb/Hct 10.6/31.6 No active blood loss. Will monitor periodic H&H (4) Acute encephalopathy Is this a current diagnosis for this admission?: Yes Plan: Resolved. Acute toxic encephalopathy most likely to to polysubstance abuse. (5) SIRS (systemic inflammatory response syndrome) Is this a current diagnosis for this admission?: Yes Plan: Resolved. Evidenced by tachycardia, fever, elevated lactic acid. Most likely due to bacteremia/endocarditis. (6) Polysubstance abuse Is this a current diagnosis for this admission?: Yes Plan: History of polysubstance abuse. Unfortunately patient is still has polysubstance abuse. Endorses cocaine injection. Urine tox positive for cocaine, opiates and marijuana. Repeat UDS as expected given prescribed medications. Monitor for withdrawal. Supportive measures. Patient is receiving klonopin (benzo) and fioricet (barbituates). Consider mental health consultation (7) S/P AVR (aortic valve replacement) Is this a current diagnosis for this admission?: Yes Plan: History of MRSA endocarditis. Recent aortic valve replacement due to infective endocarditis. Now w/ vegitation noted on prosthetic valve. Plan as above. (8) Headache Qualifiers: Headache type: unspecified Intractability: not intractable Is this a current diagnosis for this admission?: Yes Plan: Discussed with patient need to decrease narcotic pain medication use for treatment of headaches to prevent rebound headaches. Advised to use Tylenol, Motrin, and nonpharmacological interventions. Will allow Fioricet for intractable pain. Specifically declined patient request for IV Dilaudid. Patient has been advised that he will not receive IV narcotic medications during this admission. (9) Dental caries Is this a current diagnosis for this admission?: Yes Plan: Chlorhexidine mouthwash twice daily. Twice daily oral care. Will ask discharge planning to provide Dentist list. - Plan Summary Summary: Downgrade to telemetry floor today. - Time Time Spent with patient: Less than 15 minutes Medications reviewed and adjusted accordingly: Yes Anticipated discharge: Home Within: Other - 06/21/19
[2019-05-19] MEDS: CLONAZEPAM 1 MG TABLET PO PRN (18:41)
[2019-05-20] MEDS: BUTALB/ACETAMINOPHEN/CAFFEINE 1 TAB EACH PO PRN ×3 (06:04→23:17)
[2019-05-20] MEDS: CLONAZEPAM 1 MG TABLET PO PRN ×2 (06:46→19:34)
--- NOTE | 2019-05-20 08:13 | PDOC PROGRESS REPORT ---
Subjective Progress Note for:: 05/20/19 Subjective:: 05/16/2019-no complaints this a.m. 05/17/2019-no complaints 05/20/2019 no complaints this a.m. Reason For Visit: FEVER, AMS, SIRS Physical Exam Vital Signs: Temp Pulse Resp BP Pulse Ox 98.1 F 94 16 105/71 95 05/20/19 07:25 05/20/19 07:25 05/20/19 07:25 05/20/19 07:25 05/20/19 07:25 Intake & Output 05/19/19 05/20/19 05/21/19 06:59 06:59 06:59 Intake Total 1148 1216 Output Total 1285 1125 Balance -137 91 Weight 60.5 kg 60.5 kg General appearance: PRESENT: no acute distress, well-developed, well-nourished Neck exam: ABSENT: carotid bruit, JVD, lymphadenopathy, thyromegaly Respiratory exam: PRESENT: clear to auscultation cassandra. ABSENT: rales, rhonchi, wheezes Cardiovascular exam: PRESENT: RRR. ABSENT: diastolic murmur, rubs, systolic murmur Pulses: PRESENT: normal dorsalis pedis pul Vascular exam: PRESENT: normal capillary refill GI/Abdominal exam: PRESENT: normal bowel sounds, soft. ABSENT: distended, guarding, mass, organolmegaly, rebound, tenderness Rectal exam: PRESENT: deferred Extremities exam: PRESENT: full ROM. ABSENT: calf tenderness, clubbing, pedal edema Neurological exam: PRESENT: alert, awake, oriented to person, oriented to place, oriented to time, oriented to situation, CN II-XII grossly intact. ABSENT: motor sensory deficit Psychiatric exam: PRESENT: appropriate affect, normal mood. ABSENT: homicidal ideation, suicidal ideation Skin exam: PRESENT: dry, intact, warm. ABSENT: cyanosis, rash Results Laboratory Results: 05/14/19 04:32 05/14/19 04:32 Impressions: Chest X-Ray 05/08/19 14:07 IMPRESSION: NO ACUTE RADIOGRAPHIC FINDING IN THE CHEST. Head CT 05/08/19 14:08 IMPRESSION: NORMAL BRAIN CT WITHOUT CONTRAST. EVIDENCE OF ACUTE STROKE: NO. Guidance Fluoroscopy 05/15/19 00:00 IMPRESSION: SUCCESSFUL PLACEMENT OF A 5 FR DUAL LUMEN 47 CM PICC IN THE LEFT BASILIC VEIN. Interventional Vascular Procedure 05/15/19 00:00 IMPRESSION: SUCCESSFUL PLACEMENT OF A 5 FR DUAL LUMEN 47 CM PICC IN THE LEFT BASILIC VEIN. PICC Line Insertion 05/15/19 00:00 IMPRESSION: SUCCESSFUL PLACEMENT OF A 5 FR DUAL LUMEN 47 CM PICC IN THE LEFT BASILIC VEIN. 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 LVEF is normal. There is no vegetation noted on the mitral valve. Blood cultures (05/08/2019) revealed strep viridans. Repeat blood cultures 05/09/2019 are negative Vancomycin discontinued Day #5 Infectious disease consulted; have increased Rocephin to 2 gm daily per ID recommendations. Stop date 06/20/19. Spoke w/ the patient's cardiothoracic surgeon at [facility], Dr. Bauer, who did the patient's aortic valve replacement surgery 11/15/2018. Dr. Bauer recommends repeat RENEE in 1 week to evaluate vegetation and confirm stability of prosthetic valve. If patient is noted to have worsened regurgitation, contact their facility to arrange for transfer. Otherwise, co ntinue antibiotic therapy as recommended by infectious disease and repeat RENEE again during last week of therapy to confirm clearance; if vegetation remains, extend antibiotic treatment course. Repeat RENEE ordered per Dr. Bauer's recommendations. 05/20/2019-stable at this time patient continues on IV antibiotics Rocephin. Awaiting repeat RENEE. (2) Bacteremia Is this a current diagnosis for this admission?: Yes Plan: Most likely due to continuous IV drug abuse. Patient also have very poor digital hygiene. Blood culture positive 2/2 strep viridans. RENEE confirms endocarditis Antibiotics as above. Infectious diseases consulted. Patient will need outpatient dentist follow-up for his extensive dental caries and poor hygiene. 05/20/2019-see #1 (3) Anemia Qualifiers: Anemia type: iron deficiency Is this a current diagnosis for this admission?: Yes Plan: Likely anemia of chronic disease. Likely related to poor overall nutrition (BMI 17.8, IV drug use) and possibly prosthetic valve. Denies any hematochezia, hematemesis, hemoptysis, nosebleeds, hematuria or any easy bleeding. Anemia panel is benign. Most recent Hgb/Hct 10.6/31.6 No active blood loss. Will monitor periodic H&H -chronic, stable. (4) Acute encephalopathy Is this a current diagnosis for this admission?: Yes Plan: Resolved. Acute toxic encephalopathy most likely to to polysubstance abuse. 05/20/2019-stable. Continue to follow (5) SIRS (systemic inflammatory response syndrome) Is this a current diagnosis for this admission?: Yes Plan: Resolved. Evidenced by tachycardia, fever, elevated lactic acid. Most likely due to bacteremia/endocarditis. -stable continue to follow (6) Polysubstance abuse Is this a current diagnosis for this admission?: Yes Plan: History of polysubstance abuse. Unfortunately patient is still has polysubstance abuse. Endorses cocaine injection. Urine tox positive for cocaine, opiates and marijuana. Repeat UDS as expected given prescribed medications. Monitor for withdrawal. Supportive measures. Patient is receiving klonopin (benzo) and fioricet (barbituates). Consider mental health consultation 05/20/2019-continue to educate about the negative benefits of continued drug abuse (7) S/P AVR (aortic valve replacement) Is this a current diagnosis for this admission?: Yes Plan: History of MRSA endocarditis. Recent aortic valve replacement due to infective endocarditis. Now w/ vegitation noted on prosthetic valve. Plan as above. 05/20/2019-see #1 (8) Headache Qualifiers: Headache type: unspecified Intractability: not intractable Is this a current diagnosis for this admission?: Yes Plan: Discussed with patient need to decrease narcotic pain medication use for treatment of headaches to prevent rebound headaches. Advised to use Tylenol, Motrin, and nonpharmacological interventions. Will allow Fioricet for intractable pain. Specifically declined patient request for IV Dilaudid. Patient has been advised that he will not receive IV narcotic medications during this admission. 05 20 2019-stable continue to follow - Plan Summary Summary: Downgrade to telemetry floor today. - Time Time Spent with patient: Less than 15 minutes - Inpatient Certification Based on my medical assessment, after consideration of the patient's comorbidities, presenting symptoms, or acuity I expect that the services needed warrant INPATIENT care.: Yes I certify that my determination is in accordance with my understanding of Medicare's requirements for reasonable and necessary INPATIENT services [42 CFR 412.3e].: Yes Medical Necessity: Need for IV Antibiotics
[2019-05-20] MEDS: FAMOTIDINE 20 MG TABLET PO SCH ×2 (11:06→23:17)
[2019-05-20] MEDS: NORMAL SALINE 10 ML SDV (SCHEDULED) IV SCH ×2 (11:06→23:18)
[2019-05-20] MEDS: DOCUSATE SODIUM 100 MG CAPSULE PO SCH ×2 (11:06→17:28)
[2019-05-20] MEDS: CHLORHEXIDINE GLUCONATE 0.12% ORAL RINSE 15 ML UDC MM SCH ×2 (11:06→17:28)
[2019-05-20] MEDS: CEFTRIAXONE 2 GM/D5W RTU 2 GM/50 ML RTUPB IV SCH (11:07)
[2019-05-20] MEDS: ENOXAPARIN SODIUM INJ 40 MG/0.4 ML DISP.SYRIN SUBCUT SCH (11:10)
[2019-05-21] MEDS: BUTALB/ACETAMINOPHEN/CAFFEINE 1 TAB EACH PO PRN ×3 (05:12→20:01)
[2019-05-21] MEDS ORDERED: BENZOCAINE 20% AEROSOL SPRAY 60 GM ONE (07:36)
[2019-05-21] MEDS ORDERED: NALOXONE HCL INJ/PF 0.4 MG/1 ML SDV ONE (07:36)
[2019-05-21] MEDS ORDERED: FLUMAZENIL INJ 0.5 MG/5 ML VIAL ONE (07:36)
[2019-05-21] MEDS ORDERED: FENTANYL CITRATE INJ/PF 100 MCG/2 ML AMPUL ONE (07:36)
[2019-05-21] MEDS ORDERED: LIDOCAINE 2% VISCOUS SOLN 20 ML UDCUP ONE (07:36)
[2019-05-21] MEDS ORDERED: MIDAZOLAM 2 MG/2 ML INJ ONE (07:36)
[2019-05-21] MEDS ORDERED: DIPHENHYDRAMINE HCL 50 MG/ML VIAL ONE (07:36)
[2019-05-21] MEDS ORDERED: LIDOCAINE 2% JELLY 30 ML TUBE ONE (08:03)
--- NOTE | 2019-05-21 10:45 | PDOC PROGRESS REPORT ---
Subjective Progress Note for:: 05/21/19 Subjective:: 05/16/2019-no complaints this a.m. 05/17/2019-no complaints 05/20/2019 no complaints this a.m. 05/21/2019-no complaints this a.m. Reason For Visit: FEVER, AMS, SIRS Physical Exam Vital Signs: Temp Pulse Resp BP Pulse Ox 98.2 F 90 16 110/57 L 100 05/20/19 23:16 05/21/19 08:40 05/21/19 08:40 05/21/19 08:40 05/21/19 08:40 Intake & Output 05/20/19 05/21/19 05/22/19 06:59 06:59 06:59 Intake Total 1216 910 150 Output Total 1125 900 Balance 91 10 150 Weight 60.5 kg 61 kg General appearance: PRESENT: no acute distress, well-developed, well-nourished Neck exam: ABSENT: carotid bruit, JVD, lymphadenopathy, thyromegaly Respiratory exam: PRESENT: clear to auscultation cassandra. ABSENT: rales, rhonchi, wheezes Cardiovascular exam: PRESENT: RRR. ABSENT: diastolic murmur, rubs, systolic murmur Pulses: PRESENT: normal dorsalis pedis pul Vascular exam: PRESENT: normal capillary refill GI/Abdominal exam: PRESENT: normal bowel sounds, soft. ABSENT: distended, guarding, mass, organolmegaly, rebound, tenderness Extremities exam: PRESENT: full ROM. ABSENT: calf tenderness, clubbing, pedal edema Neurological exam: PRESENT: alert, awake, oriented to person, oriented to place, oriented to time, oriented to situation, CN II-XII grossly intact. ABSENT: motor sensory deficit Psychiatric exam: PRESENT: appropriate affect, normal mood. ABSENT: homicidal ideation, suicidal ideation Skin exam: PRESENT: dry, intact, warm. ABSENT: cyanosis, rash Results Laboratory Results: 05/14/19 04:32 05/14/19 04:32 Impressions: Chest X-Ray 05/08/19 14:07 IMPRESSION: NO ACUTE RADIOGRAPHIC FINDING IN THE CHEST. Head CT 05/08/19 14:08 IMPRESSION: NORMAL BRAIN CT WITHOUT CONTRAST. EVIDENCE OF ACUTE STROKE: NO. Guidance Fluoroscopy 05/15/19 00:00 IMPRESSION: SUCCESSFUL PLACEMENT OF A 5 FR DUAL LUMEN 47 CM PICC IN THE LEFT BASILIC VEIN. Interventional Vascular Procedure 05/15/19 00:00 IMPRESSION: SUCCESSFUL PLACEMENT OF A 5 FR DUAL LUMEN 47 CM PICC IN THE LEFT BASILIC VEIN. PICC Line Insertion 05/15/19 00:00 IMPRESSION: SUCCESSFUL PLACEMENT OF A 5 FR DUAL LUMEN 47 CM PICC IN THE LEFT BASILIC VEIN. Assessment and Plan - Diagnosis (1) Endocarditis Qualifiers: Endocarditis type: infective Infective endocarditis organism: bacterial Chronicity: acute Qualified Code(s): I33.0 - Acute and subacute infective endo carditis Is this a current diagnosis for this admission?: Yes Plan: RENEE confirms vegetation to his Prosthetic aortic valve measuring 1.26 cm x 0.91 cm. LVEF is normal. There is no vegetation noted on the mitral valve. Blood cultures (05/08/2019) revealed strep viridans. Repeat blood cultures 05/09/2019 are negative Vancomycin discontinued Day #5 Infectious disease consulted; have increased Rocephin to 2 gm daily per ID recommendations. Stop date 06/20/19. Spoke w/ the patient's cardiothoracic surgeon at [facility], Dr. Bauer, who did the patient's aortic valve replacement surgery 11/15/2018. Dr. Bauer recommends repeat RENEE in 1 week to evaluate vegetation and confirm stability of prosthetic valve. If patient is noted to have worsened regurgitation, contact their facility to arrange for transfer. Otherwise, continue antibiotic therapy as recommended by infectious disease and repeat RENEE again during last week of therapy to confirm clearance; if vegetation remains, extend antibiotic treatment course. Repeat RENEE ordered per Dr. Bauer's recommendations. 05/20/2019-stable at this time patient continues on IV antibiotics Rocephin. Awaiting repeat RENEE. 05/21/2019-repeat RENEE shows no change in size of vegetation. Awaiting full result to determine if regurgitation is worse. (2) Bacteremia Is this a current diagnosis for this admission?: Yes Plan: Most likely due to continuous IV drug abuse. Patient also have very poor digital hygiene. Blood culture positive 2/2 strep viridans. RENEE confirms endocarditis Antibiotics as above. Infectious diseases consulted. Patient will need outpatient dentist follow-up for his extensive dental caries and poor hygiene. 05/20/2019-see #1 05/21/2019-see #1 (3) Anemia Qualifiers: Anemia type: iron deficiency Is this a current diagnosis for this admission?: Yes Plan: Likely anemia of chronic disease. Likely related to poor overall nutrition (BMI 17.8, IV drug use) and possibly prosthetic valve. Denies any hematochezia, hematemesis, hemoptysis, nosebleeds, hematuria or any easy bleeding. Anemia panel is benign. Most recent Hgb/Hct 10.6/31.6 No active blood loss. Will monitor periodic H&H -chronic, stable. 05/21/2018-repeat CBC in a.m. (4) Acute encephalopathy Is this a current diagnosis for this admission?: Yes Plan: Resolved. Acute toxic encephalopathy most likely to to polysubstance abuse. 05/20/2019-stable. Continue to follow 05/21/2019-stable (5) SIRS (systemic inflammatory response syndrome) Is this a current diagnosis for this admission?: Yes Plan: Resolved. Evidenced by tachycardia, fever, elevated lactic acid. Most likely due to bacteremia/endocarditis. -stable continue to follow 05/21/2019-stable continue to follow (6) Polysubstance abuse Is this a current diagnosis for this admission?: Yes Plan: History of polysubstance abuse. Unfortunately patient is still has polysubstance abuse. Endorses cocaine injection. Urine tox positive for cocaine, opiates and marijuana. Repeat UDS as expected given prescribed medications. Monitor for withdrawal. Supportive measures. Patient is receiving klonopin (benzo) and fioricet (barbituates). Consider mental health consultation 05/20/2019-continue to educate about the negative benefits of continued drug abuse 05/21/2019-continue education about drug abstinence (7) S/P AVR (aortic valve replacement) Is this a current diagnosis for this admission?: Yes Plan: History of MRSA endocarditis. Recent aortic valve replacement due to infective endocarditis. Now w/ vegitation noted on prosthetic valve. Plan as above. 05/20/2019-see #1 05/21/2018-see #1 (8) Headache Qualifiers: Headache type: unspecified Intractability: not intractable Is this a current diagnosis for this admission?: Yes Plan: Discussed with patient need to decrease narcotic pain medication use for treatment of headaches to prevent rebound headaches. Advised to use Tylenol, Motrin, and nonpharmacological interventions. Will allow Fioricet for intractable pain. Specifically declined patient request for IV Dilaudid. Patient has been advised that he will not receive IV narcotic medications during this admission. 05 20 2019-stable continue to follow 05/21/2019-stable - Plan Summary Summary: Downgrade to telemetry floor today. - Time Time Spent with patient: 15-24 minutes - Inpatient Certification Based on my medical assessment, after consideration of the patient's comorbidities, presenting symptoms, or acuity I expect that the services needed warrant INPATIENT care.: Yes I certify that my determination is in accordance with my understanding of Medicare's requirements for reasonable and necessary INPATIENT services [42 CFR 412.3e].: Yes Medical Necessity: Need for IV Antibiotics
[2019-05-21] MEDS: CEFTRIAXONE 2 GM/D5W RTU 2 GM/50 ML RTUPB IV SCH (11:41)
[2019-05-21] MEDS: ENOXAPARIN SODIUM INJ 40 MG/0.4 ML DISP.SYRIN SUBCUT SCH (11:41)
[2019-05-21] MEDS: DOCUSATE SODIUM 100 MG CAPSULE PO SCH ×2 (11:42→17:32)
[2019-05-21] MEDS: NORMAL SALINE 10 ML SDV (SCHEDULED) IV SCH ×2 (11:42→22:08)
[2019-05-21] MEDS: CHLORHEXIDINE GLUCONATE 0.12% ORAL RINSE 15 ML UDC MM SCH ×2 (11:44→17:31)
[2019-05-21] MEDS: FAMOTIDINE 20 MG TABLET PO SCH ×2 (11:44→22:08)
--- NOTE | 2019-05-21 13:59 | XCELERA REPORT ---
Study ID: [id number] [id number] Transesophageal Echocardiogram Report Name: DONAVAN FALCON Age: 23 yrs Gender: Male : 1995 Patient Status: Inpatient Patient Location: [address] [place], [place] [address]A Study Date: 05/21/2019 07:51 AM Height: 60 in Weight: 130 lb BSA: 1.6 m2 Reason For Study: endocarditis; evaluate stability prosthetic valve Ordering Physician: PEÑA PHAN Performed By: Eliana Shi Interpretation Summary The left ventricular ejection fraction is normal. Ejection Fraction = >55%. The right ventricular systolic function is normal. The prosthetic aortic valve appears to open well. Trace aortic regurgitation. Vegetations are present on this prosthetic aortic valve. Vegetation measures 0.8 cm X 1 cm in the long axis view. There is no pericardial effusion. Compared to prior study dated 05/13/2019 the size of the aortic vegetation appears slightly smaller. Procedure A complete two-dimensional transesophageal echocardiogram was performed (2D, spectral and color flow Doppler). Informed consent for Transesophageal Echocardiogram, and use of a contrast agent as needed, was obtained prior to the procedure. An intravenous line was placed. A topical anesthetic agent was used for oropharangeal anesthesia. A bite block was inserted. IV conscious sedation was administered using Midazolam 2 mg IV and Frentanyl 25 mcg IV. The patient was brought to the Endoscopy in a fasting state. The patient's vital signs, including blood pressure, heart rate, pulse oximetry and cardiac rhythm were monitored thoughout the procedure. A multifrequency, mutliplane transesophageal echocardiographic endoscope was inserted and manipulated in the standard fashion to achieve multiplane views. The transesophageal probe was passed without difficulty. The usual views were obtained; basal, mid- esophageal, transgastric and aortic views. The patient tolerated the procedure well without evidence of orophangeal or esophageal trauma. Subsequent to all the images being obtained the probe was removed with out trauma. Left Ventricle The left ventricle is normal in size. There is no thrombus. There is normal left ventricular wall thickness. The left ventricular ejection fraction is normal. Ejection Fraction = >55%. No regional wall motion abnormalities noted. Right Ventricle The right ventricle is normal size. The right ventricular systolic function is normal. Atria The interatrial septum is intact with no evidence for an atrial septal defect. The left atrial size is normal. No thrombus is detected in the left atrial appendage. Right atrial size is normal. Mitral Valve The mitral valve is normal in structure and function. There is no mitral valve stenosis. There is mild mitral regurgitation. Aortic Valve Trace aortic regurgitation. The prosthetic aortic valve appears to open well. Vegetations are present on this prosthetic aortic valve. Vegetation measures 0.8 cm X 1 cm in the long axis view. Pulmonic Valve The pulmonic valve is not well visualized. Arteries The aortic root is not well visualized but is probably normal size. Pericardium There is no pericardial effusion. : PEÑA PHAN Anil
[2019-05-21] MEDS: CLONAZEPAM 1 MG TABLET PO PRN (17:32)
[2019-05-22] MEDS: CLONAZEPAM 1 MG TABLET PO PRN ×2 (05:38→18:08)
[2019-05-22] MEDS: BUTALB/ACETAMINOPHEN/CAFFEINE 1 TAB EACH PO PRN ×2 (05:38→22:09)
--- NOTE | 2019-05-22 08:12 | PDOC PROGRESS REPORT ---
Subjective Progress Note for:: 05/22/19 Subjective:: 05/16/2019-no complaints this a.m. 05/17/2019-no complaints 05/20/2019 no complaints this a.m. 05/21/2019-no complaints this a.m. 05/22/2019-no complaints at this time Reason For Visit: FEVER, AMS, SIRS Physical Exam Vital Signs: Temp Pulse Resp BP Pulse Ox 97.6 F 99 16 118/69 100 05/21/19 12:24 05/22/19 02:00 05/21/19 12:24 05/21/19 12:24 05/21/19 12:24 Intake & Output 05/21/19 05/22/19 05/23/19 06:59 06:59 06:59 Intake Total 910 2250 Output Total 900 330 Balance 10 1920 Weight 61 kg 61 kg General appearance: PRESENT: no acute distress, well-developed, well-nourished Head exam: PRESENT: atraumatic, normocephalic Eye exam: PRESENT: conjunctiva pink, EOMI, PERRLA. ABSENT: scleral icterus Ear exam: PRESENT: normal external ear exam Mouth exam: PRESENT: moist, tongue midline Neck exam: ABSENT: carotid bruit, JVD, lymphadenopathy, thyromegaly Respiratory exam: PRESENT: clear to auscultation cassandra. ABSENT: rales, rhonchi, wheezes Cardiovascular exam: PRESENT: RRR. ABSENT: diastolic murmur, rubs, systolic murmur Pulses: PRESENT: normal dorsalis pedis pul Vascular exam: PRESENT: normal capillary refill GI/Abdominal exam: PRESENT: normal bowel sounds, soft. ABSENT: distended, guarding, mass, organolmegaly, rebound, tenderness Rectal exam: PRESENT: deferred Extremities exam: PRESENT: full ROM. ABSENT: calf tenderness, clubbing, pedal edema Neurological exam: PRESENT: alert, awake, oriented to person, oriented to place, oriented to time, oriented to situation, CN II-XII grossly intact. ABSENT: motor sensory deficit Psychiatric exam: PRESENT: appropriate affect, normal mood. ABSENT: homicidal ideation, suicidal ideation Skin exam: PRESENT: dry, intact, warm. ABSENT: cyanosis, rash Results Laboratory Results: 05/14/19 04:32 05/14/19 04:32 Impressions: Chest X-Ray 05/08/19 14:07 IMPRESSION: NO ACUTE RADIOGRAPHIC FINDING IN THE CHEST. Head CT 05/08/19 14:08 IMPRESSION: NORMAL BRAIN CT WITHOUT CONTRAST. EVIDENCE OF ACUTE STROKE: NO. Guidance Fluoroscopy 05/15/19 00:00 IMPRESSION: SUCCESSFUL PLACEMENT OF A 5 FR DUAL LUMEN 47 CM PICC IN THE LEFT BASILIC VEIN. Interventional Vascular Procedure 05/15/19 00:00 IMPRESSION: SUCCESSFUL PLACEMENT OF A 5 FR DUAL LUMEN 47 CM PICC IN THE LEFT BASILIC VEIN. PICC Line Insertion 05/15/19 00:00 IMPRESSION: SUCCESSFUL PLACEMENT OF A 5 FR DUAL LUMEN 47 CM PICC IN THE LEFT BASILIC VEIN. 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 LVEF is normal. There is no vegetation noted on the mitral valve. Blood cultures (05/08/2019) revealed strep viridans. Repeat blood cultures 05/09/2019 are negative Vancomycin discontinued Day #5 Infectious disease consulted; have increased Rocephin to 2 gm daily per ID recommendations. Stop date 06/20/19. Spoke w/ the patient's cardiothoracic surgeon at [facility], Dr. Bauer, who did the patient's aortic valve replacement surgery 11/15/2018. Dr. Bauer recommends repeat RENEE in 1 week to evaluate vegetation and confirm stability of prosthetic valve. If patient is noted to have worsened regurgitation, contact their facility to arrange for transfer. Otherwise, continue antibiotic therapy as recommended by infectious disease and repeat RENEE again during last week of therapy to confirm clearance; if vegetation remains, extend antibiotic treatment course. Repeat RENEE ordered per Dr. Bauer's recommendations. 05/20/2019-stable at this time patient continues on IV antibiotics Rocephin. Awaiting repeat RENEE. 05/21/2019-repeat RENEE shows no change in size of vegetation. Awaiting full result to determine if regurgitation is worse. 2018-improving. Repeat RENEE shows possible small decrease in size of vegetation. No further worsening of regurgitation at this time. (2) Bacteremia Is this a current diagnosis for this admission?: Yes Plan: Most likely due to continuous IV drug abuse. Patient also have very poor digital hygiene. Blood culture positive 2/2 strep viridans. RENEE confirms endocarditis Antibiotics as above. Infectious diseases consulted. Patient will need outpatient dentist follow-up for his extensive dental caries and poor hygiene. 05/20/2019-see #1 05/21/2019-see #1 -see #1 (3) Anemia Qualifiers: Anemia type: iron deficiency Is this a current diagnosis for this admission?: Yes Plan: Likely anemia of chronic disease. Likely related to poor overall nutrition (BMI 17.8, IV drug use) and possibly prosthetic valve. Denies any hematochezia, hematemesis, hemoptysis, nosebleeds, hematuria or any easy bleeding. Anemia panel is benign. Most recent Hgb/Hct ./. No active blood loss. Will monitor periodic H&H -chronic, stable. 05/21/2018-repeat CBC in a.m. 05/22/2019-stable (4) Acute encephalopathy Is this a current diagnosis for this admission?: Yes Plan: Resolved. Acute toxic encephalopathy most likely to to polysubstance abuse. 05/20/2019-stable. Continue to follow 05/21/2019-stable 2018-stable continue to follow (5) SIRS (systemic inflammatory response syndrome) Is this a current diagnosis for this admission?: Yes Plan: Resolved. Evidenced by tachycardia, fever, elevated lactic acid. Most likely due to bacteremia/endocarditis. -stable continue to follow 05/21/2019-stable continue to follow 05/22/2019-stable (6) Polysubstance abuse Is this a current diagnosis for this admission?: Yes Plan: History of polysubstance abuse. Unfortunately patient is still has polysubstance abuse. Endorses cocaine injection. Urine tox positive for cocaine, opiates and marijuana. Repeat UDS as expected given prescribed medications. Monitor for withdrawal. Supportive measures. Patient is receiving klonopin (benzo) and fioricet (barbituates). Consider mental health consultation 05/20/2019-continue to educate about the negative benefits of continued drug abuse 05/21/2019-continue education about drug abstinence 2018-continue drug abstinence education (7) S/P AVR (aortic valve replacement) Is this a current diagnosis for this admission?: Yes Plan: History of MRSA endocarditis. Recent aortic valve replacement due to infective endocarditis. Now w/ vegitation noted on prosthetic valve. Plan as above. 05/20/2019-see #1 05/21/2018-see #1 2018-see #1 (8) Headache Qualifiers: Headache type: unspecified Intractability: not intractable Is this a current diagnosis for this admission?: Yes Plan: Discussed with patient need to decrease narcotic pain medication use for treatment of headaches to prevent rebound headaches. Advised to use Tylenol, Motrin, and nonpharmacological interventions. Will allow Fioricet for intractable pain. Specifically declined patient request for IV Dilaudid. Patient has been advised that he will not receive IV narcotic medications during this admission. 05 20 2019-stable continue to follow 05/21/2019-stable 2018-stable - Plan Summary Summary: Downgrade to telemetry floor today. - Time Time Spent with patient: 15-24 minutes - Inpatient Certification Based on my medical assessment, after consideration of the patient's comorbidities, presenting symptoms, or acuity I expect that the services needed warrant INPATIENT care.: Yes I certify that my determination is in accordance with my understanding of Medicare's requirements for reasonable and necessary INPATIENT services [42 CFR 412.3e].: Yes Medical Necessity: Need for IV Antibiotics
[2019-05-22] MEDS: DOCUSATE SODIUM 100 MG CAPSULE PO SCH ×2 (09:15→18:09)
[2019-05-22] MEDS: FAMOTIDINE 20 MG TABLET PO SCH ×2 (09:15→22:09)
[2019-05-22] MEDS: CHLORHEXIDINE GLUCONATE 0.12% ORAL RINSE 15 ML UDC MM SCH ×2 (09:17→18:09)
[2019-05-22] MEDS: ENOXAPARIN SODIUM INJ 40 MG/0.4 ML DISP.SYRIN SUBCUT SCH (09:19)
[2019-05-22] MEDS: NORMAL SALINE 10 ML SDV (SCHEDULED) IV SCH ×2 (09:20→22:09)
[2019-05-22 12:37] LABS: HEMATOCRIT 29.5 % (37.9-51.0); MEAN CORPUSCULAR HEMOGLOBIN 25.2 pg (27.0-33.4); MEAN CORPUSCULAR HGB CONC 33.8 g/dL (32.0-36.0); MEAN CORPUSCULAR VOLUME 75 fl (80-97); PLATELET COUNT 390 10^3/uL (150-450); RED BLOOD COUNT 3.96 10^6/uL (4.35-5.55); WHITE BLOOD COUNT 8.9 10^3/uL (4.0-10.5)
[2019-05-22 13:02] LABS: ANION GAP 8 (5-19); BLOOD UREA NITROGEN 12 mg/dL (7-20); CALCIUM 9.8 mg/dL (8.4-10.2); CARBON DIOXIDE 30 mmol/L (22-30); CHLORIDE 105 mmol/L (98-107); GLUCOSE 89 mg/dL (75-110); POTASSIUM 4.3 mmol/L (3.6-5.0)
[2019-05-22] MEDS: ACETAMINOPHEN 325 MG TABLET PO PRN (14:26)
[2019-05-22 19:11] LABS: URINE AMPHETAMINES SCREEN NEGATIVE; URINE BENZODIAZEPINES SCREEN NEGATIVE; URINE COCAINE SCREEN NEGATIVE; URINE MARIJUANA (THC) SCREEN NEGATIVE; URINE METHADONE SCREEN NEGATIVE; URINE PHENCYCLIDINE SCREEN NEGATIVE
[2019-05-22 19:14] LABS: URINE BARBITURATES SCREEN UNCONFIRMED POSITIVE
[2019-05-23] MEDS: BUTALB/ACETAMINOPHEN/CAFFEINE 1 TAB EACH PO PRN ×3 (04:43→21:40)
--- NOTE | 2019-05-23 08:40 | PDOC PROGRESS REPORT ---
Subjective Progress Note for:: 05/23/19 Subjective:: 05/16/2019-no complaints this a.m. 05/17/2019-no complaints 05/20/2019 no complaints this a.m. 05/21/2019-no complaints this a.m. 05/22/2019-no complaints at this time 05/23/2019-no complaints Reason For Visit: FEVER, AMS, SIRS Physical Exam Vital Signs: Temp Pulse Resp BP Pulse Ox 97.8 F 93 17 113/67 100 05/23/19 07:32 05/23/19 07:32 05/23/19 07:32 05/23/19 07:32 05/23/19 07:32 Intake & Output 05/22/19 05/23/19 05/24/19 06:59 06:59 06:59 Intake Total 2250 2120 Output Total 330 975 Balance 1920 1145 Weight 61 kg 61 kg General appearance: PRESENT: no acute distress, well-developed, well-nourished Neck exam: ABSENT: carotid bruit, JVD, lymphadenopathy, thyromegaly Respiratory exam: PRESENT: clear to auscultation cassandra. ABSENT: rales, rhonchi, wheezes Cardiovascular exam: PRESENT: RRR. ABSENT: diastolic murmur, rubs, systolic murmur Pulses: PRESENT: normal dorsalis pedis pul Vascular exam: PRESENT: normal capillary refill GI/Abdominal exam: PRESENT: normal bowel sounds, soft. ABSENT: distended, guarding, mass, organolmegaly, rebound, tenderness Extremities exam: PRESENT: full ROM. ABSENT: calf tenderness, clubbing, pedal edema Neurological exam: PRESENT: alert, awake, oriented to person, oriented to place, oriented to time, oriented to situation, CN II-XII grossly intact. ABSENT: motor sensory deficit Psychiatric exam: PRESENT: appropriate affect, normal mood. ABSENT: homicidal ideation, suicidal ideation Skin exam: PRESENT: dry, intact, warm. ABSENT: cyanosis, rash Results Laboratory Results: 05/22/19 12:20 05/22/19 12:20 05/22/19 05/22/19 12:20 12:20 WBC 8.9 RBC 3.96 L Hgb 10.0 L Hct 29.5 L MCV 75 L MCH 25.2 L MCHC 33.8 RDW 17.0 H Plt Count 390 Sodium 142.6 Potassium 4.3 Chloride 105 Carbon Dioxide 30 Anion Gap 8 BUN 12 Creatinine 0.78 Est GFR ( Amer) > 60 Glucose 89 Calcium 9.8 Impressions: Chest X-Ray 05/08/19 14:07 IMPRESSION: NO ACUTE RADIOGRAPHIC FINDING IN THE CHEST. Head CT 05/08/19 14:08 IMPRESSION: NORMAL BRAIN CT WITHOUT CONTRAST. EVIDENCE OF ACUTE STROKE: NO. Guidance Fluoroscopy 05/15/19 00:00 IMPRESSION: SUCCESSFUL PLACEMENT OF A 5 FR DUAL LUMEN 47 CM PICC IN THE LEFT BASILIC VEIN. Interventional Vascular Procedure 05/15/19 00:00 IMPRESSION: SUCCESSFUL PLACEMENT OF A 5 FR DUAL LUMEN 47 CM PICC IN THE LEFT BASILIC VEIN. PICC Line Insertion 05/15/19 00:00 IMPRESSION: SUCCESSFUL PLACEMENT OF A 5 FR DUAL LUMEN 47 CM PICC IN THE LEFT BASILIC VEIN. 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 LVEF is normal. There is no vegetation noted on the mitral valve. Blood cultures (05/08/2019) revealed strep viridans. Repeat blood cultures 05/09/2019 are negative Vancomycin discontinued Day #5 Infectious disease consulted; have increased Rocephin to 2 gm daily per ID recommendations. Stop date 06/20/19. Spoke w/ the patient's cardiothoracic surgeon at [facility], Dr. Bauer, who did the patient's aortic valve replacement surgery 11/15/2018. Dr. Bauer recommends repeat RENEE in 1 week to evaluate vegetation and confirm stability of prosthetic valve. If patient is noted to have worsened regurgitation, contact their facility to arrange for transfer. Otherwise, continue antibiotic therapy as recommended by infectious disease and repeat RENEE again during last week of therapy to confirm clearance; if vegetation remains, extend antibiotic treatment course. Repeat RENEE ordered per Dr. Bauer's recommendations. 05/20/2019-stable at this time patient continues on IV antibiotics Rocephin. Awaiting repeat RENEE. 05/21/2019-repeat RENEE shows no change in size of vegetation. Awaiting full result to determine if regurgitation is worse. 2018-improving. Repeat RENEE shows possible small decrease in size of vegetation. No further worsening of regurgitation at this time. 05/23/2019-continue antibiotic at this time (2) Bacteremia Is this a current diagnosis for this admission?: Yes Plan: Most likely due to continuous IV drug abuse. Patient also have very poor digital hygiene. Blood culture positive 2/2 strep viridans. RENEE confirms endocarditis Antibiotics as above. Infectious diseases consulted. Patient will need outpatient dentist follow-up for his extensive dental caries and poor hygiene. 05/20/2019-see #1 05/21/2019-see #1 -see #1 (3) Anemia Qualifiers: Anemia type: iron deficiency Is this a current diagnosis for this admission?: Yes Plan: Likely anemia of chronic disease. Likely related to poor overall nutrition (BMI 17.8, IV drug use) and possibly prosthetic valve. Denies any hematochezia, hematemesis, hemoptysis, nosebleeds, hematuria or any easy bleeding. Anemia panel is benign. Most recent Hgb/Hct .6/.6 No active blood loss. Will monitor periodic H&H -chronic, stable. 05/21/2018-repeat CBC in a.m. 05/22/2019-stable 05/23/2019-stable (4) Acute encephalopathy Is this a current diagnosis for this admission?: Yes Plan: Resolved. Acute toxic encephalopathy most likely to to polysubstance abuse. 05/20/2019-stable. Continue to follow 05/21/2019-stable 2018-stable continue to follow 05/23/2019-stable (5) SIRS (systemic inflammatory response syndrome) Is this a current diagnosis for this admission?: Yes Plan: Resolved. Evidenced by tachycardia, fever, elevated lactic acid. Most likely due to bacteremia/endocarditis. -stable continue to follow 05/21/2019-stable continue to follow 05/22/2019-stable 05/23/2019-stable (6) Polysubstance abuse Is this a current diagnosis for this admission?: Yes Plan: History of polysubstance abuse. Unfortunately patient is still has polysubstance abuse. Endorses cocaine injection. Urine tox positive for cocaine, opiates and marijuana. Repeat UDS as expected given prescribed medications. Monitor for withdrawal. Supportive measures. Patient is receiving klonopin (benzo) and fioricet (barbituates). Consider mental health consultation 05/20/2019-continue to educate about the negative benefits of continued drug abuse 05/21/2019-continue education about drug abstinence 2018-continue drug abstinence education 05/23/2019-continue drug abstinence education (7) S/P AVR (aortic valve replacement) Is this a current diagnosis for this admission?: Yes Plan: History of MRSA endocarditis. Recent aortic valve replacement due to infective endocarditis. Now w/ vegitation noted on prosthetic valve. Plan as above. 05/20/2019-see #1 05/21/2018-see #1 2018-see #1 05/23/2019-see #1 (8) Headache Qualifiers: Headache type: unspecified Intractability: not intractable Is this a current diagnosis for this admission?: Yes Plan: Discussed with patient need to decrease narcotic pain medication use for treatment of headaches to prevent rebound headaches. Advised to use Tylenol, Motrin, and nonpharmacological interventions. Will allow Fioricet for intractable pain. Specifically declined patient request for IV Dilaudid. Patient has been advised that he will not receive IV narcotic medications during this admission. 05 20 2019-stable continue to follow 05/21/2019-stable 2018-stable 05/23/2019-stable - Plan Summary Summary: Downgrade to telemetry floor today. - Time Time Spent with patient: 15-24 minutes - Inpatient Certification Based on my medical assessment, after consideration of the patient's com orbidities, presenting symptoms, or acuity I expect that the services needed warrant INPATIENT care.: Yes I certify that my determination is in accordance with my understanding of Medicare's requirements for reasonable and necessary INPATIENT services [42 CFR 412.3e].: Yes Medical Necessity: Need for IV Antibiotics
[2019-05-23] MEDS: DOCUSATE SODIUM 100 MG CAPSULE PO SCH ×2 (10:25→17:41)
[2019-05-23] MEDS: FAMOTIDINE 20 MG TABLET PO SCH ×2 (10:25→21:35)
[2019-05-23] MEDS: CEFTRIAXONE 2 GM/D5W RTU 2 GM/50 ML RTUPB IV SCH (10:26)
[2019-05-23] MEDS: NORMAL SALINE 10 ML SDV (SCHEDULED) IV SCH ×2 (10:27→21:36)
[2019-05-23] MEDS: ENOXAPARIN SODIUM INJ 40 MG/0.4 ML DISP.SYRIN SUBCUT SCH (10:27)
[2019-05-23] MEDS: CHLORHEXIDINE GLUCONATE 0.12% ORAL RINSE 15 ML UDC MM SCH ×2 (10:27→17:41)
[2019-05-23] MEDS: ACETAMINOPHEN 325 MG TABLET PO PRN (17:41)
[2019-05-23] MEDS: CLONAZEPAM 1 MG TABLET PO PRN (17:46)
[2019-05-24] MEDS: BUTALB/ACETAMINOPHEN/CAFFEINE 1 TAB EACH PO PRN ×3 (06:18→21:56)
--- NOTE | 2019-05-24 08:58 | PDOC PROGRESS REPORT ---
Subjective Progress Note for:: 05/24/19 Subjective:: 05/16/2019-no complaints this a.m. 05/17/2019-no complaints 05/20/2019 no complaints this a.m. 05/21/2019-no complaints this a.m. 05/22/2019-no complaints at this time 05/23/2019-no complaints 05/24/2019-no complaints this a.m. Reason For Visit: FEVER, AMS, SIRS Physical Exam Vital Signs: Temp Pulse Resp BP Pulse Ox 98.3 F 92 16 100/57 L 98 05/24/19 08:05 05/24/19 08:05 05/24/19 08:05 05/24/19 08:05 05/24/19 08:05 Intake & Output 05/23/19 05/24/19 05/25/19 06:59 06:59 05:59 Intake Total 2120 1075 Output Total 975 300 Balance 1145 775 Weight 61 kg 61.3 kg General appearance: PRESENT: no acute distress, well-developed, well-nourished Head exam: PRESENT: atraumatic, normocephalic Eye exam: PRESENT: conjunctiva pink, EOMI, PERRLA. ABSENT: scleral icterus Ear exam: PRESENT: normal external ear exam Mouth exam: PRESENT: moist, tongue midline Neck exam: ABSENT: carotid bruit, JVD, lymphadenopathy, thyromegaly Respiratory exam: PRESENT: clear to auscultation cassandra. ABSENT: rales, rhonchi, wheezes Cardiovascular exam: PRESENT: RRR. ABSENT: diastolic murmur, rubs, systolic murmur Pulses: PRESENT: normal dorsalis pedis pul Vascular exam: PRESENT: normal capillary refill GI/Abdominal exam: PRESENT: normal bowel sounds, soft. ABSENT: distended, guarding, mass, organolmegaly, rebound, tenderness Rectal exam: PRESENT: deferred Extremities exam: PRESENT: full ROM. ABSENT: calf tenderness, clubbing, pedal edema Neurological exam: PRESENT: alert, awake, oriented to person, oriented to place, oriented to time, oriented to situation, CN II-XII grossly intact. ABSENT: motor sensory deficit Psychiatric exam: PRESENT: appropriate affect, normal mood. ABSENT: homicidal ideation, suicidal ideation Skin exam: PRESENT: dry, intact, warm. ABSENT: cyanosis, rash Results Laboratory Results: 05/22/19 12:20 05/22/19 12:20 Impressions: Chest X-Ray 05/08/19 14:07 IMPRESSION: NO ACUTE RADIOGRAPHIC FINDING IN THE CHEST. Head CT 05/08/19 14:08 IMPRESSION: NORMAL BRAIN CT WITHOUT CONTRAST. EVIDENCE OF ACUTE STROKE: NO. Guidance Fluoroscopy 05/15/19 00:00 IMPRESSION: SUCCESSFUL PLACEMENT OF A 5 FR DUAL LUMEN 47 CM PICC IN THE LEFT BASILIC VEIN. Interventional Vascular Procedure 05/15/19 00:00 IMPRESSION: SUCCESSFUL PLACEMENT OF A 5 FR DUAL LUMEN 47 CM PICC IN THE LEFT BASILIC VEIN. PICC Line Insertion 05/15/19 00:00 IMPRESSION: SUCCESSFUL PLACEMENT OF A 5 FR DUAL LUMEN 47 CM PICC IN THE LEFT BASILIC VEIN. 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 LVEF is normal. There is no vegetation noted on the mitral valve. Blood cultures (05/08/2019) revealed strep viridans. Repeat blood cultures 05/09/2019 are negative Vancomycin discontinued Day #5 Infectious disease consulted; have increased Rocephin to 2 gm daily per ID recommendations. Stop date 06/20/19. Spoke w/ the patient's cardiothoracic surgeon at [facility], Dr. Bauer, who did the patient's aortic valve replacement surgery 11/15/2018. Dr. Bauer recommends repeat RENEE in 1 week to evaluate vegetation and confirm stability of prosthetic valve. If patient is noted to have worsened regurgitation, contact their facility to arrange for transfer. Otherwise, continue antibiotic therapy as recommended by infectious disease and repeat RENEE again during last week of therapy to confirm clearance; if vegetation remains, e xtend antibiotic treatment course. Repeat RENEE ordered per Dr. Bauer's recommendations. 05/20/2019-stable at this time patient continues on IV antibiotics Rocephin. Awaiting repeat RENEE. 05/21/2019-repeat RENEE shows no change in size of vegetation. Awaiting full result to determine if regurgitation is worse. 2018-improving. Repeat RENEE shows possible small decrease in size of vegetation. No further worsening of regurgitation at this time. 05/23/2019-continue antibiotic at this time 05/24/2019-continues Rocephin at this time. (2) Bacteremia Is this a current diagnosis for this admission?: Yes Plan: Most likely due to continuous IV drug abuse. Patient also have very poor digital hygiene. Blood culture positive 2/2 strep viridans. RENEE confirms endocarditis Antibiotics as above. Infectious diseases consulted. Patient will need outpatient dentist follow-up for his extensive dental caries and poor hygiene. 05/20/2019-see #1 05/21/2019-see #1 -see #1 05/24/2019-see #1 (3) Anemia Qualifiers: Anemia type: iron deficiency Is this a current diagnosis for this admission?: Yes Plan: Likely anemia of chronic disease. Likely related to poor overall nutrition (BMI 17.8, IV drug use) and possibly prosthetic valve. Denies any hematochezia, hematemesis, hemoptysis, nosebleeds, hematuria or any easy bleeding. Anemia panel is benign. Most recent Hgb/Hct 10.6/31.6 No active blood loss. Will monitor periodic H&H -chronic, stable. 05/21/2018-repeat CBC in a.m. 05/22/2019-stable 05/23/2019-stable 05/24/2019-stable (4) Acute encephalopathy Is this a current diagnosis for this admission?: Yes Plan: Resolved. Acute toxic encephalopathy most likely to to polysubstance abuse. 05/20/2019-stable. Continue to follow 05/21/2019-stable 2018-stable continue to follow 05/23/2019-stable 05/24/2019-stable (5) SIRS (systemic inflammatory response syndrome) Is this a current diagnosis for this admission?: Yes Plan: Resolved. Evidenced by tachycardia, fever, elevated lactic acid. Most likely due to bacteremia/endocarditis. -stable continue to follow 05/21/2019-stable continue to follow 05/22/2019-stable 05/23/2019-stable 05/24/2019-stable (6) Polysubstance abuse Is this a current diagnosis for this admission?: Yes Plan: History of polysubstance abuse. Unfortunately patient is still has polysubstance abuse. Endorses cocaine injection. Urine tox positive for cocaine, opiates and marijuana. Repeat UDS as expected given prescribed medications. Monitor for withdrawal. Supportive measures. Patient is receiving klonopin (benzo) and fioricet (barbituates). Consider mental health consultation 05/20/2019-continue to educate about the negative benefits of continued drug abuse 05/21/2019-continue education about drug abstinence 2018-continue drug abstinence education 05/23/2019-continue drug abstinence education 05/24/2019-continue education about drug abstinence (7) S/P AVR (aortic valve replacement) Is this a current diagnosis for this admission?: Yes Plan: History of MRSA endocarditis. Recent aortic valve replacement due to infective endocarditis. Now w/ vegitation noted on prosthetic valve. Plan as above. 05/20/2019-see #1 05/21/2018-see #1 2018-see #1 05/23/2019-see #1 05/24/2019 see #1 (8) Headache Qualifiers: Headache type: unspecified Intractability: not intractable Is this a current diagnosis for this admission?: Yes Plan: Discussed with patient need to decrease narcotic pain medication use for treatment of headaches to prevent rebound headaches. Advised to use Tylenol, Motrin, and nonpharmacological interventions. Will allow Fioricet for intractable pain. Specifically declined patient request for IV Dilaudid. Patient has been advised that he will not receive IV narcotic medications during this admission. 05 20 2019-stable continue to follow 05/21/2019-stable 2018-stable 05/23/2019-stable 05/24/2019-stable - Plan Summary Summary: Downgrade to telemetry floor today. - Time Time Spent with patient: 15-24 minutes - Inpatient Certification Based on my medical assessment, after consideration of the patient's comorbidities, presenting symptoms, or acuity I expect that the services needed warrant INPATIENT care.: Yes I certify that my determination is in accordance with my understanding of Medicare's requirements for reasonable and necessary INPATIENT services [42 CFR 412.3e].: Yes Medical Necessity: Need for IV Antibiotics
[2019-05-24] MEDS: CEFTRIAXONE 2 GM/D5W RTU 2 GM/50 ML RTUPB IV SCH (10:58)
[2019-05-24] MEDS: ENOXAPARIN SODIUM INJ 40 MG/0.4 ML DISP.SYRIN SUBCUT SCH (10:59)
[2019-05-24] MEDS: CHLORHEXIDINE GLUCONATE 0.12% ORAL RINSE 15 ML UDC MM SCH ×2 (10:59→17:40)
[2019-05-24] MEDS: NORMAL SALINE 10 ML SDV (SCHEDULED) IV SCH ×2 (11:00→21:57)
[2019-05-24] MEDS: FAMOTIDINE 20 MG TABLET PO SCH ×2 (11:00→21:57)
[2019-05-24] MEDS: DOCUSATE SODIUM 100 MG CAPSULE PO SCH ×2 (11:00→17:40)
[2019-05-25] MEDS: BUTALB/ACETAMINOPHEN/CAFFEINE 1 TAB EACH PO PRN ×3 (04:14→19:49)
--- NOTE | 2019-05-25 08:24 | PDOC PROGRESS REPORT ---
Subjective Progress Note for:: 05/25/19 Subjective:: 05/16/2019-no complaints this a.m. 05/17/2019-no complaints 05/20/2019 no complaints this a.m. 05/21/2019-no complaints this a.m. 05/22/2019-no complaints at this time 05/23/2019-no complaints 05/24/2019-no complaints this a.m. 05/25/2019-no complaints Reason For Visit: FEVER, AMS, SIRS Physical Exam Vital Signs: Temp Pulse Resp BP Pulse Ox 97.3 F 81 16 116/78 79 L 05/25/19 07:50 05/25/19 07:50 05/25/19 07:50 05/25/19 07:50 05/25/19 07:50 Intake & Output 05/24/19 05/25/19 05/26/19 07:59 06:59 06:59 Intake Total Output Total Balance Weight General appearance: PRESENT: no acute distress, well-developed, well-nourished Teeth exam: PRESENT: dental caries Neck exam: PRESENT: carotid bruit Respiratory exam: PRESENT: clear to auscultation cassandra. ABSENT: rales, rhonchi, wheezes Cardiovascular exam: PRESENT: RRR. ABSENT: diastolic murmur, rubs, systolic murmur Pulses: PRESENT: normal dorsalis pedis pul Vascular exam: PRESENT: normal capillary refill GI/Abdominal exam: PRESENT: normal bowel sounds, soft. ABSENT: distended, guarding, mass, organolmegaly, rebound, tenderness Extremities exam: PRESENT: full ROM. ABSENT: calf tenderness, clubbing, pedal edema Neurological exam: PRESENT: alert, awake, oriented to person, oriented to place, oriented to time, oriented to situation, CN II-XII grossly intact. ABSENT: motor sensory deficit Psychiatric exam: PRESENT: appropriate affect, normal mood. ABSENT: homicidal ideation, suicidal ideation Skin exam: PRESENT: dry, intact, warm. ABSENT: cyanosis, rash Results Laboratory Results: 05/22/19 12:20 05/22/19 12:20 Impressions: Chest X-Ray 05/08/19 14:07 IMPRESSION: NO ACUTE RADIOGRAPHIC FINDING IN THE CHEST. Head CT 05/08/19 14:08 IMPRESSION: NORMAL BRAIN CT WITHOUT CONTRAST. EVIDENCE OF ACUTE STROKE: NO. Guidance Fluoroscopy 05/15/19 00:00 IMPRESSION: SUCCESSFUL PLACEMENT OF A 5 FR DUAL LUMEN 47 CM PICC IN THE LEFT BASILIC VEIN. Interventional Vascular Procedure 05/15/19 00:00 IMPRESSION: SUCCESSFUL PLACEMENT OF A 5 FR DUAL LUMEN 47 CM PICC IN THE LEFT BASILIC VEIN. PICC Line Insertion 05/15/19 00:00 IMPRESSION: SUCCESSFUL PLACEMENT OF A 5 FR DUAL LUMEN 47 CM PICC IN THE LEFT BASILIC VEIN. 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 LVEF is normal. There is no vegetation noted on the mitral valve. Blood cultures (05/08/2019) revealed strep viridans. Repeat blood cultures 05/09/2019 are negative Vancomycin discontinued Day #5 Infectious disease consulted; have increased Rocephin to 2 gm daily per ID [place] mmendations. Stop date 06/20/19. Spoke w/ the patient's cardiothoracic surgeon at [facility], Dr. Bauer, who did the patient's aortic valve replacement surgery 11/15/2018. Dr. Bauer recommends repeat RENEE in 1 week to evaluate vegetation and confirm stability of prosthetic valve. If patient is noted to have worsened regurgitation, contact their facility to arrange for transfer. Otherwise, continue antibiotic therapy as recommended by infectious disease and repeat RENEE again during last week of therapy to confirm clearance; if vegetation remains, extend antibiotic treatment course. Repeat RENEE ordered per Dr. Bauer's recommendations. 05/20/2019-stable at this time patient continues on IV antibiotics Rocephin. Awaiting repeat RENEE. 05/21/2019-repeat RENEE shows no change in size of vegetation. Awaiting full result to determine if regurgitation is worse. 2018-improving. Repeat RENEE shows possible small decrease in size of vegetation. No further worsening of regurgitation at this time. 05/23/2019-continue antibiotic at this time 05/24/2019-continues Rocephin at this time. 05/25/2019-patient continues on a Rocephin. (2) Bacteremia Is this a current diagnosis for this admission?: Yes Plan: Most likely due to continuous IV drug abuse. Patient also have very poor digital hygiene. Blood culture positive 2/2 strep viridans. RENEE confirms endocarditis Antibiotics as above. Infectious diseases consulted. Patient will need outpatient dentist follow-up for his extensive dental caries and poor hygiene. 05/20/2019-see #1 05/21/2019-see #1 10 -see #1 05/24/2019-see #1 05/25/2019-see #1 (3) Anemia Qualifiers: Anemia type: iron deficiency Is this a current diagnosis for this admission?: Yes Plan: Likely anemia of chronic disease. Likely related to poor overall nutrition (BMI 17.8, IV drug use) and possibly prosthetic valve. Denies any hematochezia, hematemesis, hemoptysis, nosebleeds, hematuria or any easy bleeding. Anemia panel is benign. Most recent Hgb/Hct .6/.6 No active blood loss. Will monitor periodic H&H -chronic, stable. 05/21/2018-repeat CBC in a.m. 05/22/2019-stable 05/23/2019-stable 05/24/2019-stable 05/25/2019-stable (4) Acute encephalopathy Is this a current diagnosis for this admission?: Yes Plan: Resolved. Acute toxic encephalopathy most likely to to polysubstance abuse. 05/20/2019-stable. Continue to follow 05/21/2019-stable 2018-stable continue to follow 05/23/2019-stable 05/24/2019-stable 05/25/2019-stable (5) SIRS (systemic inflammatory response syndrome) Is this a current diagnosis for this admission?: Yes Plan: Resolved. Evidenced by tachycardia, fever, elevated lactic acid. Most likely due to bacteremia/endocarditis. -stable continue to follow 05/21/2019-stable continue to follow 05/22/2019-stable 05/23/2019-stable 05/24/2019-stable 05/25/2019-stable (6) Polysubstance abuse Is this a current diagnosis for this admission?: Yes Plan: History of polysubstance abuse. Unfortunately patient is still has polysubstance abuse. Endorses cocaine injection. Urine tox positive for cocaine, opiates and marijuana. Repeat UDS as expected given prescribed medications. Monitor for withdrawal. Supportive measures. Patient is receiving klonopin (benzo) and fioricet (barbituates). Consider mental health consultation 05/20/2019-continue to educate about the negative benefits of continued drug abuse 05/21/2019-continue education about drug abstinence 2018-continue drug abstinence education 05/23/2019-continue drug abstinence education 05/24/2019-continue education about drug abstinence 05/25/2019-continue education concerning drug abstinence (7) S/P AVR (aortic valve replacement) Is this a current diagnosis for this admission?: Yes Plan: History of MRSA endocarditis. Recent aortic valve replacement due to infective endocarditis. Now w/ vegitation noted on prosthetic valve. Plan as above. 05/20/2019-see #1 05/21/2018-see #1 2018-see #1 05/23/2019-see #1 05/24/2019 see #1 05/25/2019-see #1 (8) Headache Qualifiers: Headache type: unspecified Intractability: not intractable Is this a current diagnosis for this admission?: Yes Plan: Discussed with patient need to decrease narcotic pain medication use for treatment of headaches to prevent rebound headaches. Advised to use Tylenol, Motrin, and nonpharmacological interventions. Will allow Fioricet for intractable pain. Specifically declined patient request for IV Dilaudid. Patient has been advised that he will not receive IV narcotic medications during this admission. 05 20 2019-stable continue to follow 05/21/2019-stable 2018-stable 05/23/2019-stable 05/24/2019-stable 01/22/2019-stable - Plan Summary Summary: Downgrade to telemetry floor today. - Time Time Spent with patient: 15-24 minutes - Inpatient Certification Based on my medical assessment, after consideration of the patient's comorbidities, presenting symptoms, or acuity I expect that the services needed warrant INPATIENT care.: Yes I certify that my determination is in accordance with my understanding of Medicare's requirements for reasonable and necessary INPATIENT services [42 CFR 412.3e].: Yes Medical Necessity: Need for IV Antibiotics
[2019-05-25] MEDS: DOCUSATE SODIUM 100 MG CAPSULE PO SCH ×2 (10:00→17:09)
[2019-05-25] MEDS: CHLORHEXIDINE GLUCONATE 0.12% ORAL RINSE 15 ML UDC MM SCH ×2 (10:00→17:09)
[2019-05-25] MEDS: NORMAL SALINE 10 ML SDV (AFTER EACH USE) IV PRN (10:00)
[2019-05-25] MEDS: CEFTRIAXONE 2 GM/D5W RTU 2 GM/50 ML RTUPB IV SCH (10:00)
[2019-05-25] MEDS: NORMAL SALINE 10 ML SDV (SCHEDULED) IV SCH ×2 (10:00→21:28)
[2019-05-25] MEDS: FAMOTIDINE 20 MG TABLET PO SCH ×2 (10:00→21:26)
[2019-05-25] MEDS: ENOXAPARIN SODIUM INJ 40 MG/0.4 ML DISP.SYRIN SUBCUT SCH (10:00)
[2019-05-26] MEDS: BUTALB/ACETAMINOPHEN/CAFFEINE 1 TAB EACH PO PRN ×4 (02:49→23:27)
[2019-05-26 06:54] LABS: URINE AMPHETAMINES SCREEN NEGATIVE; URINE BARBITURATES SCREEN UNCONFIRMED POSITIVE; URINE BENZODIAZEPINES SCREEN NEGATIVE; URINE COCAINE SCREEN NEGATIVE; URINE MARIJUANA (THC) SCREEN NEGATIVE; URINE METHADONE SCREEN NEGATIVE; URINE PHENCYCLIDINE SCREEN NEGATIVE
--- NOTE | 2019-05-26 08:27 | PDOC PROGRESS REPORT ---
Subjective Progress Note for:: 05/26/19 Subjective:: 05/16/2019-no complaints this a.m. 05/17/2019-no complaints 05/20/2019 no complaints this a.m. 05/21/2019-no complaints this a.m. 05/22/2019-no complaints at this time 05/23/2019-no complaints 05/24/2019-no complaints this a.m. 05/25/2019-no complaints 05/26/2019-clogged ears Reason For Visit: FEVER, AMS, SIRS Physical Exam Vital Signs: Temp Pulse Resp BP Pulse Ox 98.2 F 89 18 109/47 L 100 05/25/19 20:15 05/26/19 07:00 05/25/19 20:15 05/25/19 20:15 05/25/19 20:15 Intake & Output 05/25/19 05/26/19 05/27/19 06:59 06:59 06:59 Intake Total 2490 Output Total 2100 Balance 390 Weight 62 kg General appearance: PRESENT: no acute distress, well-developed, well-nourished Neck exam: ABSENT: carotid bruit, JVD, lymphadenopathy, thyromegaly Respiratory exam: PRESENT: clear to auscultation cassandra. ABSENT: rales, rhonchi, wheezes Cardiovascular exam: PRESENT: RRR. ABSENT: diastolic murmur, rubs, systolic murmur Pulses: PRESENT: normal dorsalis pedis pul Vascular exam: PRESENT: normal capillary refill GI/Abdominal exam: PRESENT: normal bowel sounds, soft. ABSENT: distended, guarding, mass, organolmegaly, rebound, tenderness Extremities exam: PRESENT: full ROM. ABSENT: calf tenderness, clubbing, pedal edema Neurological exam: PRESENT: alert, awake, oriented to person, oriented to place, oriented to time, oriented to situation, CN II-XII grossly intact. ABSENT: motor sensory deficit Psychiatric exam: PRESENT: appropriate affect, normal mood. ABSENT: homicidal i deation, suicidal ideation Skin exam: PRESENT: dry, intact, warm. ABSENT: cyanosis, rash Results Laboratory Results: 05/22/19 12:20 05/22/19 12:20 Impressions: Chest X-Ray 05/08/19 14:07 IMPRESSION: NO ACUTE RADIOGRAPHIC FINDING IN THE CHEST. Head CT 05/08/19 14:08 IMPRESSION: NORMAL BRAIN CT WITHOUT CONTRAST. EVIDENCE OF ACUTE STROKE: NO. Guidance Fluoroscopy 05/15/19 00:00 IMPRESSION: SUCCESSFUL PLACEMENT OF A 5 FR DUAL LUMEN 47 CM PICC IN THE LEFT BASILIC VEIN. Interventional Vascular Procedure 05/15/19 00:00 IMPRESSION: SUCCESSFUL PLACEMENT OF A 5 FR DUAL LUMEN 47 CM PICC IN THE LEFT BASILIC VEIN. PICC Line Insertion 05/15/19 00:00 IMPRESSION: SUCCESSFUL PLACEMENT OF A 5 FR DUAL LUMEN 47 CM PICC IN THE LEFT BASILIC VEIN. 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 LVEF is normal. There is no vegetation noted on the mitral valve. Blood cultures (05/08/2019) revealed strep viridans. Repeat blood cultures 05/09/2019 are negative Vancomycin discontinued Day #5 Infectious disease consulted; have increased Rocephin to 2 gm daily per ID recommendations. Stop date 06/20/19. Spoke w/ the patient's cardiothoracic surgeon at [facility], Dr. Bauer, who did the patient's aortic valve replacement surgery 11/15/2018. Dr. Bauer recommends repeat RENEE in 1 week to evaluate vegetation and confirm stability of prosthetic valve. If patient is noted to have worsened regurgitation, contact their facility to arrange for transfer. Otherwise, continue antibiotic therapy as recommended by infectious disease and repeat RENEE again during last week of therapy to confirm clearance; if vegetation remains, extend antibiotic treatment course. Repeat RENEE ordered per Dr. Bauer's recommendations. 05/20/2019-stable at this time patient continues on IV antibiotics Rocephin. Awaiting repeat RENEE. 05/21/2019-repeat RENEE shows no change in size of vegetation. Awaiting full result to determine if regurgitation is worse. 2018-improving. Repeat RENEE shows possible small decrease in size of vegetation. No further worsening of regurgitation at this time. 05/23/2019-continue antibiotic at this time 05/24/2019-continues Rocephin at this time. 05/25/2019-patient continues on a Rocephin. 05/26/2019-Rocephin IV (2) Bacteremia Is this a current diagnosis for this admission?: Yes Plan: Most likely due to continuous IV drug abuse. Patient also have very poor digital hygiene. Blood culture positive 2/2 strep viridans. RENEE confirms endocarditis Antibiotics as above. Infectious diseases consulted. Patient will need outpatient dentist follow-up for his extensive dental caries and poor hygiene. 05/20/2019-see #1 05/21/2019-see #1 -see #1 05/24/2019-see #1 05/25/2019-see #1 05/26/2019-see 1 (3) Anemia Qualifiers: Anemia type: iron deficiency Is this a current diagnosis for this admission?: Yes Plan: Likely anemia of chronic disease. Likely related to poor overall nutrition (BMI 17.8, IV drug use) and possibly prosthetic valve. Denies any hematochezia, hematemesis, hemoptysis, nosebleeds, hematuria or any easy bleeding. Anemia panel is benign. Most recent Hgb/Hct .6/31.6 No active blood loss. Will monitor periodic H&H -chronic, stable. 05/21/2018-repeat CBC in a.m. 05/22/2019-stable 05/23/2019-stable 05/24/2019-stable 05/25/2019-stable 04/25/2019-stable (4) Acute encephalopathy Is this a current diagnosis for this admission?: Yes Plan: Resolved. Acute toxic encephalopathy most likely to to polysubstance abuse. 05/20/2019-stable. Continue to follow 05/21/2019-stable 2018-stable continue to follow 05/23/2019-stable 05/24/2019-stable 05/25/2019-stable 04/25/2019-stable (5) SIRS (systemic inflammatory response syndrome) Is this a current diagnosis for this admission?: Yes Plan: Resolved. Evidenced by tachycardia, fever, elevated lactic acid. Most likely due to bacteremia/endocarditis. -stable continue to follow 05/21/2019-stable continue to follow 05/22/2019-stable 05/23/2019-stable 05/24/2019-stable 05/25/2019-stable 05/26/2019-stable (6) Polysubstance abuse Is this a current diagnosis for this admission?: Yes Plan: History of polysubstance abuse. Unfortunately patient is still has polysubstance abuse. Endorses cocaine injection. Urine tox positive for cocaine, opiates and marijuana. Repeat UDS as expected given prescribed medications. Monitor for withdrawal. Supportive measures. Patient is receiving klonopin (benzo) and fioricet (barbituates). Consider mental health consultation 05/20/2019-continue to educate about the negative benefits of continued drug abuse 05/21/2019-continue education about drug abstinence 2018-continue drug abstinence education 05/23/2019-continue drug abstinence education 05/24/2019-continue education about drug abstinence 05/25/2019-continue education concerning drug abstinence 05/26/2019-drug abstinence education (7) S/P AVR (aortic valve replacement) Is this a current diagnosis for this admission?: Yes Plan: History of MRSA endocarditis. Recent aortic valve replacement due to infective endocarditis. Now w/ vegitation noted on prosthetic valve. Plan as above. 05/20/2019-see #1 05/21/2018-see #1 2018-see #1 05/23/2019-see #1 05/24/2019 see #1 05/25/2019-see #1 05/26/2019 see #1 (8) Headache Qualifiers: Headache type: unspecified Intractability: not intractable Is this a current diagnosis for this admission?: Yes Plan: Discussed with patient need to decrease narcotic pain medication use for treatment of headaches to prevent rebound headaches. Advised to use Tylenol, Motrin, and nonpharmacological interventions. Will allow Fioricet for intractable pain. Specifically declined patient request for IV Dilaudid. Patient has been advised that he will not receive IV narcotic medications during this admission. 05 20 2019-stable continue to follow 05/21/2019-stable 2018-stable 05/23/2019-stable 05/24/2019-stable 01/22/2019-stable 05/26/2019-stable (9) Excessive cerumen in left ear canal Is this a current diagnosis for this admission?: Yes Plan: 05/26/2019-Colace liquid as needed - Plan Summary Summary: Downgrade to telemetry floor today. - Time Time Spent with patient: 15-24 minutes - Inpatient Certification Based on my medical assessment, after consideration of the patient's comorbidities, presenting symptoms, or acuity I expect that the services needed warrant INPATIENT care.: Yes I certify that my determination is in accordance with my understanding of Medicare's requirements for reasonable and necessary INPATIENT services [42 CFR 412.3e].: Yes Medical Necessity: Need for IV Antibiotics
[2019-05-26] MEDS ORDERED: DOCUSATE SODIUM 100 MG/10 ML UDC AD PRN (08:32)
[2019-05-26] MEDS: CHLORHEXIDINE GLUCONATE 0.12% ORAL RINSE 15 ML UDC MM SCH ×2 (09:36→17:44)
[2019-05-26] MEDS: DOCUSATE SODIUM 100 MG CAPSULE PO SCH ×2 (09:36→17:44)
[2019-05-26] MEDS: ENOXAPARIN SODIUM INJ 40 MG/0.4 ML DISP.SYRIN SUBCUT SCH (09:36)
[2019-05-26] MEDS: CEFTRIAXONE 2 GM/D5W RTU 2 GM/50 ML RTUPB IV SCH (09:37)
[2019-05-26] MEDS: NORMAL SALINE 10 ML SDV (AFTER EACH USE) IV PRN (09:37)
[2019-05-26] MEDS: NORMAL SALINE 10 ML SDV (SCHEDULED) IV SCH ×2 (09:37→21:25)
[2019-05-26] MEDS: FAMOTIDINE 20 MG TABLET PO SCH ×2 (09:37→21:24)
[2019-05-27] MEDS: ACETAMINOPHEN 325 MG TABLET PO PRN (04:10)
[2019-05-27] MEDS: CEFTRIAXONE 2 GM/D5W RTU 2 GM/50 ML RTUPB IV SCH (11:06)
[2019-05-27] MEDS: DOCUSATE SODIUM 100 MG CAPSULE PO SCH ×2 (11:06→17:45)
[2019-05-27] MEDS: FAMOTIDINE 20 MG TABLET PO SCH ×2 (11:06→21:25)
[2019-05-27] MEDS: NORMAL SALINE 10 ML SDV (SCHEDULED) IV SCH (11:06)
[2019-05-27] MEDS: CHLORHEXIDINE GLUCONATE 0.12% ORAL RINSE 15 ML UDC MM SCH ×2 (11:07→17:45)
[2019-05-27] MEDS: ENOXAPARIN SODIUM INJ 40 MG/0.4 ML DISP.SYRIN SUBCUT SCH (11:07)
--- NOTE | 2019-05-27 19:18 | PDOC PROGRESS REPORT ---
Subjective Progress Note for:: 05/27/19 Subjective:: The patient is a 23-year-old male with a past medical history of IV drug abuse, endocarditis status post aortic valve replacement, hypertension, anemia, viral meningitis, and thrombocytopenia who was admitted 05/08/2019 for Altered mental status; likely polysubstance abuse. Patient was seen on morning rounds. He was found resting in bed comfortably, lying supine, on room air. He states he is feeling well today; has had some increased anxiety w/ discontinuation of his Klonopin last week but managing well. He denies fever, chills, headaches, chest pain, palpitations, dyspnea, orthopnea, abdominal pain, nausea vomiting and diarrhea. He has no questions or concerns at this time. No concerns per nursing. Reason For Visit: FEVER, AMS, SIRS Physical Exam Vital Signs: Temp Pulse Resp BP Pulse Ox 98.9 F 106 H 19 116/72 99 05/27/19 07:21 05/27/19 07:21 05/27/19 07:21 05/27/19 07:21 05/27/19 07:21 Intake & Output 05/26/19 05/27/19 05/28/19 06:59 06:59 06:59 Intake Total 2490 1825 3000 Output Total 2100 700 Balance 390 1125 3000 Weight 62 kg 63 kg General appearance: PRESENT: no acute distress, cooperative, thin, well- developed, well-nourished Head exam: PRESENT: atraumatic, normocephalic Eye exam: PRESENT: conjunctiva pink, EOMI, PERRLA. ABSENT: scleral icterus Ear exam: PRESENT: normal external ear exam Mouth exam: PRESENT: moist, tongue midline Teeth exam: PRESENT: poor dentation Respiratory exam: PRESENT: clear to auscultation cassandra, symmetrical, unlabored. ABSENT: rales, rhonchi, wheezes Cardiovascular exam: PRESENT: RRR, systolic murmur. ABSENT: diastolic murmur, rubs Vascular exam: PRESENT: normal capillary refill Extremities exam: PRESENT: full ROM. ABSENT: calf tenderness, clubbing, pedal edema Musculoskeletal exam: PRESENT: ambulatory Neurological exam: PRESENT: alert, awake, oriented to person, oriented to place, oriented to time, oriented to situation, CN II-XII grossly intact. ABSENT: mot or sensory deficit Psychiatric exam: PRESENT: appropriate affect, normal mood. ABSENT: homicidal ideation, suicidal ideation Skin exam: PRESENT: dry, intact, warm. ABSENT: cyanosis, rash Results Laboratory Results: 05/22/19 12:20 05/22/19 12:20 Impressions: Chest X-Ray 05/08/19 14:07 IMPRESSION: NO ACUTE RADIOGRAPHIC FINDING IN THE CHEST. Head CT 05/08/19 14:08 IMPRESSION: NORMAL BRAIN CT WITHOUT CONTRAST. EVIDENCE OF ACUTE STROKE: NO. Guidance Fluoroscopy 05/15/19 00:00 IMPRESSION: SUCCESSFUL PLACEMENT OF A 5 FR DUAL LUMEN 47 CM PICC IN THE LEFT BASILIC VEIN. Interventional Vascular Procedure 05/15/19 00:00 IMPRESSION: SUCCESSFUL PLACEMENT OF A 5 FR DUAL LUMEN 47 CM PICC IN THE LEFT BASILIC VEIN. PICC Line Insertion 05/15/19 00:00 IMPRESSION: SUCCESSFUL PLACEMENT OF A 5 FR DUAL LUMEN 47 CM PICC IN THE LEFT BASILIC VEIN. 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 LVEF is normal. There is no vegetation noted on the mitral valve. Blood cultures (05/08/2019) revealed strep viridans. Repeat blood cultures 05/09/2019 are negative Repeat RENEE (05/21/19) aortic valve vegetation measured slightly smaller; valve remains stable with only trace regurgitation. Vancomycin discontinued Day #5 Infectious disease consulted; have increased Rocephin to 2 gm daily per ID recommendations. Stop date 06/20/19. Spoke w/ the patient's cardiothoracic surgeon at [facility], Dr. Bauer, who did the patient's aortic valve replacement surgery 11/15/2018. Dr. Bauer recommends repeat RENEE again during last week of therapy to confirm clearance; if vegetation remains, extend antibiotic treatment course. (2) Bacteremia Is this a current diagnosis for this admission?: Yes Plan: Most likely due to continuous IV drug abuse. Patient also have very poor digital hygiene. Blood culture positive 2/2 strep viridans. RENEE confirms endocarditis Antibiotics as above. Infectious diseases consulted. Patient will need outpatient dentist follow-up for his extensive dental caries and poor hygiene. (3) Anemia Qualifiers: Anemia type: iron deficiency Is this a current diagnosis for this admission?: Yes Plan: Likely anemia of chronic disease. Likely related to poor overall nutrition (BMI 17.8, IV drug use) and possibly prosthetic valve. Denies any hematochezia, hematemesis, hemoptysis, nosebleeds, hematuria or any easy bleeding. Anemia panel is benign. Most recent Hgb/Hct 10.0/29.5 No active blood loss. Will monitor periodic H&H (4) Acute encephalopathy Is this a current diagnosis for this admission?: Yes Plan: Resolved. Acute toxic encephalopathy most likely to to polysubstance abuse. (5) SIRS (systemic inflammatory response syndrome) Is this a current diagnosis for this admission?: Yes Plan: Resolved. Evidenced by tachycardia, fever, elevated lactic acid. Most likely due to bacteremia/endocarditis. (6) Polysubstance abuse Is this a current diagnosis for this admission?: Yes Plan: History of polysubstance abuse. Unfortunately patient is still has polysubstance abuse. Endorses cocaine injection. Urine tox positive for cocaine, opiates and marijuana. Repeat UDS was as expected given prescribed medications. Supportive measures. Counseling on cessation Patient is receiving fioricet (barbituates) only for intermittent headaches. No other controlled substances. Consider mental health consultation (7) S/P AVR (aortic valve replacement) Is this a current diagnosis for this admission?: Yes Plan: History of MRSA endocarditis. Recent aortic valve replacement due to infective endocarditis. Now w/ vegitation noted on prosthetic valve. Plan as above. 05/20/2019-see #1 05/21/2018-see #1 2018-see #1 05/23/2019-see #1 05/24/2019 see #1 05/25/2019-see #1 05/26/2019 see #1 (8) Headache Qualifiers: Headache type: unspecified Intractability: not intractable Is this a current diagnosis for this admission?: Yes Plan: Improved; decreased frequency and severity of headaches. Advised to use Tylenol, Motrin, and nonpharmacological interventions. Avoid narcotics related to rebound headaches. Will allow Fioricet for intractable pain. Patient has been advised that he will not receive IV narcotic medications during this admission. (9) Dental caries Is this a current diagnosis for this admission?: Yes Plan: Chlorhexidine mouthwash twice daily. Twice daily oral care. Will ask discharge planning to provide Dentist list. - Plan Summary Summary: Downgrade to [facility] today. - Time Time Spent with patient: 15-24 minutes Medications reviewed and adjusted accordingly: Yes Anticipated discharge: Home Within: Other - 06/21/19
[2019-05-27] MEDS: BUTALB/ACETAMINOPHEN/CAFFEINE 1 TAB EACH PO PRN (19:29)
[2019-05-27] MEDS: NORMAL SALINE 10 ML SDV (AFTER EACH USE) IV PRN (21:26)
[2019-05-28] MEDS: ACETAMINOPHEN 325 MG TABLET PO PRN (00:01)
[2019-05-28] MEDS: BUTALB/ACETAMINOPHEN/CAFFEINE 1 TAB EACH PO PRN ×4 (01:18→23:07)
[2019-05-28] MEDS: ENOXAPARIN SODIUM INJ 40 MG/0.4 ML DISP.SYRIN SUBCUT SCH (09:00)
[2019-05-28] MEDS: FAMOTIDINE 20 MG TABLET PO SCH ×2 (09:00→21:26)
[2019-05-28] MEDS: DOCUSATE SODIUM 100 MG CAPSULE PO SCH ×2 (09:00→17:31)
[2019-05-28] MEDS: NORMAL SALINE 10 ML SDV (SCHEDULED) IV SCH ×2 (09:00→23:18)
[2019-05-28] MEDS: CHLORHEXIDINE GLUCONATE 0.12% ORAL RINSE 15 ML UDC MM SCH ×2 (09:01→17:30)
[2019-05-28] MEDS: CEFTRIAXONE 2 GM/D5W RTU 2 GM/50 ML RTUPB IV SCH (09:08)
--- NOTE | 2019-05-28 15:47 | PDOC PROGRESS REPORT ---
Subjective Progress Note for:: 05/28/19 Subjective:: The patient is a 23-year-old male with a past medical history of IV drug abuse, endocarditis status post aortic valve replacement, hypertension, anemia, viral meningitis, and thrombocytopenia who was admitted 05/08/2019 for Altered mental status; likely polysubstance abuse. Patient was seen on morning rounds. He was found resting in bed comfortably, lying supine, on room air. He states he is feeling well today. He does request something to help him sleep at night. Otherwise no new questions or concerns. He denies fever, chills, headaches, chest pain, palpitations, dyspnea, orthopnea, abdominal pain, nausea vomiting and diarrhea. No concerns per nursing. Reason For Visit: FEVER, AMS, SIRS Physical Exam Vital Signs: Temp Pulse Resp BP Pulse Ox 98.4 F 68 16 108/57 L 98 05/28/19 08:20 05/28/19 08:20 05/28/19 08:20 05/28/19 08:20 05/28/19 08:20 Intake & Output 05/27/19 05/28/19 05/29/19 06:59 06:59 06:59 Intake Total 1825 3210 50 Output Total 700 Balance 1125 3210 50 Weight 63 kg 59.5 kg General appearance: PRESENT: no acute distress, cooperative, thin, well- developed Head exam: PRESENT: atraumatic, normocephalic Eye exam: PRESENT: conjunctiva pink, EOMI, PERRLA. ABSENT: scleral icterus Mouth exam: PRESENT: moist, tongue midline Teeth exam: PRESENT: poor dentation Respiratory exam: PRESENT: clear to auscultation cassnadra, symmetrical, unlabored. ABSENT: rales, rhonchi, wheezes Cardiovascular exam: PRESENT: RRR, systolic murmur. ABSENT: diastolic murmur, rubs Vascular exam: PRESENT: normal capillary refill Extremities exam: PRESENT: full ROM. ABSENT: calf tenderness, clubbing, pedal edema Musculoskeletal exam: PRESENT: ambulatory Neurological exam: PRESENT: alert, awake, oriented to person, oriented to place, oriented to time, oriented to situation, CN II-XII grossly intact. ABSENT: motor sensory deficit Psychiatric exam: PRESENT: appropriate affect, normal mood. ABSENT: homicidal ideation, suicidal ideation Skin exam: PRESENT: dry, intact, warm. ABSENT: cyanosis, rash Results Laboratory Results: 05/22/19 12:20 05/22/19 12:20 Impressions: Chest X-Ray 05/08/19 14:07 IMPRESSION: NO ACUTE RADIOGRAPHIC FINDING IN THE CHEST. Head CT 05/08/19 14:08 IMPRESSION: NORMAL BRAIN CT WITHOUT CONTRAST. EVIDENCE OF ACUTE STROKE: NO. Guidance Fluoroscopy 05/15/19 00:00 IMPRESSION: SUCCESSFUL PLACEMENT OF A 5 FR DUAL LUMEN 47 CM PICC IN THE LEFT BASILIC VEIN. Interventional Vascular Procedure 05/15/19 00:00 IMPRESSION: SUCCESSFUL PLACEMENT OF A 5 FR DUAL LUMEN 47 CM PICC IN THE LEFT BASILIC VEIN. PICC Line Insertion 05/15/19 00:00 IMPRESSION: SUCCESSFUL PLACEMENT OF A 5 FR DUAL LUMEN 47 CM PICC IN THE LEFT BASILIC VEIN. 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 LVEF is normal. There is no vegetation noted on the mitral valve. Blood cultures (05/08/2019) revealed strep viridans. Repeat blood cultures 05/09/2019 are negative Repeat RENEE (05/21/19) aortic valve vegetation measured slightly smaller; valve remains stable with only trace regurgitation. Vancomycin discontinued Day #5 Infectious disease consulted; have increased Rocephin to 2 gm daily per ID recommendations. Stop date 06/20/19. Previously consulted the patient's cardiothoracic surgeon at [facility], Dr. Bauer, by phone. Dr. Bauer did the patient's aortic valve replacement surgery 11/15/2018. Dr. Bauer recommends repeat RENEE again during last week of therapy to confirm clearance; if vegetation remains, extend antibiotic treatment course. (2) Bacteremia Is this a current diagnosis for this admission?: Yes Plan: Most likely due to continuous IV drug abuse. Patient also have very poor digital hygiene. Blood culture positive 2/2 strep viridans. RENEE confirms endocarditis Antibiotics as above. Infectious diseases consulted. Patient will need outpatient dentist follow-up for his extensive dental caries and poor hygiene. (3) Anemia Qualifiers: Anemia type: iron deficiency Is this a current diagnosis for this admission?: Yes Plan: Likely anemia of chronic disease. Likely related to poor overall nutrition (BMI 17.8, IV drug use) and possibly prosthetic valve. Denies any hematochezia, hematemesis, hemoptysis, nosebleeds, hematuria or any easy bleeding. Anemia panel is benign. Most recent Hgb/Hct 10.0/29.5 No active blood loss. Will monitor periodic H&H (4) Acute encephalopathy Is this a current diagnosis for this admission?: Yes Plan: Resolved. Acute toxic encephalopathy most likely to to polysubstance abuse. (5) SIRS (systemic inflammatory response syndrome) Is this a current diagnosis for this admission?: Yes Plan: Resolved. Evidenced by tachycardia, fever, elevated lactic acid. Most likely due to bacteremia/endocarditis. (6) Polysubstance abuse Is this a current diagnosis for this admission?: Yes Plan: History of polysubstance abuse. Unfortunately patient is still has polysubstance abuse. Endorses cocaine injection. Urine tox positive for cocaine, opiates and marijuana. Repeat UDS was as expected given prescribed medications. Supportive measures. Counseling on cessation Patient is receiving fioricet (barbituates) only for intermittent headaches. No other controlled substances. Consider mental health consultation (7) S/P AVR (aortic valve replacement) Is this a current diagnosis for this admission?: Yes Plan: History of MRSA endocarditis. Recent aortic valve replacement due to infective endocarditis. Now w/ vegitation noted on prosthetic valve. Management as above. (8) Headache Qualifiers: Headache type: unspecified Intractability: not intractable Is this a current diagnosis for this admission?: Yes Plan: Improved; decreased frequency and severity of headaches. Advised to use Tylenol, Motrin, and nonpharmacological interventions. Avoid narcotics related to rebound headaches. Will allow Fioricet for intractable pain. Patient has been advised that he will not receive IV narcotic medications during this admission. (9) Dental caries Is this a current diagnosis for this admission?: Yes Plan: Chlorhexidine mouthwash twice daily. Twice daily oral care. Will ask discharge planning to provide Dentist list. - Plan Summary Summary: Downgrade to [facility] floor today. - Time Time Spent with patient: Less than 15 minutes Medications reviewed and adjusted accordingly: Yes Anticipated discharge: Home Within: Other - 06/21/19
[2019-05-28] MEDS: MELATONIN 3 MG TABLET PO SCH (22:43)
[2019-05-29] MEDS: BUTALB/ACETAMINOPHEN/CAFFEINE 1 TAB EACH PO PRN ×3 (05:13→21:34)
[2019-05-29] MEDS: CEFTRIAXONE 2 GM/D5W RTU 2 GM/50 ML RTUPB IV SCH (09:48)
[2019-05-29] MEDS: ENOXAPARIN SODIUM INJ 40 MG/0.4 ML DISP.SYRIN SUBCUT SCH (09:49)
[2019-05-29] MEDS: CHLORHEXIDINE GLUCONATE 0.12% ORAL RINSE 15 ML UDC MM SCH ×2 (09:49→17:41)
[2019-05-29] MEDS: DOCUSATE SODIUM 100 MG CAPSULE PO SCH ×2 (09:49→17:41)
[2019-05-29] MEDS: NORMAL SALINE 10 ML SDV (SCHEDULED) IV SCH ×2 (09:49→21:36)
[2019-05-29] MEDS: FAMOTIDINE 20 MG TABLET PO SCH ×2 (09:49→21:35)
--- NOTE | 2019-05-29 14:38 | PDOC PROGRESS REPORT ---
Subjective Progress Note for:: 05/29/19 Subjective:: The patient is a 23-year-old male with a past medical history of IV drug abuse, endocarditis status post aortic valve replacement, hypertension, anemia, viral meningitis, and thrombocytopenia who was admitted 05/08/2019 for Altered mental status; likely polysubstance abuse. Patient was seen on morning rounds. He was found resting in bed comfortably, lying supine, on room air. He states he is feeling well today. Reports that the melatonin ordered by the die welder was very helpful. Otherwise no new questions or concerns. He denies fever, chills, headaches, chest pain, palpitations, dyspnea, orthopnea, abdominal pain, nausea vomiting and diarrhea. No concerns per nursing. Reason For Visit: FEVER, AMS, SIRS Physical Exam Vital Signs: Temp Pulse Resp BP Pulse Ox 98.1 F 108 H 16 92/54 L 98 05/29/19 08:06 05/29/19 08:06 05/29/19 08:06 05/29/19 08:06 05/29/19 08:06 Intake & Output 05/28/19 05/29/19 05/30/19 06:59 06:59 06:59 Intake Total 3210 650 50 Balance 3210 650 50 Weight 59.5 kg 59 kg General appearance: PRESENT: no acute distress, cooperative, thin, well- developed, well-nourished Head exam: PRESENT: atraumatic, normocephalic Eye exam: PRESENT: conjunctiva pink, EOMI, PERRLA. ABSENT: scleral icterus Ear exam: PRESENT: normal external ear exam Mouth exam: PRESENT: moist, tongue midline Respiratory exam: PRESENT: clear to auscultation cassandra, symmetrical, unlabored. ABSENT: rales, rhonchi, wheezes Cardiovascular exam: PRESENT: RRR, +S1, +S2. ABSENT: diastolic murmur, rubs, systolic murmur Vascular exam: PRESENT: normal capillary refill Extremities exam: PRESENT: full ROM. ABSENT: calf tenderness, clubbing, pedal edema Musculoskeletal exam: PRESENT: ambulatory Neurological exam: PRESENT: alert, awake, oriented to person, oriented to place, oriented to time, oriented to situation, CN II-XII grossly intact. ABSENT: motor sensory deficit Psychiatric exam: PRESENT: appropriate affect, normal mood. ABSENT: homicidal ideation, suicidal ideation Skin exam: PRESENT: dry, intact, warm. ABSENT: cyanosis, rash Results Laboratory Results: 05/22/19 12:20 05/22/19 12:20 Impressions: Chest X-Ray 05/08/19 14:07 IMPRESSION: NO ACUTE RADIOGRAPHIC FINDING IN THE CHEST. Head CT 05/08/19 14:08 IMPRESSION: NORMAL BRAIN CT WITHOUT CONTRAST. EVIDENCE OF ACUTE STROKE: NO. Guidance Fluoroscopy 05/15/19 00:00 IMPRESSION: SUCCESSFUL PLACEMENT OF A 5 FR DUAL LUMEN 47 CM PICC IN THE LEFT BASILIC VEIN. Interventional Vascular Procedure 05/15/19 00:00 IMPRESSION: SUCCESSFUL PLACEMENT OF A 5 FR DUAL LUMEN 47 CM PICC IN THE LEFT BASILIC VEIN. PICC Line Insertion 05/15/19 00:00 IMPRESSION: SUCCESSFUL PLACEMENT OF A 5 FR DUAL LUMEN 47 CM PICC IN THE LEFT BASILIC VEIN. 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 LVEF is normal. There is no vegetation noted on the mitral valve. Blood cultures (05/08/2019) revealed strep viridans. Repeat blood cultures 05/09/2019 are negative Repeat RENEE (05/21/19) aortic valve vegetation measured slightly smaller; valve remains stable with only trace regurgitation. Vancomycin discontinued Day #5 Infectious disease consulted; have increased Rocephin to 2 gm daily per ID recommendations. Stop date 06/20/19. Previously consulted the patient's cardiothoracic surgeon at [facility], Dr. Bauer, by phone. Dr. Bauer did the patient's aortic valve replacement surgery 11/15/2018. Dr. Bauer recommends repeat RENEE again during last week of therapy to confirm clearance; if vegetation remains, extend antibiotic treatment course. (2) Bacteremia Is this a current diagnosis for this admission?: Yes Plan: Most likely due to continuous IV drug abuse. Patient also have very poor digital hygiene. Blood culture positive 2/2 strep viridans. RENEE confirms endocarditis Antibiotics as above. Infectious diseases consulted. Patient will need outpatient dentist follow-up for his extensive dental caries and poor hygiene. (3) Anemia Qualifiers: Anemia type: iron deficiency Is this a current diagnosis for this admission?: Yes Plan: Likely anemia of chronic disease. Likely related to poor overall nutrition (BMI 17.8, IV drug use) and possibly prosthetic valve. Denies any hematochezia, hematemesis, hemoptysis, nosebleeds, hematuria or any easy bleeding. Anemia panel is benign. Most recent Hgb/Hct 10.0/29.5 No active blood loss. Will monitor periodic H&H (4) Acute encephalopathy Is this a current diagnosis for this admission?: Yes Plan: Resolved. Acute toxic encephalopathy most likely to to polysubstance abuse. (5) SIRS (systemic inflammatory response syndrome) Is this a current diagnosis for this admission?: Yes Plan: Resolved. Evidenced by tachycardia, fever, elevated lactic acid. Most likely due to bacteremia/endocarditis. (6) Polysubstance abuse Is this a current diagnosis for this admission?: Yes Plan: History of polysubstance abuse. Unfortunately patient is still has polysubstance abuse. Endorses cocaine injection. Urine tox positive for cocaine, opiates and marijuana. Repeat UDS was as expected given prescribed medications. Supportive measures. Counseling on cessation Patient is receiving fioricet (barbituates) only for intermittent headaches. No other controlled substances. Patient requesting information regarding inpatient rehab facilities; spoke with mental health services who will provide a list. (7) S/P AVR (aortic valve replacement) Is this a current diagnosis for this admission?: Yes Plan: History of MRSA endocarditis. Recent aortic valve replacement due to infective endocarditis. Now w/ vegitation noted on prosthetic valve. Management as above. (8) Headache Qualifiers: Headache type: unspecified Intractability: not intractable Is this a current diagnosis for this admission?: Yes Plan: Improved; decreased frequency and severity of headaches. Advised to use Tylenol, Motrin, and nonpharmacological interventions. Avoid narcotics related to rebound headaches. Will allow Fioricet for intractable pain. Patient has been advised that he will not receive IV narcotic medications during this admission. (9) Dental caries Is this a current diagnosis for this admission?: Yes Plan: Chlorhexidine mouthwash twice daily. Twice daily oral care. Will ask discharge planning to provide Dentist list. (10) Complaint of insomnia Is this a current diagnosis for this admission?: Yes Plan: Improved with melatonin. - Plan Summary Summary: Downgrade to [facility] floor today. - Time Time Spent with patient: Less than 15 minutes Medications reviewed and adjusted accordingly: Yes Anticipated discharge: Home Within: Other - 06/21/19
[2019-05-29] MEDS: MELATONIN 3 MG TABLET PO SCH (21:35)
[2019-05-29] MEDS: ACETAMINOPHEN 325 MG TABLET PO PRN (22:57)
[2019-05-30] MEDS: BUTALB/ACETAMINOPHEN/CAFFEINE 1 TAB EACH PO PRN ×3 (06:17→21:29)
[2019-05-30] MEDS: CEFTRIAXONE 2 GM/D5W RTU 2 GM/50 ML RTUPB IV SCH (09:52)
[2019-05-30] MEDS: DOCUSATE SODIUM 100 MG CAPSULE PO SCH ×2 (09:53→17:40)
[2019-05-30] MEDS: CHLORHEXIDINE GLUCONATE 0.12% ORAL RINSE 15 ML UDC MM SCH ×2 (09:53→17:40)
[2019-05-30] MEDS: FAMOTIDINE 20 MG TABLET PO SCH ×2 (09:53→21:29)
[2019-05-30] MEDS: NORMAL SALINE 10 ML SDV (SCHEDULED) IV SCH ×2 (10:19→21:34)
[2019-05-30] MEDS: ENOXAPARIN SODIUM INJ 40 MG/0.4 ML DISP.SYRIN SUBCUT SCH ×2 (10:19→12:10)
--- NOTE | 2019-05-30 10:27 | PDOC PROGRESS REPORT ---
Subjective Progress Note for:: 05/30/19 Subjective:: The patient is a 23-year-old male with a past medical history of IV drug abuse, endocarditis status post aortic valve replacement, hypertension, anemia, viral meningitis, and thrombocytopenia who was admitted 05/08/2019 for Altered mental status; likely polysubstance abuse. Patient was seen on morning rounds. He was found resting in bed comfortably, lying supine, on room air. He states he is feeling well today. Otherwise no new questions or concerns. He denies fever, chills, headaches, chest pain, palpitations, dyspnea, orthopnea, abdominal pain, nausea vomiting and diarrhea. No concerns per nursing. Reason For Visit: FEVER, AMS, SIRS Physical Exam Vital Signs: Temp Pulse Resp BP Pulse Ox 97.2 F 122 H 20 101/81 100 05/29/19 20:19 05/29/19 20:19 05/29/19 20:19 05/29/19 20:19 05/29/19 20:19 Intake & Output 05/29/19 05/30/19 05/31/19 06:59 06:59 06:59 Intake Total 650 1190 120 Balance 650 1190 120 Weight 59 kg 59.1 kg General appearance: PRESENT: no acute distress, cooperative, disheveled, thin, well-developed, well-nourished Head exam: PRESENT: atraumatic, normocephalic Eye exam: PRESENT: conjunctiva pink, EOMI, PERRLA. ABSENT: scleral icterus Ear exam: PRESENT: normal external ear exam Mouth exam: PRESENT: moist, tongue midline Teeth exam: PRESENT: poor dentation Respiratory exam: PRESENT: clear to auscultation cassandra, symmetrical, unlabored. ABSENT: rales, rhonchi, wheezes Cardiovascular exam: PRESENT: RRR, +S1, +S2, systolic murmur. ABSENT: diastolic murmur, rubs Pulses: PRESENT: normal dorsalis pedis pul Vascular exam: PRESENT: normal capillary refill Extremities exam: PRESENT: full ROM. ABSENT: calf tenderness, clubbing, pedal edema Musculoskeletal exam: PRESENT: ambulatory Neurological exam: PRESENT: alert, awake, oriented to person, oriented to place, oriented to time, oriented to situation, CN II-XII grossly intact. ABSENT: motor sensory deficit Psychiatric exam: PRESENT: appropriate affect, normal mood. ABSENT: homicidal ideation, suicidal ideation Skin exam: PRESENT: dry, intact, warm. ABSENT: cyanosis, rash Results Laboratory Results: 05/22/19 12:20 05/22/19 12:20 Impressions: Chest X-Ray 05/08/19 14:07 IMPRESSION: NO ACUTE RADIOGRAPHIC FINDING IN THE CHEST. Head CT 05/08/19 14:08 IMPRESSION: NORMAL BRAIN CT WITHOUT CONTRAST. EVIDENCE OF ACUTE STROKE: NO. Guidance Fluoroscopy 05/15/19 00:00 IMPRESSION: SUCCESSFUL PLACEMENT OF A 5 FR DUAL LUMEN 47 CM PICC IN THE LEFT BASILIC VEIN. Interventional Vascular Procedure 05/15/19 00:00 IMPRESSION: SUCCESSFUL PLACEMENT OF A 5 FR DUAL LUMEN 47 CM PICC IN THE LEFT BASILIC VEIN. PICC Line Insertion 05/15/19 00:00 IMPRESSION: SUCCESSFUL PLACEMENT OF A 5 FR DUAL LUMEN 47 CM PICC IN THE LEFT BASILIC VEIN. Assessment and Plan - Diagnosis (1) Endocarditis Qualifiers: Endocarditis type: infective Infective endocarditis organism: bacterial C hronicity: acute Qualified Code(s): I33.0 - Acute and subacute infective endocarditis Is this a current diagnosis for this admission?: Yes Plan: RENEE confirms vegetation to his Prosthetic aortic valve measuring 1.26 cm x 0.91 cm. LVEF is normal. There is no vegetation noted on the mitral valve. Blood cultures (05/08/2019) revealed strep viridans. Repeat blood cultures 05/09/2019 are negative Repeat RENEE (05/21/19) aortic valve vegetation measured slightly smaller; valve remains stable with only trace regurgitation. Vancomycin discontinued Day #5 Infectious disease consulted; have increased Rocephin to 2 gm daily per ID recommendations. Stop date 06/20/19. Previously consulted the patient's cardiothoracic surgeon at [facility], Dr. Bauer, by phone. Dr. Bauer did the patient's aortic valve replacement surgery 11/15/2018. Dr. Bauer recommends repeat RENEE again during last week of therapy to confirm clearance; if vegetation remains, extend antibiotic treatment course. (2) Bacteremia Is this a current diagnosis for this admission?: Yes Plan: Most likely due to continuous IV drug abuse. Patient also have very poor digital hygiene. Blood culture positive 2/2 strep viridans. RENEE confirms endocarditis Antibiotics as above. Infectious diseases consulted. Patient will need outpatient dentist follow-up for his extensive dental caries and poor hygiene. (3) Anemia Qualifiers: Anemia type: iron deficiency Is this a current diagnosis for this admission?: Yes Plan: Likely anemia of chronic disease. Likely related to poor overall nutrition (BMI 17.8, IV drug use) and possibly prosthetic valve. Denies any hematochezia, hematemesis, hemoptysis, nosebleeds, hematuria or any easy bleeding. Anemia panel is benign. Most recent Hgb/Hct 10.0/29.5 No active blood loss. Recheck H&H today (4) Acute encephalopathy Is this a current diagnosis for this admission?: Yes Plan: Resolved. Acute toxic encephalopathy most likely to to polysubstance abuse. (5) SIRS (systemic inflammatory response syndrome) Is this a current diagnosis for this admission?: Yes Plan: Resolved. Evidenced by tachycardia, fever, elevated lactic acid. Most likely due to bacteremia/endocarditis. (6) Polysubstance abuse Is this a current diagnosis for this admission?: Yes Plan: History of polysubstance abuse. Unfortunately patient is still has polysubstance abuse. Endorses cocaine injection. Urine tox positive for cocaine, opiates and marijuana. Repeat UDS was as expected given prescribed medications. Supportive measures. Counseling on cessation Patient is receiving fioricet (barbituates) only for intermittent headaches. No other controlled substances. Provided list of inpatient rehab centers yesterday; encouraged to make calls while still admitted. (7) S/P AVR (aortic valve replacement) Is this a current diagnosis for this admission?: Yes Plan: History of MRSA endocarditis. Recent aortic valve replacement due to infective endocarditis. Now w/ vegitation noted on prosthetic valve. Management as above. (8) Headache Qualifiers: Headache type: unspecified Intractability: not intractable Is this a current diagnosis for this admission?: Yes Plan: Improved; decreased frequency and severity of headaches. Advised to use Tylenol, Motrin, and nonpharmacological interventions. Avoid narcotics related to rebound headaches. Will allow Fioricet for intractable pain. Patient has been advised that he will not receive IV narcotic medications during this admission. (9) Dental caries Is this a current diagnosis for this admission?: Yes Plan: Chlorhexidine mouthwash twice daily. Twice daily oral care. Will ask discharge planning to provide Dentist list. (10) Complaint of insomnia Is this a current diagnosis for this admission?: Yes Plan: Improved with melatonin. - Plan Summary Summary: Downgrade to med floor today. - Time Time Spent with patient: 15-24 minutes Medications reviewed and adjusted accordingly: Yes Anticipated discharge: Home Within: Other - 06/21/19
[2019-05-30 10:48] LABS: HEMATOCRIT 26.8 % (37.9-51.0); MEAN CORPUSCULAR HEMOGLOBIN 25.4 pg (27.0-33.4); MEAN CORPUSCULAR HGB CONC 33.7 g/dL (32.0-36.0); MEAN CORPUSCULAR VOLUME 75 fl (80-97); PLATELET COUNT 289 10^3/uL (150-450); RED BLOOD COUNT 3.56 10^6/uL (4.35-5.55); RED CELL DISTRIBUTION WIDTH 18.9 % (11.5-14.0); WHITE BLOOD COUNT 11.7 10^3/uL (4.0-10.5)
[2019-05-30 11:12] LABS: ANION GAP 15 (5-19); BLOOD UREA NITROGEN 11 mg/dL (7-20); CALCIUM 8.6 mg/dL (8.4-10.2); CARBON DIOXIDE 26 mmol/L (22-30); CHLORIDE 93 mmol/L (98-107); GLUCOSE 196 mg/dL (75-110); POTASSIUM 3.7 mmol/L (3.6-5.0)
[2019-05-30] MEDS: MELATONIN 3 MG TABLET PO SCH (21:28)
[2019-05-31] MEDS: BUTALB/ACETAMINOPHEN/CAFFEINE 1 TAB EACH PO PRN ×3 (06:13→21:00)
[2019-05-31] MEDS: CEFTRIAXONE 2 GM/D5W RTU 2 GM/50 ML RTUPB IV SCH (09:07)
[2019-05-31] MEDS: FAMOTIDINE 20 MG TABLET PO SCH ×2 (09:07→21:10)
[2019-05-31] MEDS: NORMAL SALINE 10 ML SDV (SCHEDULED) IV SCH ×2 (09:07→21:11)
[2019-05-31] MEDS: CHLORHEXIDINE GLUCONATE 0.12% ORAL RINSE 15 ML UDC MM SCH ×2 (09:08→17:08)
[2019-05-31] MEDS: ENOXAPARIN SODIUM INJ 40 MG/0.4 ML DISP.SYRIN SUBCUT SCH (09:08)
[2019-05-31] MEDS: DOCUSATE SODIUM 100 MG CAPSULE PO SCH ×2 (09:08→17:07)
--- NOTE | 2019-05-31 13:14 | PDOC PROGRESS REPORT ---
Subjective Progress Note for:: 05/31/19 Subjective:: The patient is a 23-year-old male with a past medical history of IV drug abuse, endocarditis status post aortic valve replacement, hypertension, anemia, viral meningitis, and thrombocytopenia who was admitted 05/08/2019 for Altered mental status; likely polysubstance abuse. Patient was seen on morning rounds. He was found resting in bed comfortably, lying supine, on room air. Sleeping when I entered the room but woke easily when he said his name. He states he is feeling well today. Otherwise no new questions or concerns. He denies fever, chills, headaches, chest pain, palpitations, dyspnea, orthopnea, abdominal pain, nausea vomiting and diarrhea. No concerns per nursing. Reason For Visit: FEVER, AMS, SIRS Physical Exam Vital Signs: Temp Pulse Resp BP Pulse Ox 97.3 F 86 17 95/52 L 97 05/31/19 08:28 05/31/19 08:28 05/31/19 08:28 05/31/19 08:28 05/31/19 08:28 Intake & Output 05/30/19 05/31/19 06/01/19 06:59 06:59 06:59 Intake Total 1190 1050 50 Balance 1190 1050 50 Weight 59.1 kg 59.6 kg General appearance: PRESENT: no acute distress, cooperative, thin, well- developed, well-nourished Head exam: PRESENT: atraumatic, normocephalic Eye exam: PRESENT: conjunctiva pink, EOMI, PERRLA. ABSENT: scleral icterus Ear exam: PRESENT: normal external ear exam Mouth exam: PRESENT: moist, tongue midline Respiratory exam: PRESENT: clear to auscultation cassandra, symmetrical, unlabored. ABSENT: rales, rhonchi, wheezes Cardiovascular exam: PRESENT: RRR, +S1, +S2, systolic murmur. ABSENT: diastolic murmur, rubs Vascular exam: PRESENT: normal capillary refill Extremities exam: PRESENT: full ROM. ABSENT: calf tenderness, clubbing, pedal edema Musculoskeletal exam: PRESENT: ambulatory Neurological exam: PRESENT: alert, awake, oriented to person, oriented to place, oriented to time, oriented to situation, CN II-XII grossly intact. ABSENT: motor sensory deficit Psychiatric exam: PRESENT: appropriate affect, normal mood. ABSENT: homicidal ideation, suicidal ideation Skin exam: PRESENT: dry, intact, warm. ABSENT: cyanosis, rash Results Laboratory Results: 05/30/19 10:20 05/30/19 10:20 Impressions: Chest X-Ray 05/08/19 14:07 IMPRESSION: NO ACUTE RADIOGRAPHIC FINDING IN THE CHEST. Head CT 05/08/19 14:08 IMPRESSION: NORMAL BRAIN CT WITHOUT CONTRAST. EVIDENCE OF ACUTE STROKE: NO. Guidance Fluoroscopy 05/15/19 00:00 IMPRESSION: SUCCESSFUL PLACEMENT OF A 5 FR DUAL LUMEN 47 CM PICC IN THE LEFT BASILIC VEIN. Interventional Vascular Procedure 05/15/19 00:00 IMPRESSION: SUCCESSFUL PLACEMENT OF A 5 FR DUAL LUMEN 47 CM PICC IN THE LEFT BASILIC VEIN. PICC Line Insertion 05/15/19 00:00 IMPRESSION: SUCCESSFUL PLACEMENT OF A 5 FR DUAL LUMEN 47 CM PICC IN THE LEFT BASILIC VEIN. Assessment and Plan - Diagnosis (1) Endocarditis Qualifiers: Endocarditis type: infective Infective endocarditis organism: bacterial Chronicity: acute Qualified Code(s): I33.0 - Acute and subacute infective endocarditis Is this a current diagnosis for this admission?: Yes Plan: No changes in plan or medication condition. RENEE confirms vegetation to his Prosthetic aortic valve measuring 1.26 cm x 0.91 cm. LVEF is normal. There is no vegetation noted on the mitral valve. Blood cultures (05/08/2019) revealed strep viridans. Repeat blood cultures 05/09/2019 are negative Repeat RENEE (05/21/19) aortic valve vegetation measured slightly smaller; valve remains stable with only trace regurgitation. On last lab work; WBCs elevated to 11, however, patient remains afebrile and clinically stable. Vancomycin discontinued Day #5 Infectious disease consulted; have increased Rocephin to 2 gm daily per ID rec ommendations. Stop date 06/20/19. Previously consulted the patient's cardiothoracic surgeon at [facility], Dr. Bauer, by phone. Dr. Bauer did the patient's aortic valve replacement surgery 11/15/2018. Dr. Bauer recommends repeat RENEE again during last week of therapy to confirm clearance; if vegetation remains, extend antibiotic treatment course. (2) Bacteremia Is this a current diagnosis for this admission?: Yes Plan: Most likely due to continuous IV drug abuse. Patient also have very poor digital hygiene. Blood culture positive 2/2 strep viridans. RENEE confirms endocarditis Antibiotics as above. Infectious diseases consulted. Patient will need outpatient dentist follow-up for his extensive dental caries and poor hygiene. (3) Anemia Qualifiers: Anemia type: iron deficiency Is this a current diagnosis for this admission?: Yes Plan: Likely anemia of chronic disease. Likely related to poor overall nutrition (BMI 17.8, IV drug use) and possibly prosthetic valve. Denies any hematochezia, hematemesis, hemoptysis, nosebleeds, hematuria or any easy bleeding. Anemia panel is benign. Most recent Hgb/Hct 9.0/26.8 No active blood loss. (4) Acute encephalopathy Is this a current diagnosis for this admission?: Yes Plan: Resolved. Acute toxic encephalopathy most likely to to polysubstance abuse. (5) SIRS (systemic inflammatory response syndrome) Is this a current diagnosis for this admission?: Yes Plan: Resolved. Evidenced by tachycardia, fever, elevated lactic acid. Most likely due to bacteremia/endocarditis. (6) Polysubstance abuse Is this a current diagnosis for this admission?: Yes Plan: History of polysubstance abuse. Unfortunately patient is still has polysubstance abuse. Endorses cocaine injection. Urine tox positive for cocaine, opiates and marijuana. Repeat UDS was as expected given prescribed medications. Supportive measures. Counseling on cessation Patient is receiving fioricet (barbituates) only for intermittent headaches. No other controlled substances. Provided list of inpatient rehab centers yesterday; encouraged to make calls while still admitted. (7) S/P AVR (aortic valve replacement) Is this a current diagnosis for this admission?: Yes Plan: History of MRSA endocarditis. Recent aortic valve replacement due to infective endocarditis. Now w/ vegitation noted on prosthetic valve. Management as above. (8) Headache Qualifiers: Headache type: unspecified Intractability: not intractable Is this a current diagnosis for this admission?: Yes Plan: Improved; decreased frequency and severity of headaches. Advised to use Tylenol, Motrin, and nonpharmacological interventions. Avoid narcotics related to rebound headaches. Will allow Fioricet for intractable pain. Patient has been advised that he will not receive IV narcotic medications during this admission. (9) Dental caries Is this a current diagnosis for this admission?: Yes Plan: Chlorhexidine mouthwash twice daily. Twice daily oral care. Will ask discharge planning to provide Dentist list. (10) Complaint of insomnia Is this a current diagnosis for this admission?: Yes Plan: Improved with melatonin. - Plan Summary Summary: Downgrade to [facility] floor.
[2019-05-31] MEDS: MELATONIN 3 MG TABLET PO SCH (21:10)
[2019-05-31] MEDS: ACETAMINOPHEN 325 MG TABLET PO PRN (22:49)
[2019-06-01] MEDS: BUTALB/ACETAMINOPHEN/CAFFEINE 1 TAB EACH PO PRN ×3 (03:56→18:08)
[2019-06-01] MEDS: CEFTRIAXONE 2 GM/D5W RTU 2 GM/50 ML RTUPB IV SCH (10:56)
[2019-06-01] MEDS: DOCUSATE SODIUM 100 MG CAPSULE PO SCH ×2 (10:58→17:31)
[2019-06-01] MEDS: ENOXAPARIN SODIUM INJ 40 MG/0.4 ML DISP.SYRIN SUBCUT SCH (10:58)
[2019-06-01] MEDS: CHLORHEXIDINE GLUCONATE 0.12% ORAL RINSE 15 ML UDC MM SCH ×2 (10:59→17:32)
[2019-06-01] MEDS: NORMAL SALINE 10 ML SDV (SCHEDULED) IV SCH ×2 (10:59→22:40)
[2019-06-01] MEDS: FAMOTIDINE 20 MG TABLET PO SCH ×2 (10:59→22:39)
--- NOTE | 2019-06-01 11:42 | PDOC PROGRESS REPORT ---
Subjective Progress Note for:: 06/01/19 Subjective:: The patient is a 23-year-old male with a past medical history of IV drug abuse, endocarditis status post aortic valve replacement, hypertension, anemia, viral meningitis, and thrombocytopenia who was admitted 05/08/2019 for Altered mental status; likely polysubstance abuse. Patient was seen on morning rounds. He was found resting in bed comfortably, lying supine, on room air. Sleeping when I entered the room but woke easily when he said his name. He states he is feeling well today. No new questions or concerns. He denies fever, chills, headaches, chest pain, palpitations, dyspnea, orthopnea, abdominal pain, nausea vomiting and diarrhea. No concerns per nursing. Reason For Visit: FEVER, AMS, SIRS Physical Exam Vital Signs: Temp Pulse Resp BP Pulse Ox 97.3 F 86 17 95/52 L 97 05/31/19 08:28 05/31/19 08:28 05/31/19 08:28 05/31/19 08:28 05/31/19 08:28 Intake & Output 05/31/19 06/01/19 06/02/19 06:59 06:59 06:59 Intake Total 1050 1170 Balance 1050 1170 Weight 59.6 kg 60.1 kg General appearance: PRESENT: no acute distress, cooperative, disheveled, thin, well-developed, well-nourished Head exam: PRESENT: atraumatic, normocephalic Eye exam: PRESENT: conjunctiva pink, EOMI, PERRLA. ABSENT: scleral icterus Ear exam: PRESENT: normal external ear exam Mouth exam: PRESENT: moist, tongue midline Teeth exam: PRESENT: poor dentation Respiratory exam: PRESENT: clear to auscultation cassandra, symmetrical, unlabored. ABSENT: rales, rhonchi, wheezes Cardiovascular exam: PRESENT: RRR, systolic murmur. ABSENT: diastolic murmur, rubs Vascular exam: PRESENT: normal capillary refill Extremities exam: PRESENT: full ROM. ABSENT: calf tenderness, clubbing, pedal edema Musculoskeletal exam: PRESENT: ambulatory Neurological exam: PRESENT: alert, awake, oriented to person, oriented to place, oriented to time, oriented to situation, CN II-XII grossly intact. ABSENT: motor sensory deficit Skin exam: PRESENT: dry, intact, warm. ABSENT: cyanosis, rash Results Laboratory Results: 05/30/19 10:20 05/30/19 10:20 Impressions: Chest X-Ray 05/08/19 14:07 IMPRESSION: NO ACUTE RADIOGRAPHIC FINDING IN THE CHEST. Head CT 05/08/19 14:08 IMPRESSION: NORMAL BRAIN CT WITHOUT CONTRAST. EVIDENCE OF ACUTE STROKE: NO. Guidance Fluoroscopy 05/15/19 00:00 IMPRESSION: SUCCESSFUL PLACEMENT OF A 5 FR DUAL LUMEN 47 CM PICC IN THE LEFT BASILIC VEIN. Interventional Vascular Procedure 05/15/19 00:00 IMPRESSION: SUCCESSFUL PLACEMENT OF A 5 FR DUAL LUMEN 47 CM PICC IN THE LEFT BASILIC VEIN. PICC Line Insertion 05/15/19 00:00 IMPRESSION: SUCCESSFUL PLACEMENT OF A 5 FR DUAL LUMEN 47 CM PICC IN THE LEFT BASILIC VEIN. Assessment and Plan - Diagnosis (1) Endocarditis Qualifiers: Endocarditis type: infective Infective endocarditis organism: bacterial Chronicity: acute Qualified Code(s): I33.0 - Acute and subacute infective endocarditis Is this a current diagnosis for this admission?: Yes Plan: No changes in plan or medication condition. RENEE confirms vegetation to his Prosthetic aortic valve measuring 1.26 cm x 0.91 cm. LVEF is normal. There is no vegetation noted on the mitral valve. Blood cultures (05/08/2019) revealed strep viridans. Repeat blood cultures 05/09/2019 are negative Repeat RENEE (05/21/19) aortic valve vegetation measured slightly smaller; valve remains stable with only trace regurgitation. On last lab work; WBCs elevated to 11, however, patient remains afebrile and clinically stable. Vancomycin discontinued Day #5 Infectious disease consulted; have increased Rocephin to 2 gm daily per ID recommendations. Stop date 06/20/19. Previously consulted the patient's cardiothoracic surgeon at [facility], Dr. Bauer, by phone. Dr. Bauer did the patient's aortic valve replacement surgery 11/15/2018. Dr. Bauer recommends repeat RENEE again during last week of therapy to confirm clearance; if vegetation remains, extend antibiotic treatment course. (2) Bacteremia Is this a current diagnosis for this admission?: Yes Plan: Most likely due to continuous IV drug abuse. Patient also have very poor digital hygiene. Blood culture positive 2/2 strep viridans. RENEE confirms endocarditis Antibiotics as above. Infectious diseases consulted. Provided patient list of low cost dental providers yesterday. Encouraged to make phone calls and appointments prior to his discharge. (3) Anemia Qualifiers: Anemia type: iron deficiency Is this a current diagnosis for this admission?: Yes Plan: Likely anemia of chronic disease. Likely related to poor overall nutrition (BMI 17.8, IV drug use) and possibly prosthetic valve. Denies any hematochezia, hematemesis, hemoptysis, nosebleeds, hematuria or any easy bleeding. Anemia panel is benign. Most recent Hgb/Hct 9.0/26.8 No active blood loss. (4) Acute encephalopathy Is this a current diagnosis for this admission?: Yes Plan: Resolved. Acute toxic encephalopathy most likely to to polysubstance abuse. (5) SIRS (systemic inflammatory response syndrome) Is this a current diagnosis for this admission?: Yes Plan: Resolved. Evidenced by tachycardia, fever, elevated lactic acid. Most likely due to bacteremia/endocarditis. (6) Polysubstance abuse Is this a current diagnosis for this admission?: Yes Plan: History of polysubstance abuse. Unfortunately patient is still has polysubstance abuse. Endorses cocaine injection. Urine tox positive for cocaine, opiates and marijuana. Repeat UDS was as expected given prescribed medications. Supportive measures. Counseling on cessation Patient is receiving fioricet (barbituates) only for intermittent headaches. No other controlled substances. Provided list of inpatient rehab centers yesterday; encouraged to make calls while still admitted. (7) S/P AVR (aortic valve replacement) Is this a current diagnosis for this admission?: Yes Plan: History of MRSA endocarditis. Recent aortic valve replacement due to infective endocarditis. Now w/ vegitation noted on prosthetic valve. Management as above. (8) Headache Qualifiers: Headache type: unspecified Intractability: not intractable Is this a current diagnosis for this admission?: Yes Plan: Improved; decreased frequency and severity of headaches. Advised to use Tylenol, Motrin, and nonpharmacological interventions. Avoid narcotics related to rebound headaches. Will allow Fioricet for intractable pain. Patient has been advised that he will not receive IV narcotic medications during this admission. (9) Dental caries Is this a current diagnosis for this admission?: Yes Plan: Chlorhexidine mouthwash twice daily. Twice daily oral care. Have provided patient the low cost/sliding scale dental provider list. (10) Complaint of insomnia Is this a current diagnosis for this admission?: Yes Plan: Improved with melatonin. - Plan Summary Summary: Downgrade to med floor. - Time Time Spent with patient: Less than 15 minutes Anticipated discharge: Home Within: Other - 06/21/19
[2019-06-01] MEDS: ACETAMINOPHEN 325 MG TABLET PO PRN ×2 (15:52→22:40)
[2019-06-01] MEDS: MELATONIN 3 MG TABLET PO SCH (22:39)
[2019-06-02] MEDS: BUTALB/ACETAMINOPHEN/CAFFEINE 1 TAB EACH PO PRN ×3 (04:09→20:59)
[2019-06-02] MEDS: ENOXAPARIN SODIUM INJ 40 MG/0.4 ML DISP.SYRIN SUBCUT SCH (09:30)
[2019-06-02] MEDS: CEFTRIAXONE 2 GM/D5W RTU 2 GM/50 ML RTUPB IV SCH (09:34)
[2019-06-02] MEDS: FAMOTIDINE 20 MG TABLET PO SCH ×2 (09:34→21:00)
[2019-06-02] MEDS: DOCUSATE SODIUM 100 MG CAPSULE PO SCH ×2 (09:35→17:00)
[2019-06-02] MEDS: CHLORHEXIDINE GLUCONATE 0.12% ORAL RINSE 15 ML UDC MM SCH ×2 (13:29→17:00)
[2019-06-02] MEDS: NORMAL SALINE 10 ML SDV (SCHEDULED) IV SCH ×2 (13:30→21:01)
[2019-06-02] MEDS: MELATONIN 3 MG TABLET PO SCH (21:00)
--- NOTE | 2019-06-02 21:00 | PDOC PROGRESS REPORT ---
Subjective Progress Note for:: 06/02/19 Subjective:: The patient is a 23-year-old male with a past medical history of IV drug abuse, endocarditis status post aortic valve replacement, hypertension, anemia, viral meningitis, and thrombocytopenia who was admitted 05/08/2019 for Altered mental status; likely polysubstance abuse. Patient was seen on morning rounds. He was found resting in bed comfortably, lying supine, on room air. Sleeping when I entered the room but woke easily when he said his name. He states he is feeling well today. No new questions or concerns. He denies fever, chills, headaches, chest pain, palpitations, dyspnea, orthopnea, abdominal pain, nausea vomiting and diarrhea. No concerns per nursing. Reason For Visit: FEVER, AMS, SIRS Physical Exam Vital Signs: Temp Pulse Resp BP Pulse Ox 97.7 F 95 17 123/55 L 99 06/02/19 08:43 06/02/19 08:43 06/02/19 08:43 06/02/19 08:43 06/02/19 08:43 Intake & Output 06/01/19 06/02/19 06/03/19 06:59 06:59 06:59 Intake Total 1170 850 100 Balance 1170 850 100 Weight 60.1 kg 60 kg General appearance: PRESENT: no acute distress, disheveled - poor hygiene, thin, well-developed, well-nourished Head exam: PRESENT: atraumatic, normocephalic Eye exam: PRESENT: conjunctiva pink, EOMI, PERRLA. ABSENT: scleral icterus Ear exam: PRESENT: normal external ear exam Mouth exam: PRESENT: moist, tongue midline Teeth exam: PRESENT: poor dentation Respiratory exam: PRESENT: clear to auscultation cassandra, symmetrical, unlabored. ABSENT: rales, rhonchi, wheezes Cardiovascular exam: PRESENT: RRR, +S1, +S2, systolic murmur. ABSENT: diastolic murmur, rubs Vascular exam: PRESENT: normal capillary refill Extremities exam: PRESENT: full ROM. ABSENT: calf tenderness, clubbing, pedal edema Musculoskeletal exam: PRESENT: ambulatory Neurological exam: PRESENT: alert, awake, oriented to person, oriented to place, oriented to time, oriented to situation, CN II-XII grossly intact. ABSENT: motor sensory deficit Psychiatric exam: PRESENT: appropriate affect, normal mood. ABSENT: homicidal ideation, suicidal ideation Skin exam: PRESENT: dry, intact, warm. ABSENT: cyanosis, rash Results Laboratory Results: 05/30/19 10:20 05/30/19 10:20 Impressions: Chest X-Ray 05/08/19 14:07 IMPRESSION: NO ACUTE RADIOGRAPHIC FINDING IN THE CHEST. Head CT 05/08/19 14:08 IMPRESSION: NORMAL BRAIN CT WITHOUT CONTRAST. EVIDENCE OF ACUTE STROKE: NO. Guidance Fluoroscopy 05/15/19 00:00 IMPRESSION: SUCCESSFUL PLACEMENT OF A 5 FR DUAL LUMEN 47 CM PICC IN THE LEFT BASILIC VEIN. Interventional Vascular Procedure 05/15/19 00:00 IMPRESSION: SUCCESSFUL PLACEMENT OF A 5 FR DUAL LUMEN 47 CM PICC IN THE LEFT BASILIC VEIN. PICC Line Insertion 05/15/19 00:00 IMPRESSION: SUCCESSFUL PLACEMENT OF A 5 FR DUAL LUMEN 47 CM PICC IN THE LEFT BASILIC VEIN. Assessment and Plan - Diagnosis (1) Endocarditis Qualifiers: Endocarditis type: infective Infective endocarditis organism: bacterial Chronicity: acute Qualified Code(s): I33.0 - Acute and subacute infective endocarditis Is this a current diagnosis for this admission?: Yes Plan: No changes in plan or medication condition. RENEE confirms vegetation to his Prosthetic aortic valve measuring 1.26 cm x 0.91 cm. LVEF is normal. There is no vegetation noted on the mitral valve. Blood cultures (05/08/2019) revealed strep viridans. Repeat blood cultures 05/09/2019 are negative Repeat RENEE (05/21/19) aortic valve vegetation measured slightly smaller; valve remains stable with only trace regurgitation. On last lab work; WBCs elevated to 11, however, patient remains afebrile and clinically stable. Vancomycin discontinued Day #5 Infectious disease consulted; have increased Rocephin to 2 gm daily per ID recommendations. Stop date 06/20/19. Previously consulted the patient's cardiothoracic surgeon at [facility], Dr. Bauer, by phone. Dr. Bauer did the patient's aortic valve replacement surgery 11/15/2018. Dr. Bauer recommends repeat RENEE again during last week of therapy to confirm clearance; if vegetation remains, extend antibiotic treatment course. (2) Bacteremia Is this a current diagnosis for this admission?: Yes Plan: Most likely due to continuous IV drug abuse. Patient also have very poor digital hygiene. Blood culture positive 2/2 strep viridans. RENEE confirms endocarditis Antibiotics as above. Infectious diseases consulted. Provided patient list of low cost dental providers yesterday. Encouraged to make phone calls and appointments prior to his discharge. (3) Anemia Qualifiers: Anemia type: iron deficiency Is this a current diagnosis for this admission?: Yes Plan: Likely anemia of chronic disease. Likely related to poor overall nutrition (BMI 17.8, IV drug use) and possibly prosthetic valve. Denies any hematochezia, hematemesis, hemoptysis, nosebleeds, hematuria or any easy bleeding. Anemia panel is benign. Most recent Hgb/Hct 9.0/26.8 No active blood loss. (4) Acute encephalopathy Is this a current diagnosis for this admission?: Yes Plan: Resolved. Acute toxic encephalopathy most likely to to polysubstance abuse. (5) SIRS (systemic inflammatory response syndrome) Is this a current diagnosis for this admission?: Yes Plan: Resolved. Evidenced by tachycardia, fever, elevated lactic acid. Most likely due to bacteremia/endocarditis. (6) Polysubstance abuse Is this a current diagnosis for this admission?: Yes Plan: History of polysubstance abuse. Unfortunately patient is still has polysubstance abuse. Endorses cocaine injec tion. Urine tox positive for cocaine, opiates and marijuana. Repeat UDS was as expected given prescribed medications. Supportive measures. Counseling on cessation Patient is receiving fioricet (barbituates) only for intermittent headaches. No other controlled substances. Provided list of inpatient rehab centers yesterday; encouraged to make calls while still admitted. (7) S/P AVR (aortic valve replacement) Is this a current diagnosis for this admission?: Yes Plan: History of MRSA endocarditis. Recent aortic valve replacement due to infective endocarditis. Now w/ vegitation noted on prosthetic valve. Management as above. (8) Headache Qualifiers: Headache type: unspecified Intractability: not intractable Is this a current diagnosis for this admission?: Yes Plan: Improved. Advised to use Tylenol, Motrin, and nonpharmacological interventions. Avoid narcotics related to rebound headaches. Will allow Fioricet for intractable pain; will decrease frequency due to habitual use. Patient has been advised that he will not receive IV narcotic medications during this admission. (9) Dental caries Is this a current diagnosis for this admission?: Yes Plan: Chlorhexidine mouthwash twice daily. Twice daily oral care. Have provided patient the low cost/sliding scale dental provider list. (10) Complaint of insomnia Is this a current diagnosis for this admission?: Yes Plan: Improved with melatonin. - Plan Summary Summary: Downgrade to med floor. - Time Time Spent with patient: Less than 15 minutes Medications reviewed and adjusted accordingly: Yes Anticipated discharge: Home Within: Other - 06/21/18
[2019-06-03] MEDS: CHLORHEXIDINE GLUCONATE 0.12% ORAL RINSE 15 ML UDC MM SCH ×2 (09:49→18:06)
[2019-06-03] MEDS: FAMOTIDINE 20 MG TABLET PO SCH ×2 (09:49→21:15)
[2019-06-03] MEDS: DOCUSATE SODIUM 100 MG CAPSULE PO SCH ×2 (09:49→17:58)
[2019-06-03] MEDS: NORMAL SALINE 10 ML SDV (SCHEDULED) IV SCH ×2 (09:50→21:15)
[2019-06-03] MEDS: CEFTRIAXONE 2 GM/D5W RTU 2 GM/50 ML RTUPB IV SCH (09:51)
[2019-06-03] MEDS: ENOXAPARIN SODIUM INJ 40 MG/0.4 ML DISP.SYRIN SUBCUT SCH (09:59)
--- NOTE | 2019-06-03 10:52 | PDOC PROGRESS REPORT ---
Subjective Progress Note for:: 06/03/19 Subjective:: The patient is resting in bed. He has no complaints. He is not very enthusiastic with participation in the encounter. Reason For Visit: FEVER, AMS, SIRS Physical Exam Vital Signs: Temp Pulse Resp BP Pulse Ox 98.5 F 94 16 123/63 97 06/03/19 07:05 06/03/19 07:05 06/03/19 07:05 06/03/19 07:05 06/03/19 07:05 Intake & Output 06/02/19 06/03/19 06/04/19 06:59 06:59 06:59 Intake Total 850 770 50 Output Total 3 Balance 850 767 50 Weight 60 kg 60.3 kg General appearance: PRESENT: no acute distress, thin, well-developed Head exam: PRESENT: atraumatic, normocephalic Eye exam: PRESENT: conjunctiva pale. ABSENT: scleral icterus Ear exam: PRESENT: normal external ear exam. ABSENT: bleeding, drainage Mouth exam: PRESENT: moist, tongue midline Respiratory exam: PRESENT: clear to auscultation cassandra, symmetrical, unlabored. ABSENT: accessory muscle use, crackles, prolonged expiratory phas, rales, rhonchi, tachypnea, wheezes Cardiovascular exam: PRESENT: +S1, +S2, systolic murmur - 4/6 best heard at left sternal border GI/Abdominal exam: PRESENT: normal bowel sounds, soft. ABSENT: distended, tenderness Rectal exam: PRESENT: deferred Extremities exam: ABSENT: pedal edema Musculoskeletal exam: PRESENT: normal inspection Neurological exam: PRESENT: alert, awake, oriented to person, oriented to place, oriented to situation, CN II-XII grossly intact Psychiatric exam: PRESENT: flat affect. ABSENT: agitated, anxious Focused psych exam: ABSENT: delusional, restlessness Skin exam: PRESENT: dry, warm. ABSENT: rash Results Laboratory Results: 05/30/19 10:20 05/30/19 10:20 Impressions: Chest X-Ray 05/08/19 14:07 IMPRESSION: NO ACUTE RADIOGRAPHIC FINDING IN THE CHEST. Head CT 05/08/19 14:08 IMPRESSION: NORMAL BRAIN CT WITHOUT CONTRAST. EVIDENCE OF ACUTE STROKE: NO. Guidance Fluoroscopy 05/15/19 00:00 IMPRESSION: SUCCESSFUL PLACEMENT OF A 5 FR DUAL LUMEN 47 CM PICC IN THE LEFT BASILIC VEIN. Interventional Vascular Procedure 05/15/19 00:00 IMPRESSION: SUCCESSFUL PLACEMENT OF A 5 FR DUAL LUMEN 47 CM PICC IN THE LEFT BASILIC VEIN. PICC Line Insertion 05/15/19 00:00 IMPRESSION: SUCCESSFUL PLACEMENT OF A 5 FR DUAL LUMEN 47 CM PICC IN THE LEFT BASILIC VEIN. Assessment and Plan - Diagnosis (1) Endocarditis Qualifiers: Endocarditis type: infective Infective endocarditis organism: bacterial Chronicity: acute Qualified Code(s): I33.0 - Acute and subacute infective endocarditis Is this a current diagnosis for this admission?: Yes Plan: No changes in plan or medication condition. RENEE confirms vegetation to his Prosthetic aortic valve measuring 1.26 cm x 0.91 cm. LVEF is normal. There is no vegetation noted on the mitral valve. Blood cultures (05/08/2019) revealed strep viridans. Repeat blood cultures 05/09/2019 are negative Repeat RENEE (05/21/19) aortic valve vegetation measured slightly smaller; valve remains stable with only trace regurgitation. Vancomycin discontinued Day #5 Infectious disease consulted; have increased Rocephin to 2 gm daily per ID recommendations. Stop date 06/20/19. Previously consulted the patient's cardiothoracic surgeon at [facility], Dr. Bauer, by phone. Dr. Bauer did the patient's aortic valve replacement surgery 11/15/2018. Dr. Bauer recommends repeat RENEE again during last week of therapy to confirm clearance; if vegetation remains, extend antibiotic treatment course. 06/03/2019-patient appears to be tolerating the ceftriaxone. Weekly monitoring labs are ordered. Will reschedule RENEE as above (2) Bacteremia Is this a current diagnosis for this admission?: Yes Plan: 06/03/2019-continue ceftriaxone as above. In addition to IV drug use he is has another risk factor. This is poor dentition. He will need an appointment with a dentist. I have added lactobacillus to continue while he is on antibiotics. (3) Anemia Qualifiers: Anemia type: iron deficiency Is this a current diagnosis for this admission?: Yes Plan: 06/03/2019-we will continue to monitor weekly CBCs. I have added ferrous sulfate supplement. (4) Acute encephalopathy Is this a current diagnosis for this admission?: Yes Plan: Resolved. Acute toxic encephalopathy most likely to to polysubstance abuse. 06/03/2019-resolved (5) SIRS (systemic inflammatory response syndrome) Is this a current diagnosis for this admission?: Yes Plan: Resolved. Evidenced by tachycardia, fever, elevated lactic acid. Most likely due to bacteremia/endocarditis. 06/03/2019 resolved (6) Polysubstance abuse Is this a current diagnosis for this admission?: Yes Plan: 06/03/2019-limit exposure to opiates and barbiturates. Occasional phenobarbital for headache. Strongly encourage inpatient detox/rehab post discharge. The patient has been given names of facilities. 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 Treatment plan as above. (8) Headache Qualifiers: Headache type: unspecified Intractability: not intractable Is this a current diagnosis for this admission?: Yes Plan: 06/03/2019-no opiates. Occasional Fioricet and more conventional therapies such as Tylenol and nonsteroidal anti-inflammatories. (9) Complaint of insomnia Is this a current diagnosis for this admission?: Yes Plan: 06/03/2019-continue melatonin (10) Dental caries Is this a current diagnosis for this admission?: Yes Plan: 06/03/2019-as noted above this could be the etiology of a streptococcal endocarditis. We will encourage follow-up with a dentist post discharge. - Plan Summary Summary: Downgrade to med floor. - Time Time Spent with patient: Less than 15 minutes Medications reviewed and adjusted accordingly: Yes
[2019-06-03] MEDS: BUTALB/ACETAMINOPHEN/CAFFEINE 1 TAB EACH PO PRN ×2 (12:39→20:48)
[2019-06-03] MEDS: MELATONIN 3 MG TABLET PO SCH (21:15)
[2019-06-04] MEDS: CHLORHEXIDINE GLUCONATE 0.12% ORAL RINSE 15 ML UDC MM SCH ×2 (09:57→17:04)
[2019-06-04] MEDS: NORMAL SALINE 10 ML SDV (SCHEDULED) IV SCH ×2 (09:57→21:07)
[2019-06-04] MEDS: FAMOTIDINE 20 MG TABLET PO SCH ×2 (09:57→21:06)
[2019-06-04] MEDS: DOCUSATE SODIUM 100 MG CAPSULE PO SCH ×2 (09:57→17:04)
[2019-06-04] MEDS: ENOXAPARIN SODIUM INJ 40 MG/0.4 ML DISP.SYRIN SUBCUT SCH (09:58)
[2019-06-04] MEDS: CEFTRIAXONE 2 GM/D5W RTU 2 GM/50 ML RTUPB IV SCH (09:58)
[2019-06-04] MEDS: BUTALB/ACETAMINOPHEN/CAFFEINE 1 TAB EACH PO PRN ×2 (12:12→20:19)
--- NOTE | 2019-06-04 15:28 | PDOC PROGRESS REPORT ---
Subjective Progress Note for:: 06/04/19 Subjective:: Complaining of back pain. Waiting for a hot pack. Reason For Visit: FEVER, AMS, SIRS Physical Exam Vital Signs: Temp Pulse Resp BP Pulse Ox 97.8 F 89 16 105/43 L 99 06/04/19 15:18 06/04/19 15:18 06/04/19 15:18 06/04/19 15:18 06/04/19 15:18 Intake & Output 06/03/19 06/04/19 06/05/19 06:59 06:59 06:59 Intake Total 770 1472 50 Output Total 3 Balance 767 1472 50 Weight 60.3 kg 60.8 kg General appearance: PRESENT: cooperative, mild distress, thin, well-developed Head exam: PRESENT: atraumatic, normocephalic Ear exam: PRESENT: normal external ear exam. ABSENT: bleeding, drainage Respiratory exam: PRESENT: clear to auscultation cassandra, symmetrical, unlabored. ABSENT: rales, rhonchi, tachypnea, wheezes Cardiovascular exam: PRESENT: RRR, +S1, +S2, systolic murmur - 5/6 GI/Abdominal exam: PRESENT: normal bowel sounds, soft. ABSENT: distended, tenderness Extremities exam: PRESENT: full ROM. ABSENT: pedal edema Musculoskeletal exam: PRESENT: ambulatory, normal inspection. ABSENT: deformity Neurological exam: PRESENT: alert, awake, oriented to person, oriented to place, oriented to time, oriented to situation, CN II-XII grossly intact Psychiatric exam: PRESENT: appropriate affect. ABSENT: agitated, anxious Focused psych exam: ABSENT: delusional, restlessness Results Laboratory Results: 05/30/19 10:20 05/30/19 10:20 Impressions: Chest X-Ray 05/08/19 14:07 IMPRESSION: NO ACUTE RADIOGRAPHIC FINDING IN THE CHEST. Head CT 05/08/19 14:08 IMPRESSION: NORMAL BRAIN CT WITHOUT CONTRAST. EVIDENCE OF ACUTE STROKE: NO. Guidance Fluoroscopy 05/15/19 00:00 IMPRESSION: SUCCESSFUL PLACEMENT OF A 5 FR DUAL LUMEN 47 CM PICC IN THE LEFT BASILIC VEIN. Interventional Vascular Procedure 05/15/19 00:00 IMPRESSION: SUCCESSFUL PLACEMENT OF A 5 FR DUAL LUMEN 47 CM PICC IN THE LEFT BASILIC VEIN. PICC Line Insertion 05/15/19 00:00 IMPRESSION: SUCCESSFUL PLACEMENT OF A 5 FR DUAL LUMEN 47 CM PICC IN THE LEFT BASILIC VEIN. Assessment and Plan - Plan Summary Summary: Downgrade to [facility].
--- NOTE | 2019-06-04 17:58 | PDOC PROGRESS REPORT ---
Subjective Progress Note for:: 06/04/19 Subjective:: Patient has been waiting for a hot pack. He uses this for musculoskeletal pain. He is up ambulating in the room. He appears to be in mild discomfort. Reason For Visit: FEVER, AMS, SIRS Physical Exam Vital Signs: Temp Pulse Resp BP Pulse Ox 97.8 F 89 16 105/43 L 99 06/04/19 15:18 06/04/19 15:18 06/04/19 15:18 06/04/19 15:18 06/04/19 15:18 Intake & Output 06/03/19 06/04/19 06/05/19 06:59 06:59 06:59 Intake Total 770 1472 50 Output Total 3 Balance 767 1472 50 Weight 60.3 kg 60.8 kg General appearance: PRESENT: cooperative, mild distress, thin Head exam: PRESENT: atraumatic, normocephalic Ear exam: PRESENT: normal external ear exam. ABSENT: bleeding, drainage Teeth exam: PRESENT: poor dentation Respiratory exam: PRESENT: clear to auscultation cassandra, symmetrical, unlabored. ABSENT: rales, rhonchi, tachypnea, wheezes Cardiovascular exam: PRESENT: RRR, +S1, +S2, systolic murmur - 4/6 GI/Abdominal exam: PRESENT: normal bowel sounds, soft. ABSENT: distended, tenderness Rectal exam: PRESENT: deferred Extremities exam: PRESENT: full ROM. ABSENT: joint swelling, pedal edema Musculoskeletal exam: PRESENT: ambulatory, normal inspection. ABSENT: deformity Neurological exam: PRESENT: alert, awake, oriented to person, oriented to place, oriented to time, oriented to situation, CN II-XII grossly intact Psychiatric exam: PRESENT: flat affect. ABSENT: agitated, anxious Focused psych exam: ABSENT: delusional, restlessness Results Laboratory Results: 05/30/19 10:20 05/30/19 10:20 Impressions: Chest X-Ray 05/08/19 14:07 IMPRESSION: NO ACUTE RADIOGRAPHIC FINDING IN THE CHEST. Head CT 05/08/19 14:08 IMPRESSION: NORMAL BRAIN CT WITHOUT CONTRAST. EVIDENCE OF ACUTE STROKE: NO. Guidance Fluoroscopy 05/15/19 00:00 IMPRESSION: SUCCESSFUL PLACEMENT OF A 5 FR DUAL LUMEN 47 CM PICC IN THE LEFT BASILIC VEIN. Interventional Vascular Procedure 05/15/19 00:00 IMPRESSION: SUCCESSFUL PLACEMENT OF A 5 FR DUAL LUMEN 47 CM PICC IN THE LEFT BASILIC VEIN. PICC Line Insertion 05/15/19 00:00 IMPRESSION: SUCCESSFUL PLACEMENT OF A 5 FR DUAL LUMEN 47 CM PICC IN THE LEFT BASILIC VEIN. Assessment and Plan - Diagnosis (1) Endocarditis Qualifiers: Endocarditis type: infective Infective endocarditis organism: bacterial Chronicity: acute Qualified Code(s): I33.0 - Acute and subacute infective endocarditis Is this a current diagnosis for this admission?: Yes Plan: No changes in plan or medication condition. RENEE confirms vegetation to his Prosthetic aortic valve measuring 1.26 cm x 0.91 cm. LVEF is normal. There is no vegetation noted on the mitral valve. Blood cultures (05/08/2019) revealed strep viridans. Repeat blood cultures 05/09/2019 are negative Repeat RENEE (05/21/19) aortic valve vegetation measured slightly smaller; valve remains stable with only trace regurgitation. Vancomycin discontinued Day #5 Infectious disease consulted; have increased Rocephin to 2 gm daily per ID recommendations. Stop date 06/20/19. Previously consulted the patient's cardiothoracic surgeon at [facility], Dr. Bauer, by phone. Dr. Bauer did the patient's aortic valve replacement surgery 11/15/2018. Dr. Bauer recommends repeat RENEE again during last week of therapy to confirm clearance; if vegetation remains, extend antibiotic treatment course. 06/03/2019-patient appears to be tolerating the ceftriaxone. Weekly monitoring labs are ordered. Will reschedule RENEE as above 06/04/2019-continue ceftriaxone. Consider RENEE for June 18. (2) Bacteremia Is this a current diagnosis for this admission?: Yes Plan: 06/03/2019-continue ceftriaxone as above. In addition to IV drug use he is has another risk factor. This is poor dentition. He will need an appointment with a dentist. I have added lactobacillus to continue while he is on antibiotics. 06/04/2019-continue antibiotics. Bacteremia resolved. Negative blood cultures on May 09, 2019. (3) Anemia Qualifiers: Anemia type: iron deficiency Is this a current diagnosis for this admission?: Yes Plan: 06/03/2019-we will continue to monitor weekly CBCs. I have added ferrous sulfate supplement. 06/04/2019-continue iron supplement. Consider multivitamin. (4) Acute encephalopathy Is this a current diagnosis for this admission?: Yes Plan: Resolved. Acute toxic encephalopathy most likely to to polysubstance abuse. 06/03/2019-resolved (5) SIRS (systemic inflammatory response syndrome) Is this a current diagnosis for this admission?: Yes Plan: Resolved. Evidenced by tachycardia, fever, elevated lactic acid. Most likely due to bacteremia/endocarditis. 06/03/2019 resolved (6) Polysubstance abuse Is this a current diagnosis for this admission?: Yes Plan: 06/03/2019-limit exposure to opiates and barbiturates. Occasional phenobarbital for headache. Strongly encourage inpatient detox/rehab post discharge. The patient has been given names of facilities. 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 Treatment plan as above. (8) Headache Qualifiers: Headache type: unspecified Intractability: not intractable Is this a current diagnosis for this admission?: Yes Plan: 06/03/2019-no opiates. Occasional Fioricet and more conventional therapies such as Tylenol and nonsteroidal anti-inflammatories. 06/04/2019-continue current medication regimen (9) Complaint of insomnia Is this a current diagnosis for this admission?: Yes Plan: 06/03/2019-continue melatonin 06/04/2019-no change in treatment plan (10) Dental caries Is this a current diagnosis for this admission?: Yes Plan: 06/03/2019-as noted above this could be the etiology of a streptococcal endocarditis. We will encourage follow-up with a dentist post discharge. - Plan Summary Summary: Downgrade to med floor. - Time Time Spent with patient: Less than 15 minutes Medications reviewed and adjusted accordingly: Yes
[2019-06-04] MEDS: LACTOBACILLUS ACIDOPHILUS 250 MG TAB PO SCH (18:07)
[2019-06-04] MEDS: MELATONIN 3 MG TABLET PO SCH (21:06)
[2019-06-05] MEDS: BUTALB/ACETAMINOPHEN/CAFFEINE 1 TAB EACH PO PRN ×3 (06:05→22:31)
--- NOTE | 2019-06-05 09:12 | PDOC PROGRESS REPORT ---
Subjective Progress Note for:: 06/05/19 Subjective:: The patient now has a K pad for his back. He states that it is marginal in terms of relief. He reports that his back pain is chronic. We discussed other measures to help with chronic back pain. We will likely institute a trial of Lidoderm patch and or nonsteroidal anti-inflammatory medications. In addition I explained to him that I have ordered probiotics, a multivitamin and iron supplement. Reason For Visit: FEVER, AMS, SIRS Physical Exam Vital Signs: Temp Pulse Resp BP Pulse Ox 98.0 F 85 18 110/63 100 06/04/19 23:40 06/04/19 23:40 06/04/19 23:40 06/04/19 23:40 06/04/19 23:40 Intake & Output 06/04/19 06/05/19 06/06/19 06:59 06:59 06:59 Intake Total 1472 1815 Balance 1472 1815 Weight 60.8 kg 62 kg General appearance: PRESENT: cooperative, mild distress, thin, well-developed Head exam: PRESENT: atraumatic, normocephalic Eye exam: PRESENT: conjunctiva pale. ABSENT: scleral icterus Ear exam: PRESENT: normal external ear exam. ABSENT: bleeding, drainage Mouth exam: PRESENT: moist, tongue midline Teeth exam: PRESENT: poor dentation Respiratory exam: PRESENT: clear to auscultation cassandra, symmetrical, unlabored. ABSENT: rales, rhonchi, tachypnea, wheezes Cardiovascular exam: PRESENT: RRR, +S1, +S2, systolic murmur - 4/6 GI/Abdominal exam: PRESENT: normal bowel sounds, soft. ABSENT: distended, tenderness Rectal exam: PRESENT: deferred Gentrourinary exam: ABSENT: indwelling catheter Extremities exam: ABSENT: joint swelling, pedal edema Musculoskeletal exam: PRESENT: full ROM, normal inspection. ABSENT: deformity Neurological exam: PRESENT: alert, awake, oriented to person, oriented to place, oriented to time, oriented to situation, CN II-XII grossly intact Psychiatric exam: ABSENT: agitated, anxious Focused psych exam: ABSENT: delusional, restlessness Skin exam: PRESENT: dry, warm. ABSENT: rash Results Laboratory Results: 05/30/19 10:20 05/30/19 10:20 Impressions: Chest X-Ray 05/08/19 14:07 IMPRESSION: NO ACUTE RADIOGRAPHIC FINDING IN THE CHEST. Head CT 05/08/19 14:08 IMPRESSION: NORMAL BRAIN CT WITHOUT CONTRAST. EVIDENCE OF ACUTE STROKE: NO. Guidance Fluoroscopy 05/15/19 00:00 IMPRESSION: SUCCESSFUL PLACEMENT OF A 5 FR DUAL LUMEN 47 CM PICC IN THE LEFT BASILIC VEIN. Interventional Vascular Procedure 05/15/19 00:00 IMPRESSION: SUCCESSFUL PLACEMENT OF A 5 FR DUAL LUMEN 47 CM PICC IN THE LEFT BASILIC VEIN. PICC Line Insertion 05/15/19 00:00 IMPRESSION: SUCCESSFUL PLACEMENT OF A 5 FR DUAL LUMEN 47 CM PICC IN THE LEFT BASILIC VEIN. Assessment and Plan - Diagnosis (1) Endocarditis Qualifiers: Endocarditis type: infective Infective endocarditis organism: bacterial Chronicity: acute Qualified Code(s): I33.0 - Acute and subacute infective endocarditis Is this a current diagnosis for this admission?: Yes Plan: No changes in plan or medication condition. RENEE confirms vegetation to his Prosthetic aortic valve measuring 1.26 cm x 0.91 cm. LVEF is normal. There is no vegetation noted on the mitral valve. Blood cultures (05/08/2019) revealed strep viridans. Repeat blood cultures 05/09/2019 are negative Repeat RENEE (05/21/19) aortic valve vegetation measured slightly smaller; valve remains stable with only trace regurgitation. Vancomycin discontinued Day #5 Infectious disease consulted; have increased Rocephin to 2 gm daily per ID recommendations. Stop date 06/20/19. Previously consulted the patient's cardiothoracic surgeon at [facility], Dr. Bauer, by phone. Dr. Bauer did the patient's aortic valve replacement surgery 11/15/2018. Dr. Bauer recommends repeat RENEE again during last week of therapy to confirm clearance; if vegetation remains, extend antibiotic treatment course. 06/03/2019-patient appears to be tolerating the ceftriaxone. Weekly monitoring labs are ordered. Will reschedule RENEE as above 06/04/2019-continue ceftriaxone. Consider RENEE for June 18. 06/05/2019-continues on antibiotic therapy. Weekly monitoring labs ordered for tomorrow. Will obtain RENEE either on June 11 or . (2) Bacteremia Is this a current diagnosis for this admission?: Yes Plan: 06/03/2019-continue ceftriaxone as above. In addition to IV drug use he is has another risk factor. This is poor dentition. He will need an appointment with a dentist. I have added lactobacillus to continue while he is on antibiotics. 06/04/2019-continue antibiotics. Bacteremia resolved. Negative blood cultures on May 09, 2019. (3) Anemia Qualifiers: Anemia type: iron deficiency Is this a current diagnosis for this admission?: Yes Plan: 06/03/2019-we will continue to monitor weekly CBCs. I have added ferrous sulfate supplement. 06/04/2019-continue iron supplement. Consider multivitamin. 06/05/2019-I have ordered a multivitamin in addition to his iron supplement. Weekly labs include a CBC to monitor hemoglobin. (4) Acute encephalopathy Is this a current diagnosis for this admission?: Yes Plan: Resolved. Acute toxic encephalopathy most likely to to polysubstance abuse. 06/03/2019-resolved (5) SIRS (systemic inflammatory response syndrome) Is this a current diagnosis for this admission?: Yes Plan: Resolved. Evidenced by tachycardia, fever, elevated lactic acid. Most likely due to bacteremia/endocarditis. 06/03/2019 resolved (6) Polysubstance abuse Is this a current diagnosis for this admission?: Yes Plan: 06/03/2019-limit exposure to opiates and barbiturates. Occasional phenobarbital for headache. Strongly encourage inpatient detox/rehab post discharge. The patient has been given names of facilities. (7) S/P AVR (aortic valve replacement) Is this a current diagnosis for this admission?: Yes Plan: 06/03/2019-patient was diagnosed with MRSA endocarditis and underwent aortic sangeetha ve replacement. 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 Treatment plan as above. (8) Headache Qualifiers: Headache type: unspecified Intractability: not intractable Is this a current diagnosis for this admission?: Yes Plan: 06/03/2019-no opiates. Occasional Fioricet and more conventional therapies such as Tylenol and nonsteroidal anti-inflammatories. 06/04/2019-continue current medication regimen 06/05/2019-it appears the headaches have improved. His chronic back pain is more problematic. (9) Complaint of insomnia Is this a current diagnosis for this admission?: Yes Plan: 06/03/2019-continue melatonin 06/04/2019-no change in treatment plan 06/05/2019-continue melatonin. If we can provide some relief for his back pain he will likely sleep better as well. (10) Dental caries Is this a current diagnosis for this admission?: Yes Plan: 06/03/2019-as noted above this could be the etiology of a streptococcal endocarditis. We will encourage follow-up with a dentist post discharge. (11) Chronic back pain Qualifiers: Back pain location: low back pain Back pain laterality: midline Sciatica presence: without sciatica Qualified Code(s): M54.5 - Low back pain; G89.29 - Other chronic pain Is this a current diagnosis for this admission?: Yes Plan: 06/05/2019-the patient reports that he has had long-standing back pain. If the patient did not have endocarditis then consideration of vertebral osteomyelitis associated with his bacteremia would be given however with an obvious pathology already identified we will treat his back pain conservatively. I have ordered Lidoderm patches as well as scheduled anti-inflammatories for what is most likely musculoskeletal back pain. - Plan Summary Summary: Downgrade to [facility] floor. - Time Time Spent with patient: 15-24 minutes Medications reviewed and adjusted accordingly: Yes
[2019-06-05] MEDS: FAMOTIDINE 20 MG TABLET PO SCH ×2 (10:31→21:25)
[2019-06-05] MEDS: FERROUS SULFATE 325 MG TABLET PO SCH (10:31)
[2019-06-05] MEDS: LACTOBACILLUS ACIDOPHILUS 250 MG TAB PO SCH ×2 (10:31→17:39)
[2019-06-05] MEDS: MULTIVITAMIN TABLET PO SCH (10:31)
[2019-06-05] MEDS: NORMAL SALINE 10 ML SDV (SCHEDULED) IV SCH ×2 (10:32→21:26)
[2019-06-05] MEDS: CEFTRIAXONE 2 GM/D5W RTU 2 GM/50 ML RTUPB IV SCH (10:32)
[2019-06-05] MEDS: DOCUSATE SODIUM 100 MG CAPSULE PO SCH ×2 (10:33→17:38)
[2019-06-05] MEDS: ENOXAPARIN SODIUM INJ 40 MG/0.4 ML DISP.SYRIN SUBCUT SCH (10:33)
[2019-06-05] MEDS: CHLORHEXIDINE GLUCONATE 0.12% ORAL RINSE 15 ML UDC MM SCH ×2 (10:35→17:39)
[2019-06-05] MEDS: LIDOCAINE 5% (700 MG) TRANSDERMAL ADH..PATCH TP SCH (10:35)
[2019-06-05] MEDS: NAPROXEN 375 MG TABLET PO SCH (17:39)
[2019-06-05] MEDS: MELATONIN 3 MG TABLET PO SCH (21:25)
[2019-06-06 07:27] LABS: ABSOLUTE EOSINOPHILS # (AUTO) 0.5 10^3/uL (0.0-0.6); ABSOLUTE LYMPHOCYTES (AUTO) 1.6 10^3/uL (0.5-4.7); ABSOLUTE MONOCYTES (AUTO) 0.7 10^3/uL (0.1-1.4); ABSOLUTE NEUT (AUTO) 3.7 10^3/uL (1.7-8.2); BASOPHILS % (AUTO) 0.7 % (0-2); EOSINOPHILS % (AUTO) 7.7 % (0-6); HEMATOCRIT 29.4 % (37.9-51.0); LYMPHOCYTES % (AUTO) 24.5 % (13-45); MEAN CORPUSCULAR HEMOGLOBIN 25.5 pg (27.0-33.4); MEAN CORPUSCULAR HGB CONC 33.9 g/dL (32.0-36.0); MEAN CORPUSCULAR VOLUME 75 fl (80-97); MONOCYTES % (AUTO) 11.4 % (3-13); PLATELET COUNT 395 10^3/uL (150-450); RED BLOOD COUNT 3.91 10^6/uL (4.35-5.55); RED CELL DISTRIBUTION WIDTH 19.1 % (11.5-14.0); SEGMENTED NEUTROPHILS % (AUTO) 55.7 % (42-78); TOTAL CELLS COUNTED % (AUTO) 100 %; WHITE BLOOD COUNT 6.6 10^3/uL (4.0-10.5)
[2019-06-06 07:50] LABS: ALBUMIN 3.6 g/dL (3.5-5.0); ALKALINE PHOSPHATASE 95 U/L (38-126); ANION GAP 8 (5-19); ASPARTATE AMINO TRANSFERASE 40 U/L (17-59); BILIRUBIN,DIRECT 0.1 mg/dL (0.0-0.4); BILIRUBIN,TOTAL 0.2 mg/dL (0.2-1.3); BLOOD UREA NITROGEN 12 mg/dL (7-20); CALCIUM 9.9 mg/dL (8.4-10.2); CARBON DIOXIDE 27 mmol/L (22-30); CHLORIDE 107 mmol/L (98-107); GLUCOSE 98 mg/dL (75-110); POTASSIUM 4.1 mmol/L (3.6-5.0); TOTAL PROTEIN 7.1 g/dL (6.3-8.2)
[2019-06-06 08:09] LABS: ERYTHROCYTE SEDIMENTATION RATE 60 mm/hr (0-15)
[2019-06-06] MEDS: LACTOBACILLUS ACIDOPHILUS 250 MG TAB PO SCH ×2 (09:46→17:26)
[2019-06-06] MEDS: NAPROXEN 375 MG TABLET PO SCH ×2 (09:46→17:26)
[2019-06-06] MEDS: CEFTRIAXONE 2 GM/D5W RTU 2 GM/50 ML RTUPB IV SCH (09:46)
[2019-06-06] MEDS: FAMOTIDINE 20 MG TABLET PO SCH ×2 (09:46→21:39)
[2019-06-06] MEDS: FERROUS SULFATE 325 MG TABLET PO SCH (09:46)
[2019-06-06] MEDS: MULTIVITAMIN TABLET PO SCH (09:46)
[2019-06-06] MEDS: LIDOCAINE 5% (700 MG) TRANSDERMAL ADH..PATCH TP SCH (09:47)
[2019-06-06] MEDS: NORMAL SALINE 10 ML SDV (SCHEDULED) IV SCH ×2 (09:48→21:40)
--- NOTE | 2019-06-06 09:55 | PDOC PROGRESS REPORT ---
Subjective Progress Note for:: 06/06/19 Subjective:: Patient is just waking up. He reports that his back pain is slightly better with the Lidoderm patch. Reason For Visit: FEVER, AMS, SIRS Physical Exam Vital Signs: Temp Pulse Resp BP Pulse Ox 97.7 F 79 16 124/69 100 06/06/19 08:00 06/06/19 08:00 06/06/19 08:00 06/06/19 08:00 06/06/19 08:00 Intake & Output 06/05/19 06/06/19 06/07/19 06:59 06:59 06:59 Intake Total 1815 3217 Balance 1815 3217 Weight 62 kg 60.3 kg General appearance: PRESENT: no acute distress, cooperative, well-developed Respiratory exam: PRESENT: clear to auscultation cassandra, symmetrical, unlabored. ABSENT: rales, rhonchi, tachypnea, wheezes Cardiovascular exam: PRESENT: RRR, +S1, +S2, systolic murmur - 4/6 GI/Abdominal exam: PRESENT: normal bowel sounds, soft. ABSENT: distended, tenderness Rectal exam: PRESENT: deferred Gentrourinary exam: ABSENT: indwelling catheter Extremities exam: ABSENT: joint swelling, pedal edema Musculoskeletal exam: PRESENT: ambulatory, full ROM, normal inspection. ABSENT: deformity Neurological exam: PRESENT: alert, awake, oriented to person, oriented to place, oriented to time, oriented to situation, CN II-XII grossly intact. ABSENT: motor sensory deficit Psychiatric exam: PRESENT: flat affect. ABSENT: agitated, anxious Focused psych exam: ABSENT: delusional, restlessness Skin exam: PRESENT: dry, normal color, warm. ABSENT: rash Results Laboratory Results: 06/06/19 06:51 06/06/19 06:51 06/06/19 06/06/19 06:51 06:51 WBC 6.6 RBC 3.91 L Hgb 10.0 L Hct 29.4 L MCV 75 L MCH 25.5 L MCHC 33.9 RDW 19.1 H Plt Count 395 Seg Neutrophils % 55.7 Sodium 141.6 Potassium 4.1 Chloride 107 Carbon Dioxide 27 Anion Gap 8 BUN 12 Creatinine 0.78 Est GFR ( Amer) > 60 Glucose 98 Calcium 9.9 Magnesium 2.0 Total Bilirubin 0.2 AST 40 Alkaline Phosphatase 95 Total Protein 7.1 Albumin 3.6 Impressions: Chest X-Ray 05/08/19 14:07 IMPRESSION: NO ACUTE RADIOGRAPHIC FINDING IN THE CHEST. Head CT 05/08/19 14:08 IMPRESSION: NORMAL BRAIN CT WITHOUT CONTRAST. EVIDENCE OF ACUTE STROKE: NO. Guidance Fluoroscopy 05/15/19 00:00 IMPRESSION: SUCCESSFUL PLACEMENT OF A 5 FR DUAL LUMEN 47 CM PICC IN THE LEFT BASILIC VEIN. Interventional Vascular Procedure 05/15/19 00:00 IMPRESSION: SUCCESSFUL PLACEMENT OF A 5 FR DUAL LUMEN 47 CM PICC IN THE LEFT BASILIC VEIN. PICC Line Insertion 05/15/19 00:00 IMPRESSION: SUCCESSFUL PLACEMENT OF A 5 FR DUAL LUMEN 47 CM PICC IN THE LEFT BASILIC VEIN. Assessment and Plan - Diagnosis (1) Endocarditis Qualifiers: Endocarditis type: infective Infective endocarditis organism: bacterial Chronicity: acute Qualified Code(s): I33.0 - Acute and subacute infective endocarditis Is this a current diagnosis for this admission?: Yes Plan: No changes in plan or medication condition. RENEE confirms vegetation to his Prosthetic aortic valve measuring 1.26 cm x 0.91 cm. LVEF is normal. There is no vegetation noted on the mitral valve. Blood cultures (05/08/2019) revealed strep viridans. Repeat blood cultures 05/09/2019 are negative Repeat RENEE (05/21/19) aortic valve vegetation measured slightly smaller; valve remains stable with only trace regurgitation. Vancomycin discontinued Day #5 Infectious disease consulted; have increased Rocephin to 2 gm daily per ID recommendations. Stop date 06/20/19. Previously consulted the patient's cardiothoracic surgeon at [facility], Dr. Bauer, by phone. Dr. Bauer did the patient's aortic valve replacement surgery 11/15/2018. Dr. Bauer recommends repeat RENEE again during last week of therapy to confirm clearance; if vegetation remains, extend antibiotic treatment course. 06/03/2019-patient appears to be tolerating the ceftriaxone. Weekly monitoring labs are ordered. Will reschedule RENEE as above 06/04/2019-continue ceftriaxone. Consider RENEE for June 18. 06/05/2019-continues on antibiotic therapy. Weekly monitoring labs ordered for tomorrow. Will obtain RENEE either on June 11 or . 06/06/2019-weekly monitoring labs reviewed. No abnormalities. Continue current antibiotic regimen. Follow-up RENEE in 7 to 10 days. (2) Bacteremia Is this a current diagnosis for this admission?: Yes Plan: 06/03/2019-continue ceftriaxone as above. In addition to IV drug use he is has another risk factor. This is poor dentition. He will need an appointment with a dentist. I have added lactobacillus to continue while he is on antibiotics. 06/04/2019-continue antibiotics. Bacteremia resolved. Negative blood cultures on May 09, 2019. 06/06/2019-continue current treatment plan (3) Anemia Qualifiers: Anemia type: iron deficiency Is this a current diagnosis for this admission?: Yes Plan: 06/03/2019-we will continue to monitor weekly CBCs. I have added ferrous sulfate supplement. 06/04/2019-continue iron supplement. Consider multivitamin. 06/05/2019-I have ordered a multivitamin in addition to his iron supplement. Weekly labs include a CBC to monitor hemoglobin. 06/06/2019-hemoglobin is actually improved today. Continue to monitor with weekly labs. (4) Acute encephalopathy Is this a current diagnosis for this admission?: Yes Plan: Resolved. Acute toxic encephalopathy most likely to to polysubstance abuse. 06/03/2019-resolved (5) SIRS (systemic inflammatory response syndrome) Is this a current diagnosis for this admission?: Yes Plan: Resolved. Evidenced by tachycardia, fever, elevated lactic acid. Most likely due to bacteremia/endocarditis. 06/03/2019 resolved (6) Polysubstance abuse Is this a current diagnosis for this admission?: Yes Plan: 06/03/2019-limit exposure to opiates and barbiturates. Occasional phenobarbital for headache. Strongly encourage inpatient detox/rehab post discharge. The patient has been given names of facilities. 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 Treatment plan as above. 06/06/2019-once results of RENEE available would forward results to the patient's cardiac surgeon. (8) Headache Qualifiers: Headache type: unspecified Intractability: not intractable Is this a current diagnosis for this admission?: Yes Plan: 06/03/2019-no opiates. Occasional Fioricet and more conventional therapies such as Tylenol and nonsteroidal anti-inflammatories. 06/04/2019-continue current medication regimen 06/05/2019-it appears the headaches have improved. His chronic back pain is more problematic. 06/06/2019-continue current regimen. (9) Complaint of insomnia Is this a current diagnosis for this admission?: Yes Plan: 06/03/2019-continue melatonin 06/04/2019-no change in treatment plan 06/05/2019-continue melatonin. If we can provide some relief for his back pain he will likely sleep better as well. 06/06/2019-appears to have slept soundly last night. Continue melatonin. (10) Dental caries Is this a current diagnosis for this admission?: Yes Plan: 06/03/2019-as noted above this could be the etiology of a streptococcal endocarditis. We will encourage follow-up with a dentist post discharge. (11) Chronic back pain Qualifiers: Back pain location: low back pain Back pain laterality: midline Sciatica presence: without sciatica Qualified Code(s): M54.5 - Low back pain; G89.29 - Other chronic pain Is this a current diagnosis for this admission?: Yes Plan: 06/05/2019-the patient reports that he has had long-standing back pain. If the patient did not have endocarditis then consideration of vertebral osteomyelitis associated with his bacteremia would be given however with an obvious pathology already identified we will treat his back pain conservatively. I have ordered Lidoderm patches as well as scheduled anti-inflammatories for what is most likely musculoskeletal back pain. 06/06/2019-the Lidoderm is helping slightly. I encouraged the patient to give it several days and hopefully it will show improved relief. - Plan Summary Summary: Downgrade to [facility]. - Time Time Spent with patient: Less than 15 minutes Medications reviewed and adjusted accordingly: Yes
[2019-06-06] MEDS: DOCUSATE SODIUM 100 MG CAPSULE PO SCH ×2 (09:59→17:26)
[2019-06-06] MEDS: CHLORHEXIDINE GLUCONATE 0.12% ORAL RINSE 15 ML UDC MM SCH ×2 (09:59→17:26)
[2019-06-06] MEDS: ENOXAPARIN SODIUM INJ 40 MG/0.4 ML DISP.SYRIN SUBCUT SCH (09:59)
[2019-06-06] MEDS: BUTALB/ACETAMINOPHEN/CAFFEINE 1 TAB EACH PO PRN (19:39)
[2019-06-06] MEDS: MELATONIN 3 MG TABLET PO SCH (21:39)
[2019-06-07] MEDS: DOCUSATE SODIUM 100 MG CAPSULE PO SCH (10:04)
[2019-06-07] MEDS: ENOXAPARIN SODIUM INJ 40 MG/0.4 ML DISP.SYRIN SUBCUT SCH (10:04)
[2019-06-07] MEDS: LIDOCAINE 5% (700 MG) TRANSDERMAL ADH..PATCH TP SCH (10:05)
[2019-06-07] MEDS: NAPROXEN 375 MG TABLET PO SCH ×2 (10:05→18:31)
[2019-06-07] MEDS: FERROUS SULFATE 325 MG TABLET PO SCH (10:06)
[2019-06-07] MEDS: LACTOBACILLUS ACIDOPHILUS 250 MG TAB PO SCH ×2 (10:06→18:31)
[2019-06-07] MEDS: MULTIVITAMIN TABLET PO SCH (10:06)
[2019-06-07] MEDS: CHLORHEXIDINE GLUCONATE 0.12% ORAL RINSE 15 ML UDC MM SCH ×2 (10:07→18:14)
[2019-06-07] MEDS: FAMOTIDINE 20 MG TABLET PO SCH (10:07)
[2019-06-07] MEDS: CEFTRIAXONE 2 GM/D5W RTU 2 GM/50 ML RTUPB IV SCH (10:08)
[2019-06-07] MEDS: NORMAL SALINE 10 ML SDV (SCHEDULED) IV SCH ×2 (10:10→22:23)
--- NOTE | 2019-06-07 14:24 | PDOC PROGRESS REPORT ---
Subjective Progress Note for:: 06/07/19 Subjective:: Patient currently has no complaints besides mild back pain. Denies any fever or chest pain. Denies any trouble breathing. Reason For Visit: FEVER, AMS, SIRS Physical Exam Vital Signs: Temp Pulse Resp BP Pulse Ox 98.3 F 73 19 118/62 100 06/07/19 08:54 06/07/19 08:54 06/07/19 08:54 06/07/19 08:54 06/07/19 08:54 Intake & Output 06/06/19 06/07/19 06/08/19 06:59 06:59 06:59 Intake Total 3217 2240 Output Total 0 Balance 3217 2240 Weight 60.3 kg 60.5 kg General appearance: PRESENT: no acute distress, cooperative Neck exam: ABSENT: JVD Respiratory exam: PRESENT: clear to auscultation cassandra Cardiovascular exam: PRESENT: +S1, +S2, systolic murmur. ABSENT: tachycardia GI/Abdominal exam: PRESENT: normal bowel sounds, soft Neurological exam: PRESENT: alert, awake Results Laboratory Results: 06/06/19 06:51 06/06/19 06:51 Impressions: Chest X-Ray 05/08/19 14:07 IMPRESSION: NO ACUTE RADIOGRAPHIC FINDING IN THE CHEST. Head CT 05/08/19 14:08 IMPRESSION: NORMAL BRAIN CT WITHOUT CONTRAST. EVIDENCE OF ACUTE STROKE: NO. Guidance Fluoroscopy 05/15/19 00:00 IMPRESSION: SUCCESSFUL PLACEMENT OF A 5 FR DUAL LUMEN 47 CM PICC IN THE LEFT BASILIC VEIN. Interventional Vascular Procedure 05/15/19 00:00 IMPRESSION: SUCCESSFUL PLACEMENT OF A 5 FR DUAL LUMEN 47 CM PICC IN THE LEFT BASILIC VEIN. PICC Line Insertion 05/15/19 00:00 IMPRESSION: SUCCESSFUL PLACEMENT OF A 5 FR DUAL LUMEN 47 CM PICC IN THE LEFT BASILIC VEIN. Assessment and Plan - Diagnosis (1) Endocarditis Qualifiers: Endocarditis type: infective Infective endocarditis organism: bacterial Chronicity: acute Qualified Code(s): I33.0 - Acute and subacute infective endo carditis Is this a current diagnosis for this admission?: Yes Plan: No changes in plan or medication condition. RENEE confirms vegetation to his Prosthetic aortic valve measuring 1.26 cm x 0.91 cm. LVEF is normal. There is no vegetation noted on the mitral valve. Blood cultures (05/08/2019) revealed strep viridans. Repeat blood cultures 05/09/2019 are negative Repeat RENEE (05/21/19) aortic valve vegetation measured slightly smaller; valve remains stable with only trace regurgitation. Vancomycin discontinued Day #5 Infectious disease consulted; have increased Rocephin to 2 gm daily per ID recommendations. Stop date 06/20/19. Previously consulted the patient's cardiothoracic surgeon at [facility], Dr. Bauer, by phone. Dr. Bauer did the patient's aortic valve replacement surgery 11/15/2018. Dr. Bauer recommends repeat RENEE again during last week of therapy to confirm clearance; if vegetation remains, extend antibiotic treatment course. 06/03/2019-patient appears to be tolerating the ceftriaxone. Weekly monitoring labs are ordered. Will reschedule RENEE as above 06/04/2019-continue ceftriaxone. Consider RENEE for June 18. 06/05/2019-continues on antibiotic therapy. Weekly monitoring labs ordered for tomorrow. Will obtain RENEE either on June 11 or . 06/07/2019-weekly monitoring labs reviewed. No abnormalities. Continue current antibiotic regimen. Follow-up RENEE in 7 to 10 days. (2) Bacteremia Is this a current diagnosis for this admission?: Yes Plan: 06/03/2019-continue ceftriaxone as above. In addition to IV drug use he is has another risk factor. This is poor dentition. He will need an appointment with a dentist. I have added lactobacillus to continue while he is on antibiotics. 06/04/2019-continue antibiotics. Bacteremia resolved. Negative blood cultures on May 09, 2019. 06/06/2019-continue current treatment plan (3) Anemia Qualifiers: Anemia type: iron deficiency Is this a current diagnosis for this admission?: Yes Plan: 06/03/2019-we will continue to monitor weekly CBCs. I have added ferrous sulfate supplement. 06/04/2019-continue iron supplement. Consider multivitamin. 06/05/2019-I have ordered a multivitamin in addition to his iron supplement. Weekly labs include a CBC to monitor hemoglobin. 06/06/2019-hemoglobin is actually improved today. Continue to monitor with weekly labs. 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 Treatment plan as above. 06/06/2019-once results of RENEE available would forward results to the patient's cardiac surgeon. - Time Time Spent with patient: Less than 15 minutes
[2019-06-07] MEDS: BUTALB/ACETAMINOPHEN/CAFFEINE 1 TAB EACH PO PRN (18:34)
[2019-06-07] MEDS: MELATONIN 3 MG TABLET PO SCH (22:23)
[2019-06-08] MEDS: BUTALB/ACETAMINOPHEN/CAFFEINE 1 TAB EACH PO PRN ×2 (06:20→18:01)
[2019-06-08] MEDS: FERROUS SULFATE 325 MG TABLET PO SCH (09:32)
[2019-06-08] MEDS: CEFTRIAXONE 2 GM/D5W RTU 2 GM/50 ML RTUPB IV SCH (09:32)
[2019-06-08] MEDS: LIDOCAINE 5% (700 MG) TRANSDERMAL ADH..PATCH TP SCH (09:32)
[2019-06-08] MEDS: MULTIVITAMIN TABLET PO SCH (09:32)
[2019-06-08] MEDS: LACTOBACILLUS ACIDOPHILUS 250 MG TAB PO SCH ×2 (09:32→17:45)
[2019-06-08] MEDS: NAPROXEN 375 MG TABLET PO SCH ×2 (09:32→17:45)
[2019-06-08] MEDS: NORMAL SALINE 10 ML SDV (SCHEDULED) IV SCH ×2 (09:37→22:37)
[2019-06-08] MEDS: CHLORHEXIDINE GLUCONATE 0.12% ORAL RINSE 15 ML UDC MM SCH ×2 (09:38→17:47)
--- NOTE | 2019-06-08 15:41 | PDOC PROGRESS REPORT ---
Subjective Progress Note for:: 06/08/19 Subjective:: No adverse events overnight. No new complaints. Vital signs been stable. Eating and drinking without difficulty. Reason For Visit: FEVER, AMS, SIRS Physical Exam Vital Signs: Temp Pulse Resp BP Pulse Ox 97.9 F 88 16 115/69 100 06/08/19 12:00 06/08/19 12:00 06/08/19 12:00 06/08/19 12:00 06/08/19 12:00 Intake & Output 06/07/19 06/08/19 06/09/19 06:59 06:59 06:59 Intake Total 2240 2422 50 Output Total 0 0 Balance 2240 2422 50 Weight 60.5 kg 60.1 kg General appearance: PRESENT: no acute distress, cooperative, disheveled, thin Neurological exam: PRESENT: alert, awake, oriented to person, oriented to place, oriented to time, oriented to situation Psychiatric exam: PRESENT: appropriate affect, normal mood Results Laboratory Results: 06/06/19 06:51 06/06/19 06:51 Impressions: Chest X-Ray 05/08/19 14:07 IMPRESSION: NO ACUTE RADIOGRAPHIC FINDING IN THE CHEST. Head CT 05/08/19 14:08 IMPRESSION: NORMAL BRAIN CT WITHOUT CONTRAST. EVIDENCE OF ACUTE STROKE: NO. Guidance Fluoroscopy 05/15/19 00:00 IMPRESSION: SUCCESSFUL PLACEMENT OF A 5 FR DUAL LUMEN 47 CM PICC IN THE LEFT BASILIC VEIN. Interventional Vascular Procedure 05/15/19 00:00 IMPRESSION: SUCCESSFUL PLACEMENT OF A 5 FR DUAL LUMEN 47 CM PICC IN THE LEFT BASILIC VEIN. PICC Line Insertion 05/15/19 00:00 IMPRESSION: SUCCESSFUL PLACEMENT OF A 5 FR DUAL LUMEN 47 CM PICC IN THE LEFT BASILIC VEIN. Assessment and Plan - Diagnosis (1) Bacteremia Is this a current diagnosis for this admission?: Yes Plan: 06/03/2019-continue ceftriaxone as above. In addition to IV drug use he is has another risk factor. This is poor dentition. He will need an appointment with a dentist. I have added lactobacillus to continue while he is on antibiotics. 06/04/2019-continue antibiotics. Bacteremia resolved. Negative blood cultures on May 09, 2019. 06/06/2019-continue current treatment plan (2) Endocarditis Qualifiers: Endocarditis type: infective Infective endocarditis organism: bacterial Chronicity: acute Qualified Code(s): I33.0 - Acute and subacute infective endocarditis Is this a current diagnosis for this admission?: Yes Plan: No changes in plan or medication condition. RENEE confirms vegetation to his Prosthetic aortic valve measuring 1.26 cm x 0.91 cm. LVEF is normal. There is no vegetation noted on the mitral valve. Blood cultures (05/08/2019) revealed strep viridans. Repeat blood cultures 05/09/2019 are negative Repeat RENEE (05/21/19) aortic valve vegetation measured slightly smaller; valve remains stable with only trace regurgitation. Vancomycin discontinued Day #5 Infectious disease consulted; have increased Rocephin to 2 gm daily per ID recommendations. Stop date 06/20/19. Previously consulted the patient's cardiothoracic surgeon at [facility], Dr. Bauer, by phone. Dr. Bauer did the patient's aortic valve replacement surgery 11/15/2018. Dr. Bauer recommends repeat RENEE again during last week of therapy to confirm clearance; if vegetation remains, extend antibiotic treatment course. 06/03/2019-patient appears to be tolerating the ceftriaxone. Weekly monitoring labs are ordered. Will reschedule RENEE as above 06/04/2019-continue ceftriaxone. Consider RENEE for June 18. 06/05/2019-continues on antibiotic therapy. Weekly monitoring labs ordered for tomorrow. Will obtain RENEE either on June 11 or . 06/07/2019-weekly monitoring labs reviewed. No abnormalities. Continue current antibiotic regimen. Follow-up RENEE in 7 to 10 days. (3) Polysubstance abuse Is this a current diagnosis for this admission?: Yes Plan: 06/03/2019-limit exposure to opiates and barbiturates. Occasional phenobarbital for headache. Strongly encourage inpatient detox/rehab post discharge. The patient has been given names of facilities. 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 Treatment plan as above. 06/06/2019-once results of RENEE available would forward results to the patient's cardiac surgeon. - Time Time Spent with patient: 15-24 minutes
[2019-06-08] MEDS: MELATONIN 3 MG TABLET PO SCH (22:37)
[2019-06-09] MEDS: MULTIVITAMIN TABLET PO SCH (09:43)
[2019-06-09] MEDS: FERROUS SULFATE 325 MG TABLET PO SCH (09:43)
[2019-06-09] MEDS: LACTOBACILLUS ACIDOPHILUS 250 MG TAB PO SCH ×2 (09:43→17:37)
[2019-06-09] MEDS: NORMAL SALINE 10 ML SDV (SCHEDULED) IV SCH ×2 (09:43→21:59)
[2019-06-09] MEDS: NAPROXEN 375 MG TABLET PO SCH ×2 (09:44→17:37)
[2019-06-09] MEDS: CEFTRIAXONE 2 GM/D5W RTU 2 GM/50 ML RTUPB IV SCH (09:44)
[2019-06-09] MEDS: LIDOCAINE 5% (700 MG) TRANSDERMAL ADH..PATCH TP SCH (09:47)
[2019-06-09] MEDS: CHLORHEXIDINE GLUCONATE 0.12% ORAL RINSE 15 ML UDC MM SCH ×2 (09:47→17:29)
[2019-06-09] MEDS: BUTALB/ACETAMINOPHEN/CAFFEINE 1 TAB EACH PO PRN (13:20)
--- NOTE | 2019-06-09 15:28 | PDOC PROGRESS REPORT ---
Subjective Progress Note for:: 06/09/19 Subjective:: No adverse events overnight. No new complaints. Vital signs been stable. Eating and drinking without difficulty. Reason For Visit: FEVER, AMS, SIRS Physical Exam Vital Signs: Temp Pulse Resp BP Pulse Ox 97.7 F 63 17 111/84 100 06/09/19 00:07 06/09/19 00:07 06/09/19 00:07 06/09/19 00:07 06/09/19 00:07 Intake & Output 06/08/19 06/09/19 06/10/19 06:59 06:59 06:59 Intake Total 2422 2200 120 Output Total 0 Balance 2422 2200 120 Weight 60.1 kg 61.2 kg General appearance: PRESENT: no acute distress, cooperative, disheveled, thin Neurological exam: PRESENT: alert, awake, oriented to person, oriented to place, oriented to time, oriented to situation Psychiatric exam: PRESENT: appropriate affect, normal mood Results Laboratory Results: 06/06/19 06:51 06/06/19 06:51 Impressions: Chest X-Ray 05/08/19 14:07 IMPRESSION: NO ACUTE RADIOGRAPHIC FINDING IN THE CHEST. Head CT 05/08/19 14:08 IMPRESSION: NORMAL BRAIN CT WITHOUT CONTRAST. EVIDENCE OF ACUTE STROKE: NO. Guidance Fluoroscopy 05/15/19 00:00 IMPRESSION: SUCCESSFUL PLACEMENT OF A 5 FR DUAL LUMEN 47 CM PICC IN THE LEFT BASILIC VEIN. Interventional Vascular Procedure 05/15/19 00:00 IMPRESSION: SUCCESSFUL PLACEMENT OF A 5 FR DUAL LUMEN 47 CM PICC IN THE LEFT BASILIC VEIN. PICC Line Insertion 05/15/19 00:00 IMPRESSION: SUCCESSFUL PLACEMENT OF A 5 FR DUAL LUMEN 47 CM PICC IN THE LEFT BASILIC VEIN. Assessment and Plan - Diagnosis (1) Bacteremia Is this a current diagnosis for this admission?: Yes Plan: 06/03/2019-continue ceftriaxone as above. In addition to IV drug use he is has another risk factor. This is poor dentition. He will need an appointment with a dentist. I have added lactobacillus to continue while he is on antibiotics. 06/04/2019-continue antibiotics. Bacteremia resolved. Negative blood cultures on May 09, 2019. 06/06/2019-continue current treatment plan (2) Endocarditis Qualifiers: Endocarditis type: infective Infective endocarditis organism: bacterial Chronicity: acute Qualified Code(s): I33.0 - Acute and subacute infective endocarditis Is this a current diagnosis for this admission?: Yes Plan: No changes in plan or medication condition. RENEE confirms vegetation to his Prosthetic aortic valve measuring 1.26 cm x 0.91 cm. LVEF is normal. There is no vegetation noted on the mitral valve. Blood cultures (05/08/2019) revealed strep viridans. Repeat blood cultures 05/09/2019 are negative Repeat RENEE (05/21/19) aortic valve vegetation measured slightly smaller; valve remains stable with only trace regurgitation. Vancomycin discontinued Day #5 Infectious disease consulted; have increased Rocephin to 2 gm daily per ID recommendations. Stop date 06/20/19. Previously consulted the patient's cardiothoracic surgeon at [facility], Dr. Bauer, by phone. Dr. Bauer did the patient's aortic valve replacement surgery 11/15/2018. Dr. Bauer recommends repeat RENEE again during last week of therapy to confirm clearance; if vegetation remains, extend antibiotic treatment course. 06/03/2019-patient appears to be tolerating the ceftriaxone. Weekly monitoring labs are ordered. Will reschedule RENEE as above 06/04/2019-continue ceftriaxone. Consider RENEE for June 18. 06/05/2019-continues on antibiotic therapy. Weekly monitoring labs ordered for tomorrow. Will obtain RENEE either on June 11 or . 06/07/2019-weekly monitoring labs reviewed. No abnormalities. Continue current antibiotic regimen. Follow-up RENEE in 7 to 10 days. (3) Polysubstance abuse Is this a current diagnosis for this admission?: Yes Plan: 06/03/2019-limit exposure to opiates and barbiturates. Occasional phenobarbital for headache. Strongly encourage inpatient detox/rehab post discharge. The patient has been given names of facilities. 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 Treatment plan as above. 06/06/2019-once results of RENEE available would forward results to the patient's cardiac surgeon. - Time Time Spent with patient: Less than 15 minutes
[2019-06-09] MEDS: MELATONIN 3 MG TABLET PO SCH (21:59)
[2019-06-10] MEDS: NAPROXEN 375 MG TABLET PO SCH ×2 (08:45→17:00)
[2019-06-10] MEDS: BUTALB/ACETAMINOPHEN/CAFFEINE 1 TAB EACH PO PRN ×2 (08:46→21:22)
[2019-06-10] MEDS: CHLORHEXIDINE GLUCONATE 0.12% ORAL RINSE 15 ML UDC MM SCH ×2 (09:00→17:10)
[2019-06-10] MEDS: MULTIVITAMIN TABLET PO SCH (09:04)
[2019-06-10] MEDS: FERROUS SULFATE 325 MG TABLET PO SCH (09:04)
[2019-06-10] MEDS: LACTOBACILLUS ACIDOPHILUS 250 MG TAB PO SCH ×2 (09:04→18:04)
[2019-06-10] MEDS: LIDOCAINE 5% (700 MG) TRANSDERMAL ADH..PATCH TP SCH (09:04)
[2019-06-10] MEDS: NORMAL SALINE 10 ML SDV (SCHEDULED) IV SCH ×2 (09:05→21:23)
[2019-06-10] MEDS: CEFTRIAXONE 2 GM/D5W RTU 2 GM/50 ML RTUPB IV SCH (09:05)
--- NOTE | 2019-06-10 16:43 | PDOC PROGRESS REPORT ---
Subjective Progress Note for:: 06/10/19 Subjective:: No adverse events overnight. No new complaints. Vital signs been stable. Eating and drinking without difficulty. Reason For Visit: FEVER, AMS, SIRS Physical Exam Vital Signs: Temp Pulse Resp BP Pulse Ox 97.9 F 78 15 106/64 100 06/10/19 15:02 06/10/19 15:02 06/10/19 15:02 06/10/19 15:02 06/10/19 15:02 Intake & Output 06/09/19 06/10/19 06/11/19 06:59 06:59 06:59 Intake Total 2200 1875 50 Balance 2200 1875 50 Weight 61.2 kg 60.8 kg General appearance: PRESENT: no acute distress, cooperative, disheveled, thin Neurological exam: PRESENT: alert, awake, oriented to person, oriented to place, oriented to time, oriented to situation Psychiatric exam: PRESENT: appropriate affect, normal mood Results Laboratory Results: 06/06/19 06:51 06/06/19 06:51 Impressions: Chest X-Ray 05/08/19 14:07 IMPRESSION: NO ACUTE RADIOGRAPHIC FINDING IN THE CHEST. Head CT 05/08/19 14:08 IMPRESSION: NORMAL BRAIN CT WITHOUT CONTRAST. EVIDENCE OF ACUTE STROKE: NO. Guidance Fluoroscopy 05/15/19 00:00 IMPRESSION: SUCCESSFUL PLACEMENT OF A 5 FR DUAL LUMEN 47 CM PICC IN THE LEFT BASILIC VEIN. Interventional Vascular Procedure 05/15/19 00:00 IMPRESSION: SUCCESSFUL PLACEMENT OF A 5 FR DUAL LUMEN 47 CM PICC IN THE LEFT B ASILIC VEIN. PICC Line Insertion 05/15/19 00:00 IMPRESSION: SUCCESSFUL PLACEMENT OF A 5 FR DUAL LUMEN 47 CM PICC IN THE LEFT BASILIC VEIN. Assessment and Plan - Diagnosis (1) Bacteremia Is this a current diagnosis for this admission?: Yes Plan: 06/03/2019-continue ceftriaxone as above. In addition to IV drug use he is has another risk factor. This is poor dentition. He will need an appointment with a dentist. I have added lactobacillus to continue while he is on antibiotics. 06/04/2019-continue antibiotics. Bacteremia resolved. Negative blood cultures on May 09, 2019. 06/06/2019-continue current treatment plan (2) Endocarditis Qualifiers: Endocarditis type: infective Infective endocarditis organism: bacterial Chronicity: acute Qualified Code(s): I33.0 - Acute and subacute infective endocarditis Is this a current diagnosis for this admission?: Yes Plan: No changes in plan or medication condition. RENEE confirms vegetation to his Prosthetic aortic valve measuring 1.26 cm x 0.91 cm. LVEF is normal. There is no vegetation noted on the mitral valve. Blood cultures (05/08/2019) revealed strep viridans. Repeat blood cultures 05/09/2019 are negative Repeat RENEE (05/21/19) aortic valve vegetation measured slightly smaller; valve remains stable with only trace regurgitation. Vancomycin discontinued Day #5 Infectious disease consulted; have increased Rocephin to 2 gm daily per ID recommendations. Stop date 06/20/19. Previously consulted the patient's cardiothoracic surgeon at [facility], Dr. Bauer, by phone. Dr. Bauer did the patient's aortic valve replacement surgery 11/15/2018. Dr. Bauer recommends repeat RENEE again during last week of therapy to confirm clearance; if vegetation remains, extend antibiotic treatment course. 06/03/2019-patient appears to be tolerating the ceftriaxone. Weekly monitoring labs are ordered. Will reschedule RENEE as above 06/04/2019-continue ceftriaxone. Consider RENEE for June 18. 06/05/2019-continues on antibiotic therapy. Weekly monitoring labs ordered for tomorrow. Will obtain RENEE either on June 11 or . 06/07/2019-weekly monitoring labs reviewed. No abnormalities. Continue current antibiotic regimen. Follow-up RENEE in 7 to 10 days. (3) Polysubstance abuse Is this a current diagnosis for this admission?: Yes Plan: 06/03/2019-limit exposure to opiates and barbiturates. Occasional phenobarbital for headache. Strongly encourage inpatient detox/rehab post discharge. The patient has been given names of facilities. 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 Treatment plan as above. 06/06/2019-once results of RENEE available would forward results to the patient's cardiac surgeon. - Time Time Spent with patient: Less than 15 minutes
[2019-06-10] MEDS: MELATONIN 3 MG TABLET PO SCH (21:21)
[2019-06-11] MEDS: NAPROXEN 375 MG TABLET PO SCH ×2 (08:00→17:34)
[2019-06-11] MEDS: CHLORHEXIDINE GLUCONATE 0.12% ORAL RINSE 15 ML UDC MM SCH ×2 (09:53→17:31)
[2019-06-11] MEDS: LIDOCAINE 5% (700 MG) TRANSDERMAL ADH..PATCH TP SCH (09:53)
[2019-06-11] MEDS: LACTOBACILLUS ACIDOPHILUS 250 MG TAB PO SCH ×2 (09:57→17:34)
[2019-06-11] MEDS: MULTIVITAMIN TABLET PO SCH (09:57)
[2019-06-11] MEDS: CEFTRIAXONE 2 GM/D5W RTU 2 GM/50 ML RTUPB IV SCH (09:57)
[2019-06-11] MEDS: FERROUS SULFATE 325 MG TABLET PO SCH (09:57)
[2019-06-11] MEDS: NORMAL SALINE 10 ML SDV (SCHEDULED) IV SCH ×2 (09:57→21:16)
[2019-06-11] MEDS: NORMAL SALINE 10 ML SDV (AFTER EACH USE) IV PRN (11:33)
--- NOTE | 2019-06-11 19:24 | PDOC PROGRESS REPORT ---
Subjective Progress Note for:: 06/11/19 Subjective:: No adverse events overnight. No new complaints. Vital signs been stable. Eating and drinking without difficulty. Reason For Visit: FEVER, AMS, SIRS Physical Exam Vital Signs: Temp Pulse Resp BP Pulse Ox 97.9 F 90 13 107/65 100 06/11/19 11:14 06/11/19 11:14 06/11/19 11:14 06/11/19 11:14 06/11/19 11:14 Intake & Output 06/10/19 06/11/19 06/12/19 06:59 06:59 06:59 Intake Total 1875 1550 766 Balance 1875 1550 766 Weight 60.8 kg 61.3 kg General appearance: PRESENT: no acute distress, cooperative, disheveled, thin Neurological exam: PRESENT: alert, awake, oriented to person, oriented to place, oriented to time, oriented to situation Psychiatric exam: PRESENT: appropriate affect, normal mood Results Laboratory Results: 06/06/19 06:51 06/06/19 06:51 Impressions: Chest X-Ray 05/08/19 14:07 IMPRESSION: NO ACUTE RADIOGRAPHIC FINDING IN THE CHEST. Head CT 05/08/19 14:08 IMPRESSION: NORMAL BRAIN CT WITHOUT CONTRAST. EVIDENCE OF ACUTE STROKE: NO. Guidance Fluoroscopy 05/15/19 00:00 IMPRESSION: SUCCESSFUL PLACEMENT OF A 5 FR DUAL LUMEN 47 CM PICC IN THE LEFT BASILIC VEIN. Interventional Vascular Procedure 05/15/19 00:00 IMPRESSION: SUCCESSFUL PLACEMENT OF A 5 FR DUAL LUMEN 47 CM PICC IN THE LEFT BASILIC VEIN. PICC Line Insertion 05/15/19 00:00 IMPRESSION: SUCCESSFUL PLACEMENT OF A 5 FR DUAL LUMEN 47 CM PICC IN THE LEFT BASILIC VEIN. Assessment and Plan - Diagnosis (1) Bacteremia Is this a current diagnosis for this admission?: Yes Plan: 06/03/2019-continue ceftriaxone as above. In addition to IV drug use he is has another risk factor. This is poor dentition. He will need an appointment with a dentist. I have added lactobacillus to continue while he is on antibiotics. 06/04/2019-continue antibiotics. Bacteremia resolved. Negative blood cultures on May 09, 2019. 06/06/2019-continue current treatment plan (2) Endocarditis Qualifiers: Endocarditis type: infective Infective endocarditis organism: bacterial Chronicity: acute Qualified Code(s): I33.0 - Acute and subacute infective endocarditis Is this a current diagnosis for this admission?: Yes Plan: No changes in plan or medication condition. RENEE confirms vegetation to his Prosthetic aortic valve measuring 1.26 cm x 0.91 cm. LVEF is normal. There is no vegetation noted on the mitral valve. Blood cultures (05/08/2019) revealed strep viridans. Repeat blood cultures 05/09/2019 are negative Repeat RENEE (05/21/19) aortic valve vegetation measured slightly smaller; valve remains stable with only trace regurgitation. Vancomycin discontinued Day #5 Infectious disease consulted; have increased Rocephin to 2 gm daily per ID recommendations. Stop date 06/20/19. Previously consulted the patient's cardiothoracic surgeon at [facility], Dr. Bauer, by phone. Dr. Bauer did the patient's aortic valve replacement surgery 11/15/2018. Dr. Bauer recommends repeat RENEE again during last week of therapy to confirm clearance; if vegetation remains, extend antibiotic treatment course. 06/03/2019-patient appears to be tolerating the ceftriaxone. Weekly monitoring labs are ordered. Will reschedule RENEE as above 06/04/2019-continue ceftriaxone. Consider RENEE for June 18. 06/05/2019-continues on antibiotic therapy. Weekly monitoring labs ordered for tomorrow. Will obtain RENEE either on June 11 or . 06/07/2019-weekly monitoring labs reviewed. No abnormalities. Continue current antibiotic regimen. Follow-up RENEE in 7 to 10 days. (3) Polysubstance abuse Is this a current diagnosis for this admission?: Yes Plan: 06/03/2019-limit exposure to opiates and barbiturates. Occasional phenobarbital for headache. Strongly encourage inpatient detox/rehab post discharge. The patient has been given names of facilities. 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 Treatment plan as above. 06/06/2019-once results of RENEE available would forward results to the patient's cardiac surgeon. - Time Time Spent with patient: 15-24 minutes
[2019-06-11] MEDS: BUTALB/ACETAMINOPHEN/CAFFEINE 1 TAB EACH PO PRN (21:15)
[2019-06-11] MEDS: MELATONIN 3 MG TABLET PO SCH (21:16)
[2019-06-12] MEDS: NAPROXEN 375 MG TABLET PO SCH ×2 (09:33→17:22)
[2019-06-12] MEDS: CHLORHEXIDINE GLUCONATE 0.12% ORAL RINSE 15 ML UDC MM SCH ×2 (09:34→17:22)
[2019-06-12] MEDS: LIDOCAINE 5% (700 MG) TRANSDERMAL ADH..PATCH TP SCH (09:35)
[2019-06-12] MEDS: LACTOBACILLUS ACIDOPHILUS 250 MG TAB PO SCH ×2 (09:42→17:22)
[2019-06-12] MEDS: MULTIVITAMIN TABLET PO SCH (09:42)
[2019-06-12] MEDS: FERROUS SULFATE 325 MG TABLET PO SCH (09:42)
[2019-06-12] MEDS: NORMAL SALINE 10 ML SDV (SCHEDULED) IV SCH ×2 (09:43→21:21)
[2019-06-12] MEDS: CEFTRIAXONE 2 GM/D5W RTU 2 GM/50 ML RTUPB IV SCH (09:44)
--- NOTE | 2019-06-12 17:12 | PDOC PROGRESS REPORT ---
Subjective Progress Note for:: 06/12/19 Subjective:: No adverse events overnight. No new complaints. Vital signs been stable. Eating and drinking without difficulty. Reason For Visit: FEVER, AMS, SIRS Physical Exam Vital Signs: Temp Pulse Resp BP Pulse Ox 97.9 F 69 19 120/70 100 06/12/19 08:09 06/12/19 09:26 06/12/19 08:09 06/12/19 08:09 06/12/19 08:09 Intake & Output 06/11/19 06/12/19 06/13/19 06:59 06:59 06:59 Intake Total 1550 1146 Balance 1550 1146 Weight 61.3 kg 64 kg General appearance: PRESENT: no acute distress, cooperative, disheveled, thin Neurological exam: PRESENT: alert, awake, oriented to person, oriented to place, oriented to time, oriented to situation Psychiatric exam: PRESENT: appropriate affect, normal mood Results Laboratory Results: 06/06/19 06:51 06/06/19 06:51 Impressions: Chest X-Ray 05/08/19 14:07 IMPRESSION: NO ACUTE RADIOGRAPHIC FINDING IN THE CHEST. Head CT 05/08/19 14:08 IMPRESSION: NORMAL BRAIN CT WITHOUT CONTRAST. EVIDENCE OF ACUTE STROKE: NO. Guidance Fluoroscopy 05/15/19 00:00 IMPRESSION: SUCCESSFUL PLACEMENT OF A 5 FR DUAL LUMEN 47 CM PICC IN THE LEFT BASILIC VEIN. Interventional Vascular Procedure 05/15/19 00:00 IMPRESSION: SUCCESSFUL PLACEMENT OF A 5 FR DUAL LUMEN 47 CM PICC IN THE LEFT BASILIC VEIN. PICC Line Insertion 05/15/19 00:00 IMPRESSION: SUCCESSFUL PLACEMENT OF A 5 FR DUAL LUMEN 47 CM PICC IN THE LEFT BASILIC VEIN. Assessment and Plan - Diagnosis (1) Bacteremia Is this a current diagnosis for this admission?: Yes Plan: 06/03/2019-continue ceftriaxone as above. In addition to IV drug use he is has another risk factor. This is poor dentition. He will need an appointment with a dentist. I have added lactobacillus to continue while he is on antibiotics. 06/04/2019-continue antibiotics. Bacteremia resolved. Negative blood cultures on May 09, 2019. 06/06/2019-continue current treatment plan (2) Endocarditis Qualifiers: Endocarditis type: infective Infective endocarditis organism: bacterial Chronicity: acute Qualified Code(s): I33.0 - Acute and subacute infective endocarditis Is this a current diagnosis for this admission?: Yes Plan: No changes in plan or medication condition. RENEE confirms vegetation to his Prosthetic aortic valve measuring 1.26 cm x 0.91 cm. LVEF is normal. There is no vegetation noted on the mitral valve. Blood cultures (05/08/2019) revealed strep viridans. Repeat blood cultures 05/09/2019 are negative Repeat RENEE (05/21/19) aortic valve vegetation measured slightly smaller; valve remains stable with only trace regurgitation. Vancomycin discontinued Day #5 Infectious disease consulted; have increased Rocephin to 2 gm daily per ID recommendations. Stop date 06/20/19. Previously consulted the patient's cardiothoracic surgeon at [facility], Dr. Bauer, by phone. Dr. Bauer did the patient's aortic valve replacement surgery 11/15/2018. Dr. Bauer recommends repeat RENEE again during last week of therapy to confirm clearance; if vegetation remains, extend antibiotic treatment course. 06/03/2019-patient appears to be tolerating the ceftriaxone. Weekly monitoring labs are ordered. Will reschedule RENEE as above 06/04/2019-continue ceftriaxone. Consider RENEE for June 18. 06/05/2019-continues on antibiotic therapy. Weekly monitoring labs ordered for tomorrow. Will obtain RENEE either on June 11 or . 06/07/2019-weekly monitoring labs reviewed. No abnormalities. Continue current antibiotic regimen. Follow-up RENEE in 7 to 10 days. (3) Polysubstance abuse Is this a current diagnosis for this admission?: Yes Plan: 06/03/2019-limit exposure to opiates and barbiturates. Occasional phenobarbital for headache. Strongly encourage inpatient detox/rehab post discharge. The patient has been given names of facilities. 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 Treatment plan as above. 06/06/2019-once results of RENEE available would forward results to the patient's cardiac surgeon. - Time Time Spent with patient: Less than 15 minutes
[2019-06-12] MEDS: BUTALB/ACETAMINOPHEN/CAFFEINE 1 TAB EACH PO PRN (21:20)
[2019-06-12] MEDS: MELATONIN 3 MG TABLET PO SCH (21:21)
[2019-06-12] MEDS: PHARMACY COMMUNICATION ORDER MC SCH (21:22)
[2019-06-13] MEDS: NAPROXEN 375 MG TABLET PO SCH ×2 (09:06→17:21)
[2019-06-13] MEDS: LACTOBACILLUS ACIDOPHILUS 250 MG TAB PO SCH ×2 (09:06→17:21)
[2019-06-13] MEDS: MULTIVITAMIN TABLET PO SCH (09:06)
[2019-06-13] MEDS: FERROUS SULFATE 325 MG TABLET PO SCH (09:06)
[2019-06-13] MEDS: CHLORHEXIDINE GLUCONATE 0.12% ORAL RINSE 15 ML UDC MM SCH ×2 (09:08→17:16)
[2019-06-13] MEDS: LIDOCAINE 5% (700 MG) TRANSDERMAL ADH..PATCH TP SCH (09:08)
[2019-06-13] MEDS: NORMAL SALINE 10 ML SDV (SCHEDULED) IV SCH ×2 (09:08→21:28)
[2019-06-13] MEDS: CEFTRIAXONE 2 GM/D5W RTU 2 GM/50 ML RTUPB IV SCH (09:09)
[2019-06-13] MEDS: NORMAL SALINE 10 ML SDV (AFTER EACH USE) IV PRN (11:46)
[2019-06-13] MEDS: BUTALB/ACETAMINOPHEN/CAFFEINE 1 TAB EACH PO PRN (17:21)
--- NOTE | 2019-06-13 18:25 | PDOC PROGRESS REPORT ---
Subjective Progress Note for:: 06/13/19 Subjective:: No adverse events overnight. No new complaints. Vital signs been stable. Eating and drinking without difficulty. Reason For Visit: FEVER, AMS, SIRS Physical Exam Vital Signs: Temp Pulse Resp BP Pulse Ox 97.5 F 91 16 129/73 H 100 06/13/19 16:00 06/13/19 16:00 06/13/19 16:00 06/13/19 16:00 06/13/19 16:00 Intake & Output 06/12/19 06/13/19 06/14/19 06:59 06:59 06:59 Intake Total 1146 930 410 Balance 1146 930 410 Weight 64 kg 62.3 kg General appearance: PRESENT: no acute distress, cooperative, disheveled, thin Neurological exam: PRESENT: alert, awake, oriented to person, oriented to place, oriented to time, oriented to situation Psychiatric exam: PRESENT: appropriate affect, normal mood Results Laboratory Results: 06/06/19 06:51 06/06/19 06:51 Impressions: Chest X-Ray 05/08/19 14:07 IMPRESSION: NO ACUTE RADIOGRAPHIC FINDING IN THE CHEST. Head CT 05/08/19 14:08 IMPRESSION: NORMAL BRAIN CT WITHOUT CONTRAST. EVIDENCE OF ACUTE STROKE: NO. Guidance Fluoroscopy 05/15/19 00:00 IMPRESSION: SUCCESSFUL PLACEMENT OF A 5 FR DUAL LUMEN 47 CM PICC IN THE LEFT BASILIC VEIN. Interventional Vascular Procedure 05/15/19 00:00 IMPRESSION: SUCCESSFUL PLACEMENT OF A 5 FR DUAL LUMEN 47 CM PICC IN THE LEFT BA SILIC VEIN. PICC Line Insertion 05/15/19 00:00 IMPRESSION: SUCCESSFUL PLACEMENT OF A 5 FR DUAL LUMEN 47 CM PICC IN THE LEFT BASILIC VEIN. Assessment and Plan - Diagnosis (1) Bacteremia Is this a current diagnosis for this admission?: Yes Plan: 06/03/2019-continue ceftriaxone as above. In addition to IV drug use he is has another risk factor. This is poor dentition. He will need an appointment with a dentist. I have added lactobacillus to continue while he is on antibiotics. 06/04/2019-continue antibiotics. Bacteremia resolved. Negative blood cultures on May 09, 2019. 06/06/2019-continue current treatment plan (2) Endocarditis Qualifiers: Endocarditis type: infective Infective endocarditis organism: bacterial Chronicity: acute Qualified Code(s): I33.0 - Acute and subacute infective endocarditis Is this a current diagnosis for this admission?: Yes Plan: No changes in plan or medication condition. RENEE confirms vegetation to his Prosthetic aortic valve measuring 1.26 cm x 0.91 cm. LVEF is normal. There is no vegetation noted on the mitral valve. Blood cultures (05/08/2019) revealed strep viridans. Repeat blood cultures 05/09/2019 are negative Repeat RENEE (05/21/19) aortic valve vegetation measured slightly smaller; valve remains stable with only trace regurgitation. Vancomycin discontinued Day #5 Infectious disease consulted; have increased Rocephin to 2 gm daily per ID recommendations. Stop date 06/20/19. Previously consulted the patient's cardiothoracic surgeon at [facility], Dr. Bauer, by phone. Dr. Bauer did the patient's aortic valve replacement surgery 11/15/2018. Dr. Bauer recommends repeat RENEE again during last week of therapy to confirm clearance; if vegetation remains, extend antibiotic treatment course. 06/03/2019-patient appears to be tolerating the ceftriaxone. Weekly monitoring labs are ordered. Will reschedule RENEE as above 06/04/2019-continue ceftriaxone. Consider RENEE for June 18. 06/05/2019-continues on antibiotic therapy. Weekly monitoring labs ordered for tomorrow. Will obtain RENEE either on June 11 or . 06/07/2019-weekly monitoring labs reviewed. No abnormalities. Continue current antibiotic regimen. Follow-up RENEE in 7 to 10 days. (3) Polysubstance abuse Is this a current diagnosis for this admission?: Yes Plan: 06/03/2019-limit exposure to opiates and barbiturates. Occasional phenobarbital for headache. Strongly encourage inpatient detox/rehab post discharge. The patient has been given names of facilities. 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 Treatment plan as above. 06/06/2019-once results of RENEE available would forward results to the patient's cardiac surgeon. - Time Time Spent with patient: Less than 15 minutes
[2019-06-13] MEDS: PHARMACY COMMUNICATION ORDER MC SCH (21:24)
[2019-06-13] MEDS: MELATONIN 3 MG TABLET PO SCH (21:26)
[2019-06-14] MEDS: LACTOBACILLUS ACIDOPHILUS 250 MG TAB PO SCH ×2 (10:04→17:45)
[2019-06-14] MEDS: CEFTRIAXONE 2 GM/D5W RTU 2 GM/50 ML RTUPB IV SCH (10:04)
[2019-06-14] MEDS: NAPROXEN 375 MG TABLET PO SCH ×2 (10:04→17:45)
[2019-06-14] MEDS: FERROUS SULFATE 325 MG TABLET PO SCH (10:04)
[2019-06-14] MEDS: NORMAL SALINE 10 ML SDV (SCHEDULED) IV SCH ×2 (10:04→21:25)
[2019-06-14] MEDS: MULTIVITAMIN TABLET PO SCH (10:04)
[2019-06-14] MEDS: LIDOCAINE 5% (700 MG) TRANSDERMAL ADH..PATCH TP SCH (10:12)
[2019-06-14] MEDS: CHLORHEXIDINE GLUCONATE 0.12% ORAL RINSE 15 ML UDC MM SCH ×2 (10:12→17:48)
[2019-06-14] MEDS: BUTALB/ACETAMINOPHEN/CAFFEINE 1 TAB EACH PO PRN (15:08)
--- NOTE | 2019-06-14 17:25 | PDOC PROGRESS REPORT ---
Subjective Progress Note for:: 06/14/19 Subjective:: No adverse events overnight. No new complaints. Vital signs been stable. Eating and drinking without difficulty. Reason For Visit: FEVER, AMS, SIRS Physical Exam Vital Signs: Temp Pulse Resp BP Pulse Ox 97.8 F 97 15 115/55 L 100 06/14/19 09:39 06/14/19 09:39 06/14/19 09:39 06/14/19 09:39 06/14/19 09:39 Intake & Output 06/13/19 06/14/19 06/15/19 06:59 06:59 06:59 Intake Total 930 1100 740 Balance 930 1100 740 Weight 62.3 kg 63.8 kg General appearance: PRESENT: no acute distress, cooperative, disheveled, thin Neurological exam: PRESENT: alert, awake, oriented to person, oriented to place, oriented to time, oriented to situation Psychiatric exam: PRESENT: appropriate affect, normal mood Results Laboratory Results: 06/06/19 06:51 06/06/19 06:51 Impressions: Chest X-Ray 05/08/19 14:07 IMPRESSION: NO ACUTE RADIOGRAPHIC FINDING IN THE CHEST. Head CT 05/08/19 14:08 IMPRESSION: NORMAL BRAIN CT WITHOUT CONTRAST. EVIDENCE OF ACUTE STROKE: NO. Guidance Fluoroscopy 05/15/19 00:00 IMPRESSION: SUCCESSFUL PLACEMENT OF A 5 FR DUAL LUMEN 47 CM PICC IN THE LEFT BASILIC VEIN. Interventional Vascular Procedure 05/15/19 00:00 IMPRESSION: SUCCESSFUL PLACEMENT OF A 5 FR DUAL LUMEN 47 CM PICC IN THE LEFT BASILIC VEIN. PICC Line Insertion 05/15/19 00:00 IMPRESSION: SUCCESSFUL PLACEMENT OF A 5 FR DUAL LUMEN 47 CM PICC IN THE LEFT BASILIC VEIN. Assessment and Plan - Diagnosis (1) Bacteremia Is this a current diagnosis for this admission?: Yes Plan: 06/03/2019-continue ceftriaxone as above. In addition to IV drug use he is has another risk factor. This is poor dentition. He will need an appointment with a dentist. I have added lactobacillus to continue while he is on antibiotics. 06/04/2019-continue antibiotics. Bacteremia resolved. Negative blood cultures on May 09, 2019. 06/06/2019-continue current treatment plan (2) Endocarditis Qualifiers: Endocarditis type: infective Infective endocarditis organism: bacterial Chronicity: acute Qualified Code(s): I33.0 - Acute and subacute infective endocarditis Is this a current diagnosis for this admission?: Yes Plan: No changes in plan or medication condition. RENEE confirms vegetation to his Prosthetic aortic valve measuring 1.26 cm x 0.91 cm. LVEF is normal. There is no vegetation noted on the mitral valve. Blood cultures (05/08/2019) revealed strep viridans. Repeat blood cultures 05/09/2019 are negative Repeat RENEE (05/21/19) aortic valve vegetation measured slightly smaller; valve remains stable with only trace regurgitation. Vancomycin discontinued Day #5 Infectious disease consulted; have increased Rocephin to 2 gm daily per ID recommendations. Stop date 06/20/19. Previously consulted the patient's cardiothoracic surgeon at [facility], Dr. Bauer, by phone. Dr. Bauer did the patient's aortic valve replacement surgery 11/15/2018. Dr. Bauer recommends repeat RENEE again during last week of therapy to confirm clearance; if vegetation remains, extend antibiotic treatment course. 06/03/2019-patient appears to be tolerating the ceftriaxone. Weekly monitoring labs are ordered. Will reschedule RENEE as above 06/04/2019-continue ceftriaxone. Consider RENEE for June 18. 06/05/2019-continues on antibiotic therapy. Weekly monitoring labs ordered for tomorrow. Will obtain RENEE either on June 11 or . 06/07/2019-weekly monitoring labs reviewed. No abnormalities. Continue current antibiotic regimen. Follow-up RENEE in 7 to 10 days. (3) Polysubstance abuse Is this a current diagnosis for this admission?: Yes Plan: 06/03/2019-limit exposure to opiates and barbiturates. Occasional phenobarbital for headache. Strongly encourage inpatient detox/rehab post discharge. The patient has been given names of facilities. 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 Treatment plan as above. 06/06/2019-once results of RENEE available would forward results to the patient's cardiac surgeon. - Time Time Spent with patient: Less than 15 minutes
[2019-06-14] MEDS: MELATONIN 3 MG TABLET PO SCH (21:24)
[2019-06-14] MEDS: PHARMACY COMMUNICATION ORDER MC SCH (21:25)
[2019-06-15] MEDS: LIDOCAINE 5% (700 MG) TRANSDERMAL ADH..PATCH TP SCH (10:05)
[2019-06-15] MEDS: NAPROXEN 375 MG TABLET PO SCH ×2 (10:06→17:17)
[2019-06-15] MEDS: CEFTRIAXONE 2 GM/D5W RTU 2 GM/50 ML RTUPB IV SCH (10:06)
[2019-06-15] MEDS: FERROUS SULFATE 325 MG TABLET PO SCH (10:07)
[2019-06-15] MEDS: MULTIVITAMIN TABLET PO SCH (10:07)
[2019-06-15] MEDS: CHLORHEXIDINE GLUCONATE 0.12% ORAL RINSE 15 ML UDC MM SCH ×2 (10:07→17:17)
[2019-06-15] MEDS: LACTOBACILLUS ACIDOPHILUS 250 MG TAB PO SCH ×2 (10:07→17:17)
[2019-06-15] MEDS: BUTALB/ACETAMINOPHEN/CAFFEINE 1 TAB EACH PO PRN (13:48)
--- NOTE | 2019-06-15 15:14 | PDOC PROGRESS REPORT ---
Subjective Progress Note for:: 06/15/19 Subjective:: No adverse events overnight. No new complaints. Vital signs been stable. Eating and drinking without difficulty. Reason For Visit: FEVER, AMS, SIRS Physical Exam Vital Signs: Temp Pulse Resp BP Pulse Ox 97.7 F 85 12 128/65 H 100 06/15/19 08:31 06/15/19 08:31 06/15/19 08:31 06/15/19 08:31 06/15/19 08:31 Intake & Output 06/14/19 06/15/19 06/16/19 06:59 06:59 06:59 Intake Total 1100 3530 170 Balance 1100 3530 170 Weight 63.8 kg 62.6 kg General appearance: PRESENT: no acute distress, cooperative, disheveled, thin Neurological exam: PRESENT: alert, awake, oriented to person, oriented to place, oriented to time, oriented to situation Psychiatric exam: PRESENT: appropriate affect, normal mood Results Laboratory Results: 06/06/19 06:51 06/06/19 06:51 Impressions: Chest X-Ray 05/08/19 14:07 IMPRESSION: NO ACUTE RADIOGRAPHIC FINDING IN THE CHEST. Head CT 05/08/19 14:08 IMPRESSION: NORMAL BRAIN CT WITHOUT CONTRAST. EVIDENCE OF ACUTE STROKE: NO. Guidance Fluoroscopy 05/15/19 00:00 IMPRESSION: SUCCESSFUL PLACEMENT OF A 5 FR DUAL LUMEN 47 CM PICC IN THE LEFT BASILIC VEIN. Interventional Vascular Procedure 05/15/19 00:00 IMPRESSION: SUCCESSFUL PLACEMENT OF A 5 FR DUAL LUMEN 47 CM PICC IN THE LEFT BASILIC VEIN. PICC Line Insertion 05/15/19 00:00 IMPRESSION: SUCCESSFUL PLACEMENT OF A 5 FR DUAL LUMEN 47 CM PICC IN THE LEFT BASILIC VEIN. Assessment and Plan - Diagnosis (1) Bacteremia Is this a current diagnosis for this admission?: Yes Plan: 06/03/2019-continue ceftriaxone as above. In addition to IV drug use he is has another risk factor. This is poor dentition. He will need an appointment with a dentist. I have added lactobacillus to continue while he is on antibiotics. 06/04/2019-continue antibiotics. Bacteremia resolved. Negative blood cultures on May 09, 2019. 06/06/2019-continue current treatment plan (2) Endocarditis Qualifiers: Endocarditis type: infective Infective endocarditis organism: bacterial Chronicity: acute Qualified Code(s): I33.0 - Acute and subacute infective endocarditis Is this a current diagnosis for this admission?: Yes Plan: No changes in plan or medication condition. RENEE confirms vegetation to his Prosthetic aortic valve measuring 1.26 cm x 0.91 cm. LVEF is normal. There is no vegetation noted on the mitral valve. Blood cultures (05/08/2019) revealed strep viridans. Repeat blood cultures 05/09/2019 are negative Repeat ERNEE (05/21/19) aortic valve vegetation measured slightly smaller; valve remains stable with only trace regurgitation. Vancomycin discontinued Day #5 Infectious disease consulted; have increased Rocephin to 2 gm daily per ID recommendations. Stop date 06/20/19. Previously consulted the patient's cardiothoracic surgeon at [facility], Dr. Bauer, by phone. Dr. Bauer did the patient's aortic valve replacement surgery 11/15/2018. Dr. Bauer recommends repeat RENEE again during last week of therapy to confirm clearance; if vegetation remains, extend antibiotic treatment course. 06/03/2019-patient appears to be tolerating the ceftriaxone. Weekly monitoring labs are ordered. Will reschedule RENEE as above 06/04/2019-continue ceftriaxone. Consider RENEE for June 18. 06/05/2019-continues on antibiotic therapy. Weekly monitoring labs ordered for tomorrow. Will obtain RENEE either on June 11 or . 06/07/2019-weekly monitoring labs reviewed. No abnormalities. Continue current antibiotic regimen. Follow-up RENEE in 7 to 10 days. (3) Polysubstance abuse Is this a current diagnosis for this admission?: Yes Plan: 06/03/2019-limit exposure to opiates and barbiturates. Occasional phenobarbital for headache. Strongly encourage inpatient detox/rehab post discharge. The patient has been given names of facilities. 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 Treatment plan as above. 06/06/2019-once results of RENEE available would forward results to the patient's cardiac surgeon. - Time Time Spent with patient: 15-24 minutes
[2019-06-15] MEDS: PHARMACY COMMUNICATION ORDER MC SCH (21:20)
[2019-06-15] MEDS: MELATONIN 3 MG TABLET PO SCH (21:21)
[2019-06-16] MEDS: MULTIVITAMIN TABLET PO SCH (09:09)
[2019-06-16] MEDS: LACTOBACILLUS ACIDOPHILUS 250 MG TAB PO SCH ×2 (09:09→17:47)
[2019-06-16] MEDS: FERROUS SULFATE 325 MG TABLET PO SCH (09:09)
[2019-06-16] MEDS: NAPROXEN 375 MG TABLET PO SCH ×2 (09:10→17:46)
[2019-06-16] MEDS: LIDOCAINE 5% (700 MG) TRANSDERMAL ADH..PATCH TP SCH (09:11)
[2019-06-16] MEDS: CHLORHEXIDINE GLUCONATE 0.12% ORAL RINSE 15 ML UDC MM SCH ×2 (09:12→17:47)
[2019-06-16] MEDS: CEFTRIAXONE 2 GM/D5W RTU 2 GM/50 ML RTUPB IV SCH (09:12)
[2019-06-16] MEDS: BUTALB/ACETAMINOPHEN/CAFFEINE 1 TAB EACH PO PRN (15:11)
--- NOTE | 2019-06-16 20:58 | PDOC PROGRESS REPORT ---
Subjective Progress Note for:: 06/16/19 Subjective:: No adverse events overnight. No new complaints. Vital signs been stable. Eating and drinking without difficulty. Reason For Visit: FEVER, AMS, SIRS Physical Exam Vital Signs: Temp Pulse Resp BP Pulse Ox 97.6 F 95 15 125/68 100 06/16/19 19:49 06/16/19 19:49 06/16/19 19:49 06/16/19 19:49 06/16/19 19:49 Intake & Output 06/15/19 06/16/19 06/17/19 06:59 06:59 06:59 Intake Total 3530 1170 650 Balance 3530 1170 650 Weight 62.6 kg 64.2 kg General appearance: PRESENT: no acute distress, cooperative, disheveled, thin Neurological exam: PRESENT: alert, awake, oriented to person, oriented to place, oriented to time, oriented to situation Psychiatric exam: PRESENT: appropriate affect, normal mood Results Laboratory Results: 06/06/19 06:51 06/06/19 06:51 Impressions: Chest X-Ray 05/08/19 14:07 IMPRESSION: NO ACUTE RADIOGRAPHIC FINDING IN THE CHEST. Head CT 05/08/19 14:08 IMPRESSION: NORMAL BRAIN CT WITHOUT CONTRAST. EVIDENCE OF ACUTE STROKE: NO. Guidance Fluoroscopy 05/15/19 00:00 IMPRESSION: SUCCESSFUL PLACEMENT OF A 5 FR DUAL LUMEN 47 CM PICC IN THE LEFT BASILIC VEIN. Interventional Vascular Procedure 05/15/19 00:00 IMPRESSION: SUCCESSFUL PLACEMENT OF A 5 FR DUAL LUMEN 47 CM PICC IN THE LEFT BASILIC VEIN. PICC Line Insertion 05/15/19 00:00 IMPRESSION: SUCCESSFUL PLACEMENT OF A 5 FR DUAL LUMEN 47 CM PICC IN THE LEFT BASILIC VEIN. Assessment and Plan - Diagnosis (1) Bacteremia Is this a current diagnosis for this admission?: Yes Plan: continue ceftriaxone. In addition to IV drug use he has another risk factor. This is poor dentition. He will need an appointment with a dentist. I have added lactobacillus to continue while he is on antibiotics. Bacteremia resolved. Negative blood cultures on May 09, 2019. (2) Endocarditis Qualifiers: Endocarditis type: infective Infective endocarditis organism: bacterial Chronicity: acute Qualified Code(s): I33.0 - Acute and subacute infective endocarditis Is this a current diagnosis for this admission?: Yes Plan: No changes in plan or medication condition. RENEE confirms vegetation to his Prosthetic aortic valve measuring 1.26 cm x 0.91 cm. LVEF is normal. There is no vegetation noted on the mitral valve. Blood cultures (05/08/2019) revealed strep viridans. Repeat blood cultures 05/09/2019 are negative Repeat RENEE (05/21/19) aortic valve vegetation measured slightly smaller; valve remains stable with only trace regurgitation. Vancomycin discontinued Day #5 Infectious disease consulted; have increased Rocephin to 2 gm daily per ID recommendations. Stop date 06/20/19. Previously consulted the patient's cardiothoracic surgeon at [facility], Dr. Bauer, by phone. Dr. Bauer did the patient's aortic valve replacement surgery 11/15/2018. Dr. Bauer recommends repeat RENEE again during last week of therapy to confirm clearance; if vegetation remains, extend antibiotic treatment course. 06/03/2019-patient appears to be tolerating the ceftriaxone. Weekly monitoring labs are ordered. Will reschedule RENEE as above 06/04/2019-continue ceftriaxone. Consider RENEE for June 18. 06/05/2019-continues on antibiotic therapy. Weekly monitoring labs ordered for tomorrow. Will obtain RENEE either on June 11 or . 06/07/2019-weekly monitoring labs reviewed. No abnormalities. Continue current antibiotic regimen. Follow-up RENEE in 7 to 10 days. According to the schedule he may not be able to get a RENEE this week. We will need to check with the lab to see if when it can be done. This will help us to know whether or not he needs therapy for an extended period of time beyond this week. (3) Polysubstance abuse Is this a current diagnosis for this admission?: Yes Plan: 06/03/2019-limit exposure to opiates and barbiturates. Occasional phenobarbital for headache. Strongly encourage inpatient detox/rehab post discharge. The patient has been given names of facilities. 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 Treatment plan as above. 06/06/2019-once results of RENEE available would forward results to the patient's cardiac surgeon. Repeat RENEE as detailed above, if not later this week then early next week. - Time Time Spent with patient: Less than 15 minutes
[2019-06-16] MEDS: MELATONIN 3 MG TABLET PO SCH (21:31)
[2019-06-16] MEDS: PHARMACY COMMUNICATION ORDER MC SCH (21:36)
[2019-06-17] MEDS: LACTOBACILLUS ACIDOPHILUS 250 MG TAB PO SCH ×2 (11:03→20:32)
[2019-06-17] MEDS: MULTIVITAMIN TABLET PO SCH (11:04)
[2019-06-17] MEDS: CEFTRIAXONE 2 GM/D5W RTU 2 GM/50 ML RTUPB IV SCH (11:04)
[2019-06-17] MEDS: FERROUS SULFATE 325 MG TABLET PO SCH (11:04)
[2019-06-17] MEDS: CHLORHEXIDINE GLUCONATE 0.12% ORAL RINSE 15 ML UDC MM SCH (11:06)
[2019-06-17] MEDS: NAPROXEN 375 MG TABLET PO SCH ×2 (11:06→20:33)
[2019-06-17] MEDS: LIDOCAINE 5% (700 MG) TRANSDERMAL ADH..PATCH TP SCH (11:21)
--- NOTE | 2019-06-17 18:07 | PDOC PROGRESS REPORT ---
Subjective Progress Note for:: 06/17/19 Subjective:: The patient is a 23-year-old male with a past medical history of IV drug abuse, endocarditis status post aortic valve replacement, hypertension, anemia, viral meningitis, and thrombocytopenia who was admitted 05/08/2019 for Altered mental status; likely polysubstance abuse. Patient was seen on morning rounds. He was found ambulating in the hallways on room air. He is in good spirits today; looking forward to completing antibiotics and possible discharge pending RENEE results. No new questions or concerns. ROS is negative. No concerns per nursing. Reason For Visit: FEVER, AMS, SIRS Physical Exam Vital Signs: Temp Pulse Resp BP Pulse Ox 98.1 F 97 19 112/55 L 100 06/17/19 15:17 06/17/19 15:17 06/17/19 15:17 06/17/19 15:17 06/17/19 15:17 Intake & Output 06/16/19 06/17/19 06/18/19 06:59 06:59 06:59 Intake Total 1170 1290 668 Balance 1170 1290 668 Weight 64.2 kg 63.9 kg General appearance: PRESENT: no acute distress, cooperative, thin, well- developed, well-nourished Head exam: PRESENT: atraumatic, normocephalic Eye exam: PRESENT: conjunctiva pink, EOMI, PERRLA. ABSENT: scleral icterus Ear exam: PRESENT: normal external ear exam Mouth exam: PRESENT: moist, tongue midline Teeth exam: PRESENT: poor dentation Respiratory exam: PRESENT: clear to auscultation cassandra, symmetrical, unlabored. ABSENT: rales, rhonchi, wheezes Cardiovascular exam: PRESENT: RRR, +S1, +S2, systolic murmur. ABSENT: diastolic murmur, rubs Pulses: PRESENT: normal dorsalis pedis pul Vascular exam: PRESENT: normal capillary refill Rectal exam: PRESENT: deferred Extremities exam: PRESENT: full ROM. ABSENT: calf tenderness, clubbing, pedal edema Musculoskeletal exam: PRESENT: ambulatory Neurological exam: PRESENT: alert, awake, oriented to person, oriented to place, oriented to time, oriented to situation, CN II-XII grossly intact. ABSENT: motor sensory deficit Psychiatric exam: PRESENT: appropriate affect, normal mood. ABSENT: homicidal ideation, suicidal ideation Skin exam: PRESENT: dry, intact, warm. ABSENT: cyanosis, rash Results Laboratory Results: 06/06/19 06:51 06/06/19 06:51 Impressions: Chest X-Ray 05/08/19 14:07 IMPRESSION: NO ACUTE RADIOGRAPHIC FINDING IN THE CHEST. Head CT 05/08/19 14:08 IMPRESSION: NORMAL BRAIN CT WITHOUT CONTRAST. EVIDENCE OF ACUTE STROKE: NO. Guidance Fluoroscopy 05/15/19 00:00 IMPRESSION: SUCCESSFUL PLACEMENT OF A 5 FR DUAL LUMEN 47 CM PICC IN THE LEFT BASILIC VEIN. Interventional Vascular Procedure 05/15/19 00:00 IMPRESSION: SUCCESSFUL PLACEMENT OF A 5 FR DUAL LUMEN 47 CM PICC IN THE LEFT BASILIC VEIN. PICC Line Insertion 05/15/19 00:00 IMPRESSION: SUCCESSFUL PLACEMENT OF A 5 FR DUAL LUMEN 47 CM PICC IN THE LEFT BASILIC VEIN. Assessment and Plan - Diagnosis (1) Endocarditis Qualifiers: Endocarditis type: infective Infective endocarditis organism: bacterial Chronicity: acute Qualified Code(s): I33.0 - Acute and subacute infective endocarditis Is this a current diagnosis for this admission?: Yes Plan: No changes in plan or medication condition. RENEE confirms vegetation to his Prosthetic aortic valve measuring 1.26 cm x 0.91 cm. LVEF is normal. There is no vegetation noted on the mitral valve. Blood cultures (05/08/2019) revealed strep viridans. Repeat blood cultures 05/09/2019 are negative Repeat RENEE (05/21/19) aortic valve vegetation measured slightly smaller; valve remains stable with only trace regurgitation. Vancomycin discontinued Day #5 Infectious disease consulted; have increased Rocephin to 2 gm daily per ID recommendations. Stop date 06/20/19. Previously consulted the patient's cardiothoracic surgeon at [facility], Dr. Bauer, by phone. Dr. Bauer did the patient's aortic valve replacement surgery 11/15/2018. Dr. Bauer recommends repeat RENEE again during last week of therapy to confirm clearance; if vegetation remains, extend antibiotic treatment course. According to the schedule he may not be able to get a RENEE this week. We will need to check with the lab to see if when it can be done. This will help us to know whether or not he needs therapy for an extended period of time beyond this week. (2) Bacteremia Is this a current diagnosis for this admission?: Yes Plan: continue ceftriaxone. In addition to IV drug use he has another risk factor. This is poor dentition. He will need an appointment with a dentist. I have added lactobacillus to continue while he is on antibiotics. Bacteremia resolved. Negative blood cultures on May 09, 2019. (3) Anemia Qualifiers: Anemia type: iron deficiency Is this a current diagnosis for this admission?: Yes Plan: Hgb 10.0; stable No signs of active bleeding. Continue monitor with periodic CBCs. (4) Acute encephalopathy Is this a current diagnosis for this admission?: Yes Plan: Resolved. Acute toxic encephalopathy most likely to to polysubstance abuse. (5) SIRS (systemic inflammatory response syndrome) Is this a current diagnosis for this admission?: Yes Plan: Resolved. Evidenced by tachycardia, fever, elevated lactic acid. Most likely due to bacteremia/endocarditis. (6) Polysubstance abuse Is this a current diagnosis for this admission?: Yes Plan: Limit exposure to opiates and barbiturates. Occasional phenobarbital for headache. Strongly encourage inpatient detox/rehab post discharge. The patient has been given names of facilities. 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 Treatment plan as above. 06/06/2019-once results of RENEE available would forward results to the patient's cardiac surgeon. Repeat RENEE as detailed above, if not later this week then early next week. (8) Headache Qualifiers: Headache type: unspecified Intractability: not intractable Is this a current diagnosis for this admission?: Yes Plan: No opiates. Occasional Fioricet and more conventional therapies such as Tylenol and nonsteroidal anti-inflammatories. (9) Dental caries Is this a current diagnosis for this admission?: Yes Plan: As noted above this could be the etiology of a streptococcal endocarditis. We will encourage follow-up with a dentist post discharge. Continue chlorhexidine mouthwash. (10) Complaint of insomnia Is this a current diagnosis for this admission?: Yes Plan: Continue melatonin. - Time Time Spent with patient: Less than 15 minutes Anticipated discharge: Home
[2019-06-17] MEDS: PHARMACY COMMUNICATION ORDER MC SCH (23:09)
[2019-06-17] MEDS: MELATONIN 3 MG TABLET PO SCH (23:12)
[2019-06-18] MEDS: MULTIVITAMIN TABLET PO SCH (10:02)
[2019-06-18] MEDS: FERROUS SULFATE 325 MG TABLET PO SCH (10:02)
[2019-06-18] MEDS: LACTOBACILLUS ACIDOPHILUS 250 MG TAB PO SCH ×2 (10:02→17:43)
[2019-06-18] MEDS: NAPROXEN 375 MG TABLET PO SCH ×2 (10:03→17:43)
[2019-06-18] MEDS: CEFTRIAXONE 2 GM/D5W RTU 2 GM/50 ML RTUPB IV SCH (10:04)
[2019-06-18] MEDS: LIDOCAINE 5% (700 MG) TRANSDERMAL ADH..PATCH TP SCH (10:08)
--- NOTE | 2019-06-18 12:29 | PDOC PROGRESS REPORT ---
Subjective Progress Note for:: 06/18/19 Subjective:: The patient is a 23-year-old male with a past medical history of IV drug abuse, endocarditis status post aortic valve replacement, hypertension, anemia, viral meningitis, and thrombocytopenia who was admitted 05/08/2019 for Altered mental status; likely polysubstance abuse. 06/18/2019. No acute events overnight. Denies any fever, chills, nausea, vomiting, diarrhea, constipation or any urinary symptoms. Ambulatory, having normal bowel and bladder movements. 05/18/2000 Reason For Visit: FEVER, AMS, SIRS Physical Exam Vital Signs: Temp Pulse Resp BP Pulse Ox 97.9 F 98 16 110/54 L 100 06/18/19 10:58 06/18/19 10:58 06/18/19 10:58 06/18/19 10:58 06/18/19 10:58 Intake & Output 06/17/19 06/18/19 06/19/19 06:59 06:59 06:59 Intake Total 1290 2254 Balance 1290 2254 Weight 63.9 kg 62.1 kg General appearance: PRESENT: no acute distress, well-developed, well-nourished Head exam: PRESENT: atraumatic, normocephalic Eye exam: PRESENT: conjunctiva pink, EOMI, PERRLA. ABSENT: scleral icterus Ear exam: PRESENT: normal external ear exam Mouth exam: PRESENT: moist, tongue midline Neck exam: ABSENT: carotid bruit, JVD, lymphadenopathy, thyromegaly Respiratory exam: PRESENT: clear to auscultation cassandra. ABSENT: rales, rhonchi, wheezes Cardiovascular exam: PRESENT: RRR, systolic murmur. ABSENT: diastolic murmur, rubs Pulses: PRESENT: normal dorsalis pedis pul Vascular exam: PRESENT: normal capillary refill GI/Abdominal exam: PRESENT: normal bowel sounds, soft. ABSENT: distended, guarding, mass, organolmegaly, rebound, tenderness Rectal exam: PRESENT: deferred Extremities exam: PRESENT: full ROM. ABSENT: calf tenderness, clubbing, pedal edema Neurological exam: PRESENT: alert, awake, oriented to person, oriented to place, oriented to time, oriented to situation, CN II-XII grossly intact. ABSENT: motor sensory deficit Psychiatric exam: PRESENT: appropriate affect, normal mood. ABSENT: homicidal ideation, suicidal ideation Skin exam: PRESENT: dry, intact, warm. ABSENT: cyanosis, rash Results Laboratory Results: 06/06/19 06:51 06/06/19 06:51 Impressions: Chest X-Ray 05/08/19 14:07 IMPRESSION: NO ACUTE RADIOGRAPHIC FINDING IN THE CHEST. Head CT 05/08/19 14:08 IMPRESSION: NORMAL BRAIN CT WITHOUT CONTRAST. EVIDENCE OF ACUTE STROKE: NO. Guidance Fluoroscopy 05/15/19 00:00 IMPRESSION: SUCCESSFUL PLACEMENT OF A 5 FR DUAL LUMEN 47 CM PICC IN THE LEFT BASILIC VEIN. Interventional Vascular Procedure 05/15/19 00:00 IMPRESSION: SUCCESSFUL PLACEMENT OF A 5 FR DUAL LUMEN 47 CM PICC IN THE LEFT BASILIC VEIN. PICC Line Insertion 05/15/19 00:00 IMPRESSION: SUCCESSFUL PLACEMENT OF A 5 FR DUAL LUMEN 47 CM PICC IN THE LEFT BASILIC VEIN. Assessment and Plan - Diagnosis (1) Endocarditis Qualifiers: Endocarditis type: infective Infective endocarditis organism: bacterial Chronicity: acute Qualified Code(s): I33.0 - Acute and subacute infective endocarditis Is this a current diagnosis for this admission?: Yes Plan: No changes in plan or medication condition. RENEE confirms vegetation to his Prosthetic aortic valve measuring 1.26 cm x 0.91 cm. LVEF is normal. There is no vegetation noted on the mitral valve. Blood cultures (05/08/2019) revealed strep viridans. Repeat blood cultures 05/09/2019 are negative Repeat RENEE (05/21/19) aortic valve vegetation measured slightly smaller; valve remains stable with only trace regurgitation. Vancomycin discontinued Day #5 Infectious disease consulted; have increased Rocephin to 2 gm daily per ID recommendations. Stop date 06/20/19. Previously consulted the patient's cardiothoracic surgeon at [facility], Dr. Bauer, by phone. Dr. Bauer did the patient's aortic valve replacement surgery 11/15/2018. Dr. Bauer recommends repeat RENEE again during last week of therapy to confirm clearance; if vegetation remains, extend antibiotic treatment course. Last day of antibiotic 06/20/2019. As per Dr. Bauer's recommendation cardiothoracic surgeon repeat RENEE should be done at the last week of therapy. RENEE was ordered today but unfortunately patient already had his breakfast and as per cardiology RENEE should be done on an empty stomach. Here at [facility] RENEE's are only done on Tuesdays and . Cardiology is off tomorrow due to . Patient could either have his RENEE at home which next Sunday or I can try to transfer him over to [facility] for a RENEE if possible. (2) SIRS (systemic inflammatory response syndrome) Is this a current diagnosis for this admission?: Yes Plan: Resolved. Evidenced by tachycardia, fever, elevated lactic acid. Most likely due to bacteremia/endocarditis. (3) Polysubstance abuse Is this a current diagnosis for this admission?: Yes Plan: Limit exposure to opiates and barbiturates. Occasional phenobarbital for headache. Strongly encourage inpatient detox/rehab post discharge. The patient has been given names of facilities. (4) Headache Qualifiers: Headache type: unspecified Intractability: not intractable Is this a current diagnosis for this admission?: Yes Plan: No opiates. Occasional Fioricet and more conventional therapies such as Tylenol and nonsteroidal anti-inflammatories. (5) Dental caries Is this a current diagnosis for this admission?: Yes Plan: As noted above this could be the etiology of a streptococcal endocarditis. We will encourage follow-up with a dentist post discharge. Continue chlorhexidine mouthwash. (6) Complaint of insomnia Is this a current diagnosis for this admission?: Yes Plan: Continue melatonin. (7) Acute encephalopathy Is this a current diagnosis for this admission?: Yes Plan: Resolved. Acute toxic encephalopathy most likely to to polysubstance abuse. (8) Bacteremia Is this a current diagnosis for this admission?: Yes Plan: Plan as per #1.
--- NOTE | 2019-06-18 17:11 | PSYCHOLOGICAL NOTE ---
Psych Note - Psych Note Date seen by psych provider: 06/18/19 Time seen by psych provider: 15:45 Psych Note: Reason for consult: R/O Depression Patient is a 23 year old male with a history of chronic substance abuse. Patient spoke frequently about the dysfunctional relationship between him and his father. Patient states he loves his father, however is tired of the games. Patient states he relies on his dad for his basic needs being met. Patient states he and his father are in a current disagreement over a shared sexual partner. Patient states he has engaged in substance abuse with his father. Patient states a history of crack, meth, and a little heroin use. Patient spoke of his high risk behaviors associated with substance use. Patient has engaged in intravenous drug use with used needles. Patient has been accused of rape, theft, and other crimes while engaged in substance use with others. Patient states he has a friend that would inject the drugs into his body for him because he would shake too bad to do it myself. Patient states he is willing to "put the hard drugs [meth, crack, heroin] down" but "not the pot." Patient verbalized a belief that marijuana is beneficial to his health. Patient denies suicidal ideation. Patient disclosed one suicidal ideation in high school. Patient stated he contacted a friend and told her she had until the time he was finished with his cigarette to get to him or hed pull the trigger. Patients friend arrived before the cigarette was out. Patient states it was a sign from God that he didnt want me to . Patient endorsed passive homicidal ideation of father while under the influence of substances. Patient could not remember when the homicidal ideation took place. Patient recalled a time in March 2018 that he thought about hurting animals just to watch them . Patient states he was messed up at the time. Patient stated he never acted on those thoughts. Patient states he will put down the crack and meth however will not discontinue marijuana use. Clinician provided psychoeducation on substance abuse and the risk of HIV/AIDS, TB, and Hepatitis C. Provided psychoeducation on the effects of drugs, specifically meth, crack, heroin, and marijuana on the brain and body. Encouraged patient to speak with his sash installer regarding continued marijuana use and its effect on his heart- to which patient was not agreeable. At this time, patient is not interested in mental health services or substance abuse treatment. Patient states his dad wants him to got to rehab as an act of manipulation. Patient denies mental health concerns. Patient is alert and oriented to person, place, time and circumstance. Mood is elevated with congruent affect as evidenced. Patient denies suicidal ideations. Patient endorsed passive homicidal ideation with no plan, intent, or means. There is no observed behavior that suggests patient is responding to internal stimuli. Patient denies current auditory and visual hallucinations. Delusions are absent, however thought processes are loosely associated. Eye contact is appropriate. Conversational speech is within normal rate, tone, and prosody, however somewhat pressured. Intellectual ability appears to be within average range. Attention and concentration are good. Insight, judgment and impulse control are currently poor. DSM Diagnosis: Substance Use Disorder, Severe; In a controlled environment Medication recommendations per [facility] contracted psychiatrist Dr. John MCCARTHY is as follows: Declined Impression/Plan: Patient is cleared from acute psychiatric services. Patient does not meet IVC criteria per [place] GS 122C. Patient denies suicidal ideation. Patient endorsed passive homicidal ideation with no plan, intent, or means. Patient does not remember a timeframe associated with the thought. There is no observed behavior that suggests patient is responding to internal stimuli. Patient denies auditory and visual hallucinations. Delusions are absent, however thought processes are loosely associated. Patient has an extensive substance abuse history. Clinician found it complicated to discern facts from experiences patient described while under the influence of multiple substances. Patient expresses a desire to be discharged from the hospital, however clinician is not optimistic of patients likelihood to abstain from polysubstance use and follow up with outpatient therapy. Patient relies on his father to have his basic needs met. Patient describes a dysfunctional relationship with his father that includes engaging in substance use together and with others. It is recommended that patient receive substance abuse treatment and mental health services. Patient was provided with a community outpatient mental health resource list and list of substance abuse treatment centers. Patient was encouraged to speak with sash installer regarding continued marijuana use. Patient was highly encouraged to seek substance abuse treatment at discharge. Dr. Burgess was consulted on the care and management of this patient; attending physician is in agreement with recommendations and disposition.
[2019-06-18] MEDS: MELATONIN 3 MG TABLET PO SCH (21:57)
[2019-06-18] MEDS: PHARMACY COMMUNICATION ORDER MC SCH (21:57)
[2019-06-19] MEDS: NAPROXEN 375 MG TABLET PO SCH ×2 (09:32→18:59)
[2019-06-19] MEDS: MULTIVITAMIN TABLET PO SCH (09:32)
[2019-06-19] MEDS: LACTOBACILLUS ACIDOPHILUS 250 MG TAB PO SCH ×2 (09:32→18:59)
[2019-06-19] MEDS: FERROUS SULFATE 325 MG TABLET PO SCH (09:32)
[2019-06-19] MEDS: CEFTRIAXONE 2 GM/D5W RTU 2 GM/50 ML RTUPB IV SCH (09:33)
[2019-06-19] MEDS: LIDOCAINE 5% (700 MG) TRANSDERMAL ADH..PATCH TP SCH (09:34)
--- NOTE | 2019-06-19 14:05 | PDOC PROGRESS REPORT ---
Subjective Progress Note for:: 06/19/19 Subjective:: The patient is a 23-year-old male with a past medical history of IV drug abuse, endocarditis status post aortic valve replacement, hypertension, anemia, viral meningitis, and thrombocytopenia who was admitted 05/08/2019 for Altered mental status; likely polysubstance abuse. 06/18/2019. No acute events overnight. Denies any fever, chills, nausea, vomiting, diarrhea, constipation or any urinary symptoms. Ambulatory, having normal bowel and bladder movements. 06/11/2019. No acute events overnight. Patient ambulatory, having normal bowel and bladder movements, denies any fever, chills, nausea, vomiting, diarrhea, constipation or any urinary symptoms. Patient was updated about his RENEE and the fact that we may not be able to do that until next Sunday. Patient voiced understanding but he is still thinking if he will stay until next Sunday for follow-up RENEE Reason For Visit: FEVER, AMS, SIRS Physical Exam Vital Signs: Temp Pulse Resp BP Pulse Ox 98.1 F 102 H 18 111/65 100 06/18/19 22:00 06/18/19 22:00 06/18/19 22:00 06/18/19 22:00 06/18/19 22:00 Intake & Output 06/18/19 06/19/19 06/20/19 06:59 06:59 06:59 Intake Total 2254 1564 800 Balance 2254 1564 800 Weight 62.1 kg 64.2 kg General appearance: PRESENT: no acute distress, well-developed, well-nourished Head exam: PRESENT: atraumatic, normocephalic Respiratory exam: PRESENT: clear to auscultation cassandra. ABSENT: rales, rhonchi, wheezes Cardiovascular exam: PRESENT: RRR, systolic murmur. ABSENT: diastolic murmur, rubs GI/Abdominal exam: PRESENT: normal bowel sounds, soft. ABSENT: distended, guarding, mass, organolmegaly, rebound, tenderness Extremities exam: PRESENT: full ROM. ABSENT: calf tenderness, clubbing, pedal edema Neurological exam: PRESENT: alert, awake, oriented to person, oriented to place, oriented to time, oriented to situation, CN II-XII grossly intact. ABSENT: motor sensory deficit Results Laboratory Results: 06/06/19 06:51 06/06/19 06:51 Impressions: Chest X-Ray 05/08/19 14:07 IMPRESSION: NO ACUTE RADIOGRAPHIC FINDING IN THE CHEST. Head CT 05/08/19 14:08 IMPRESSION: NORMAL BRAIN CT WITHOUT CONTRAST. EVIDENCE OF ACUTE STROKE: NO. Guidance Fluoroscopy 05/15/19 00:00 IMPRESSION: SUCCESSFUL PLACEMENT OF A 5 FR DUAL LUMEN 47 CM PICC IN THE LEFT BASILIC VEIN. Interventional Vascular Procedure 05/15/19 00:00 IMPRESSION: SUCCESSFUL PLACEMENT OF A 5 FR DUAL LUMEN 47 CM PICC IN THE LEFT BASILIC VEIN. PICC Line Insertion 05/15/19 00:00 IMPRESSION: SUCCESSFUL PLACEMENT OF A 5 FR DUAL LUMEN 47 CM PICC IN THE LEFT BASILIC VEIN. Assessment and Plan - Diagnosis (1) Endocarditis Qualifiers: Endocarditis type: infective Infective endocarditis organism: bacterial Chronicity: acute Qualified Code(s): I33.0 - Acute and subacute infective endocarditis Is this a current diagnosis for this admission?: Yes Plan: No changes in plan or medication condition. RENEE confirms vegetation to his Prosthetic aortic valve measuring 1.26 cm x 0.91 cm. LVEF is normal. There is no vegetation noted on the mitral valve. Blood cultures (05/08/2019) revealed strep viridans. Repeat blood cultures 05/09/2019 are negative Repeat RENEE (05/21/19) aortic valve vegetation measured slightly smaller; valve remains stable with only trace regurgitation. Vancomycin discontinued Day #5 Infectious disease consulted; have increased Rocephin to 2 gm daily per ID recommendations. Stop date 06/20/19. Previously consulted the patient's cardiothoracic surgeon at [facility], Dr. Bauer, by phone. Dr. Bauer did the patient's aortic valve replacement surgery 11/15/2018. Dr. Bauer recommends repeat RENEE again during last week of therapy to confirm clearance; if vegetation remains, extend antibiotic treatment course. Last day of antibiotic 06/20/2019. As per Dr. Bauer's recommendation cardiothoracic surgeon repeat RENEE should be done at the last week of therapy. RENEE was ordered 06/18/2019 but unfortunately patient already had his breakfast and as per cardiology RENEE should be done on an empty stomach. Here at [facility] RENEE's are only done on Tuesdays and . Cardiology is off tomorrow due to weekend. Patient updated about a RENEE and voiced understanding, she was still thinking if he would stay until next Sunday to undergo his RENEE. (2) SIRS (systemic inflammatory response syndrome) Is this a current diagnosis for this admission?: Yes Plan: Resolved. Evidenced by tachycardia, fever, elevated lactic acid. Most likely due to bacteremia/endocarditis. (3) Polysubstance abuse Is this a current diagnosis for this admission?: Yes Plan: Limit exposure to opiates and barbiturates. Occasional phenobarbital for headache. Strongly encourage inpatient detox/rehab post discharge. The patient has been given names of facilities. Note: on 06/18/2019 concern was read by primary nurse that patient stating that he might be depressed. Psychiatry was consulted and patient was cleared from acute psychiatric services. Please refer to note. No medication recommendation was made. (4) Headache Qualifiers: Headache type: unspecified Intractability: not intractable Is this a current diagnosis for this admission?: Yes Plan: No opiates. Occasional Fioricet and more conventional therapies such as Tylenol and nonsteroidal anti-inflammatories. (5) Dental caries Is this a current diagnosis for this admission?: Yes Plan: As noted above this could be the etiology of a streptococcal endocarditis. We will encourage follow-up with a dentist post discharge. Continue chlorhexidine mouthwash. (6) Complaint of insomnia Is this a current diagnosis for this admission?: Yes Plan: Continue melatonin. (7) Acute encephalopathy Is this a current diagnosis for this admission?: Yes Plan: Resolved. Acute toxic encephalopathy most likely to to polysubstance abuse. (8) Bacteremia Is this a current diagnosis for this admission?: Yes Plan: Plan as per #1.
[2019-06-19] MEDS: PHARMACY COMMUNICATION ORDER MC SCH (21:42)
[2019-06-19] MEDS: MELATONIN 3 MG TABLET PO SCH (21:42)
[2019-06-20] MEDS: NAPROXEN 375 MG TABLET PO SCH (09:07)
[2019-06-20] MEDS: FERROUS SULFATE 325 MG TABLET PO SCH (09:09)
[2019-06-20] MEDS: MULTIVITAMIN TABLET PO SCH (09:09)
[2019-06-20] MEDS: LACTOBACILLUS ACIDOPHILUS 250 MG TAB PO SCH (09:09)
[2019-06-20] MEDS: LIDOCAINE 5% (700 MG) TRANSDERMAL ADH..PATCH TP SCH (09:10)
[2019-06-20] MEDS: CEFTRIAXONE 2 GM/D5W RTU 2 GM/50 ML RTUPB IV SCH (10:26)
[2019-06-20 12:27] VITALS: BP 118/66
--- NOTE | 2019-06-21 14:43 | Left Against Medical Advice ---
Against Medical Advice Admission Date/Time: 05/08/19 15:36 Primary Care Provider: LINO DUFF NP Date of Patient Emigration: 06/20/19 - Diagnosis: (1) Endocarditis Is this a current diagnosis for this admission?: Yes (2) SIRS (systemic inflammatory response syndrome) Is this a current diagnosis for this admission?: Yes (3) Polysubstance abuse Is this a current diagnosis for this admission?: Yes (4) Headache Is this a current diagnosis for this admission?: Yes (5) Dental caries Is this a current diagnosis for this admission?: Yes (6) Complaint of insomnia Is this a current diagnosis for this admission?: Yes (7) Acute encephalopathy Is this a current diagnosis for this admission?: Yes (8) Bacteremia Is this a current diagnosis for this admission?: Yes - Summary: Summary: Please see Admission and Progress Notes as well. DONAVAN FALCON is a 23 M, who LEFT AGAINST MEDICAL ADVICE. The Patient was admitted on 05/08/19 15:36. 23-year-old male with past medical history of IV drug abuse, endocarditis status post aortic valve replacement, hypertension, anemia, viral meningitis and thrombocytopenia to ED by EMS, as per EMS they were called by the patient attempting to get him and drink, when he presented to his room he was found on the floor confused. In ED he was found to be mildly hypotensive tachycardic, febrile, with elevated lactic acid, hospital was consulted for admission. On my encounter patient is awake however very altered, alert, only oriented to self, does not provide much history, does not seem to be in any apparent distress however seems to be hypervigilant. (1) Endocarditis RENEE confirms vegetation to his Prosthetic aortic valve measuring 1.26 cm x 0.91 cm. LVEF is normal. There is no vegetation noted on the mitral valve. Blood cultures (05/08/2019) revealed strep viridans. Repeat blood cultures 05/09/2019 are negative Repeat RENEE (05/21/19) aortic valve vegetation measured slightly smaller; valve remains stable with only trace regurgitation. Vancomycin discontinued Day #5 Infectious disease consulted; have increased Rocephin to 2 gm daily per ID recommendations. Stop date 06/20/19. Previously consulted the patient's cardiothoracic surgeon at [facility], Dr. Bauer, by phone. Dr. Bauer did the patient's aortic valve replacement surgery 11/15/2018. Dr. Bauer recommends repeat RENEE again during last week of therapy to confirm clearance; if vegetation remains, extend antibiotic treatment course. Last day of antibiotic 06/20/2019. As per Dr. Bauer's recommendation cardiothoracic surgeon repeat RENEE should be done at the last week of therapy. RENEE was ordered 06/18/2019 but unfortunately patient already had his breakfast and as per cardiology RENEE should be done on an empty stomach. Here at [facility] RENEE's are only done on Tuesdays and . Cardiology is off due to . Patient received 6 weeks of IV antibiotics last day 06/20/2019 unfortunately we were not able to get a RENEE as patient decided to leave AMA. Patient alert oriented x4, ambulatory, p.o. tolerant, having normal bowel and bladder movements, vitals all within normal limits time of leaving AMA. Patient was extensively counseled about the risk of leaving AMA without getting a RENEE to confirm that there was no vegetation left; however he still was adamant about leaving AMA. Patient was told that he could either wait until next Sunday to get his RENEE here at [facility] or I could try to transfer him to a tertiary hospital, either [facility] or [facility] however patient stated that he has not made up his mind and he would like to leave AMA. Patient was advised to come back to ED if he develops any shortness of breath, fever, chills or any sign of infection. Patient voiced understanding. (2) SIRS (systemic inflammatory response syndrome) Resolved. WAs evidenced by tachycardia, fever, elevated lactic acid. Most likely due to bacteremia/endocarditis. (3) Polysubstance abuse Limited exposure to opiates and barbiturates. Occasional phenobarbital for headache. Strongly encourage inpatient detox/rehab post discharge. The patient has been given names of facilities. Note: on 06/18/2019 concern was read by primary nurse that patient stating that he might be depressed. Psychiatry was consulted and patient was cleared from acute psychiatric services. Please refer to note. No medication recommendation was made. (4) Headache No opiates. Occasional Fioricet and more conventional therapies such as Tylenol and nonsteroidal anti-inflammatories. (5) Dental caries As noted above this could be the etiology of a streptococcal endocarditis. We will encourage follow-up with a dentist post discharge. Continue chlorhexidine mouthwash. (6) Complaint of insomnia Continued on melatonin. (7) Acute encephalopathy Resolved. Acute toxic encephalopathy most likely to to polysubstance abuse. (8) Bacteremia Plan as per #1.
== END 2019-06-20 12:39 | disposition left against medical advice (07) | DRG 314 ==
LOC: ER 13:15 → EH 15:36 → 3W 18:05 → 5 05-19 02:12 → 3W 05-19 02:25 → 5 06-04 15:38
PROVIDERS: ADMIT Internal Medicine; ATTEND Internal Medicine
PROC: B24BZZ4 Ultrasonography of Heart with Aorta, Transesophageal (ICD-10-PCS; 2019-05-13)
PROC: 02HV33Z Insertion of Infusion Device into Superior Vena Cava, Percutaneous Approach (ICD-10-PCS; principal; 2019-05-15)
PROC: B548ZZA Ultrasonography of Superior Vena Cava, Guidance (ICD-10-PCS; 2019-05-15)
PROC: B518ZZA Fluoroscopy of Superior Vena Cava, Guidance (ICD-10-PCS; 2019-05-15)
PROC: B24BZZ4 Ultrasonography of Heart with Aorta, Transesophageal (ICD-10-PCS; 2019-05-21)
DX: T82.6XXA Infection and inflammatory reaction due to cardiac valve prosthesis, initial encounter (principal); I33.0 Acute and subacute infective endocarditis; G92 Toxic encephalopathy; A41.9 Sepsis, unspecified organism; R65.20 Severe sepsis without septic shock; B95.4 Other streptococcus as the cause of diseases classified elsewhere; Y71.2 Prosthetic and other implants, materials and accessory cardiovascular devices associated with adverse incidents; Y92.009 Unspecified place in unspecified non-institutional (private) residence as the place of occurrence of the external cause; Z95.2 Presence of prosthetic heart valve; F17.200 Nicotine dependence, unspecified, uncomplicated; G47.00 Insomnia, unspecified; I10 Essential (primary) hypertension; J45.909 Unspecified asthma, uncomplicated; K02.9 Dental caries, unspecified; F13.10 Sedative, hypnotic or anxiolytic abuse, uncomplicated; I95.9 Hypotension, unspecified; F14.10 Cocaine abuse, uncomplicated; F11.10 Opioid abuse, uncomplicated; F12.10 Cannabis abuse, uncomplicated; D50.9 Iron deficiency anemia, unspecified; M54.5 Low back pain
CPT/HCPCS: 36415; 36569; 70450; 71045; 76937; 77001; 80048; 80053; 80202; 80307; 81001; 82607; 82728; 82746; 82803; 82962; 83540; 83550; 83605; 83735; 85025; 85027; 85045; 85610; 85652; 87040; 87077; 87150; 87186; 93005; 93010; 93312; 93325; 96374; 99291; J0692; J0696; J1200; J1630; J1642; J1650; J2060; J2250; J2310; J2405; J3010; J3370; J3411; J3475; J3480; J3490; J7030; J7042; J7060